=== PATIENT | female | born 1955 | race Caucasian/White ===

== ENCOUNTER 2023-03-12 07:33 | Outpatient (OUT) | payer MEDICARE, OTHER, SELFPAY ==
--- NOTE | 2023-03-12 07:30 | CA_ITS ---
Patient: CHUYITA CAVANAUGH Exam Date: 03/12/2023 : 1955 Gender:F Ordering : [facility] Admission #: [id number] Family : Order #: [id number] CLICK HERE TO VIEW EXAM ECHOCARDIOGRAM REPORT PROCEDURE: CA ECHO DOPPLER COMPLETE INDICATIONS: Mitral valve regurgitation, hypertension COMPARISON: None. DESCRIPTION: COMPLETE ECHOCARDIOGRAM Real-time transthoracic echocardiography with 2D, M-mode, spectral and color flow Doppler performed. QUALITY: Technical quality was good. LEFT VENTRICLE: Mild dilatation. Borderline left ventricular hypertrophy. Normal systolic function. LV EF: Normal left ventricular ejection fraction, (55-60%). DIASTOLIC: Normal diastolic function. ATRIAL SEPTUM: LEFT ATRIUM: Normal chamber size. RIGHT ATRIUM: Normal chamber size. RIGHT VENTRICLE: Normal chamber size. Normal right ventricular systolic function. TRICUSPID VALVE: Normal mobility and thickness. No stenosis with trivial regurgitation. No evidence of pulmonary hypertension. RVSP 23 mmHg MITRAL VALVE: Normal mobility and thickness. No evidence of mitral valve stenosis. Mild mitral annular calcification. Mild mitral regurgitation. AORTIC VALVE: Normal trileaflet appearance. No visible sclerosis. Normal leaflet mobility. No evidence of aortic valve stenosis. No aortic regurgitation. AORTIC ROOT: Normal diameter and appearance. PULMONIC VALVE: Normal thickness and mobility. No stenosis. Mild regurgitation. PERICARDIUM: No evidence of pericardial effusion. IVC: Not well visualized. PLEURA: CONCLUSION: 1. Normal ventricular systolic function. LVEF is 55 to 60%. 2. Normal diastolic function. 3. Mild mitral regurgitation. 4. Normal right-sided pressures. Adult Echocardiography Procedure Report Left Ventricle LVEDD (3.7 - 5.6 cm): 5.49 cm LVESD (2.2 - 4.0 cm): 3.96 cm LVIVS thickness (0.6 - 1.2 cm): 1.13 cm LVPW thickness (0.5 - 1.0 cm): 1.00 cm e': 0.09 m/s E - e': 4.45 LVOT Max Gradient: 2.20 mm[Hg] LVOT Area (cm2): 0.74 m/s Peak Velocity (LVOT): 0.74 m/s LVOT Diameter 2.21 cm Left Atrium LA Volume Index (2D A2C): 33.16 ml/m2 Left Atrium Systolic Dimension: 5.13 cm Mitral Valve MV E to A Ratio: 0.69 Mitral Valve A-Wave Peak Velocity: 0.56 m/s Mitral Valve E-Wave Peak Velocity: 0.39 m/s Right Ventricle Aorta AO Root Diam: 3.38 cm Ascending Ao Diam: 3.48 cm Aortic Valve AoV Area (Peak Enoc): 2.42 cm2, 2.42 cm2 Peak Velocity(Antegrade Flow): 1.17 m/s Peak Gradient(Antegrade Flow): 5.49 mm[Hg] Tricuspid Valve Peak Velocity (Regurgitant Flow): 2.22 m/s Pulmonic Valve Peak Velocity: 1.04 m/s Peak Gradient: 4.35 mm[Hg], 4.35 mm[Hg] Right Atrium Right Atrium Systolic Pressure: 35.02 ml, 28.95 ml, 41.09 ml Dictated by: Haseeb Treadwell M.D. on 03/13/2023 at 17:20 Approved by: Haseeb Treadwell M.D. on 03/13/2023 at 17:23
== END 2023-03-12 07:34 | disposition home or self-care (01) ==
LOC: CARD 07:33
PROVIDERS: Visit Provider Nurse Practitioner Family
DX: I34.0 Nonrheumatic mitral (valve) insufficiency (principal)
CPT/HCPCS: 93306

== ENCOUNTER 2023-03-19 09:52 | Outpatient (OUT) | payer MEDICARE, OTHER, SELFPAY ==
[2023-03-19 11:50] LABS: Alanine Aminotransferase 28 U/L (14-59); Albumin Globulin Ratio 1.1; Alkaline Phosphatase 97 U/L (46-116); Aspartate Amino Transferase 20 U/L (15-37); Bilirubin Direct 0.1 mg/dL (0.0-0.2); Bilirubin Total 0.4 mg/dL (0.2-1.0); Cholesterol 181 mg/dL (<=200); Globulin 3.5 g/dL; HDL Cholesterol 60 mg/dL (40-60); Total Protein 7.5 g/dL (6.4-8.2); Triglycerides 90 mg/dL (<=150)
== END 2023-03-19 09:53 | disposition home or self-care (01) ==
LOC: LAB 09:52
PROVIDERS: Visit Provider Internal Medicine Interventional Cardiology
DX: E78.5 Hyperlipidemia, unspecified (principal)
CPT/HCPCS: 36415; 80061; 80076

== ENCOUNTER 2023-05-23 08:26 | Day surgery (SDC) | payer MEDICARE, OTHER, SELFPAY ==
--- NOTE | 2023-05-23 08:34 | US_ITS ---
[address] [address] Patient Name: CHUYITA CAVANAUGH MRN: [id number] date: 1955 Sex: F Assigned Patient Location: US Current Patient Location: US Accession/Order Number: [id number] Exam Date: 05/23/2023 09:15 Report Date: 05/23/2023 10:10 At the request of: CHETAN SOTO Procedure: US biopsy thyroid EXAMINATION: US biopsy thyroid HISTORY: Thyroid Nodule COMPARISON: Ultrasound thyroid 04/23/2023 TECHNIQUE: After obtaining informed consent, ultrasound-guided fine needle aspiration was performed in the usual sterile manner. FINDINGS: IMAGING: Ultrasound. BIOPSY NEEDLE: 25-gauge; 3 separate passes LOCATION: Right isthmus heterogeneous 1.4 x 1.1 x 0.8 cm nodule. SPECIMEN TYPE: Cellular tissue. LOCAL ANESTHETIC: Buffered Xylocaine. COMPLICATIONS: None. LABORATORY: Prepared slide smears and washings for cell block evaluation. OTHER: Negative. PATHOLOGY: Pending. An addendum will be added when results are available. US/US biopsy thyroid IMPRESSION: 1. Uneventful ultrasound guided fine needle aspiration (FNA). 2. Pathology results are pending. Electronically authenticated by: THUY DARDEN Date: 05/23/2023 10:10
[2023-05-23 08:40] VITALS: BP 113/58; PULSE 62; O2SAT 92
[2023-05-23] MEDS: LIDOCAINE HCL 10 ML, SODIUM BICARBONATE 1 MEQ INJ (09:25)
== END 2023-05-23 09:45 | disposition home or self-care (01) ==
LOC: US 08:26
PROVIDERS: Radiology Diagnostic Radiology; Visit Provider Otolaryngology
DX: E04.1 Nontoxic single thyroid nodule (principal)
CPT/HCPCS: 10005; 88173

== ENCOUNTER 2023-06-10 20:48 | Outpatient (OUT) | payer MEDICARE, OTHER, SELFPAY | END 2023-06-10 20:49 | disposition home or self-care (01) | LOC: SLEEP 20:48 | PROVIDERS: PCP Family Medicine; Visit Provider Family Medicine | DX: G47.33 Obstructive sleep apnea (adult) (pediatric) (principal) | CPT/HCPCS: 95810 ==

== ENCOUNTER 2024-01-26 08:54 | Outpatient (OUT) | payer MEDICARE, OTHER, SELFPAY ==
--- NOTE | 2024-01-26 09:01 | MM_ITS ---
Patient Name: CHUYITA CAVANAUGH MR#: [id number] : 1955 Exam Date: 01/26/2024 Ordering Doctor: DR YUMIKO VALENZUELA RADIOLOGY REPORT PROCEDURE: MM TOMOSYNTHESIS SCREENING BI COMPARISON: MG MAMM SCREEN 3D MATTY CAD, 01/14/2022. MG MAMM SCREEN 3D MATTY CAD, 01/15/2023. INDICATIONS: Screening Calculator Name NCI Breast Cancer Risk Assessment Tool 5 Year Breast Cancer Risk 1.80% Lifetime Breast Cancer Risk 5.90% Personal Breast Cancer No Personal Ovarian Cancer No Treatments tamoxifen Family Cancers Mother with uterine cancer at age 73; Father with prostate cancer at age 74; Grandmother-maternal with kidney cancer at age 93; Grandfather-maternal with leukemia cancer at age ~87. LOCATION: [facility] BREAST COMPOSITION: There are scattered areas of fibroglandular density. FINDINGS: DIAGNOSTIC CATEGORY 2--BENIGN FINDING. NO CHANGE FROM COMPARISON. Scattered benign-appearing nodules are present. Scattered benign-appearing calcifications are present. Scattered benign-appearing lymph nodes are present. RIGHT BREAST: No significant suspicious finding. LEFT BREAST: No significant suspicious finding. RECOMMENDATIONS: ROUTINE MAMMOGRAM AND CLINICAL EVALUATION IN 12 MONTHS. PLEASE NOTE: A NORMAL MAMMOGRAM DOES NOT EXCLUDE THE POSSIBILITY OF BREAST CANCER. A CLINICALLY SUSPICIOUS PALPABLE LUMP SHOULD BE BIOPSIED. Dictated by: Sammy Hernandez MD on 01/26/2024 at 09:52 Approved by: Sammy Hernandez MD on 01/26/2024 at 09:54
--- NOTE | 2024-01-26 09:02 | XR_ITS ---
[address] [address] Patient Name: CHUYITA CAVANAUGH MRN: [id number] date: 1955 Sex: F Assigned Patient Location: [facility] Current Patient Location: [facility] Accession/Order Number: [id number] Exam Date: 01/26/2024 09:16 Report Date: 01/26/2024 09:37 At the request of: YUMIKO VALENZUELA Procedure: XR DEXA axial skeleton EXAMINATION: XR DEXA axial skeleton, 01/26/2024 9:16 AM EDT HISTORY: Screening For Osteoporosis COMPARISON: 2010 TECHNIQUE: Dual-energy X-ray absorptiometry (DEXA) bone density study performed for the axial skeleton. HISTORY: Screening For Osteoporosis FINDINGS: Bone mineral density AP spine L1-L4 measures 1.19 g/sq cm. T score -0.5. WHO classification: Normal Lowest bone mineral density left femoral neck measures 0.815 g/sq cm. T score -1.6. WHO classification: Osteopenia XR/XR DEXA axial skeleton IMPRESSION: Osteopenia. Moderate fracture risk Electronically authenticated by: ALEX NEWELL Date: 01/26/2024 09:37
== END 2024-01-26 08:55 | disposition home or self-care (01) ==
LOC: MAMMO 08:54
PROVIDERS: PCP Family Medicine; Visit Provider Specialist
DX: Z12.31 Encounter for screening mammogram for malignant neoplasm of breast (principal); Z13.820 Encounter for screening for osteoporosis; Z78.0 Asymptomatic menopausal state; Z80.8 Family history of malignant neoplasm of other organs or systems; Z80.42 Family history of malignant neoplasm of prostate; Z80.51 Family history of malignant neoplasm of kidney; Z80.6 Family history of leukemia; M85.80 Other specified disorders of bone density and structure, unspecified site
CPT/HCPCS: 77063; 77067; 77080

== ENCOUNTER 2025-05-02 07:57 | Outpatient (OUT) | payer MEDICARE, OTHER, SELFPAY ==
--- OUTSIDE RECORDS SUMMARY | 2025-04-27 13:00 | XMS_ITS | Encounter Summary ---
Author Organization [facility] Address [address] [place] [address] Care Team Providers Care Small Equipment Operator Name Role Phone Max Jean Baptiste MD Primary Care Provider [phone] Reason for Visit * Reason Comments Post-op Visit Accompanied by Terrell baker nd.04-14-25 posterior daysStill bleeding- not gushing, but consistent. Bright red. Wears a light pad. Reports urgency, bladder not fully emptying. Has urinated in pad. Does not always make it to the bathroom. Encounter Details Date Type Department Care Team (Late st Contact Info) Description 04/27/2025 1:00 PM EDT Office Visit [facility] [place] [facility] [address] [facility] [address] [place] [phone] Neto Horton DO [address] [facility] [address] [place] [address] Aftercare following surgery Social History Tobacco Use Types Packs/Day Years Used Date Smoking Tobacco: Never Smokeless Tobacco: Never Alcohol Use Standard Drinks/Week Comments Never 0 (1 standard drink = 0.6 oz pur e alcohol) AUDIT-C Answer Date Recorded Q1: How often do you have a drink containing alcohol? Never 02/04/2024 Q2: How many drinks containi ng alcohol do you have on a typical day when you are drinking? Patient does not drink Q3: How often do you have si x or more drinks on one occasion? Never 02/04/2024 PHQ-2 Answer Date Recorded Patient Health Questionnaire-2 Score 0 02/04/2024 Comments No Sex and Gender Information Value Date Recorded Sex Assigned at Not on file Legal Sex Female 6:42 PM EDT Gender Identity Not on file Sexual Orientation Not on file documented as of this encounter Last Filed Vital Signs Vital Sign Reading Time Taken Comments Blood Pressure 136/84 04/27/2025 12:40 PM EDT Pulse - - Temperature - - Respiratory Rate - - Oxygen Saturation - - Inhaled Oxygen Concentration - - Weight 100 kg (221 lb) 04/27/2025 12:40 PM EDT Height - - Body Mass Index 36.78 11/02/2024 7:59 AM EST documented in this encounter Progress Notes * Bina Hawkins MA - 04/27/2025 1:00 PM EDT Images from the original note were not included. Neto Horton DO Obstetrics and Gynecology Patient: Nemo Cedillo : 1955 (69 y.o.) Post Operative visit Date: 04/27/2025 Chief Complaint Patient presents with Post-op Visit Accompanied by , Terrell. 04-14-25 posterior repair 13 days Still bleeding- not gushing, but consistent. Bright red. Wears a light pad. Reports urgency, bladder not fully emptying. Has urinated in pad. Does not always make it to the bathroom. Visit Vitals BP 136/84 Wt 221 lb LMP (LMP Unknown) BMI 36.78 kg/m?? OB Status Hysterectomy Smoking Status Never BSA 2.14 m?? History of Present Illness, Associated Treatments and Results - Postoperative Follow-up Patient is a 69 y.o. 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 Eating a regular diet without difficulty. Bowel movements are normal. The patient is not having anypain. Patient denies swelling, redness, or discharge from her incision. OB History Para Term AB Living 4 4 4 SAB IAB Ectopic Multiple Live Births 4 # Outcome Date GA Lbr Omer/2nd Weight Sex Type Anes PTL Lv 4 Para Vag-Spont DEC 3 Para Vag-Spont NILESH 2 Para Vag-Spont NILESH 1 Para Vag-Spont NILESH Obstetric Comments Heaviest weighed 10 lbs 10 oz. Review of Systems-see HPI Medication Documentation Review Audit Reviewed by Tammy Wang MA (Higher Level Teaching Assistant) on 04/27/25 at 1240 Medication Order Taking? Sig Documenting Provider Last Dose Status acetaminophen (Tylenol) 325 MG tablet [id number] Take by mouth Sylwia Carcamo MD Active amLODIPine (Norvasc) 5 MG tablet [id number] Take 5 mg by mouth in the morning. Adan Bustillo MD 11/02/24 2359 amoxicillin (Amoxil) 500 MG capsule [id number] Neto Horton DO Active aspirin 81 MG chewable tablet [id number] Chew 81 mg 1 (one) time each day at the same time. Adan Bustillo MD Active bisoprolol-hydroCHLOROthiazide (Ziac) 10-6.25 MG tablet [id number] Take 1 tablet by mouth in the morning. Adan Bustillo MD 11/02/24 2359 Calcium 600-10 MG-MCG chewable tablet [id number] Chew 1 tablet in the morning. Adan Bustillo MD Active celecoxib (CeleBREX) 100 MG capsule [id number] Yes Twice daily Neto Horton DO Active estradiol (Estrace) 0.1 MG/GM vaginal cream [id number] Insert twice weekly Eve Carlos MD Active glucosamine-chondroitin 500-400 MG tablet [id number] Take 1 tablet by mouth in the morning. Historical MD Keny Active Multiple Vitamins-Minerals (Thera-M) tablet [id number] Take 1 tablet by mouth in the morning. Adan Bustillo MD Active niacin (Slo-Niacin) 500 MG ER tablet [id number] Take 500 mg by mouth at bedtime. Adan Bustillo MD Active omega-3 (Fish Oil) 1200 MG capsule [id number] Take 1,200 mg by mouth 1 (one) time each day at the same time. Adan Bustillo MD Active traMADol (Ultram) 50 MG tablet [id number] Yes Q4H as needed for Pain Scale 1 - 4 Neto Horton DOActive Past Medical History: Diagnosis Date Abnormal CT of the abdomen 05/09/2023 Anemia Anxiety Arthritis Breast cancer in situ 05/2008 lobular Breast lump Cataract Chicken pox COVID-19 04/2022 Depression Disease of thyroid gland 2020 Disorder of 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 Eczema winter Family history of cancer GERD (gastroesophageal reflux disease) Hiatal hernia History of kidney stones History of medical problems liver stenosis History of transfusion 1977 HL (hearing loss) HLD (hyperlipidemia) HTN (hypertension) Hypercholesterolemia IBS (irritable bowel syndrome) Kidney stones Lobular breast cancer (HCC) 05/2008 Lung nodule Measles Menopause ovarian failure 2010 Mitral valve regurgitation Mucocele, 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 Nodule of spleen Obesity Pain in left knee 05/09/2023 Prediabetes Sleep apnea Sleep difficulties Status post total left knee replacement 10/15/2018 Thyroid mass Urinary incontinence 2019 Past Surgical History: Procedure Laterality Date ANTERIOR CRUCIATE LIGAMENT REPAIR APPENDECTOMY 01/28/2022 BREAST BIOPSY 2007 BREAST LUMPECTOMY Left 10/2006 CARDIAC CATHETERIZATION 02/2005 CARPAL TUNNEL RELEASE Left 07/2016 CHOLECYSTECTOMY 06/2009 COLONOSCOPY 2009 COLPORRHAPHY 04/14/2025 posterior FNA W IMAGING GUIDANCE Left 07/31/2021 thyroid nodule LITHOTRIPSY 09/2014 OTHER SURGICAL HISTORY 06/2000 repair ruptured RT ACL, Dr. Murray OTHER SURGICAL HISTORY 1981 tubal THYROIDECTOMY Left 10/09/2021 Dr. Carcamo TONSILLECTOMY 1960 TOTAL KNEE ARTHROPLASTY Left 10/16/2018 Dr. Murray TOTAL VAGINAL HYSTERECTOMY 2012 with LSO TUBAL LIGATION 1982 Family History Problem Relation Name Age of Onset Hyperlipidemia Mother Jaja ambrosio Heart failure Mother Jaja ambrosio Diabetes Mother Jaja ambrosio Uterine cancer Mother Jaja ambrosio Hearing loss Mother Jaja ambrosio Other (ASCVD) Mother Jaja ambrosio Colon polyps Mother Jaja ambrosio Hypertension Mother Jaja ambrosio Cancer Mother Jaja ambrosio Thyroid disease Mother Jaja ambrosio Heart failure Father Ari millannden Hypertension Father Ari millanndluli Other (ASCVD) Father Ari millanndluli Cancer Father Ari millannden Cancer Sister Michi c harnden Hearing loss Sister Michi c harnden Heart failure Sister Michi c harnden Thyroid disease Sister Michi c harnden Physical Exam - General appearance, mentation, extraocular movements, facial strength and movement, hearing, upper and lower extremity strength and tone, sensation to gross testing, coordination, and gait are normalor at baseline unless noted below. 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 Operative findings again reviewed. Pathology report discussed. 1. Continue any current medications. 2. Wound care discussed. 3. Activity restrictions: no heavy lifting 4. Anticipated return to work: not applicable. 5. Follow up: 4 weeks ICD-10-CM 1. Aftercare following surgery Z48.89 Entered by Bina Hawkins MA acting as scribe for Dr. Neto Horton. Signature Bina Hawkins MA Date 04/27/25 . Time 12:53 PM . The documentation recorded by the scribe accurately reflectsthe service(s) I personally performed and the decisions I made. Signature Marcell Horton D.O. Date 04/27/25 Time 5:00PM. documented in this encounter Plan of Treatment Upcoming Encounters Date Type Department Care Team (Late st Contact Info) Description 05/24/2025 10:45 AM EDT Office Visit [facility] [address] [facility] [address] [place] [phone] Neto Horton DO [address] [facility] [address] [place] [address] 11/01/2025 8:00 AM EST Office Visit [facility] [address] [facility] [address] [place] [address] Sylwia Carcamo MD [address] [facility] [address] [place] [address] 02/27/2026 9:00 AM EDT Office Visit [facility] [address] [facility] [place] [address] Chip Tejeda DO [address] [facility] [place] [address] documented as of this encounter Visit Diagnoses Diagnosis Aftercare following surgery Encounter for other specified aftercare documented in this encounter Care Teams Small Equipment Operator Relationship Specialty Start Date End Date Max Jean Baptiste MD [address] [place] [address] PCP - General Family Medicine 05/12/24 documented as of this encounter
--- OUTSIDE RECORDS SUMMARY | 2025-05-02 07:59 | XMS_ITS | Encounter Summary ---
Author Organization [facility] Address [address] [place] [address] Care Team Providers Care Vacuum Pan Tender Name Role Phone Max Jean Baptiste MD Primary Care Provider [phone] Encounter Details Date Type Department Care Team (Late Contact Info) Description 05/03/2024 External Result Encounter [facility] External Department Unsolicited Sylwia Carcamo MD [address] [facility] [address] [place] [address] Social History Tobacco Use Types Packs/Day Years [...] on file documented as of this encounter Plan of Treatment Upcoming Encounters Date Type Department Care Team (Late Contact Info) Description 05/24/2025 10:45 AM EDT Office Visit [facility] [address] [place] [address] Neto Horton, [address] [place], [place] [id number] 11/01/2025 8:00 AM EST Office Visit [facility] [place] [facility] [address] [facility] [address] [place] [address] Sylwia Carcamo MD [address] [facility] [address] [place] [address] 02/27/2026 9:00 AM EDT Office Visit [facility] [address] [place] [address] Chip Tejeda DO [address] [facility] [place] [address] documented as of this encounter Procedures Procedure Name Priority Date/Time Associated Diagnosis Comments US THYROID 05/03/2024 12:25 PM EDT documented in this encounter Results * US thyroid (05/03/2024 12:25 PM EDT) Anatomical Region Laterality Modality Head, Neck Ultrasound 05/03/2024 12:2 5 PM EDT Impressions 05/03/2024 12:30 PM EDT A similar thyroid nodules. Similar questionable residual thyroid tissue on the left. No new findings. Impression dictated by: Basil Trotter M.D.05/03/2024 12:28 PM Dictation Location: [place] [address] Tech: Clover Rivera Transcribed By: PWS 05/03/24 1228 Dictated By: Bsail Trotter DO 05/03/24 1225 Signed By: <Electronically signed by Basil Trotter DO in OV> 05/03/24 1228 Narrative 05/03/2024 12:30 PM EDT [facility] [place] [address] [place] [id number] Ultrasound Report Signed Patient: Nemo Cedillo MR#: [id number] 9 : 1955 Acct:[id number] Age/Sex: 68 / F ADM Date: 05/03/24 Loc: UL Room: Type: REG CLI Attending Dr: Sylwia Carcamo Jr, MD Ordering Provider: SYLWIA CARCAMO MD Date of Service: 05/03/24 US/US thyroid: thyroid nodule Copies to: SYLWIA CARCAMO MD Thyroid Ultrasound HISTORY: Thyroid nodule. Left thyroidectomy COMPARISON: None The RIGHT lobe measures 4.4 x 1.9 x 2.1cm. LEFT lobe resected Isthmus has an AP dimension of 0.5cm. The right mid to inferior solid cystic nodule measures up to 5 mm. Right inferior spongiform nodule measures up to 6 mm. In region of the isthmus on the right there is a mixed echogenic nodule measuring up to 17 mm. Small modified hypoechoic tissue on the left measures up to 7 mm. This is unchanged.. No microcalcifications identified. Symmetric blood flow of the thyroid gland identified. US/US thyroid Procedure Note Radiology, Radiologist, MD - 05/03/2024 [facility] [place] [address] [place] [address] Ultrasound Report Signed Patient: Nemo Cedillo [facility]#: [id number] 9 : 6Acct:[id number] Age/Sex: 68 / FADM Date: 05/03/24 Loc: Room:Type: REG CLI Attending Dr: Sylwia Carcamo Jr, MD Ordering Provider: SYLWIA CARCAMO MD Date of Service: 05/03/24 US/US thyroid: thyroid nodule Copies to: SYLWIA CARCAMO MD Thyroid Ultrasound HISTORY: Thyroid nodule. Left thyroidectomy COMPARISON: None The RIGHT lobe measures 4.4 x 1.9 x 2.1cm. LEFT lobe resected Isthmus has an AP dimension of 0.5cm. The right mid to inferior solid cystic nodule measures up to 5 mm. Rightinferior spongiform nodule measures up to 6 mm. In region of the isthmus on the right there is amixed echogenic nodule measuring up to 17 mm. Small modified hypoechoic tissue on the leftmeasures up to 7 mm. This is unchanged.. No microcalcifications identified. Symmetric blood flow of the thyroid gland identified. US/US thyroid IMPRESSION: A similar thyroid nodules. Similar questionable residual thyroid tissue onthe left. No new findings. Impression dictated by: Basil Trotter M.D.05/03/2024 12:28 PM Dictation Location: [place] [address] [facility] Transcribed By: PWS 05/03/24 1228 Dictated By: Basil Trotter DO 05/03/24 1225 Signed By: <Electronically signed by Basil Trotter DO in OV> 05/03/24 1228 us Sylwia Carcamo MD IMG US PROCEDURES Final Resul t documented in this encounter Visit Diagnoses Not on filedocumented in this encounter Care Teams Vacuum Pan Tender Relationship Specialty Start Date End Date Max Jean Baptiste MD [address] [place] [address] PCP - General Family Medicine 05/12/24 documented as of this encounter
--- OUTSIDE RECORDS SUMMARY | 2025-05-02 07:59 | XMS_ITS | Clinical Summary ---
Author Organization Ornicept s tem Address [facility] [id number] [address] [place] [address] Care Team Providers Care Lie Detector Operator Name Role Phone Kamilla Shabazz MD Primary Care Provider [phone] Allergies Active Allergy Reactions Criticality Noted Date Comments Menthol 10/06/2018 Red hot rash Lidocaine 10/06/2018 Hot red rash Medications niacin (VITAMIN B3) 500 mg tablet Take 500 mg by mouth daily with breakfast. Active bisoprolol-hydro CHLOROthiazide (ZIAC) 10-6.25 mg per tablet Take 1 tablet by mouth daily. Active ferrous sulfate 325 (65 FE) mg tablet Take 325 mg by mouth daily with breakfast. Active ivsgsabf-izod-AB -calcium &mins (THERAGRAN-M) 9 mg iron-400 mcg tablet Take 1 tablet by mouth daily. Active calcium carbonate-vitami n D3 (OSCAL 500 + D) 500 mg(1,250mg) -200 units per tablet Take 1 tablet by mouth 2 (two) times a day with meals. Active glucosamine-heriberto droitin 500-400 mg tablet Take 1 tablet by mouth 3 (three) times a day. Active amLODIPine (NORVASC) 10 mg tablet Take 5 mg by mouth daily. Active Active Problems Problem Noted Date Diagnosed Date History of left knee replacement 10/15/2018 Immunizations Immunization Administration Dates Next Due Influenza, Unspecified 11/14/1999 Social History Tobacco Use Types Packs/Day Years Used Date Smoking Tobacco: Former Smokeless Tobacco: Never Alcohol Use Standard Drinks/Week Comments No 0 (1 standard drink = 0.6 oz pur e alcohol) AUDIT-C Answer Date Recorded Frequency of Alcohol Consumption Never 10/06/2018 Average Number of Drinks Not on file 019 Frequency of Binge Drinking Not on file 09/16 Childcare Answer Date Recorded Childcare Unknown 02/24/2019 Employment Answer Date Recorded Employment Unknown 02/24/2019 Purpose - Life Answer Date Recorded Purpose and direction in life Unknown Comments No Sex and Gender Information Value Date Recorded Sex Assigned at Not on file Legal Sex Female 11:42 AM EDT Gender Identity Not on file Sexual Orientation Not on file Last Filed Vital Signs Vital Sign Reading Time Taken Comments Blood Pressure 108/54 10/17/2018 7:23 AM EST Pulse 64 10/17/2018 7:23 AM EST Temperature 36.9 C (98.4 F) 10/17/2018 7:23 AM EST Respiratory Rate 16 10/17/2018 7:23 AM EST Oxygen Saturation 95% 10/17/2018 7:23 AM EST Inhaled Oxygen Concentration - - Weight 82.5 kg (181 lb 14.1 oz) 019 12:00 PM EST Height 167.6 cm (5' 6 ) 10/16/2018 12:0 0 PM EST Body Mass Index 29.36 10/16/2018 12:00 PM EST Plan of Treatment Not on file Medical Devices Implanted Type Area Internet Marketing Consultant Device Identifier Shelf Expiration Date Model / Serial / Lot Cmnt Bn Hvisc Plc Rpl [id number] - Sna - [id number] Implanted:Qty: 1 on 10/16/2018 by Haseeb Murray Jr., DO at [facility] Cement Left: Knee Klatcher 12/13/2021 [id number] / NA / [id number] Cmnt Bn Hvisc Plc Rpl [id number] - Sna - [id number] Implanted:Qty: 1 on 10/16/2018 by Haseeb Murray Jr., DO at [facility] Cement Left: Knee [employer] 12/13/2021 [id number] / NA / [id number] Ins Artc 5-6 C-D 12mm Kn Fx Rpl [id number] + 21192 - Sna - [id number] Implanted:Qty: 1 on 10/16/2018 by Haseeb Murray Jr., DO at [facility] Orthopedic Implant Left: Knee [employer] 01/13/20195962-12 14- / NA / [id number] Cmpt Ptlr Std 8mm 29mm Nxgn Rpl [id number] + [id number] + [id number] - Sna - [id number] Implanted:Qty: 1 on 10/16/2018 by Haseeb Murray Jr., DO at [facility] Orthopedic Implant Left: Knee [employer] 08/14/2026597202-10 / NA / [id number] Cmpt Fem D Kn Lt Lpsflx Gndr Rpl [id number] - Sna - [id number] Implanted:Qty: 1 on 10/16/2018 by Haseeb Murray Jr., DO at [facility] Orthopedic Implant Left: Knee [employer] 05/15/20285764 4- / NA / [id number] Plt Tib [id number] Nxgn Kn Cmnt Rpl [id number] + [id number] - Sna - [id number] Implanted:Qty: 1 on 10/16/2018 by Haseeb Murray Jr., DO at [facility] Plate Left: Knee [employer] 09/14/20285980-03-15 / NA / [id number] Explanted Type Area Internet Marketing Consultant Device Identifier Shelf Expiration Date Model / Serial / Lot Scr Bn Nino 35mm 6.5mm Hip St Rpl [id number] + [id number] + 32 - Sna - [id number] Explanted:Qty: 1 on 10/16/2018 by Haseeb Murray Jr., DO at [facility] Screw Left: Knee [employer] 08/14/2028 5-35 / NA / [id number] Scr Bn Nino 35mm 6.5mm Hip St Rpl [id number] + [id number] + 32 - Sna - [id number] Explanted:Qty: 1 on 10/16/2018 by Haseeb Murray Jr., DO at [facility] Screw Left: Knee [employer] 08/14/2028 5-35 / NA / [id number] Scr Gd 48mm Qd-Spr Hex Hd Mis - Sna - [id number] Explanted:Qty: 2 on 10/16/2018 by Haseeb Murray Jr., at [facility] Screw Left: Knee [employer] 09/14/2028 00-5983-04 0-48 / NA / [id number] Insurance [facility] Member Subscriber Plan / Payer ( fective 2018-Present) Name:Nemo Cedillo Relation to Subscriber:Unknown Name:TERRELL CEDILLO Date of :1955 Address: [facility] [place] [address] Payer ID:[id number] (NA) Type:Not on file Address: [place] [id number] [facility] Member Subscriber Plan / Payer (Ef fective 2018-Present) Name:Nemo Cedillo Relation to Subscriber:Unknown Name:TERRELL CEDILLO Date of :1955 Address: 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
--- OUTSIDE RECORDS SUMMARY | 2025-05-02 07:59 | XMS_ITS | Encounter Summary ---
Author Organization [facility] Address [address] [place] [address] Care Team Providers Care Database Security Administrator Name Role Phone Max Jean Baptiste MD Primary Care Provider [phone] Encounter Details Date Type Department Care Team (Late Contact Info) Description 05/23/2023 Clinisync Result Encounter [facility] External Department Unsolicited Sylwia Carcamo MD [address] [facility] [address] [place] [address] Social History Tobacco Use Types Packs/Day Years Used Date Smoking Tobacco: Never Smokeless Tobacco: Never Alcohol Use Standard Drinks/Week Comments Never 0 (1 standard drink = 0.6 oz pur e alcohol) Comments Unknown Sex and Gender Information Value Date Recorded Sex Assigned at Not on file Legal Sex Female 6:42 PM EDT Gender Identity Not on file Sexual Orientation Not on file COVID-19 Exposure Response Date Recorded In the last 10 days, have yo u been in contact with someone who was confirmed or suspected to have Coronavirus/COVID-19? No / Unsure 05/12/2023 3:17 PM EDT documented as of this encounter Plan of Treatment Upcoming Encounters Date Type Department Care Team (Late st Contact Info) Description 05/24/2025 10:45 AM EDT Office Visit [facility] [address] [place] [phone] Neto Horton DO [address] [place] [address] 11/01/2025 8:00 AM EST Office Visit [facility] [place] [facility] [address] [facility] [address] [place] [address] Sylwia Carcamo MD [address] [facility] [address] [place] [address] 02/27/2026 9:00 AM EDT Office Visit [facility] [address] [facility] [phone] Chip Tejeda DO [address] [facility] [place] [address] documented as of this encounter Procedures Procedure Name Priority Date/Time Associated Diagnosis Comments US BIOPSY THYROID 05/23/2023 10: 10 AM EDT documented in this encounter Results * US BIOPSY THYROID (05/23/2023 10:10 AM EDT) Anatomical Region Laterality Modality Other 05/23/2023 10:1 0 AM EDT Narrative 04/12/2024 8:27 AM EDT [address] [address] Ultrasound Report Signed with Thuyenda Patient: CHUYITA CEDILLO MR#: [id number] : 1955 Acct:[id number] Age/Sex: 67 / F ADM Date: 05/23/23 Loc: US Attending Dr: Sylwia Carcamo M.D. Ordering Physician: Sylwia Carcamo M.D. Date of Service: 05/23/23 Procedure(s): US biopsy thyroid Accession Number(s): [id number] cc: Physician,Non-Staff Jay; Sylwia Carcamo M.D. ADDENDUM The [address] [address] Patient Name: CHUYITA CEDILLO MRN: [id number] date: 1955 Sex: F Assigned Patient Location: US Current Patient Location: SLEEP Accession/Order Number: [id number] Exam Date: 05/23/2023 09:15 Report Date: 06/04/2023 15:59 At the request of: SYLWIA CARCAMO Procedure: US biopsy thyroid Begin Addendum #1 COLLECTED DATE/TIME: 05/23/2023 08:26 EDT Final Diagnosis Report for [facility] [place], [place] RIGHT ISTHMUS THYROID NODULE, FINE NEEDLE ASPIRATION: -ATYPIA OF UNDETERMINED SIGNIFICANCE. (SEE COMMENT). COMMENT: Sparsely cellular aspirate with little colloid and mild cytologic atypia is present. A repeat FNA or molecular testing may be helpful if clinically indicated. Intradepartmental consultation has been obtained with diagnostic concurrence. 06/03/2023 copy picked up by Radha Baker. Original Report EXAMINATION: US biopsy thyroid HISTORY: Thyroid Nodule COMPARISON: Ultrasound thyroid 04/23/2023 TECHNIQUE: After obtaining informed consent, ultrasound-guided fine needle aspiration was performed in the usual sterile manner. FINDINGS: IMAGING: Ultrasound. BIOPSY NEEDLE: 25-gauge; 3 separate passes LOCATION: Right isthmus heterogeneous 1. 4 x 1. 1 x 0. 8 cm nodule. SPECIMEN TYPE: Cellular tissue. LOCAL ANESTHETIC: Buffered Xylocaine. COMPLICATIONS: None. LABORATORY: Prepared slide smears and washings for cell block evaluation. OTHER: Negative. PATHOLOGY: Pending. An addendum will be added when results are available. Addendum Dictated By: Idris Milan M.D. Addendum Signed By: <Electronically signed by Idris Milan M.D.> 04/12/24826 Addendum Cosigned By: DD/ TD/TT: / ADDENDUM US/US biopsy thyroid IMPRESSION: 1. Uneventful ultrasound guided fine needle aspiration (FNA). 2. Pathology results are pending. Electronically authenticated by: IDRIS MILAN Date: 06/04/2023 15:59 Addendum Dictated By: Idris Milan M.D. Addendum Signed By: <Electronically signed by Idris Milan M.D.> 04/12/24826 Addendum Cosigned By: DD/ TD/TT: / The [address] [id number] Patient Name: CHUYITA CEDILLO MRN: [id number] date: 1955 Sex: F Assigned Patient Location: US Current Patient Location: US Accession/Order Number: [id number] Exam Date: 05/23/2023 09:15 Report Date: 05/23/2023 10:10 At the request of: SYLWIA CARCAMO Procedure: US biopsy thyroid EXAMINATION: US biopsy thyroid HISTORY: Thyroid Nodule COMPARISON: Ultrasound thyroid 04/23/2023 TECHNIQUE: After obtaining informed consent, ultrasound-guided fine needle aspiration was performed in the usual sterile manner. FINDINGS: IMAGING: Ultrasound. BIOPSY NEEDLE: 25-gauge; 3 separate passes LOCATION: Right isthmus heterogeneous 1.4 x 1.1 x 0.8 cm nodule. SPECIMEN TYPE: Cellular tissue. LOCAL ANESTHETIC: Buffered Xylocaine. COMPLICATIONS: None. LABORATORY: Prepared slide smears and washings for cell block evaluation. OTHER: Negative. PATHOLOGY: Pending. An addendum will be added when results are available. US/US biopsy thyroid IMPRESSION: 1. Uneventful ultrasound guided fine needle aspiration (FNA). 2. Pathology results are pending. Electronically authenticated by: IDRIS MILAN Date: 05/23/2023 10:10 Dictated By: Idris Milan M.D. Signed By: 05/23/23 1013 DD/ 1010 TD/TT: Mat Inspector: Procedure Note Radiology, Radiologist, MD - 04/12/2024 The [place] [id number] Ultrasound Report Signed with Addenda Patient: CHUYITA CEDILLO NMR#: [id number] : 1955cct:[id number] Age/Sex: 67 / FADM Date: 05/23/23 Loc: US Attending Dr: Sylwia Carcamo M.D. Ordering Physician: Sylwia Carcamo M.D. Date of Service: 05/23/23 Procedure(s): US biopsy thyroid Accession Number(s): [id number] cc: Physician,Non-Staff Jay; Sylwia Carcamo M.D. ADDENDUM The [address] [address] Patient Name: CHUYITA CEDILLO MRN: [id number] date: 1955 Sex: F Assigned Patient Location: US Current Patient Location: [facility] [place] Accession/Order Number: [id number] Exam Date: 05/23/2023 09:15 Report Date: 06/04/2023 15:59 At the request of: SYLWIA CARCAMO Procedure: US biopsy thyroid Begin Addendum #1 COLLECTED DATE/TIME: 05/23/2023 08:26 EDT Final Diagnosis Report for [facility] [place] RIGHT ISTHMUS THYROID NODULE, FINE NEEDLE ASPIRATION: -ATYPIA OF UNDETERMINED SIGNIFICANCE. (SEE COMMENT). COMMENT: Sparsely cellular aspirate with little colloid and mild cytologic atypia is present. A repeat FNA or molecular testing may be helpful if clinically indicated. Intradepartmental consultation has been obtainedwith diagnostic concurrence. 06/03/2023 copy picked up by Radha Baker. Original Report EXAMINATION: US biopsy thyroid HISTORY: Thyroid Nodule COMPARISON: Ultrasound thyroid 04/23/2023 TECHNIQUE: After obtaining informed consent, ultrasound-guided fine needle aspiration was performed in the usual sterile manner. FINDINGS: IMAGING: Ultrasound. BIOPSY NEEDLE: 25-gauge; 3 separate passes LOCATION: Right isthmus heterogeneous 1. 4 x 1. 1 x 0. 8 cm nodule. SPECIMEN TYPE: Cellular tissue. LOCAL ANESTHETIC: Buffered Xylocaine. COMPLICATIONS: None. LABORATORY: Prepared slide smears and washings for cell block evaluation. OTHER: Negative. PATHOLOGY: Pending. An addendum will be added when results are available. Addendum Dictated By: Idris Milan M.D. Addendum Signed By: <Electronically signed by Idris Milna M.D.> 04/12/24 0827 Addendum Cosigned By: DD/ TD/TT: / ADDENDUM US/US biopsy thyroid IMPRESSION: 1. Uneventful ultrasound guided fine needle aspiration (FNA). 2. Pathology results are pending. Electronically authenticated by: IDRIS MILAN Date: 06/04/2023 15:59 Addendum Dictated By: Idris Milan M.D. Addendum Signed By: <Electronically signed by Idris Milan M.D.> 04/12/24 0827 Addendum Cosigned By: DD/ TD/TT: / [place] [id number] Patient Name: CHUYITA CEDILLO MRN: [id number] date: 1955 Sex: F Assigned Patient Location: US Current Patient Location: Accession/Order Number: [id number] Exam Date: 05/23/2023 09:15 Report Date: 05/23/2023 10:10 At the request of: SYLWIA CARCAMO Procedure: US biopsy thyroid EXAMINATION: US biopsy thyroid HISTORY: Thyroid Nodule COMPARISON: Ultrasound thyroid 04/23/2023 TECHNIQUE: After obtaining informed consent, ultrasound-guided fine needle aspiration was performed in the usual sterile manner. FINDINGS: IMAGING: Ultrasound. BIOPSY NEEDLE: 25-gauge; 3 separate passes LOCATION: Right isthmus heterogeneous 1.4 x 1.1 x 0.8 cm nodule. SPECIMEN TYPE: Cellular tissue. LOCAL ANESTHETIC: Buffered Xylocaine. COMPLICATIONS: None. LABORATORY: Prepared slide smears and washings for cell block evaluation. OTHER: Negative. PATHOLOGY: Pending. An addendum will be added when results are available. US/US biopsy thyroid IMPRESSION: 1. Uneventful ultrasound guided fine needle aspiration (FNA). 2. Pathology results are pending. Electronically authenticated by: IDRIS MILAN Date: 05/23/2023 10:10 Dictated By: Idris Milan M.D. Signed By:05/23/23 1013 DD/ 1010 TD/TT: Mat Inspector: us Sylwia Carcamo MD [facility] Final Resul t documented in this encounter Visit Diagnoses Not on filedocumented in this encounter Care Teams Database Security Administrator Relationship Specialty Start Date End Date Max Jean Baptiste MD [address] [place] [id number] PCP - General Family Medicine 05/12/24 documented as of this encounter
--- OUTSIDE RECORDS SUMMARY | 2025-05-02 07:59 | XMS_ITS | Encounter Summary ---
Author Organization [facility] Address [address] [place] [address] Care Team Providers Care Gas Controller Name Role Phone Max Jean Baptiste MD Primary Care Provider [phone] Encounter Details Date Type Department Care Team (Late Contact Info) Description 10/19/2024 External Result Encounter [facility] External Department Unsolicited Sylwia Carcamo MD 112 [facility] 130 [place] [address] Social History Tobacco Use Types [...] OBGYN [address] [place] [address] Neto Horton, DO [address] [place] [address] 11/01/2025 8:00 AM EST Office Visit [facility] [place] [facility] [address] [facility] [address] [place] [phone] Sylwia Carcamo MD [address] [place] [address] [place] [address] 02/27/2026 9:00 AM EDT Office Visit [facility] [address] [facility] [place] [address] Chip Tejeda DO [address] [facility] [place] [address] documented as of this encounter Procedures Procedure Name Priority Date/Time Associated Diagnosis Comments US THYROID 10/19/2024 10:45 AM EST documented in this encounter Results * US thyroid (10/19/2024 10:45 AM EST) Anatomical Region Laterality Modality Head, Neck Ultrasound 10/19/2024 10:4 5 AM EST Impressions 10/19/2024 10:52 AM EST TIRADS: 2 (not suspicious) Recommendation: No further ultrasound follow-up is recommended. Grossly unchanged thyroid nodules are noted more to the prior exam. Impression dictated by: Freddy Jackson M.D.10/19/2024 10:49 AM Dictation Location: [place] [address] Tech: Viji Hancock Transcribed By: PWS 10/19/24 1049 Dictated By: Freddy Jackson II, MD 10/19/24 104 Signed By: <Electronically signed by Freddy Jackson II, MD in OV> 10/19/24 1049 Narrative 10/19/2024 10:52 AM EST [facility] Main [address] [address] Ultrasound Report Signed Patient: Nemo Cedillo MR#: [id number] : 1955 Acct:[id number] Age/Sex: 69 / F ADM Date: 10/19/24 Loc: Room: Type: REG CLI Attending Dr: Sylwia Carcamo Jr, MD Ordering Provider: SYLWIA CARCAMO MD Date of Service: 10/19/24 US/US thyroid: C73 E04.1 Copies to: SYLWIA CARCAMO MD US thyroid 10/19/2024 7:19 AM SIGNS AND SYMPTOMS: Thyroid nodule, history of left thyroidectomy COMPARISON: 05/03/2004 FINDINGS: Right thyroid lobe is normal in size and echotexture. The right thyroid lobe measures 4.2 x 2.1 x 2.4 centimeters The isthmus measures 0.4 cm in thickness. Nodules are redemonstrated in the right thyroid lobe. These are spongiform, hypoechoic, wider than tall, with ill-defined margins. No calcification is noted. The largest is near the inferior pole measuring 6 mm in greatest dimension. There is a nodule along the anterior aspect of the right thyroid lobe extending into the isthmus measuring 1.3 x 0.7 x 1.2 cm in greatest dimension. This is similar to the prior exam. This is spongiform, slightly hypoechoic, has smooth margins, and lacks calcifications. This is wider than tall orientation. No cervical lymphadenopathy is noted. US/US thyroid Procedure Note Freddy Jackson MD - 10/19/2024 [facility] Main [place] [address] [place] [address] Ultrasound Report Signed Patient: Nemo Cedillo NMR#: [id number] : 1955cct:[id number] Age/Sex: 69 / FADM Date: 10/19/24 Loc: Room:Type: REG CLI Attending Dr: Sylwia Carcamo Jr, MD Ordering Provider: SYLWIA CARCAMO MD Date of Service: 10/19/24 US/US thyroid: C73 E04.1 Copies to: SYLWIA CARCAMO MD US thyroid 10/19/2024 7:19 AM SIGNS AND SYMPTOMS: Thyroid nodule, history of left thyroidectomy COMPARISON: 05/03/2004 FINDINGS: Right thyroid lobe is normal in size and echotexture. The right thyroidlobe measures 4.2 x 2.1 x 2.4 centimeters The isthmus measures 0.4 cm in thickness. Nodules are redemonstrated in the right thyroid lobe. These arespongiform, hypoechoic, wider than tall, with ill-defined margins. No calcification is noted. The largestis near the inferior pole measuring 6 mm in greatest dimension. There is a nodule along the anterior aspect of the right thyroid lobeextending into the isthmus measuring 1.3 x 0.7 x 1.2 cm in greatest dimension. This is similar tothe prior exam. This is spongiform, slightly hypoechoic, has smooth margins, and lackscalcifications. This is wider than tall orientation. No cervical lymphadenopathy is noted. US/US thyroid IMPRESSION: TIRADS: 2 (not suspicious) Recommendation: No further ultrasound follow-up is recommended. Grossly unchanged thyroid nodules are noted more to the prior exam. Impression dictated by: Freddy Jackson M.D.10/19/2024 10:49 AM Dictation Location: [place] [address] Tech: Viji Hancock Transcribed By: DANIEL 10/19/24 1049 Dictated By: Freddy Jackson II, MD 10/19/24 1045 Signed By: <Electronically signed by Freddy Jackson II, MD inOV> 10/19/24 1049 us Sylwia Carcamo MD IMG US PROCEDURES Final Resul t documented in this encounter Visit Diagnoses Not on filedocumented in this encounter Care Teams Gas Controller Relationship Specialty Start Date End Date Max Jean Baptiste MD [address] [place] [address] PCP - General Family Medicine 05/12/24 documented as of this encounter
--- OUTSIDE RECORDS SUMMARY | 2025-05-02 07:59 | XMS_ITS | Encounter Summary ---
Author Organization [facility] Address [address] [place] [address] Care Team Providers Care Tightener Name Role Phone Harry Owusu MD Primary Care Provider [phone] Encounter Details Date Type Department Care Team (Late st Contact Info) Description 01/26/2024 Clinisync Result Encounter [facility] External Department Unsolicited Yumiko Valenzuela MD [address] [facility] [address] [place] [address] Social History Tobacco Use Types Packs/Day Years [...] Visit [facility] [address] [place] [address] Neto Horton, [address] [place] [address] 11/01/2025 8:00 AM EST Office Visit [facility] [address] [facility] [address] [place] [phone] Sylwia Carcamo MD 112 [facility] [address] [place] [address] 02/27/2026 9:00 AM EDT Office Visit [facility] [place] [facility] [address] [place] [address] Chip Tejeda, [address] [facility] [place] [address] documented as of this encounter Procedures Procedure Name Priority Date/Time Associated Diagnosis Comments MM TOMOSYNTHESIS SCREENING BI 01/26/2024 9:54 AM EDT documented in this encounter Results * MM TOMOSYNTHESIS SCREENING BI (01/26/2024 9:54 AM EDT) Anatomical Region Laterality Modality Other 01/26/2024 9:54 AM EDT Narrative 01/26/2024 9:56 AM EDT [address] [address] Mammography Report Signed Patient: CHUYITA CEDILLO MR#: [id number] : 1955 Acct:[id number] Age/Sex: 68 / F ADM Date: 01/26/24 Loc: MAMMO Attending Dr: YUMIKO VALENZUELA Ordering Physician: YUMIKO VALENZUELA Results: Date of Service: 01/26/24 Follow Up: Procedure(s): MM tomosynthesis screening BI Accession Number(s): [id number] cc: YUMIKO VALENZUELA ; HARRY OWUSU Patient Name: CHUYITA CEDILLO MR#: [id number] : 1955 Exam Date: 01/26/2024 Ordering Doctor: DR YUMIKO VALENZUELA RADIOLOGY REPORT PROCEDURE: MM TOMOSYNTHESIS SCREENING BI COMPARISON: MG MAMM SCREEN 3D MATTY CAD, 01/14/2022. MG MAMM SCREEN 3D MATTY CAD, 01/15/2023. INDICATIONS: Screening Calculator Name NCI Breast Cancer Risk Assessment Tool 5 Year Breast Cancer Risk 1.80% Lifetime Breast Cancer Risk 5.90% Personal Breast Cancer No Personal Ovarian Cancer No Treatments tamoxifen Family Cancers Mother with uterine cancer at age 73; Father with prostate cancer at age 74; Grandmother-maternal with kidney cancer at age 93; Grandfather-maternal with leukemia cancer at age 87. LOCATION: [facility] BREAST COMPOSITION: There are scattered areas of fibroglandular density. FINDINGS: DIAGNOSTIC CATEGORY 2--BENIGN FINDING. NO CHANGE FROM COMPARISON. Scattered benign-appearing nodules are present. Scattered benign-appearing calcifications are present. Scattered benign-appearing lymph nodes are present. RIGHT BREAST: No significant suspicious finding. LEFT BREAST: No significant suspicious finding. RECOMMENDATIONS: ROUTINE MAMMOGRAM AND CLINICAL EVALUATION IN 12 MONTHS. PLEASE NOTE: A NORMAL MAMMOGRAM DOES NOT EXCLUDE THE POSSIBILITY OF BREAST CANCER. A CLINICALLY SUSPICIOUS PALPABLE LUMP SHOULD BE BIOPSIED. Dictated by: Sammy Hernandez MD on 01/26/2024 at 09:52 Approved by: Sammy Hernandez MD on 01/26/2024 at 09:54 Dictated By: Sammy eHrnandez M.D. Signed By: 01/26/24 0956 DD/ 0954 TD/TT: Butcher Helper: Procedure Note Radiology, Radiologist, MD - 01/26/2024 [place] [address] Mammography Report Signed Patient: CHUYITA CEDILLO NMR#: [id number] : 1955cct:[id number] Age/Sex: 68 / FADM Date: 01/26/24 Loc: MAMMO Attending Dr: YUMIKO VALENZUELA Ordering Physician: Davide VALENZUELAults: Date of Service: 01/26/24Follow Up: Procedure(s): MM tomosynthesis screening BI Accession Number(s): [id number] cc: YUMIKO VALENZUELA ; HARRY OWUSU Patient Name: CHUYITA CEDILLO MR#: [id number] : 1955 Exam Date: 01/26/2024 Ordering Doctor: DR YUMIKO VALENZUELA RADIOLOGY REPORT PROCEDURE: MM TOMOSYNTHESIS SCREENING BI COMPARISON: MG MAMM SCREEN 3D MATTY CAD, 01/14/2022. MG MAMM SCREEN 3DBIL CAD, 01/15/2023. INDICATIONS: Screening Calculator Name NCI Breast Cancer Risk Assessment Tool 5 Year Breast Cancer Risk 1.80% Lifetime Breast Cancer Risk 5.90% Personal Breast Cancer No Personal Ovarian Cancer No Treatments tamoxifen Family Cancers Mother with uterine cancer at age 73; Father withprostate cancer at age 74; Grandmother-maternal with kidney cancer at age 93; Grandfather-maternal with leukemia cancer at age 87. LOCATION: [facility] BREAST COMPOSITION: There are scattered areas of fibroglandulardensity. FINDINGS: DIAGNOSTIC CATEGORY 2--BENIGN FINDING. NO CHANGE FROM COMPARISON. Scattered benign-appearing nodules are present. Scatteredbenign-appearing calcifications are present. Scattered benign-appearing lymph nodes are present. RIGHT BREAST: No significant suspicious finding. LEFT BREAST: No significant suspicious finding. RECOMMENDATIONS: ROUTINE MAMMOGRAM AND CLINICAL EVALUATION IN 12 MONTHS. PLEASE NOTE: A NORMAL MAMMOGRAM DOES NOT EXCLUDE THE POSSIBILITY OFBREAST CANCER. A CLINICALLY SUSPICIOUS PALPABLE LUMP SHOULD BE BIOPSIED. Dictated by: Sammy Hernandez MD on 01/26/2024 at 09:52 Approved by: Sammy Hernandez MD on 01/26/2024 at 09:54 Dictated By: Sammy Hernandez M.D. Signed By:01/26/24 0956 DD/ 0954 TD/TT: Butcher Helper: us Yumiko Valenzuela MD [facility] Final Result documented in this encounter Visit Diagnoses Not on filedocumented in this encounter Care Teams Tightener Relationship Specialty Start Date End Date Harry Owusu MD [address] [place] [address] PCP - General Family Medicine 05/12/24 documented as of this encounter
--- OUTSIDE RECORDS SUMMARY | 2025-05-02 07:59 | XMS_ITS | Encounter Summary ---
Author Organization [facility] Address [address] [facility] [place] [address] Care Team Providers Care Alteration Inspector Name Role Phone Max Jean Baptiste MD Primary Care Provider [phone] Encounter Details Date Type Department Care Team (Latest Contact Info) Description 02/10/2025 Results Follow-Up [facility] [place] [facility] [address] [facility] [address] [place] [address] Eve Carlos MD [address] [facility] [address] [place] [address] Bilateral screening mammogram with tomosynthesis Social History Tobacco Use Types Packs/Day Years [...] on file documented as of this encounter Miscellaneous Notes * Result Encounter Note - Eve Carlos MD - 02/10/2025 1:41 PM EDT Negative mammogram and Dexa documented in this encounter Plan of Treatment Upcoming Encounters Date Type Department Care Team (Late st Contact Info) Description 05/24/2025 10:45 AM EDT Office Visit [facility] [place] [facility] [address] [place] [phone] Neto Horton, [address] [place] [address] 11/01/2025 8:00 AM EST Office Visit [facility] [place] [facility] [address] [place] [address] Sylwia Carcamo MD [address] [facility] [address] [place] [address] 02/27/2026 9:00 AM EDT Office Visit [facility] [place] [facility] [address] [facility] [place] [address] Chip Tejeda DO [address] [facility] [place] [address] documented as of this encounter Visit Diagnoses Not on filedocumented in this encounter Care Teams Alteration Inspector Relationship Specialty Start Date End Date Max Jean Baptiste MD [address] [place], [place] [address] PCP - General Family Medicine 05/12/24 documented as of this encounter
--- OUTSIDE RECORDS SUMMARY | 2025-05-02 07:59 | XMS_ITS | Clinical Summary ---
Author Organization [facility] Address [address] [place] [address] Care Team Providers Care Manager Division Name Role Phone Max Jean Baptiste MD Primary Care Provider [phone] Allergies Active Allergy Reactions Criticality Noted Date Comments Lidocaine Other,Rash Low 12/17/2013 Hot red rash Hot red rash Menthol Rash Low 12/17/2013 Red hot rash Red hot rash Methyl Salicylate-Menthol Other 09/02/2014 Medications aspirin 81 mg chewable tablet Chew 81 mg. 05/15/2020 A ctive calcium carbonate-vitamin D3 500 mg-5 mcg (200 unit) tablet Take 1 tablet by mouth. Active glucosamine-chond roitin 500-400 mg tablet Take 1 tablet by mouth 3 times a day. Active niacin (Slo-Niacin) 500 mg ER tablet Take 1 tablet every day by oral route for 90 days. Active multivitamin (Theragran-M) 9 mg iron-400 mcg tablet Take 1 tablet by mouth in the morning. Active amLODIPine (Norvasc) 5 mg tabletIndications :Essential hypertension Take 1 tablet (5 mg) by mouth in the morning. 90 tablet 3 03/17/2023 Active bisoproloL-hydroc hlorothiazide (Ziac) 10-6.25 mg tabletIndications :Essential hypertension Take 1 tablet by mouth in the morning. 90 tablet 3 03/17/2023 Active Active Problems Problem Noted Date Diagnosed Date Abdominal cramping 05/10/[address] of the abdomen 05/10/2024 Back pain 05/10/2024 Change in bowel habit 05/10/2024 Diarrhea 05/10/2024 Dysphagia 05/10/2024 Dyspnea 05/10/2024 Epigastric pain 05/10/2024 Gas pain 05/10/2024 Hemorrhoids 05/10/2024 Hyperglycemia 05/10/2024 Increased frequency of urination 05/10/2024 Kidney stone 05/10/2024 Mucocele, appendix 05/10/2024 Mixed incontinence 05/10/2024 Obesity 05/10/2024 DAVON on CPAP 05/10/2024 Osteoarthritis 05/10/2024 Osteoporosis 05/10/2024 Skin tag 05/10/2024 Ulcer of antrum of stomach 05/10/2024 Anemia 05/09/2023 Hypothyroidism 05/09/2023 IBS (irritable bowel syndrome) 05/09/2023 Lung nodule 05/09/2023 Mitral valve regurgitation 05/09/2023 Nodule of spleen 05/09/2023 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 Jean Baptiste query response, per outpatient [facility] policy. Presence of left artificial knee joint Primary osteoarthritis of left knee 05/09/2023 History of left knee replacement 10/15/2018 Hyperlipidemia 07/23/2013 Hypertension 07/23/2013 Observation for suspected condition 07/23/2013 Electrocardiogram abnormal 07/22/2013 Abnormal radiographic examination 07/14/2013 Overview (05/10/2024): THICKENED ENDOMETRIUM Atypical endometrial hyperplasia 07/14/2013 Postmenopausal bleeding 07/14/2013 Primary malignant neoplasm of female breast 06/17 Liver disease 04/02/2011 Abnormal liver function tests 03/21/2011 Social History Tobacco Use Types Packs/Day Years Used Date Smoking Tobacco: Never Assessed [place] Safety & Environment Answer Date Rec orded Fear of Current or Ex-Partner Not on file Emotionally Abused Not on file 11/06/2023 Physically Abused Not on file 11/06/2023 Sexually Abused Not on file 11/06/2023 Physically or Sexually Abused Not on file Comments Unknown Sex and Gender Information Value Date Recorded Sex Assigned at Not on file Legal Sex Female 10:15 PM EDT Gender Identity Not on file Sexual Orientation Not on file Last Filed Vital Signs Vital Sign Reading Time Taken Comments Blood Pressure 105/74 05/18/2024 9:08 AM EDT Pulse 58 05/18/2024 9:08 AM EDT Temperature - - Respiratory Rate - - Oxygen Saturation 95% 05/18/2024 9:08 AM EDT Inhaled Oxygen Concentration - - Weight 111 kg (244 lb) 05/18/2024 9:08 AM EDT Height 167.6 cm (5' 6 ) 05/18/2024 9:08 AM EDT Body Mass Index 39.38 05/18/2024 9:08 AM EDT Plan of Treatment Upcoming Encounters Date Type Department Care Team (Late st Contact Info) Description 06/13/2025 10:00 AM EDT Office Visit [facility] [address] [place] [address] Chapito Hercules MD [address] [facility] [place] [address] Health Maintenance Due Date Last Done Comments CT Colonography 1955 Colonoscopy 1955 Colorectal Cancer Screening 1955 FIT-DNA 1955 FIT 1955 FOBT 1955 Medicare Annual Wellness (AWV) 1955 Sigmoidoscopy 1955 IPV Vaccines (2 of 3 - 4-dose series) 10/13/1963 09/15/1963 Depression Screening 1967 Fall Risk Screening 2020 COVID-19 Vaccine ( season) 2024 08/28/2021, 12/06/2020, 11/09/2020 Influenza Vaccine (#1) 2025 , 06/19/2023, 06/25/2021, Additional history exists Adult Tetanus 05/20/2027 05/20/2017 Pneumococcal Vaccine: 50+ Years Completed 04/02/2022 Mammogram Discontinued 01/15/2023, 01/03/2015 Zoster Vaccines Completed 08/02/2024, 05/21/2024 HIB Vaccines Aged Out No longer eligi ble based on patient's age to complete this topic HPV Vaccines Aged Out No longer eligi ble based on patient's age to complete this topic Meningococcal B Vaccine Aged Out No l onger eligible based on patient's age to complete this topic Meningococcal Vaccine Aged Out No andrés evelyn eligible based on patient's age to complete this topic Rotavirus Vaccines Aged Out No longer eligible based on patient's age to complete this topic [place] [phone] [address] Care Teams Manager Division Relationship Specialty Start Date End Date Max Jean Baptiste MD [address] [facility] [place] [address] PCP - General Family Medicine 05/18/24
--- OUTSIDE RECORDS SUMMARY | 2025-05-02 07:59 | XMS_ITS | Encounter Summary ---
Author Organization [facility] Address [address] [place] [address] Care Team Providers Care Weekend Anchor Name Role Phone Harry Owusu MD Primary Care Provider [phone] Encounter Details Date Type Department Care Team (Late st Contact Info) Description 01/26/2024 Clinisync Result Encounter [facility] External Department Unsolicited Yumiko Valenzuela MD [address] [facility] [address] [place] [address] Social History Tobacco Use Types Packs/Day Years [...] [facility] [address] [place] [address] Neto Horton, [address] [place] [address] 11/01/2025 8:00 AM EST Office Visit [facility] [address] [facility] [address] [place] [address] Sylwia Carcamo MD 112 [facility] [address] [place] [address] 02/27/2026 9:00 AM EDT Office Visit [facility] [facility] [address] [facility] [place] [address] Chip Tejeda DO [address] [facility] [place] [address] documented as of this encounter Procedures Procedure Name Priority Date/Time Associated Diagnosis Comments XR DEXA AXIAL SKELETON 01/26/2024 9:37 AM EDT documented in this encounter Results * XR DEXA AXIAL SKELETON (01/26/2024 9:37 AM EDT) Anatomical Region Laterality Modality Other 01/26/2024 9:37 AM EDT Narrative 01/26/2024 9:40 AM EDT [address] [address] XRay Report Signed Patient: CHUYITA CEDILLO MR#: [id number] : 1955 Acct:[id number] Age/Sex: 68 / F ADM Date: 01/26/24 Loc: MAMMO Attending Dr: YUMIKO VALENZUELA Ordering Physician: YUMIKO VALENZUELA Date of Service: 01/26/24 Procedure(s): XR DEXA axial skeleton Accession Number(s): [id number] cc: YUMIKO VALENZUELA ; HARRY OWUSU The [address] [id number] Patient Name: CHUYITA CEDILLO MRN: [id number] date: 1955 Sex: F Assigned Patient Location: MAMMO Current Patient Location: MAMMO Accession/Order Number: [id number] Exam Date: 01/26/2024 09:16 Report Date: 01/26/2024 09:37 At the request of: YUMIKO VALENZUELA Procedure: XR DEXA axial skeleton EXAMINATION: XR DEXA axial skeleton, 01/26/2024 9:16 AM EDT HISTORY: Screening For Osteoporosis COMPARISON: 2010 TECHNIQUE: Dual-energy X-ray absorptiometry (DEXA) bone density study performed for the axial skeleton. HISTORY: Screening For Osteoporosis FINDINGS: Bone mineral density AP spine L1-L4 measures 1.19 g/sq cm. T score -0.5. WHO classification: Normal Lowest bone mineral density left femoral neck measures 0.815 g/sq cm. T score -1.6. WHO classification: Osteopenia XR/XR DEXA axial skeleton IMPRESSION: Osteopenia. Moderate fracture risk Electronically authenticated by: ALEX NEWELL Date: 01/26/2024 09:37 Dictated By: Alex Newell M.D. Signed By: 01/26/2440 DD/ TD/TT: Client Services Associate: Procedure Note Radiology, Radiologist, MD - 01/26/2024 [place] [address] XRay Report Signed Patient: CHUYITA CEDILLO NMR#: [id number] : 1955cct:[id number] Age/Sex: 68 / FADM Date: 01/26/24 Loc: MAMMO Attending Dr: YUMIKO VALENZUELA Ordering Physician: YUMIKO VALENZUELA Date of Service: 01/26/24 Procedure(s): XR DEXA axial skeleton Accession Number(s): [id number] cc: YUMIKO VALENZUELA ; HARRY OWUSU The [place] [id number] Patient Name: CHUYITA CEDILLO MRN: [id number] date: 1955 Sex: F Assigned [facility] Accession/Order Number: [id number] Exam Date: 01/26/2024 09:16 Report Date: 01/26/2024 09:37 At the request of: YUMIKO VALENZUELA Procedure: XR DEXA axial skeleton EXAMINATION: XR DEXA axial skeleton, 01/26/2024 9:16 AM EDT HISTORY: Screening For Osteoporosis COMPARISON: 2010 TECHNIQUE: Dual-energy X-ray absorptiometry (DEXA) bone density study performed for the axial skeleton. HISTORY: Screening For Osteoporosis FINDINGS: Bone mineral density AP spine L1-L4 measures 1.19 g/sq cm. T score -0.5.WHO classification: Normal Lowest bone mineral density left femoral neck measures 0.815 g/sq cm. Tscore -1.6. WHO classification: Osteopenia XR/XR DEXA axial skeleton IMPRESSION: Osteopenia. Moderate fracture risk Electronically authenticated by: ALEX NEWELL Date: 01/26/2024 09:37 Dictated By: Alex Newell M.D. Signed By:01/26/2440 DD/ TD/TT: Client Services Associate: us Yumiko Valenzuela MD [facility] Final Result documented in this encounter Visit Diagnoses Not on filedocumented in this encounter Care Teams Weekend Anchor Relationship Specialty Start Date End Date Harry Owusu MD [address] [place] [address] PCP - General Family Medicine 05/12/24 documented as of this encounter
--- OUTSIDE RECORDS SUMMARY | 2025-05-02 07:59 | XMS_ITS | Clinical Summary ---
Author Organization [facility] Address [address] [place] [address] Phone Care Team Providers Care Outreach Educator Name Role Phone Kamilla Shabazz MD Primary Care Provider [phone] Social History Tobacco Use Types Packs/Day Years Used Date Smoking Tobacco: Never Assessed Comments Unknown Sex and Gender Information Value Date Recorded Sex Assigned at Not on file Legal Sex Female 3:06 PM EST Gender Identity Not on file Sexual Orientation Not on file Plan of Treatment Not on file Care Teams Outreach Educator Relationship Specialty Start Date End Date Kamilla Shabazz MD [address] [place] [place] [address] PCP - General 11/21/09
--- OUTSIDE RECORDS SUMMARY | 2025-05-02 07:59 | XMS_ITS | Encounter Summary ---
Author Organization [facility] Address [address] [facility] [place] [address] Care Team Providers Care Coal Passer Name Role Phone Max Jean Baptiste MD Primary Care Provider [phone] Encounter Details Date Type Department Care Team (Late Contact Info) Description 07/02/2024 Orders Only [facility] [place] [facility] [address] [facility] [address] [place] [address] [place] Baker [address] [facility] [address] [place] [address] Papillary microcarcinoma of thyroid (HCC); Thyroid nodule Social History Tobacco Use Types Packs/Day Years [...] [address] [place] [address] Neto Horton DO [address] [place] [address] 11/01/2025 8:00 AM EST Office Visit [facility] [place] [facility] [address] [facility] [address] [place] [address] Sylwia Carcamo MD [address] [facility] [address] [place] [address] 02/27/2026 9:00 AM EDT Office Visit [facility] [address] [facility] [address] Chip Tejeda DO [address] [facility] [address] [place] [place], [place] [address] documented as of this encounter Visit Diagnoses Diagnosis Papillary microcarcinoma of thyroid (HCC) Thyroid nodule Nontoxic uninodular goiter documented in this encounter Care Teams Coal Passer Relationship Specialty Start Date End Date Max Jean Baptiste MD [address] [place] [address] PCP - General Family Medicine 05/12/24 documented as of this encounter
--- OUTSIDE RECORDS SUMMARY | 2025-05-02 07:59 | XMS_ITS | Encounter Summary ---
Author Organization [facility] Address [address] [place] [address] Care Team Providers Care Geotechnical Operating Engineer Name Role Phone Max Jean Baptiste MD Primary Care Provider Encounter Details Date Type Department Care Team (Late st Contact Info) Description 12/01/2023 Orders Only [facility] [place] [facility] [address] [facility] [address] [place] [address] Melissa Baker [address] [place] [address] Papillary microcarcinoma of thyroid (HCC); Thyroid nodule [...] [facility] [address] [place] [address] Neto Horton DO [address] [place], [place] [address] 11/01/2025 8:00 AM EST Office Visit [facility] [place] [facility] [address] [place] [address] Sylwia Carcamo MD 112 [facility] 130 [place] [address] 02/27/2026 9:00 AM EDT Office Visit [facility] [address] [facility] [place] [address] Chip Tejeda DO [address] [facility] [place] [address] documented as of this encounter Visit Diagnoses Diagnosis Papillary microcarcinoma of thyroid (HCC) Thyroid nodule Nontoxic uninodular goiter documented in this encounter Care Teams Geotechnical Operating Engineer Relationship Specialty Start Date End Date Max Jean Baptiste MD [address] [place] [address] PCP - General Family Medicine 05/12/24 documented as of this encounter
--- OUTSIDE RECORDS SUMMARY | 2025-05-02 07:59 | XMS_ITS | Encounter Summary ---
Author Organization [facility] Address [address] [place] [address] Care Team Providers Care Engineering Operator Name Role Phone Max Jean Baptiste MD Primary Care Provider Encounter Details Date Type Department Care Team (Late Contact Info) Description 05/23/2023 Clinisync Result Encounter [facility] External Department Unsolicited Sylwia Carcamo MD [address] [facility] [address] [place] [address] Social History Tobacco Use Types Packs/Day Years [...] [facility] [address] [place] [phone] Neto Horton DO [address] [place] [address] 11/01/2025 8:00 AM EST Office Visit [facility] [address] [facility] [address] [place] [address] Sylwia Carcamo MD [address] [facility] [address] [place] [address] 02/27/2026 9:00 AM EDT Office Visit [facility] [address] [place] [phone] Chip Tejeda DO [address] [facility] [place] [address] documented as of this encounter Procedures Procedure Name Priority Date/Time Associated Diagnosis Comments US BIOPSY THYROID 05/23/2023 10: 10 AM EDT documented in this encounter Results * US BIOPSY THYROID (05/23/2023 10:10 AM EDT) Anatomical Region Laterality Modality Other 05/23/2023 10:1 0 AM EDT Narrative 05/23/2023 10:10 AM EDT [address] [address] Ultrasound Report Signed Patient: CHUYITA CEDILLO MR#: [id number] 6 : 1955 Acct:[id number] Age/Sex: 67 / F ADM Date: 05/23/23 Loc: US Attending Dr: Sylwia Carcamo M.D. Ordering Physician: Sylwia Carcamo M.D. Date of Service: 05/23/23 Procedure(s): US biopsy thyroid Accession Number(s): [id number] cc: Physician,Non-Staff Jay; Sylwia Carcamo M.D. [address] [address] Patient Name: CHUYITA CEDILLO MRN: [id number] date: 1955 Sex: F Assigned Patient Location: US Current Patient Location: US Accession/Order Number: [id number] Exam Date: 05/23/2023 09:15 Report Date: 05/23/2023 [...] Signed By: 05/23/23 1013 DD/ 1010 TD/TT: Certified Maintenance Welder: Procedure Note Radiology, Radiologist, MD - 06/06/2023 [place] [address] Ultrasound Report Signed Patient: CHUYITA CEDILLO NMR#: [id number] 6 : 1955cct:[id number] Age/Sex: 67 / FADM Date: 05/23/23 Loc: US Attending Dr: Sylwia Carcamo M.D. Ordering Physician: Sylwia Carcamo M.D. Date of Service: 05/23/23 Procedure(s): US biopsy thyroid Accession Number(s): [id number] cc: Physician,Non-Staff Jay; Sylwia Carcamo M.D. [facility] [place] [id number] Patient Name: CHUYITA CEDILLO MRN: [id number] date: 1955 Sex: F Assigned Patient Location: US Current Patient Location: US Accession/Order Number: [id number] Exam Date: 05/23/2023 09:15 Report Date: 05/23/2023 [...] M.D. Signed By:05/23/23 1013 DD/ 1010 TD/TT: Certified Maintenance Welder: us Sylwia Carcamo MD [facility] Final Resul t documented in this encounter Visit Diagnoses Not on filedocumented in this encounter Care Teams Engineering Operator Relationship Specialty Start Date End Date Max Jean Baptiste MD [address] [place] [address] PCP - General Family Medicine 05/12/24 documented as of this encounter
--- NOTE | 2025-05-02 08:00 | CA_ITS ---
Patient Name: CHUYITA CAVANAUGH MR#: [id number] : 1955 Exam Date: 05/02/2025 Ordering Doctor: DR PRADEEP ROBERT M.D. ECHOCARDIOGRAM REPORT PROCEDURE: CA ECHO DOPPLER COMPLETE INDICATIONS: Mitral valve regurgitation, hypertension COMPARISON: None. DESCRIPTION: COMPLETE ECHOCARDIOGRAM Real-time transthoracic echocardiography with 2D, M-mode, spectral and color flow Doppler performed. QUALITY: Technical quality was good. LEFT VENTRICLE: Normal chamber size. Moderate concentric left ventricular hypertrophy. Estimated left ventricular ejection fraction is 55-60 %. LV EF: Normal left ventricular ejection fraction, (>55%). DIASTOLIC: Diastolic function is indeterminate. ATRIAL SEPTUM: Visually appears intact. LEFT ATRIUM: Severe dilatation. RIGHT ATRIUM: Moderate dilatation. RIGHT VENTRICLE: Moderate dilatation. Normal right ventricular systolic function. TRICUSPID VALVE: Normal mobility and thickness. No stenosis with mild regurgitation. Doppler studies reveal moderately (45-60) elevated right sided pressures. RVSP 52 mmHg MITRAL VALVE: Normal mobility and thickness. No evidence of mitral valve stenosis. Mild mitral annular calcification. Mild mitral regurgitation. AORTIC VALVE: Normal trileaflet appearance. No visible sclerosis. Normal leaflet mobility. No evidence of aortic valve stenosis. No aortic regurgitation. AORTIC ROOT: Normal diameter and appearance, measuring 3.9 cm. Ascending aorta is dilated (3.4 cm). PULMONIC VALVE: Normal thickness and mobility. No stenosis. Mild regurgitation. PERICARDIUM: No evidence of pericardial effusion. IVC: IVC is dilated (2.3 cm), does not fully collapse. PLEURA: CONCLUSION: 1. Moderate concentric left ventricular hypertrophy with normal systolic function. LVEF is estimated at 55 to 60%. 2. Moderately dilated right ventricle with normal systolic function. 3. Moderate to severe biatrial dilatation. 4. Mild mitral and tricuspid regurgitation. 5. Moderately elevated right-sided pressures. RVSP is 52 mmHg. Adult Echocardiography Procedure Report Left Ventricle LVEDD (3.7 - 5.6 cm): 5.41 cm LVESD (2.2 - 4.0 cm): 3.59 cm LVIVS thickness (0.6 - 1.2 cm): 1.30 cm LVPW thickness (0.5 - 1.0 cm): 1.37 cm e': 0.11 m/s E - e': 5.61 LVOT Max Gradient: 3.52 mm[Hg] LVOT Area (cm2): 0.94 m/s Peak Velocity (LVOT): 0.94 m/s LVOT Diameter 2.38 cm Left Ventricular Ejection Fraction: 55-60 % Left Atrium LA Volume Index (2D A2C): 66.63 ml/m2 Left Atrium Systolic Dimension: 5.64 cm Mitral Valve MV E to A Ratio: 0.77 Mitral Valve A-Wave Peak Velocity: 0.82 m/s Mitral Valve E-Wave Peak Velocity: 0.63 m/s Right Ventricle Aorta AO Root Diam: 3.92 cm Ascending Ao Diam: 3.44 cm Aortic Valve AoV Area (Peak Enoc): 3.94 cm2, 3.94 cm2 Peak Velocity(Antegrade Flow): 1.06 m/s Peak Gradient(Antegrade Flow): 4.48 mm[Hg] Tricuspid Valve Peak Velocity (Regurgitant Flow): 3.05 m/s Pulmonic Valve Peak Velocity: 1.08 m/s Peak Gradient: 4.63 mm[Hg] Right Atrium Right Atrium Systolic Pressure: 69.62 ml, 69.62 ml Dictated by: Haseeb Treadwell M.D. on 05/02/2025 at 17:09 Approved by: Haseeb Treadwell M.D. on 05/02/2025 at 17:16
--- OUTSIDE RECORDS SUMMARY | 2025-05-02 08:00 | XMS_ITS | Clinical Summary ---
Author Organization [facility] Address [address] [place] [address] Care Team Providers Care Industrial Equipment Wirer Name Role Phone Max Jean Baptiste MD Primary Care Provider [phone] Allergies Active Allergy Reactions Criticality Noted Date Comments Icy Hot Rash Low 05/14/2023 Lidocaine Rash Low 12/17/2013 Menthol Rash Low 12/17/2013 Medications bisoprolol-hydro CHLOROthiazide (Ziac) 10-6.25 MG tablet Take 1 tablet by mouth in the morning. 03/17/2023 Active amLODIPine (Norvasc) 5 MG tablet Take 5 mg by mouth in the morning. 03/17/2023 Active Multiple Vitamins-Mineral s (Thera-M) tablet Take 1 tablet by mouth in the morning. Active niacin (Slo-Niacin) 500 MG ER tablet Take 500 mg by mouth at bedtime. Active aspirin 81 MG chewable tablet Chew 81 mg 1 (one) time each day at the same time. Active omega-3 (Fish Oil) 1200 MG capsule Take 1,200 mg by mouth 1 (one) time each day at the same time. Active glucosamine-heriberto droitin 500-400 MG tablet Take 1 tablet by mouth in the morning. Active Calcium 600-10 MG-MCG chewable tablet Chew 1 tablet in the morning. Active acetaminophen (Tylenol) 325 MG tablet Take by mouth Active estradiol (Estrace) 0.1 MG/GM vaginal creamIndications :Vulvovaginal Atrophy Insert twice weekly 42.5 g 12 02/13/2025 Active amoxicillin (Amoxil) 500 MG capsule 02/03/2025 Active celecoxib (CeleBREX) 100 MG capsule Twice daily 02/24/2025 Active traMADol (Ultram) 50 MG tablet Q4H as needed for Pain Scale 1 - 4 04/14/2025 Active Active Problems Problem Noted Date Diagnosed Date Moderate episode of recurrent major depressive d isorder 02/21/2025 Overview (02/21/2025): added per 12/22/2024 query response. Morbid obesity 02/21/2025 Female bladder prolapse 02/21/2025 Rectal prolapse 02/21/2025 Atherosclerosis of abdominal aorta 11/02/2024 Overview (11/02/2024): added per 12/24/2023 query response. BMI 40.0-44.9, adult 11/02/2024 Diarrhea 05/10/2024 Dysphagia 05/10/2024 Dyspnea 05/10/2024 Hemorrhoids 05/10/2024 Hyperglycemia 05/10/2024 Hypothyroidism 05/09/2023 Papillary microcarcinoma of thyroid 05/09/2023 Presence of left artificial knee joint Primary osteoarthritis of left knee 05/09/2023 Thyroid mass 05/09/2023 IBS (irritable bowel syndrome) 05/09/2023 Liver disease 05/09/2023 Hypertension 05/09/2023 Anemia 05/09/2023 Mitral valve regurgitation 05/09/2023 Lung nodule 05/09/2023 Nodule of spleen 05/09/2023 Electrocardiogram abnormal 07/22/2013 Atypical endometrial hyperplasia 07/14/2013 Abnormal liver function tests 03/21/2011 Resolved Problems Problem Noted Date Diagnosed Date Resolved Date Abdominal pain 11/02/2024 02/21/2025 Epigastric pain 05/10/2024 02/21/[address] of the abdomen 05/09/2023 0 05/09/2023 Disorder of 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 023 Mucocele, 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 Pain in left knee 05/09/2023 05/09/2023 Status post total left knee replacement 10/15/2018 05/09/2023 Encounters Date Type Department Care Team Description 04/27/2025 1:00 PM EDT Office Visit [facility] [place] [facility] [address] [place] [phone] Neto Horton, DO Aftercare following surgery 04/27/2025 Travel 03/31/2025 External Result Encounter [facility] External Department Unsolicited Neto Horton, DO 03/31/2025 External Result Encounter [facility] External Department Unsolicited Neto Horton, DO 03/31/2025 External Result Encounter [facility] External Department Unsolicited Neto Horton, DO 03/31/2025 External Result Encounter [facility] External Department Unsolicited Neto Horton, DO 03/31/2025 External Result Encounter [facility] External Department Unsolicited Neto Horton, DO 03/16/2025 Telephone [facility] [address] [place] [address] Bina Hawkins MA 02/24/2025 Telephone [facility] [address] [place] [phone] Neto Horton, DO 02/21/2025 2:30 PM EDT Consult [facility] [address] [place] [address] Neto Horton, DO Rectocele (Primary Dx) 02/21/2025 Travel 02/15/2025 Telephone [facility] [address] [place] [phone] Toshia Gracia RN 02/10/2025 9:00 AM EDT Office Visit [facility] [place] [facility] [address] [place] [address] Eve Carlos MD Cystocele, midline (Primary Dx); Encounter for screening mammogram for malignant neoplasm of breast; Osteoporosis, post-menopausal ; Pessary maintenance; Rectocele; Postmenopausal atrophic vaginitis 02/10/2025 8:30 AM EDT Ancillary Procedure [facility] [place] [facility] [address] [place] [address] Osteoporosis screening; Postmenopausal 02/10/2025 8:00 AM EDT Ancillary Procedure [facility] [place] [facility] [address] [place] [phone] Encounter for screening mammogram for malignant neoplasm of breast 02/10/2025 Results Follow-Up [facility] [address] [place] [address] Eve Carlos MD Bilateral screening mammogram with tomosynthesis 02/10/2025 Travel 02/04/2025 Travel from Last 3 Months Immunizations Immunization Administration Dates Next Due Influenza, High Dose Seasonal, Preservative Free 06/29/2024 Influenza, High-dose Seasona l, Quadrivalent, Preservative Free 06/25/2021 Influenza, Seasonal, Quadrivalent, Adjuvanted Influenza, Unspecified 11/14/1999 Influenza, injectable, MDCK, preservative free, quadrivalent 06/07/2019 Influenza, injectable, MDCK, quadrivalent 2019 Influenza, injectable, quadrivalent, preservativ e free 06/17/2018 Pneumococcal Conjugate PCV 20 04/02/2022 Polio, Unspecified 09/15/1963 Tdap 05/20/2017 Zoster, Recombinant 08/02/2024,05/21/2024 Family History Medical History Relation Name Comments ASCVD Father Ari millannden Cancer Father Ari millannden Heart failure Father Ari millannden Hypertension Father Ari millannden ASCVD Mother Jaja ambrosio Cancer Mother Jaja ambrosio Colon polyps Mother Jaja ambrosio Diabetes Mother Jaja millannden Hearing loss Mother Jaja millannden Heart failure Mother Jaja millannden Hyperlipidemia Mother Jaja millanndluli Hypertension Mother Jaja millanndluli Thyroid disease Mother Jaja millanndluli Uterine cancer Mother Jaja millanndluli Cancer Sister K c harnden Hearing loss Sister K c harnden Heart failure Sister K c harnden Thyroid disease Sister K c harnden Relation Name Status Comments Father Ariimani millannden Mother Jaja ambrosio Sister Michi c harnden x3 Son x3 (1 ) Social History Tobacco Use Types Packs/Day Years [...] Pressure 136/84 04/27/2025 12:40 PM EDT Pulse 60 11/02/2024 7:59 AM EST Temperature - - Respiratory Rate - - Oxygen Saturation - - Inhaled Oxygen Concentration - - Weight 100 kg (221 lb) 04/27/2025 12:40 PM EDT Height 165.1 cm (5' 5 ) 11/02/2024 7:59 AM EST Body Mass Index 36.78 11/02/2024 7:59 AM EST Plan of Treatment Upcoming Encounters Date Type Department Care Team (Late st Contact Info) Description 05/24/2025 10:45 AM EDT Office Visit [facility] [address] [facility] [address] [place] [phone] Neto Horton DO [address] [facility] [address] [place], [place] [id number] 11/01/2025 8:00 AM EST Office Visit [facility] [address] [facility] [address] [place] [address] Sylwia Carcamo MD [address] [facility] [address] [place] [address] 02/27/2026 9:00 AM EDT Office Visit [facility] [address] [facility] [place] [address] Ileana, Chip, [address] [place] [address] Health Maintenance Due Date Last Done Comments CT Colonography 1955 Colonoscopy 1955 Colorectal Cancer Screening 1955 FIT-DNA 1955 FIT 1955 FOBT 1955 Sigmoidoscopy 1955 Influenza Vaccine (#1) 2025 4, 06/19/2023, 06/25/2021, Additional history exists Mammogram 02/10/2026 02/10/2025, 01/13, 01/15/2023, Additional history exists Pneumococcal Vaccine: 65+ Years Completed 2 Procedures Procedure Name Priority Date/Time Associated Diagnosis Comments URINALYSIS, MANUAL ONLY Routine 03/31/20 12:00 PM EDT PARTIAL THROMBOPLASTIN TIME Routine 03/31/2025 11:25 AM EDT PROTHROMBIN TIME-INR Routine 03/31/2025 11:25 AM EDT COMPREHENSIVE METABOLIC PANEL Routine 03/31/2025 11:25 AM EDT CBC WITH AUTO DIFFERENTIAL Routine 03/31/2025 11:25 AM EDT ECG 12-LEAD 03/31/2025 11:13 AM EDT DEXA BONE DENSITY Routine 02/10/2025 8:2 3 AM EDT Osteoporosis screening Postmenopausal BI MAMMOGRAM SCREENING TOMOSYNTHESIS BILATERAL Routine 02/10/2025 8:13 AM EDT Encounter for screening mammogram for malignant neoplasm of breast from Last 3 Months Results * Urinalysis, manual only (03/31/2025 12:00 PM EDT) COLOR,URINE Light-Yellow Yellow 03/31/2025 12:08 PM EDT [facility] APPEARANCE,UR INE Clear Clear 03/31/2025 12:08 PM EDT [facility] SPECIFICY GRAVITY,URINE 1.011 1.001 - 1.030 03/31/2025 12:08 PM EDT [facility] PH,URINE 5.0 5.0 - 9.0 03/31/2025 [facility] LEUKOCYTE ESTERASE,URIN E Negative Negative 03/31/2025 12:08 PM EDT [facility] NITRITE,URINE Negative Negative 03/31/2025 12:08 PM EDT [facility] PROTEIN,URINE Negative Negative mg/dL 03/31/2025 12:08 PM EDT [facility] GLUCOSE,URINE (UA) Normal Normal mg/dL 03/31/2025 12:08 PM [facility] KETONES,URINE Negative Negative 03/31/2025 12:08 PM [facility] UROBILINOGEN, URINE Normal Normal mg/dL 03/31/2025 12:[facility] BIL[facility]IN,URI NE Negative Negative 03/31/2025 12:08 PM [facility] OCCULT BLOOD,URINE Negative Negative 03/31/2025 12:08 PM [facility] Other 03/31/2025 12:0 0 PM EDT 03/31/2025 12:02 PM EDT Narrative [facility] - 03/31/2025 12:08 PM EDT Name Collection Type:: Clean-Voided Midstream Neto Horton DO LAB URINE ORDERABLES Final R esult [facility] [address] [place] [address], [facility] [address] [place] [address] * (ABNORMAL) PARTIAL THROMBOPLASTIN TIME (03/31/2025 11:25 AM EDT) [facility] PARTIAL THROMBOPLASTIN TIME 36.7(H) 25.1 - 36.5 s 03/31/2025 12:39 PM EDT [facility] Comment: A hematocrit value greater than 55% may lead to inaccurate results in coagulation testing. Patients having hematocrit values >55% require a special collection tube for coagulation studies. Please contact the laboratory at [phone] for redraw instructions. Other Topography unknown / Unknown 03/31/2025 11:25 AM EDT 03/31/2025 11:42 AM EDT Neto Horton DO LAB BLOOD ORDERABLES Final R esult [facility] [address] [place] [address], [facility] [address] [place] [id number] * CBC auto differential (03/31/2025 11:25 AM EDT) WBC 5.9 3.8 - 11.6 [CFU]/mL 03/31/2025 12:08 PM EDT [facility] UNCORRECTED WHITE BLOOD COUNT 5.9 3.8 - 11.6 10*3/uL 03/31/2025 12:08 PM EDT [facility] RBC 4.18 3.60 - 5.00 10*6/uL 03/31/2025 12:08 PM EDT [facility] HEMOGLOBIN 13.5 11.8 - 15.4 g/dL 03/31/2025 12:08 PM EDT [facility] HEMATOCRIT 39.9 34.0 - 46.4 % 03/31/2025 12:08 PM EDT [facility] MCV 95.6 80 - 100 fL 03/31/2025 12:08 PM EDT [facility] MCH 32.3 24.7 - 34.3 pg 03/31/2025 12:08 PM EDT [facility] MCHC 33.8 32.0 - 35.0 g/dL 03/31/2025 12:08 PM EDT [facility] RED CELL DISTRIBUTION WIDTH, RDW 13.3 11.9 - 15.3 % 03/31/2025 12:08 PM EDT [facility] PLATELET COUNT 301 150 - 450 10*3/uL 03/31/2025 12:08 PM EDT [facility] MEAN PLATELET VOLUME, MPV 8.8 6.3 - 10.7 fL 03/31/2025 12:08 PM EDT [facility] NEUTROPHILS, % 58.6 . % 03/31/2025 12:08 PM EDT [facility] LYMPHOCYTES, % 28.0 . % 03/31/2025 12:08 PM EDT [facility] MONOCYTE/MACROPHA GE, % 10.5 . % 03/31/2025 12:08 PM EDT [facility] EOSINOPHILS, % 2.0 . % 03/31/2025 12:08 PM EDT [facility] BASOPHILS, % 0.9 . % 03/31/2025 12:08 PM EDT [facility] NRBC 0.1 0 - 0.5 /100{WBC} 03/31/2025 12:08 PM EDT [facility] NEUTROPHILS 3.4 1.8 - 7.7 10*3/uL 03/31/2025 12:08 PM EDT [facility] LYMPHOCYTES 1.6 1.00 - 4.8 10*3/uL 03/31/2025 12:08 PM EDT [facility] MONOCYTES 0.6 0.0 - 0.8 10*3/uL 03/31/2025 12:08 PM EDT [facility] EOSINOPHILS 0.1 0.0 - 0.45 10*3/uL 03/31/2025 12:08 PM EDT [facility] BASOPHILS 0.1 0.0 - 0.2 10*3/uL 03/31/2025 12:08 PM EDT [facility] Blood (Blood) 03/31/2025 11: 25 AM EDT 03/31/2025 11:42 AM EDT us Neto Hotron DO LAB BLOOD ORDERABLES Final R esult [facility] [address] [place] [address], [facility] [address] [place] [address] * Protime-INR (03/31/2025 11:25 AM EDT) Pathologist [facility] PROTHROMBIN TIME 11.9 9.0 - 12.9 s 03/31/2025 12:39 PM EDT [facility] Comment: A hematocrit value greater than 55% may lead to inaccurate results in coagulation testing. Patients having hematocrit values >55% require a special collection tube for coagulation studies. Please contact the laboratory at [phone] for redraw instructions. INR 1.0 03/31/2025 12:39 PM EDT [facility] Comment: INR Therapeutic Range A) Pre- and Peroperative OAT started two weeks before surgery. NOT HIP SURGERY: 1.5 - 2.5 HIP SURGERY: 2 - 3 B) Primary and secondary prevention of venous THROMBOSIS: 2 - 3 C) Active venous thrombosis, pulmonary embolism and prevention of recurrent venous thrombosis: 2 - 3 D) Prevention of arterial thromboembolism including patients with mechanical heart valves: 3 - 4.5 Other Topography unknown / Unknown 03/31/2025 11:25 AM EDT 03/31/2025 11:42 AM EDT Neto Horton DO LAB BLOOD ORDERABLES Final R esult Performing Organization Address City/State/[facility] Co de Phone Number [facility] [address] [place] [address], [facility] [address] [place] [address] * Comprehensive metabolic panel (03/31/2025 11:25 AM EDT) Glucose 93 70 - 100 mg/dL 03/31/2025 12:27 PM T [facility] Comment: Random Glucose Reference Range is dependent on time and content of last meal. Glucose of more than 200 mg/dL in a nonstressed, ambulatory subject supports the diagnosis of Diabetes Mellitus. ADA recommended reference range BUN 18 7 - 25 mg/dL 03/31/2025 12:27 PM EDT [facility] CREATININE 0.67 0.60 - 1.20 mg/dL 03/31/2025 12:[facility] ESTIM[facility] GFR >60.0 03/31/2025 12:27 PM EDT [facility] Sodium 137 136 - 145 mmol/L 03/31/2025 12:27 PM EDT [facility] Potassium, Bld 4.1 3.5 - 5.1 mmol/L 03/31/2025 12:27 PM EDT [facility] Chloride 104 98 - 107 mmol/L 03/31/2025 12:27 PM EDT [facility] Carbon Dioxide 28.1 21.0 - 31.0 mmol/L 03/31/2025 12:27 PM EDT [facility] Anion Gap 9.0 6.0 - 15.0 03/31/2025 12:27 PM EDT [facility] Calcium 10.1 8.6 - 10.3 mg/dL 03/31/2025 12:27 PM EDT [facility] TOTAL PROTEIN 7.0 6.4 - 8.9 g/dL 03/31/2025 12:27 PM EDT [facility] ALBUMIN LEVEL 4.2 3.5 - 5.7 g/dL 03/31/2025 12:27 PM EDT [facility] GLOBULIN 2.8 g/dL 03/31/2025 12:27 PM EDT [facility] ALBUMIN/GLOBULIN RATIO 1.5 03/31/2025 12:27 PM EDT [facility] BILIRUBIN,TOTAL 0.7 0.3 - 1.0 mg/dL 03/31/2025 12:27 PM EDT [facility] ASPARTATE AMINO TRANSFERASE 18 13 - 39 U/L 03/31/2025 12:27 PM EDT [facility] ALANINE AMINOTRANSFERASE 14 7 - 52 U/L 03/31/2025 12:27 PM EDT [facility] ALKALINE PHOSPHATASE 95 34 - 104 U/L 03/31/2025 12:27 PM EDT [facility] Other Topography unknown / Unknown 03/31/2025 11:25 AM EDT 03/31/2025 11:42 AM EDT Neto Horton DO LAB BLOOD ORDERABLES Final R esult [facility] [address] [place] [address], [facility] [address] [place] [address] * ECG 12 lead (03/31/2025 11:13 AM EDT) 03/31/2025 11:1 3 AM EDT [facility] - 03/31/2025 4:29 PM EDT [facility] [address] [place] [id number] Electrocardiograph Report Signed Patient: Nemo Cedillo MR#: [id number] 9 : 1955 Acct:[id number] Age/Sex: 69 / F ADM Date: 03/31/25 Loc: PS Room: Type: REG CLI Attending Dr: Neto Horton DO Ordering Provider: Neto Horton DO Date of Service: 03/31/25 ECG/ECG 12 lead ECG: pst Copies to: Test Reason : Blood Pressure : */* mmHG Vent. Rate : 54 BPM Atrial Rate : 54 BPM P-R Int : 214 ms QRS Dur : 90 ms QT Int : 442 ms P-R-T Axes : 62 -30 9 degrees QTcB Int : 419 ms Sinus bradycardia with 1st degree AV block Left axis deviation Low voltage QRS Inferior infarct , age undetermined Cannot rule out Anterior infarct (cited on or before 17-Jul-2016) Abnormal ECG Confirmed by Veda Ding ([id number]) on 03/31/2025 4:29:44 PM Referred By: Electronically Signed By: Veda Dnig Transcribed By: MUS Signed By Veda Ding MD [id number] Procedure Note Veda Ding MD - 03/31/2025 [facility] [address] [place] [id number] Electrocardiograph Report Signed Patient: Nemo Cedillo NMR#: [id number] 9 : 1955cct:[id number] Age/Sex: 69 / FADM Date: 03/31/25 Loc: PS Room:Type: [facility] CLI Attending Dr: Neto Horton DO Ordering Provider: Neto Horton DO Date of Service: 03/31/25 ECG/ECG 12 lead ECG: pst Copies to: Test Reason : Blood Pressure : */* mmHG Vent. Rate : 54 BPM Atrial Rate : 54 BPM P-R Int : 214 ms QRS Dur : 90 ms QT Int : 442 ms P-R-T Axes : 62 -30 9 degrees QTcB Int : 419 ms Sinus bradycardia with 1st degree AV block Left axis deviation Low voltage QRS Inferior infarct , age undetermined Cannot rule out Anterior infarct (cited on or before 17-Jul-2016) Abnormal ECG Confirmed by Veda Ding ([id number]) on 03/31/2025 4:29:44 PM Referred By: Electronically Signed By: Veda Ding Transcribed By: MUS Signed By Veda Ding MD [id number] us Neto Horton DO ECG ORDERABLES Final Result Performing Organization Address City/State/[facility] Co de Phone Number [facility] Veena Sw[place] [address], * DEXA bone density (02/10/2025 8:23 AM EDT) Anatomical Region Laterality Modality Body Digital Radiogra phy 02/10/2025 11:1 6 AM EDT Impressions 02/10/2025 12:09 PM EDT BI-RADS 1- NEGATIVE. ROUTINE FOLLOW-UP MAMMOGRAPHY IS SUGGESTED IN ONE YEAR. DENSITY: There are scattered areas of fibroglandular density. BI-RADS 1: NEGATIVE MAMMOGRAM. Board Certified Radiologists. Accredited by the ACR and FDA. MAMMOGRAPHY IS VERY IMPORTANT TO YOUR HEALTH. THE [employer] GUIDELINES RECOMMEND THAT WOMEN 40 YEARS OF AGE AND OLDER SHOULD HAVE A MAMMOGRAM EVERY YEAR. A REMINDER LETTER WILL BE SENT AT THE APPROPRIATE TIME. Board Certified Radiologists. Accredited by the ACR and FDA. MAMMOGRAPHY IS VERY IMPORTANT TO YOUR HEALTH. THE [employer] GUIDELINES RECOMMEND THAT WOMEN 40 YEARS OF AGE AND OLDER SHOULD HAVE A MAMMOGRAM EVERY YEAR. A REMINDER LETTER WILL BE SENT AT THE APPROPRIATE TIME. Board Certified Radiologists. Accredited by the ACR and FDA. MAMMOGRAPHY IS VERY IMPORTANT TO YOUR HEALTH. THE [employer] GUIDELINES RECOMMEND THAT WOMEN 40 YEARS OF AGE AND OLDER SHOULD HAVE A MAMMOGRAM EVERY YEAR. A REMINDER LETTER WILL BE SENT AT THE APPROPRIATE TIME. THIS FACILITY UTILIZES A REMINDER SYSTEM TO ENSURE ALL PATIENTS RECEIVE REMINDER NOTIFICATIONS AT THE APPROPRIATE TIME BASED ON THE RECOMMENDATIONS OF THIS EXAM. THIS INCLUDES REMINDERS FOR ROUTINE SCREENING MAMMOGRAMS, DIAGNOSTIC MAMMOGRAMS IN WHICH THE PATIENT IS ASKED TO RETURN FOR ADDITIONAL VIEWS, OR OTHER BREAST IMAGING INTERVENTIONS WHEN APPROPRIATE. THE PATIENT WILL BE PLACED IN THE APPROPRIATE REMINDER SYSTEM INCLUDING A REMINDER AT THE APPROPRIATE TIME FOR ANY PENDING ADDITIONAL VIEWS. DEXA BONE DENSITY BI MAMMOGRAM SCREENING TOMOSYNTHESIS BILATERAL, DEXA BONE DENSITY : 02/10/2025 8:00 AM CLINICAL HISTORY: screening. COMPARISON: None available. TECHNIQUE: The lumbar spine and both hips were scanned. FINDINGS: The mean bone mineral density from L1 through L4 is 0.981, and the T-score is 1.5, which is the standard deviation above the standard reference value for young adult. Bone mineral density of the left femoral neck is 0.750, and the T-score is -0.9, which is the standard deviation below the standard reference value for young adult. Bone mineral density of the right femoral neck is 0.784, and the T-score is - 0.6, which is the standard deviation below the standard reference value for young adult. These values meet WHO criteria for normal IMPRESSION: NORMAL RECOMMENDATIONS: !. All patients should optimize their calcium and Vitamin D intake. 2. Consider FDA approved medical therapies in Postmenopausal women and men aged 50 and older, based on the following: -A hip or vertebral (clinical or morphometric) fracture -T-score less than or equal to -2.5 at the femoral neck or spine after appropriate evaluation to exclude secondary causes -Low bone density (T-score between -1.0 and -2.5 at the femoral neck or spine) and a 10 year probability of a hip fracture greater than or equal to 3% or a 10 year probability of a major osteoporosis-related fracture greater than or equal to 20% based on FRAX calculation. -Clinical judgment and/or patient preferences may indicate treatment for people with 10-year facture probabilities above or below these levels -Further guidance on treatment can be found at the National Osteoporosis Foundation's website: bonesource.org. 3. Patient's with diagnosis of osteoporosis or at high risk for fracture should have regular bone mineral density tests. For patients eligible for Medicare, routine testing is allowed once every 2 years. The testing frequency can be increased to one year for patients who have rapidly progressing disease, those who are receiving or discontinuing medical therapy to restore bone mass or have additional risk factors. ELECTRONICALLY SIGNED BY: DO Kelvin Gibson 02/10/2025 12:09 PM EDT EXAMINATION: BI MAMMOGRAM SCREENING TOMOSYNTHESIS BILATERAL, CLINICAL HISTORY:screening COMPARISON: January 15, 2023; January 26, 2024. RESULT: Digital mammography and 3D tomosynthesis of bilateral breasts was performed. FINDINGS: Scattered fibroglandular densities are noted with stable asymmetry. There are no developing masses, suspicious microcalcifications, or areas of architectural distortion identified on today's examination. There is no significant change when compared to the prior examinations identified, given differences in technique and positioning. Procedure Note Jasper Ta, - 02/10/2025 EXAMINATION: BI MAMMOGRAM SCREENING TOMOSYNTHESIS BILATERAL, CLINICAL HISTORY:screening COMPARISON: January 15, 2023; January 26, 2024. RESULT: Digital mammography and 3D tomosynthesis of bilateral breasts wasperformed. FINDINGS: Scattered fibroglandular densities are noted with stable asymmetry. There are no developing masses, suspicious microcalcifications, or areasof architectural distortion identified on today's examination. There is no significant change when compared to the prior examinationsidentified, given differences in technique and positioning. IMPRESSION: BI-RADS 1- NEGATIVE. ROUTINE FOLLOW-UP MAMMOGRAPHY IS SUGGESTED IN ONE YEAR. DENSITY: There are scattered areas of fibroglandular density. BI-RADS 1: NEGATIVE MAMMOGRAM. Board Certified Radiologists. Accredited by the ACR and FDA. MAMMOGRAPHY IS VERY IMPORTANT TO YOUR HEALTH. THE [employer]EN[employer] CANCER SOCIETYGUIDELINES RECOMMEND THAT WOMEN 40 YEARS OF AGE AND OLDER SHOULD HAVE AMAMMOGRAM EVERY YEAR. A REMINDER LETTER WILL BE SENT AT THE APPROPRIATE TIME. Board Certified Radiologists. Accredited by the ACR and FDA. MAMMOGRAPHY IS VERY IMPORTANT TO YOUR HEALTH. THE [employer] SOCIETYGUIDELINES RECOMMEND THAT WOMEN 40 YEARS OF AGE AND OLDER SHOULD HAVE AMAMMOGRAM EVERY YEAR. A REMINDER LETTER WILL BE SENT AT THE APPROPRIATE TIME. Board Certified Radiologists. Accredited by the ACR and FDA. MAMMOGRAPHY IS VERY IMPORTANT TO YOUR HEALTH. THE [employer] SOCIETYGUIDELINES RECOMMEND THAT WOMEN 40 YEARS OF AGE AND OLDER SHOULD HAVE AMAMMOGRAM EVERY YEAR. A REMINDER LETTER WILL BE SENT AT THE APPROPRIATE TIME. THIS FACILITYUTILIZES A REMINDER SYSTEM TO ENSURE ALL PATIENTS RECEIVE REMINDERNOTIFICATIONS AT THE APPROPRIATE TIME BASED ON THE RECOMMENDATIONS OF THISEXAM. THIS INCLUDES REMINDERS FOR ROUTINE SCREENING MAMMOGRAMS, DIAGNOSTICMAMMOGRAMS IN WHICH THE PATIENT IS ASKED TO RETURN FOR ADDITIONAL VIEWS,OR OTHER BREAST IMAGING INTERVENTIONS WHEN APPROPRIATE. THE PATIENT WILLBE PLACED IN THE APPROPRIATE REMINDER SYSTEM INCLUDING A REMINDER AT THEAPPROPRIATE TIME FOR ANY PENDING ADDITIONAL VIEWS. DEXA BONE DENSITY BI MAMMOGRAM SCREENING TOMOSYNTHESIS BILATERAL, DEXA BONE DENSITY :02/10/2025 8:00 AM CLINICAL HISTORY: screening. COMPARISON: None available. TECHNIQUE: The lumbar spine and both hips were scanned. FINDINGS: The mean bone mineral density from L1 through L4 is 0.981, and the T-scoreis 1.5, which is the standard deviation above the standard reference valuefor young adult. Bone mineral density of the left femoral neck is 0.750, and the T-score is-0.9, which is the standard deviation below the standard reference valuefor young adult. Bone mineral density of the right femoral neck is 0.784, and the T-scoreis -0.6, which is the standard deviation below the standard referencevalue for young adult. These values meet WHO criteria for normal IMPRESSION: NORMAL RECOMMENDATIONS: !. All patients should optimize their calcium and Vitamin D intake. 2. Consider FDA approved medical therapies in Postmenopausal women andmen aged 50 and older, based on the following: -A hip or vertebral (clinical or morphometric) fracture -T-score less than or equal to -2.5 at the femoral neck or spine afterappropriate evaluation to exclude secondary causes -Low bone density (T-score between -1.0 and -2.5 at the femoral neck orspine) and a 10 year probability of a hip fracture greater than or equalto 3% or a 10 year probability of a major osteoporosis-related fracture greaterthan or equal to 20% based on FRAX calculation. -Clinical judgment and/or patient preferences may indicate treatment forpeople with 10-year facture probabilities above or below these levels -Further guidance on treatment can be found at the National OsteoporosisFoundation's website: bonesource.org. 3. Patient's with diagnosis of osteoporosis or at high risk for fractureshould have regular bone mineral density tests. For patients eligible forMedicare, routine testing is allowed once every 2 years. The testing frequency canbe increased to one year for patients who have rapidly progressingdisease, those who are receiving or discontinuing medical therapy to restore bone massor have additional risk factors. ELECTRONICALLY SIGNED BY: Jasper Ta DO Eve Carlos MD IMG DXA PROCEDURES Final Resul t * Bilateral screening mammogram with tomosynthesis (02/10/2025 8:13 AM EDT) Anatomical Region Laterality Modality Breast Bilateral Mammography 02/10/2025 11:1 6 AM EDT Impressions 02/10/2025 12:09 PM EDT BI-RADS 1- NEGATIVE. ROUTINE FOLLOW-UP MAMMOGRAPHY IS SUGGESTED IN ONE YEAR. DENSITY: There are scattered areas of fibroglandular density. BI-RADS 1: NEGATIVE MAMMOGRAM. Board Certified Radiologists. Accredited by the ACR and FDA. MAMMOGRAPHY IS VERY IMPORTANT TO YOUR HEALTH. THE [employer] GUIDELINES RECOMMEND THAT WOMEN 40 YEARS OF AGE AND OLDER SHOULD HAVE A MAMMOGRAM EVERY YEAR. A REMINDER LETTER WILL BE SENT AT THE APPROPRIATE TIME. Board Certified Radiologists. Accredited by the ACR and FDA. MAMMOGRAPHY IS VERY IMPORTANT TO YOUR HEALTH. THE [employer] GUIDELINES RECOMMEND THAT WOMEN 40 YEARS OF AGE AND OLDER SHOULD HAVE A MAMMOGRAM EVERY YEAR. A REMINDER LETTER WILL BE SENT AT THE APPROPRIATE TIME. Board Certified Radiologists. Accredited by the ACR and FDA. MAMMOGRAPHY IS VERY IMPORTANT TO YOUR HEALTH. THE [employer] GUIDELINES RECOMMEND THAT WOMEN 40 YEARS OF AGE AND OLDER SHOULD HAVE A MAMMOGRAM EVERY YEAR. A REMINDER LETTER WILL BE SENT AT THE APPROPRIATE TIME. THIS FACILITY UTILIZES A REMINDER SYSTEM TO ENSURE ALL PATIENTS RECEIVE REMINDER NOTIFICATIONS AT THE APPROPRIATE TIME BASED ON THE RECOMMENDATIONS OF THIS EXAM. THIS INCLUDES REMINDERS FOR ROUTINE SCREENING MAMMOGRAMS, DIAGNOSTIC MAMMOGRAMS IN WHICH THE PATIENT IS ASKED TO RETURN FOR ADDITIONAL VIEWS, OR OTHER BREAST IMAGING INTERVENTIONS WHEN APPROPRIATE. THE PATIENT WILL BE PLACED IN THE APPROPRIATE REMINDER SYSTEM INCLUDING A REMINDER AT THE APPROPRIATE TIME FOR ANY PENDING ADDITIONAL VIEWS. DEXA BONE DENSITY BI MAMMOGRAM SCREENING TOMOSYNTHESIS BILATERAL, DEXA BONE DENSITY : 02/10/2025 8:00 AM CLINICAL HISTORY: screening. COMPARISON: None available. TECHNIQUE: The lumbar spine and both hips were scanned. FINDINGS: The mean bone mineral density from L1 through L4 is 0.981, and the T-score is 1.5, which is the standard deviation above the standard reference value for young adult. Bone mineral density of the left femoral neck is 0.750, and the T-score is -0.9, which is the standard deviation below the standard reference value for young adult. Bone mineral density of the right femoral neck is 0.784, and the T-score is - 0.6, which is the standard deviation below the standard reference value for young adult. These values meet WHO criteria for normal IMPRESSION: NORMAL RECOMMENDATIONS: !. All patients should optimize their calcium and Vitamin D intake. 2. Consider FDA approved medical therapies in Postmenopausal women and men aged 50 and older, based on the following: -A hip or vertebral (clinical or morphometric) fracture -T-score less than or equal to -2.5 at the femoral neck or spine after appropriate evaluation to exclude secondary causes -Low bone density (T-score between -1.0 and -2.5 at the femoral neck or spine) and a 10 year probability of a hip fracture greater than or equal to 3% or a 10 year probability of a major osteoporosis-related fracture greater than or equal to 20% based on FRAX calculation. -Clinical judgment and/or patient preferences may indicate treatment for people with 10-year facture probabilities above or below these levels -Further guidance on treatment can be found at the National Osteoporosis Foundation's website: bonesource.org. 3. Patient's with diagnosis of osteoporosis or at high risk for fracture should have regular bone mineral density tests. For patients eligible for Medicare, routine testing is allowed once every 2 years. The testing frequency can be increased to one year for patients who have rapidly progressing disease, those who are receiving or discontinuing medical therapy to restore bone mass or have additional risk factors. ELECTRONICALLY SIGNED BY: DO Kelvin Gibson 02/10/2025 12:09 PM EDT EXAMINATION: BI MAMMOGRAM SCREENING TOMOSYNTHESIS BILATERAL, CLINICAL HISTORY:screening COMPARISON: January 15, 2023; January 26, 2024. RESULT: Digital mammography and 3D tomosynthesis of bilateral breasts was performed. FINDINGS: Scattered fibroglandular densities are noted with stable asymmetry. There are no developing masses, suspicious microcalcifications, or areas of architectural distortion identified on today's examination. There is no significant change when compared to the prior examinations identified, given differences in technique and positioning. Procedure Note Jasper Ta DO - 02/10/2025 EXAMINATION: BI MAMMOGRAM SCREENING TOMOSYNTHESIS BILATERAL, CLINICAL HISTORY:screening COMPARISON: January 15, 2023; January 26, 2024. RESULT: Digital mammography and 3D tomosynthesis of bilateral breasts wasperformed. FINDINGS: Scattered fibroglandular densities are noted with stable asymmetry. There are no developing masses, suspicious microcalcifications, or areasof architectural distortion identified on today's examination. There is no significant change when compared to the prior examinationsidentified, given differences in technique and positioning. IMPRESSION: BI-RADS 1- NEGATIVE. ROUTINE FOLLOW-UP MAMMOGRAPHY IS SUGGESTED IN ONE YEAR. DENSITY: There are scattered areas of fibroglandular density. BI-RADS 1: NEGATIVE MAMMOGRAM. Board Certified Radiologists. Accredited by the ACR and FDA. MAMMOGRAPHY IS VERY IMPORTANT TO YOUR HEALTH. THE [employer] CANCER SOCIETYGUIDELINES RECOMMEND THAT WOMEN 40 YEARS OF AGE AND OLDER SHOULD HAVE AMAMMOGRAM EVERY YEAR. A REMINDER LETTER WILL BE SENT AT THE APPROPRIATE TIME. Board Certified Radiologists. Accredited by the ACR and FDA. MAMMOGRAPHY IS VERY IMPORTANT TO YOUR HEALTH. THE [employer] CANC[employer] SOCIETYGUIDELINES RECOMMEND THAT WOMEN 40 YEARS OF AGE AND OLDER SHOULD HAVE AMAMMOGRAM EVERY YEAR. A REMINDER LETTER WILL BE SENT AT THE APPROPRIATE TIME. Board Certified Radiologists. Accredited by the ACR and FDA. MAMMOGRAPHY IS VERY IMPORTANT TO YOUR HEALTH. THE [employer] CANC[employer] SOCIETYGUIDELINES RECOMMEND THAT WOMEN 40 YEARS OF AGE AND OLDER SHOULD HAVE AMAMMOGRAM EVERY YEAR. A REMINDER LETTER WILL BE SENT AT THE APPROPRIATE TIME. THIS FACILITYUTILIZES A REMINDER SYSTEM TO ENSURE ALL PATIENTS RECEIVE REMINDERNOTIFICATIONS AT THE APPROPRIATE TIME BASED ON THE RECOMMENDATIONS OF THISEXAM. THIS INCLUDES REMINDERS FOR ROUTINE SCREENING MAMMOGRAMS, DIAGNOSTICMAMMOGRAMS IN WHICH THE PATIENT IS ASKED TO RETURN FOR ADDITIONAL VIEWS,OR OTHER BREAST IMAGING INTERVENTIONS WHEN APPROPRIATE. THE PATIENT WILLBE PLACED IN THE APPROPRIATE REMINDER SYSTEM INCLUDING A REMINDER AT THEAPPROPRIATE TIME FOR ANY PENDING ADDITIONAL VIEWS. DEXA BONE DENSITY BI MAMMOGRAM SCREENING TOMOSYNTHESIS BILATERAL, DEXA BONE DENSITY :02/10/2025 8:00 AM CLINICAL HISTORY: screening. COMPARISON: None available. TECHNIQUE: The lumbar spine and both hips were scanned. FINDINGS: The mean bone mineral density from L1 through L4 is 0.981, and the T-scoreis 1.5, which is the standard deviation above the standard reference valuefor young adult. Bone mineral density of the left femoral neck is 0.750, and the T-score is-0.9, which is the standard deviation below the standard reference valuefor young adult. Bone mineral density of the right femoral neck is 0.784, and the T-scoreis -0.6, which is the standard deviation below the standard referencevalue for young adult. These values meet WHO criteria for normal IMPRESSION: NORMAL RECOMMENDATIONS: !. All patients should optimize their calcium and Vitamin D intake. 2. Consider FDA approved medical therapies in Postmenopausal women andmen aged 50 and older, based on the following: -A hip or vertebral (clinical or morphometric) fracture -T-score less than or equal to -2.5 at the femoral neck or spine afterappropriate evaluation to exclude secondary causes -Low bone density (T-score between -1.0 and -2.5 at the femoral neck orspine) and a 10 year probability of a hip fracture greater than or equalto 3% or a 10 year probability of a major osteoporosis-related fracture greaterthan or equal to 20% based on FRAX calculation. -Clinical judgment and/or patient preferences may indicate treatment forpeople with 10-year facture probabilities above or below these levels -Further guidance on treatment can be found at the National OsteoporosisFoundation's website: bonesource.org. 3. Patient's with diagnosis of osteoporosis or at high risk for fractureshould have regular bone mineral density tests. For patients eligible forMedicare, routine testing is allowed once every 2 years. The testing frequency canbe increased to one year for patients who have rapidly progressingdisease, those who are receiving or discontinuing medical therapy to restore bone massor have additional risk factors. ELECTRONICALLY SIGNED BY: Jasper Ta DO Eve Carlos MD [facility] BI PROCEDURES Final Result from Last 3 [place] [address] [facility] Care Teams Industrial Equipment Wirer Relationship Specialty Start Date End Date Max Jean Baptiste MD [address] [place] [address] PCP - General Family Medicine 05/12/24
--- OUTSIDE RECORDS SUMMARY | 2025-05-02 08:00 | XMS_ITS | Clinical Summary ---
Author Organization [facility] Address [address] [place], [place] [id number] Care Team Providers Care Instructor Of Nursing Name Role Phone Kamilla Shabazz MD Primary Care Provider Allergies Active Allergy Reactions Criticality Noted Date Comments Lidocaine Rash 12/17/2013 Hot red rash Menthol Rash 12/17/2013 Red hot rash Medications amLODIPine (NORVASC) 5 mg tablet Take 5 mg by mouth once daily. 04/25/2021 Active bisoprolol-hydr oCHLOROthiazide (ZIAC) 10-6.25 mg per tablet Take 1 tablet by mouth once daily. 04/25/2021 Active niacin (NIACIN) 500 mg tablet Take 500 mg by mouth. Active aspirin, enteric coated (ASPIRIN, ENTERIC COATED) 81 mg EC tablet Aspirin Active 81 MG PO Daily July 06, 2020 11:24am 07/06/2020 Active Prwup-5-EXD-EPA -Fish Oil 1,000 mg (120 mg-180 mg) cap [place] 4-Shz-Nef-Fi sh Oil Active 1 CAP Oral Daily July 06, 2020 11:24am 07/06/2020 Active Active Problems No known active problems Immunizations Immunization Administration Dates Next Due influenza (HD-IIV4) vaccine, age 65+ yr, high dose, quadrivalent, PF (FLUZONE HIGH-DOSE) 06/25/2021 influenza (IIV4) vaccine, ag e 6 mo - 64 yr, quadrivalent, PF (AFLURIA, FLUARIX, FLULAVAL, FLUZONE) 06/17/2018 influenza (LAIV) vaccine, na adonay, unspecified formulation 11/14/1999 influenza (ccIIV4) vaccine, age 6+ mo, quadrivalent (FLUCELVAX) 06/06/2020 influenza (ccIIV4) vaccine, age 6+ mo, quadrivalent, PF (FLUCELVAX) 06/07/2019 pneumococcal conjugate (PCV2 0) vaccine, 20 valent (PREVNAR 20) 04/02/2022 poliovirus vaccine, unspecified formulation 09/1963 tetanus diphtheria pertussis (Tdap) vaccine, age 7+ yr (ADACEL, BOOSTRIX) 05/20/2017 Family History Medical History Relation Comments Cancer Father Cancer Mother Relation Status Comments Father Mother Social History Tobacco Use Types Packs/Day Years Used Date Smoking Tobacco: Never Smokeless Tobacco: Never Alcohol Use Standard Drinks/Week Comments Not Currently 0 (1 standard drink = 0.6 oz pur e alcohol) PHQ-2 Answer Date Recorded PHQ-2 score 2 12/31/2022 Area Deprivation Index Answer Date Mauro rded National Score (1-100), lower number is lower ri sk 74 01/01/2023 State Score (1-10), lower number is lower risk N ot on file 01/01/2023 Data from: https://www.neighborhoodatlas.medicine.[facility].edu/. Last address used for calculation [address] 01/01/2023 Comments No Sex and Gender Information Value Date Recorded Sex Assigned at Female 12/30/2021 9:38 PM EDT Legal Sex Female 1:23 PM EDT Gender Identity Female 12/30/2021 9:38 PM EDT Sexual Orientation Straight 12/30/2021 9: 38 PM EDT Last Filed Vital Signs Vital Sign Reading Time Taken Comments Blood Pressure 123/69 01/01/2023 10:27 AM EDT Pulse 58 01/01/2023 10:27 AM EDT Temperature 36.6 C (97.8 F) 01/01/2023 10:27 AM EDT Respiratory Rate 18 01/01/2023 10:27 AM EDT Oxygen Saturation 100% 01/01/2023 10:27 AM EDT Inhaled Oxygen Concentration - - Weight 105.2 kg (232 lb) 01/01/2023 10:27 AM EDT Height 167.6 cm (5' 5.98 ) 01/01/2023 10:27 AM E DT Body Mass Index 37.46 01/01/2023 10:27 AM EDT Plan of Treatment Health Maintenance Due Date Last Done Comments Anxiety Screening 1973 Depression Screening 1973 Hepatitis C Screening [address] Colonography 2000 Cologuard (FIT-DNA) 2000 Colonoscopy 2000 Colorectal Cancer Screening 2000 Fecal Occult Blood 2000 Lipid Screening 2000 Sigmoidoscopy 2000 Shingrix Vaccine (1 of 2) 2005 Bone Density Screening 2020 Advance Directive Discussion 09/15/2024 Influenza Vaccine (#1) 2025 , 06/06/2020, 06/07/2019, Additional history exists Diabetes Screening 12/25/2025 12/25/2022, 1 , 10/06/2018 DTaP,Tdap,Td Vaccine (2 - Td or Tdap) 05/20/2027 05/20/2017 RSV Vaccine (1 - 1-dose 75+ series) 2030 Pneumococcal Vaccine: 50+ Completed 04/02/2022 Procedures Procedure Name Priority Date/Time Associated Diagnosis Comments COMPREHENSIVE METABOLIC PANEL Routine 12/25/2022 8:26 AM EDT Intra-abdominal and pelvic swelling, mass and lump, unspecified site from Last 3 Months or Most Recently Relevant to Health Maintenance Results * (ABNORMAL) COMP METABOLIC PANEL (12/25/2022 8:26 AM EDT) Protein, Total 7.3 6.3 - 8.0 g/dL 12/25/2022 9:05 AM EDT [facility] Albumin 4.4 3.9 - 4.9 g/dL 12/25/2022 9:05 AM EDT [facility] Calcium, Total 10.4(H) 8.5 - 10.2 mg/dL 12/25/2022 9:05 AM EDT [facility] Bilirubin, Total 0.3 0.2 - 1.3 mg/dL 12/25/2022 9:05 AM [facility] Alkaline Phosphatase 102 34 - 123 U/L 12/25/2022 9:05 AM [facility] AST 22 13 - 35 U/L 12/25/2022 9:05 AM [facility] ALT 22 7 - 38 U/L 12/25/2022 9:05 AM [facility] Glucose 109(H) 74 - 99 mg/dL 12/25/2022 9:05 AM [facility] Comment: The [place] Diabetes Association (ADA) provides guidance for cutoff values for fasting glucose and random glucose. The ADA defines fasting as no caloric intake for at least 8 hours. Fasting plasma glucose results between 100 to 125 mg/dL indicate increased risk for diabetes (prediabetes). Fasting plasma glucose results greater than or equal to 126 mg/dL meet the criteria for diagnosis of diabetes. In the absence of unequivocal hyperglycemia, results should be confirmed by repeat testing. In a patient with classic symptoms of hyperglycemia or hyperglycemic crisis, random plasma glucose results greater than or equal to 200 mg/dL meet the criteria for diagnosis of diabetes. Reference: Standards of Medical Care in Diabetes 2016, [place] Diabetes Association. Diabetes Care. 2016.39(Suppl 1). BUN 13 7 - 21 mg/dL 12/25/2022 9:05 AM [facility] Creatinine 0.90 0.58 - 0.96 mg/dL 12/25/2022 9:05 AM [facility] Sodium 140 136 - 144 mmol/L 12/25/2022 9:05 AM [facility] Potassium 4.1 3.7 - 5.1 mmol/L 12/25/2022 9:05 AM [facility] Chloride 107(H) 97 - 105 mmol/L 12/25/2022 9:05 AM [facility] CO2 26 22 - 30 mmol/L 12/25/2022 9:05 AM [facility] Anion Gap 7(L) 9 - 18 mmol/L 12/25/2022 9:05 AM EDT [facility] Estimated Glomerular Filtration Rate 70 >=60 mL/min/1. 73m 12/25/2022 9:05 AM EDT [facility] Comment:Estimated Glomerular Filtration Rate (eGFR) is calculated using the 2020 CKD-EPI creatinine equation. This equation utilizes serum creatinine, sex, and age as parameters. The creatinine assay has traceable calibration to isotope dilution- mass spectrometry. Refer to KDIGO guidelines for clinical interpretation. In patients with unstable renal function, e.g. those with acute kidney injury, the eGFR may not accurately reflect actual GFR. Blood BLOOD SPECIMEN / Unknown Venipuncture / Unknown 12/25/2022 8:26 AM EDT 12/25/2022 8:37 AM EDT Stephen Peña MD LABORATORY Final Result [facility] [address] [place] [address] from Last 3 Months or Most Recently Relevant to Health Maintenance Insurance MEDICARE [employer] MEDICARE [facility] Care Teams Instructor Of Nursing Relationship Specialty Start Date End Date Kamilla Shabazz MD [address] [place] [address] PCP - General Family Medicine 06/15/21
--- OUTSIDE RECORDS SUMMARY | 2025-05-02 08:00 | XMS_ITS | Encounter Summary ---
Author Organization [facility] Address [address] [place] [address] Care Team Providers Care Liquid Yeast Supervisor Name Role Phone Max Jean Baptiste MD Primary Care Provider [phone] Encounter Details Date Type Department Care Team (Late Contact Info) Description 03/31/2025 External Result Encounter [facility] External Department Unsolicited Neto Horton, [address] [facility] [address] [place] [address] Social History Tobacco Use Types Packs/Day Years [...] EDT Office Visit [facility] [address] [facility] [address] [place] [phone] Neto Horton DO [address] [facility] [address] [place], [place] [phone] 11/01/2025 8:00 AM EST Office Visit [facility] [place] [facility] [address] [facility] [address] [place] [phone] Sylwia Carcamo MD [address] [facility] [address] [place] [address] 02/27/2026 9:00 AM EDT Office Visit [facility] [place] [facility] [address] [phone] Chip Tejeda DO [address] [facility] [place] [address] documented as of this encounter Procedures Procedure Name Priority Date/Time Associated Diagnosis Comments ECG 12-LEAD 03/31/2025 11:13 AM EDT documented in this encounter Results * ECG 12 lead (03/31/2025 11:13 AM EDT) 03/31/2025 11:1 3 AM EDT [facility] - 03/31/2025 4:29 PM EDT [facility] Main [address] [address] Electrocardiograph Report Signed Patient: Nemo Cedillo MR#: [id number] 9 : 1955 Acct:[id number] Age/Sex: 69 / F ADM Date: 03/31/25 Loc: PS Room: Type: [facility] Attending Dr: Neto Horton DO Ordering Provider: [...] 17-Jul-2016) Abnormal ECG Confirmed by Veda Ding ([id number]) on 03/31/2025 4:29:44 PM Referred By: Electronically Signed By: Veda Ding Transcribed By: MUS Signed By Veda Ding MD [id number] Procedure Note Veda Ding MD - 03/31/2025 [facility] Main [place] [address] [place], [place] [id number] Electrocardiograph Report Signed Patient: Nemo Cedillo NMR#: [id number] 9 : 1955cct:[id number] Age/Sex: 69 / FADM Date: 03/31/25 Loc: Room:Type: [facility] Attending Dr: Neto Horton DO Ordering Provider: [...] 17-Jul-2016) Abnormal ECG Confirmed by Veda Ding ([id number]) on 03/31/2025 4:29:44 PM Referred By: Electronically Signed By: Veda Ding Transcribed By: MUS Signed By Veda Ding MD [phone] Neto Horton DO ECG ORDERABLES [place] [address], documented in this encounter Visit Diagnoses Not on filedocumented in this encounter Care Teams Liquid Yeast Supervisor Relationship Specialty Start Date End Date Max Jean Baptiste MD [address] [place] [address] PCP - General Family Medicine 05/12/24 documented as of this encounter
--- OUTSIDE RECORDS SUMMARY | 2025-05-02 08:00 | XMS_ITS | Encounter Summary ---
Author Organization [facility] Address [address] [place] [address] Care Team Providers Care Flavorings Compounder Name Role Phone Max Jean Baptiste MD Primary Care Provider [phone] Encounter Details Date Type Department Care Team (Latest Contact Info) Description 04/27/2025 Travel Social History Tobacco Use Types Packs/Day Years [...] [facility] [address] [place] [id number] Neto Horton, [address] [place] [address] 11/01/2025 8:00 AM EST Office Visit [facility] [place] [facility] [address] [facility] [address] [place] [address] Sylwia Carcamo MD [address] [facility] [address] [place] [address] 02/27/2026 9:00 AM EDT Office Visit [facility] [address] [place] [address] Chip Tejeda DO [address] [place] [address] documented as of this encounter Visit Diagnoses Not on filedocumented in this encounter Care Teams Flavorings Compounder Relationship Specialty Start Date End Date Max Jean Baptiste MD [address] [place] [address] PCP - General Family Medicine 05/12/24 documented as of this encounter
--- OUTSIDE RECORDS SUMMARY | 2025-05-02 08:08 | XMS_ITS | CCD ---
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 Name Role Phone PHYSICIAN, DEFAULT Admitting Unavailable PHYSICIAN, DEFAULT Attending Unavailable SALAS SHABAZZ Primary Care Unavailable Salas Shabazz MD Primary Care Provider [phone] Alex Peña Unavailable Jessica Ruiz Unavailable SALAS SHABAZZ Primary Care Physician MD Salas Shabazz Primary Care Provider [phone] MD Chetan Soto Jr Attending Provider MD Salas Masterson Primary Care Provider MD Chetan Soto Jr Attending Provider Salas Masterson MD Primary Care Provider SALAS SHABAZZ Primary Care Unavailable KARAMLOU, FARAZ Referring Unavailable SALAS SHABAZZ Primary Care Unavailable REYMUNDOU, FARAZ Referring Unavailable STEFANO, FARAZ Attending Unavailable SALAS SHABAZZ Primary Care Unavailable REYMUNDOU, FARAZ Referring Unavailable SALAS SHABAZZ Primary Care Unavailable REYMUNDOU, FARAZ Referring Unavailable SHABAZZ ., DR SALAS Young Primary Care Unavailable NICOLAS, DR CALDERON Admitting Unavailable REECE, DR ALEX Geiger Consulting Unavailable NICOLAS, DR CALDERON Attending Unavailable NICOLAS, DR CALDERON Consulting Unavailable JOSE ., DR SALAS Young Admitting Unavailable SHABAZZ ., DR SALAS Young Attending Unavailable SHABAZZ ., DR SALAS Young Consulting Unavailable SHABAZZ ., DR SALAS Young Primary Care Unavailable BENJAMIN, DR GERMAN Abrams Admitting Unavailable BENJAMIN, DR GERMAN Abrams Attending Unavailable BENJAMIN, DR GERMAN Abrams Consulting Unavailable SHABAZZ ., DR SALAS Young Primary Care Unavailable THUY DARDEN Consulting Unavailable SHABAZZ ., DR SALAS Young Admitting Unavailable SHABAZZ ., DR SALAS Young Attending Unavailable JOSE ., DR SALAS Young Consulting Unavailable JOSE ., DR SALAS Young Primary Care Unavailable THUY DARDEN Consulting Unavailable Nereida Duarte Unavailable MD Salas Shabazz Primary Care Provider [phone] MD Chtean Soto Jr Attending Provider Harry Mendoza Primary Care Physician [phone] MD Chetan Soto Jr Attending Provider MD Harry Mendoza Primary Care Provider MD Harry Owusu Primary Care Provider [phone] MD Chetan Soto Jr Attending Provider Triston HERCULES Attending Unavailable Salas Shabazz MD Primary Care Provider [phone] Harry Owusu MD Primary Care Provider Harry Owusu MD Primary Care Provider [phone] Chetan Soto MD Attending Provider Unavailab MD Harry Alvarez Attending Unavailable MD Harry Owusu Attending Unavailable Augustina [facility] Adeline Hillman Attending Unavailable MD Harry Owusu Admitting Unavailable MD Harry Owusu Attending Unavailable MD Harry Owusu Attending Unavailable MD Harry Owusu Attending Unavailable [facility] Primary Care Physician Unavailab Yung Brizuela Admitting Unavailable Yung Valenzuela Attending Unavailable CHARLES Marques Admitting UnavailCHARLES Paulino Attending Unavailabl Harry Crowell Attending Unavailable Harry Owusu Admitting Unavailable Harry Owusu Referring Unavailable Yung Valenzuela Admitting Unavailable Yung Valenzuela Attending Unavailable Harry Owusu Attending Unavailable Harry Owusu Attending Unavailable Neto Horton DO Attending Provider [phone] NO [facility], PHYSICIAN Primary Care Provider Unava ilYolanda Campos Attending Unavailable Yolanda Marques Admitting Unavailable Yung Valenzuela Admitting Unavailable Yung Valenzuela Attending Unavailable MD Harry Owusu Referring Unavailable Harry Owusu Primary Care Unavailable Chtean Soto Jr Attending Unavailable Timmis Jr, Chetan H Admitting Unavailable Harry Owusu Primary Care Unavailable Chetan Soto Jr H Attending Unavailable Chetan Soto Jr H Admitting Unavailable Neto Horton Attending Unavailable Neto Horton Admitting Unavailable NO FAMILY, PHYSICIAN Primary Care Unavailable NO FAMILY, PHYSICIAN Primary Care Unavailable Neto Horton Attending Unavailable Neto Horton Admitting Unavailable CHETAN SOTO Attending Unavailable JR. SANJEEV, JULIANA Nieto Attending Unavaila eva MURRAY JR., JULIANA Nieto Referring Unavaila eva MURRAY JR., JULIANA Nieto Attending Unavaila ble NICOLAS PENOLA P Referring Unavailable NICOLAS PENJESSI P Referring Unavailable EVE VALENZUELA Attending Unavailable NETO HORTON Attending Unavailable NETO HORTON Attending Unavailable CHETAN SOTO Attending Unavailable Allergies Allergy Classification Reported Allergen(s) Allergy Type Date of Onset Reaction(s) Facility (2 sources) Lidocaine Drug Allergy 4 [facility] Repository (20 sources) ICY HOT; Translations: [ICY HOT] Propensity to adverse reactions (disorder) 4 Eruption of skin (disorder), Rash [facility] Repository (1 source) 04965,00; Translations: [82183,00] Propensity to adverse reactions (disorder) 1 [facility] Rep[facility] (20 sources) Lidocaine; Translations: [lidocaine] Drug Allergy 4 [facility] (20 sources) Menthol; Translations: [MENTHOL] Drug Allergy 4 [facility] (10 sources) methyl salicylate; Translations: [methyl salicylate] Drug Allergy 2 [facility] (6 sources) Tetanus Vaccines and Toxoid; Translations: [Tetanus Vaccines and Toxoid] Allergy to substance 3 [facility] (1 source) Menthol Drug Allergy [facility] Repository (1 source) METHYL SALICYLATE-MENT HOL; Translations: [METHYL SALICYLATE-MENT HOL] Propensity to adverse reactions to drug (disorder) 4 [facility] Repository (1 source) Lidocaine Drug Allergy 5 [facility] Repository (1 source) Menthol Drug Allergy 5 [facility] Repository Medications Current Medications Medication Drug Class(es) Dates Sig (Normalized) Sig (Original) Tylenol (17 sources) Start: 02-24-2025 Tylenol Refill s(s) 0 Start Date: 02/24/25 Status: Ordered Repeat number: 1 acetaminophen (T ylenol) 325 MG tablet Take by mouth Active amLODIPine 5 mg oral tablet (20 sources) Dihydropyridine Calcium Channel Tristin Start: 05-15-2020 take 1 tablet by mouth in the morning amLODIPine (Norvasc) 5 MG tablet Take 5 mg by mouth in the morning. 03/17/2023 Active Comment on above: Take 5 mg by mouth o nce daily. amoxicillin 500 mg oral capsule (11 sources) Penicillin-class Antibacterial Start: 03-31-2025 take 4 capsules by mouth once daily as needed Amoxicillin 500 mg capsule Active 2000 MG PO Daily as needed for dental work March 31, 2025 12:00am Complies with drug therapy Start: 02-03-2025 amoxicillin (A moxil) 500 MG capsule 02/03/2025 Active Start: 08-19-2024 amoxicillin ta kes prior to procedures, Refills(s) 0 Start Date: 08/19/24 Status: Ordered Start: 08-29-2023 take 2000 mg by mout h once as needed amoxicillin 2,000 mg, Oral, Once, PRN Other (see comment), X 1 dose(s), Refills(s) 0 Start Date: 08/29/23 Status: Ordered Aspir 81 (11 sources) Start: 05-15-2020 take 81 mg by mouth once daily Aspir 81 81 mg, Oral, Daily, Refills(s) 0 Start Date: 05/15/20 Status: Ordered Repeat number: 1 Start: 05-15-2020 take 81 mg by mouth once daily Aspir 81 81 mg, Oral, Daily, Refills(s) 0 Start Date: 05/15/20 Status: Ordered Aspir-81 81 MG (6 sources) take 1 tablet by mouth once daily Aspir-81 81 MG 1 tablet Orally Once a day Active aspirin 81 mg delayed release oral tablet (20 sources) Platelet Aggregation Inhibitor, Nonsteroidal Anti-inflammatory Drug Start: 07-06-2020 aspirin, enteric coated (ASPIRIN, ENTERIC COATED) 81 mg EC tablet Aspirin Active 81 MG PO Daily July 06, 2020 11:24am 07/06/2020 Active Start: 07-06-2020 take 1 tablet by sharon th once daily in the evening Aspirin 81 mg Tablet,Delayed Release (Dr/Ec) Active 81 MG PO Every evening July 06, 2020 12:00am Complies with drug therapy aspirin 81 MG ch ewable tablet Chew 81 mg 1 (one) time each day at the same time. Active Comment on above: Aspirin Active 81 MG PO Daily July 06, 2020 11:24am bisoprolol fumarate 10 mg / hydroCHLOROthiazide 6.25 mg oral tablet (20 sources) Thiazide Diuretic, beta-Adrenergic Tristin Start: take 1 tablet by mouth in the morning bisoprolol-hydr oCHLOROthiazide (Ziac) 10-6.25 MG tablet Take 1 tablet by mouth in the morning. 03/17/2023 Active Start: 05-15-2020 take 1 tablet by sharon th once daily in the morning Bisoprolol-Hydrochlorothiazide 10-6.25 m g tablet Active 1 TAB PO Every morning July 06, 2020 12:00am Complies with drug therapy Comment on above: Take 1 tablet by sharon th once daily. 24 hr buPROPion hydrochloride 150 mg extended release oral tablet (3 sources) Aminoketone Start: 12-24-19 take 1 tablet by mouth every twenty-four hours Wellbutrin XL 150 mg/24 hours Tab-ER 150 mg = 1 tab(s), Oral, q24hr, # 90 tab(s), Refills(s) 0, Pharmacy: [facility]/pharmacy #[id number], 168, cm, 12/23/24 9:24:00 EDT, Height/Length Dosing, 100.4, kg, 12/23/24 9:24:00 EDT, Weight Dosing Start Date: 12/23/24 Status: Ordered Quantity: 90.0 Unit: tab(s) Repeat number: 1 Calcium + D 315-200 MG-UNIT (6 sources) take 1 tablet by mouth twice daily at mealtime Calcium + D 315-200 MG-UNIT 1 tablet with meals Orally Twice a day Active Calcium 600-10 MG-MCG chewable tablet (18 sources) Calcium 600-10 MG-MCG chewable tablet Chew 1 tablet in the morning. Active calcium carbonate 1500 mg / cholecalciferol 200 unt oral capsule (15 sources) Vitamin D Start: 10-22-20 20 take 1 capsule by mouth once daily in the morning Calcium Carbonate-Vitamin D3 (Calcium 600 + D(3)) 600 mg calcium- 200 unit Capsule Active 1 CAP PO Every morning July 06, 2020 12:00am Complies with drug therapy End: 01-01-2023 take 1 tablet by mouth once ltwykam-gkgsevgih-euarjyh D3 500 mg(1,250mg) -200 unit per tablet Take 1 tablet by mouth. 0 01/01/2023 Discontinued Comment on above: Take 1 tablet by sharon . calcium citrate 950 mg oral tablet (4 sources) Start: 05-15-2020 calcium (as calcium citrate) 200 mg oral tablet See Instructions, take 600mg orally once a day, Refills(s) 0 Start Date: 05/15/20 Status: Ordered Start: 05-15-2020 calcium (as ca lcium citrate) 200 mg oral tablet 950 mg = 1 tab(s), Oral, Daily, Refills(s) 0 Start Date: 05/15/20 Status: Ordered Calcium Citrate / Vitamin D (7 sources) Start: 08-29-2023 calcium-vitami n D 600 mg, Daily, Refill(s) 0 Start Date: 08/29/23 Status: Ordered Repeat number: 1 Start: 08-29-2023 calcium-vitami n D 600 mg, Daily, Refill(s) 0 Start Date: 08/29/23 Status: Ordered celecoxib 100 mg oral capsule (20 sources) Nonsteroidal Anti-inflammatory Drug Start: 03-15-2025 End: 06-13-2025 take 1 capsule by mouth twice daily Celecoxib 100 mg capsule Active 100 MG PO Twice daily March 31, 2025 12:00am Complies with drug therapy Start: 02-24-2025 CeleBREX 100 m g Cap 100 mg = 1 cap(s), Oral, BID, take up to twice daily as needed for pain, # 60 cap(s), Refills(s) 0, Pharmacy: [facility]/pharmacy #[id number], 168, cm, 02/24/25 13:56:00 EDT, Height/Length Dosing, 103.6, kg, 02/24/25 13:56:00 EDT, Weight Dosing Start Date: 02/24/25 Status: Ordered Quantity: 60.0 Unit: cap(s) Repeat number: 1 Start: 07-06-2020 celecoxib (MARION EBREX) 200 mg capsule Celecoxib Active 200 MG PO Twice daily July 06, 2020 11:24am 0 07/06/2020 Active Start: 07-06-2020 End: 11-20-2022 take 1 capsule by mouth twice daily as needed for pain Celecoxib 200 mg capsule Discontinued 200 MG PO Twice daily as needed for Pain July 06, 2020 12:00am November 20, 2022 11:20am Comment on above: Celecoxib Active 200 MG PO Twice daily July 06, 2020 11:24am chondroitin sulfates 600 mg / glucosamine hydrochloride 750 mg oral tablet (20 sources) Start: 01-16-2022 take 2 tablets by mouth twice daily Glucosamine-Chond roitin 750-600 mg Tablet Active 2 TAB PO Twice daily January 16, 2022 12:00am Complies with drug therapy Start: 05-15-2020 take 1 capsule by [facility] once daily Chondroitin-Glucosamine 1 cap(s), Oral, Daily, Refill(s) 0, 1500 mg a day Start Date: 05/15/20 Status: Ordered Repeat number: 1 Start: 05-15-2020 take 1 capsule by [facility] once daily Chondroitin-Glucosamine 1 cap(s), Oral, Daily, Refill(s) 0, 1500 mg a day Start Date: 05/15/20 Status: Ordered Start: 05-15-2020 take 1 capsule by [facility] once daily Chondroitin-Glucosamine 1 cap(s), Oral, Daily, Refill(s) 0 Start Date: 05/15/20 Status: Ordered take 1 tablet by sharon in the morning glucosamine-chondroitin 500-400 MG table t Take 1 tablet by mouth in the morning. Active End: 01-01-2023 Glucosamine-Chondroitin 500- 400 mg tablet Take 1 tablet by mouth. 0 01/01/2023 Discontinued Comment on above: Take 1 tablet by sharon . estradiol 0.1 mg/ml vaginal cream (7 sources) Estrogen Start: 02-13-2025 estradiol (Estrace) 0.1 MG/GM vaginal cream Indications: Vulvovaginal Atrophy Insert twice weekly 42.5 g 12 02/13/2025 Active Fish Oils (20 sources) Start: 08-29-2023 take 1200 mg by mouth once daily Fish Oil 1,200 mg, Oral, Daily, Refill(s) 0 Start Date: 08/29/23 Status: Ordered Repeat number: 1 Start: 08-29-2023 take 1200 mg by mouth once teto ly Fish Oil 1,200 mg, Oral, Daily, Refill(s) 0 Start Date: 08/29/23 Status: Ordered Start: 05-15-2020 take 1 tablet by mouth once da adriane Fish Oil Refill(s) 0, 1 tab po daily Start Date: 05/15/20 Status: Ordered take 1 capsule by [facility] once daily omega-3 (Fish Oil) 1200 MG capsule Take 1,200 mg by mouth 1 (one) time each day at the same time. Active take 1 capsule by [facility] once daily Fish Oil 1200 MG 1 capsule Orally Once a day Active fluticasone propionate 0.05 mg/actuat metered dose nasal spray (1 source) Corticosteroid Start: 11-07-2021 take 2 spray(s) nasal route once daily Fluticasone Propionate 50 MCG/ACT 2 sprays Nasally Once a day for 14 day(s) Oct, Active glucosamine 500 mg oral tablet (6 sources) take 1 capsule by mouth once daily Glucosamine 500 MG 1 capsule with a meal Orally Once a day Active loperamide hydrochloride 2 mg oral capsule (2 sources) Opioid Agonist take 1 capsule by mouth once daily as needed Loperamide HCl 2 MG 1 capsule Orally daily prn Active loratadine 10 mg oral tablet (19 sources) Start: 01-16-2022 take 1 tablet by mouth once daily as needed Loratadine (Claritin) 10 mg Tablet Active 10 MG PO Daily as needed for Allergy Symptoms January 16, 2022 12:00am Complies with drug therapy metroNIDAZOLE 500 mg oral tablet (1 source) Nitroimidazole Antimicrobial Start: 07-23-2021 take 1 tablet by mouth every twelve hours metroNIDAZOLE 500 MG 1 tablet Orally Twice a day for 10 day(s) Jul, Active Multiple Vitamins-Minerals (Thera-M) tablet (18 sources) take 1 tablet by mouth in the morning Multiple Vitamins-Minerals (Thera-M) tablet Take 1 tablet by mouth in the morning. Active Multivitamin preparation (6 sources) Start: 07-06-2020 take 1 tablet by mouth once daily in the morning Multivitamin Active 1 TAB PO Every morning July 05, 2020 11:00pm Start: 07-06-2020 take 1 tablet by [facility] once daily in the morning Multivitamin Active 1 TAB PO Every morning July 06, 2020 12:00am Multivitamin Tablet (3 sources) Start: 07-06-2020 take 1 tablet by mouth once daily in the morning Multivitamin Tablet Active 1 TAB PO Every morning July 06, 2020 12:00am Complies with drug therapy Start: 07-06-2020 take 1 tablet by sharon th once daily in the morning Start: 07-06-2020 take 1 tablet by sharon th once daily in the morning Multivitamin Tablet Active 1 TAB PO Every morning July 05, 2020 11:00pm Multivitamins (6 sources) Multivitamins Or ally Active Multivitamins and Minerals (11 sources) Start: 05-15-2020 Multivitamins and Minerals Refill(s) 0 Start Date: 05/15/20 Status: Ordered Repeat number: 1 Start: 05-15-2020 Multivitamins and Minerals Refill(s) 0 Start Date: 05/15/20 Status: Ordered niacin 500 mg extended release oral tablet (20 sources) Nicotinic Acid Start: 07-06-2020 take 1 tablet by mouth once daily at bedtime Niacin 500 mg tablet extended release Active 500 MG PO Daily at bedtime July 06, 2020 12:00am Complies with drug therapy Start: 05-15-2020 take 500 mg by mouth once [place] niacin 500 mg, Oral, Daily, Refills(s) 0 Start Date: 05/15/20 Status: Ordered Repeat number: 1 Start: 05-15-2020 niacin Refills (s) 0 Start Date: 05/15/20 Status: Ordered Comment on above: Take 500 mg by mouth . [place] 4-Vmo-Ozc-Fish Oil (Fish Oil) 1,000 mg (120 mg-180 mg) Capsule (9 sources) Start: 07-06-2020 take 1 capsule by mouth once daily in the morning [place] 2-Gkd-Ycf-Fish Oil (Fish Oil) 1,000 mg (120 mg-180 mg) Capsule Active 1 CAP PO Every morning July 06, 2020 12:00am Complies with drug therapy Start: 07-06-2020 take 1 capsule by mo uth once daily in the morning Start: 07-06-2020 take 1 capsule by mo uth once daily at bedtime [place] 8-Elx-Jsn-Fish Oil (Fish Oil) 1,000 mg (120 mg-180 mg) Capsule Active 1 CAP PO Daily at bedtime July 05, 2020 11:00pm Start: 07-06-2020 take 1 capsule by [facility] once daily at bedtime [place] 5-Tnq-Rjg-Fish Oil (Fish Oil) 1,000 mg (120 mg-180 mg) Capsule Active 1 CAP PO Daily at bedtime July 06, 2020 12:00am Qapjm-8-BQW-EPA-Fish Oil 1,0 00 mg (120 mg-180 mg) cap (4 sources) Start: 07-06-2020 Xsqyi-1-NKK-EP A-Fish Oil 1,000 mg (120 mg-180 mg) cap [place] 1-Sor-Adt-Fish Oil Active 1 CAP Oral Daily July 06, 2020 11:24am 07/06/2020 Active Start: 07-06-2020 Blxvd-0-WZK-EP A-Fish Oil 1,000 mg (120 mg-180 mg) cap [place] 9-Nnz-Qnx-Fish Oil Active 1 CAP Oral Daily July 06, 2020 11:24am 0 07/06/2020 Active Comment on above: [place] 9-Dsw-Gjl-Fish Oil Active 1 CAP Oral Daily July 06, 2020 11:24am omeprazole 40 mg delayed release oral capsule (4 sources) Proton Pump Inhibitor Start: 3 take 1 capsule by mouth once daily omeprazole 40 mg Cap-DR 40 mg = 1 cap(s), Oral, Daily, Refills(s) 0 Start Date: 06/26/23 Status: Ordered Patient Specific Meds (10 sources) Start: 3 Patient Specific Meds [facility] - capsule Start Date: 06/18/23 Status: Ordered Repeat number: 1 Start: 06-18-2023 Patient Specif ic Meds [facility] - capsule Start Date: 06/18/23 Status: Ordered predniSONE 20 mg oral tablet (1 source) Start: 11-07-2021 take 1 tablet by mouth every twelve hours predniSONE 20 MG 1 tablet Orally bid for 5 day(s) Oct, Active psyllium 3400 mg powder for oral suspension (6 sources) Start: 02-24-2025 Metamucil 3.4 g/5.2 g oral powder 1.7 gram, Oral, PRN for constipation, # 1,042 gram, Refills(s) 0 Start Date: 02/24/25 Status: Ordered Quantity: 1042.0 Unit: g Repeat number: 1 Start: 07-28-2023 End: 10-26-2023 Metamucil 525 mg oral capsul e 1 cap., Oral, Daily, with at least 8 ounces of water, X 90 day(s), # 90 cap(s), Refills(s) 0, Pharmacy: [facility]/pharmacy #[id number], 168, cm, 07/28/23 8:34:00 EST, Height/Length Dosing, 89.5, kg, 07/28/23 8:34:00 EST, Weight Dosing Start Date: 07/28/23 Stop Date: 10/26/23 Status: Ordered traMADol hydrochloride 50 mg oral tablet (2 sources) Opioid Agonist Start: 04-14-2025 traMADol (Ultr am) 50 MG tablet Q4H as needed for Pain Scale 1 - 4 04/14/2025 Active Vaginal Lubricant (Rephresh Odor Eliminating) gel (3 sources) Start: 02-05-2024 End: 05-12-2024 Vaginal Lubricant (Rephresh Odor Eliminating) gel Indications: Rectocele Insert 1 Applicatorful into the vagina 2 (two) times a week 2 g 3 02/05/2024 05/12/2024 Discontinued (Therapy completed) Start: 02-05-2024 Vaginal Lubric ant (Rephresh Odor Eliminating) gel Indications: Rectocele Insert 1 Applicatorful into the vagina 2 (two) times a week 2 g 3 02/05/2024 Active Completed/Discontinued Medications Medication Drug Class(es) Dates Sig (Normalized) Sig (Original) acetaminophen 325 mg / HYDROcodone bitartrate 5 mg oral tablet (9 sources) Opioid Agonist Start: 01-28-2022 End: 11-20-2022 take 1 tablet by mouth every six hours as needed for pain Hydrocodone-Acetami nophen 5-325 mg tablet Discontinued 1 TAB PO Q6H as needed for pain 30 January 28, 2022 November 20, 2022 11:21am Calcium Carbonate (2 sources) Tums Not-Taking Tums Active cefuroxime 500 mg oral tablet (2 sources) Cephalosporin Antibacterial take 1 tablet by mouth every twelve hours Cefuroxime Axetil 500 MG 1 tablet Orally every 12 hrs Not-Taking cholestyramine resin 4000 mg powder for oral suspension (2 sources) Bile Acid Sequestrant Start: 11-08-19 22 Cholestyramine 4 GM/DOSE 1 scoop Orally Once a day for 30 day(s) Oct, Not-Taking Chondroitin Sulfate 400 MG (6 sources) Chondroitin Sulf ate 400 MG Orally Not-Taking Chondroitin Sulf ate 400 MG Orally Active colestipol hydrochloride 1000 mg oral tablet (6 sources) Bile Acid Sequestrant Start: 06-04-2021 take 2 tablets by mouth once daily colestipol (COLESTID) 1 gram tablet Take 2 g by mouth once daily. 0 06/04/2021 Active Start: 06-04-2021 take 2 tablets by mo uth every twenty-four hours Colestipol HCl 1 GM 2 tablets Orally Once a day for 30 day(s) May, Active Comment on above: Take 2 g by mouth on ce daily. dicyclomine hydrochloride 20 mg oral tablet (2 sources) Anticholinergic Start: 04-30-20 take 1 tablet by mouth twice daily dicyclomine (BENTYL) 20 mg tablet Take 20 mg by mouth twice daily. 0 04/30/2021 Active Comment on above: Take 20 mg by mouth twice daily. [facility] (9 sources) Start: 01-17-20 End: 03-31-20 take 1 capsule by mouth once daily in the morning [facility] Discontinued 1 CAP PO Every morning January 16, 2022 12:00am March 31, 2025 11:22am Start: 01-16-2022 take 1 capsule by mo uth once daily in the morning [facility] Active 1 CAP PO Every morning January 15, 2022 11:00pm Start: 01-16-2022 take 1 capsule by mo uth once daily in the morning [facility] Active 1 CAP PO Every morning January 16, 2022 12:00am ferrous sulfate 325 mg oral tablet (12 sources) Start: 07-06-2020 End: 01-16-2022 take 1 tablet by mouth once daily Ferrous Sulfate (Iron) 325 mg (65 mg iron) Tablet Discontinued 325 MG PO Daily July 06, 2020 12:00am January 16, 2022 2:54pm Start: 05-15-2020 take 65 mg by mouth once daily ferrous sulfate See Instructions, 65 mg po daily, Refills(s) 0 Start Date: 05/15/20 Status: Ordered Comment on above: Ferrous Sulfate (Iro n) 325 mg (65 mg iron) Tablet Active 325 MG PO Daily July 06, 2020 11:24am gluc cummings/chondro cummings A/vit C/Mn (GLUCOSAMINE 1500 COMPLEX ORAL) (6 sources) Start: 07-06-2020 End: 01-01-2023 gluc cummings/chondro cummings A/vit C/Mn (GLUCOSAMINE 1500 COMPLEX ORAL) Nsufrvbqdua-T7-Igvtdbamm Serr (Glucosamine Daily Complex) 1,500-400-100 mg-unit-mg Tablet Active 1 TAB PO Daily July 06, 2020 11:24am 0 07/06/2020 01/01/2023 Discontinued Start: 07-06-2020 gluc cummings/chondr o cummings A/vit C/Mn (GLUCOSAMINE 1500 COMPLEX ORAL) Zcrrdxvmsmf-A2-Kyojpotra Serr (Glucosamine Daily Complex) 1,500-400-100 mg-unit-mg Tablet Active 1 TAB PO Daily July 06, 2020 11:24am 0 07/06/2020 Active Comment on above: Xdwnvapyqop-L2-Ujfaxhvck Serr (Glucosami ne Daily Complex) 1,500-400-100 mg-unit-mg Tablet Active 1 TAB PO Daily July 06, 2020 11:24am Glucosamine-D3- [place] Serr (Glucosamine Daily Complex) 1,500-400-100 mg-unit-mg Tablet (9 sources) Start: End: take 1 tablet by mouth once daily Uthohkwnnny-L8-Rdtn ellia Serr (Glucosamine Daily Complex) 1,500-400-100 mg-unit-mg Tablet Discontinued 1 TAB PO Daily July 05, 2020 11:00pm January 16, 2022 1:50pm Start: 07-06-2020 End: 01-16-2022 take 1 tablet by mouth once daily Yfgvstcudyf-J3-Dciawjzse Serr (Glucosami ne Daily Complex) 1,500-400-100 mg-unit-mg Tablet Discontinued 1 TAB PO Daily July 06, 2020 12:00am January 16, 2022 2:50pm iv contrast (will be provide d with radiology test) (8 sources) Start: 01-02-2022 End: 01-01-2023 iv contrast (will be provide d with radiology test) CT ABD/PEL -Inject, intravenously, once for 1 dose.No IV access, insert saline lock prior to the beginning of sedation, infusion, injection of imaging exam. Discontinue saline lock post exam. If Pt. has a central line or IVAD, may access for administration according to line specific nursing protocol. Once exam is complete flush line and de-access according to line specific nursing protocol in the CT contrast administration guidelines link. 1 Each 0 01/02/2022 01/01/2023 Discontinued (Discontinued by Patient) Start: 01-02-2022 End: 01-01-2023 iv contrast (will be provide d with radiology test) CT Chest W -Inject, intravenously, once for 1 dose.No IV access, insert saline lock prior to the beginning of sedation, infusion, injection of imaging exam. Discontinue saline lock post exam. If Pt. has a central line or IVAD, may access for administration according to line specific nursing protocol. Once exam is complete flush line and de-access according to line specific nursing protocol in the CT contrast administration guidelines link. 1 Each 0 01/02/2022 01/01/2023 Discontinued (Discontinued by Patient) Start: 01-02-2022 iv contrast (w ill be provided with radiology test) CT ABD/PEL -Inject, intravenously, once for 1 dose.No IV access, insert saline lock prior to the beginning of sedation, infusion, injection of imaging exam. Discontinue saline lock post exam. If Pt. has a central line or IVAD, may access for administration according to line specific nursing protocol. Once exam is complete flush line and de-access according to line specific nursing protocol in the CT contrast administration guidelines link. 1 Each 0 01/02/2022 Active Start: 01-02-2022 iv contrast (w ill be provided with radiology test) CT Chest W -Inject, intravenously, once for 1 dose.No IV access, insert saline lock prior to the beginning of sedation, infusion, injection of imaging exam. Discontinue saline lock post exam. If Pt. has a central line or IVAD, may access for administration according to line specific nursing protocol. Once exam is complete flush line and de-access according to line specific nursing protocol in the CT contrast administration guidelines link. 1 Each 0 01/02/2022 Active Comment on above: CT ABD/PEL -Inject, intravenously, once for 1 dose.No IV access, insert saline lock prior to the beginning of sedation, infusion, injection of imaging exam. Discontinue saline lock post exam. If Pt. has a central line or IVAD, may access for administration according to line specific nursing protocol. Once exam is complete flush line and de-access according to line specific nursing protocol in the CT contrast administration guidelines link. CT Chest W -Inject, intravenously, once for 1 dose.No IV access, insert saline lock prior to the beginning of sedation, infusion, injection of imaging exam. Discontinue saline lock post exam. If Pt. has a central line or IVAD, may access for administration according to line specific nursing protocol. Once exam is complete flush line and de-access according to line specific nursing protocol in the CT contrast administration guidelines link. 1 ml methylPREDNISolone acetate 40 mg/ml injection (4 sources) Corticosteroid Start: 12-30-19 End: 12-30-19 methylPREDNISolone acetate (DEPO-Medrol) injection 40 mg Start: 12-29-2024 End: 12-29-2024 40 mg, Intra-articular, Once PRN Procedure, Starting on Fri12/29/24 at 1038, For 1 dose MULTIVITAMIN ORAL (2 sources) Start: 07-06-2020 MULTIVITAMIN O RAL Multivitamin Active 1 TAB PO Daily July 06, 2020 11:24am 0 07/06/2020 Active Comment on above: Multivitamin Active 1 TAB PO Daily July 06, 2020 11:24am Jrkpu-8-GVM-EPA-Fish Oil (FISH OIL) 1,000 mg (120 mg-180 mg) cap (5 sources) Start: 07-06-2020 Tfyqh-2-OVU-EP A-Fish Oil (FISH OIL) 1,000 mg (120 mg-180 mg) cap [place] 3-Ruy-Tom-Fish Oil Active 1 CAP Oral Daily July 06, 2020 11:24am 0 07/06/2020 Active Comment on above: [place] 8-Jru-Quw-Fish Oil Active 1 CAP Oral Daily July 06, 2020 11:24am therapeutic multivitamin-minerals (THERA-M PLUS) 9 mg iron-400 mcg tablet (2 sources) therapeutic multivitamin-minerals (THERA-M PLUS) 9 mg iron-400 mcg tablet Take 1 tablet by mouth. 0 Active Comment on above: Take 1 tablet by sharon th. Problems Active Problems Problem Classification Problem Date Documented Da te Episodic/Chronic Anal and rectal conditions (10 sources) Disorder of rectum; Translations: [Rectal prolapse] Onset: 02-21-2025 02-12-2025 Episodic Aortic; peripheral; and visceral artery aneurysms (13 sources) Dilatation of aorta; Translations: [Aortic ectasia, unspecified site] Onset: 11-02-2024 06-23-2024 Chronic Comment on above: noted in 05/18/2024 Cardiology Consult Note page 2. added per OP CDI policy. Calculus of urinary tract (16 sources) Kidney stone; Translations: [Calculus of kidney] Onset: 04-29-2022 Episodic Cancer of thyroid (20 sources) Papillary thyroid carcinoma; Translations: [Malignant neoplasm of thyroid gland] Onset: 05-09-2023 06-25-2023 Chronic Comment on above: Added per Dr. Markel scherer response, per outpatient CDI policy. Disorders of lipid metabolism (10 sources) Hyperlipidemia 05-29-2023 Chronic Essential hypertension (20 sources) Hypertensive disorder; Translations: [Essential (primary) hypertension] Onset: 05-09-2023 05-29-2023 Chronic Gastroduodenal ulcer (except hemorrhage) (11 sources) Gastric ulcer; Translations: [Gastric ulcer, unspecified as acute or chronic, without hemorrhage or perforation] Onset: 07-28-2023 Chronic Genitourinary symptoms and ill-defined conditions (11 sources) Incontinence 05-15-2020 Chronic Genitourinary symptoms and ill-defined conditions (20 sources) Increased frequency of urination; Translations: [Nocturia] 05-15-2020 Episodic Heart valve disorders (20 sources) Nonrheumatic mitral (valve) insufficiency; Translations: [Mitral valve regurgitation] Onset: 05-09-2023 Chronic Comment on above: noted in 05/18/2024 Cardiology Consult Note page 2. added per OP CDI policy. Influenza (1 source) Influenza due to other identified influenza virus with other respiratory manifestations Episodic Menopausal disorders (2 sources) Atrophic vaginitis; Translations: [Postmenopausal atrophic vaginitis] 02-13-2025 Chronic Mood disorders (8 sources) Moderate recurrent major depression; Translations: [Major depressive disorder, recurrent, moderate] Onset: 02-21-2025 12-22-2024 Chronic Comment on above: added per 12/22/2024 query response. Noninfectious gastroenteritis (11 sources) Noninfectious enteritis; Translations: [Noninfective gastroenteritis and colitis, unspecified] Onset: 06-18-2023 Episodic Osteoarthritis (20 sources) Osteoarthritis; Translations: [Osteoarthritis of left knee joint] Onset: 05-09-2023 05-29-2023 Chronic Osteoporosis (8 sources) Osteoporosis; Translations: [Postmenopausal osteoporosis] 09-04-2023 Chronic Other acquired deformities (6 sources) Acquired spondylolisthesis; Translations: [Spondylolysis, site unspecified] Episodic Other aftercare (1 source) Surgical follow-up; Translations: [Encounter for other specified surgical aftercare] 04-26-2025 Episodic Other connective tissue disease (18 sources) Artificial knee joint present; Translations: [Presence of left artificial knee joint] Onset: 05-09-2023 05-09-2023 Chronic Other female genital disorders (14 sources) Atypical endometrial hyperplasia; 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]] Onset: 07-14-2013 11-02-2024 Chronic Other gastrointestinal disorders (6 sources) Irritable bowel syndrome with diarrhea; Translations: [Irritable bowel syndrome with diarrhea] Chronic Other gastrointestinal disorders (1 source) Irritable bowel syndrome with diarrhea; Translations: [Irritable bowel syndrome with diarrhea K58.0] Onset: 07-12-2021 Resolved: 07-12-2021 Chronic Other gastrointestinal disorders (18 sources) Irritable bowel syndrome; Translations: [Irritable bowel syndrome without diarrhea] Onset: 05-09-2023 05-09-2023 Chronic Other gastrointestinal disorders (3 sources) Finding of abdominopelvic segment of trunk; Translations: [Intra-abdominal and pelvic swelling, mass and lump, unspecified site] Episodic Other gastrointestinal disorders (1 source) Intra-abdominal and pelvic swelling, mass and lump, unspecified site; Translations: [Abdominal mass, unspecified abdominal location] Onset: 12-25-2022 Episodic Other gastrointestinal disorders (2 sources) Abdominal mass; Translations: [Intra-abdominal and pelvic swelling, mass and lump, unspecified site] Episodic Other gastrointestinal disorders (8 sources) Abdominal wind pain; Translations: [Gas pain] Onset: 06-18-2023 Episodic Other liver diseases (18 sources) Disease of liver; Translations: [Liver disease, unspecified] Onset: 05-09-2023 05-09-2023 Chronic Other lower respiratory disease (4 sources) Multiple nodules of lung; Translations: [Other nonspecific abnormal finding of lung field] Episodic Other lower respiratory disease (6 sources) Solitary nodule of lung; Translations: [Solitary pulmonary nodule] Episodic Other lower respiratory disease (1 source) Other nonspecific abnormal finding of lung field; Translations: [Lung nodules] Onset: 12-25-2022 Episodic Other nervous system disorders (6 sources) Carpal tunnel syndrome of left wrist; Translations: [Carpal tunnel syndrome, left upper limb] Chronic Other nervous system disorders (6 sources) Chronic pain; Translations: [Other chronic pain] Chronic Other nervous system disorders (1 source) Other acute postprocedural pain; Translations: [Other acute postprocedural pain] Onset: 04-14-2025 Episodic Other non-traumatic joint disorders (6 sources) Pain in wrist; Translations: [Pain in unspecified wrist] Episodic Other non-traumatic joint disorders (2 sources) Pain in right knee; Translations: [Pain in joint, lower leg] 01-02-2025 Episodic Other nutritional; endocrine; and metabolic disorders (18 sources) Body mass index 40+ - severely obese; Translations: [Body mass index (BMI) 45.0-49.9, adult] Onset: 05-08-2022 Chronic Other nutritional; endocrine; and metabolic disorders (8 sources) Morbid obesity; Translations: [Morbid (severe) obesity due to excess calories] Onset: 02-21-2025 12-22-2024 Chronic Other screening for suspected conditions (not mental disorders or infectious disease) (15 sources) Computed tomography result abnormal; Translations: [Abnormal findings on diagnostic imaging of other specified body structures] Onset: 07-14-2013 11-02-2024 Chronic Other skin disorders (9 sources) Skin tag 06-26-2023 Episodic Other upper respiratory infections (2 sources) Acute sinusitis, unspecified; Translations: [Acute pharyngitis, unspecified] Onset: 11-07-2021 Resolved: 11-07-2021 Episodic Peripheral and visceral atherosclerosis (18 sources) Abdominal aortic atherosclerosis; Translations: [Atherosclerosis of aorta] Onset: 11-02-2024 12-29-2023 Chronic Comment on above: added per 12/24/2023 query response. Prolapse of female genital organs (15 sources) Midline cystocele; Translations: [Disorder of rectum] Onset: 02-21-2025 02-12-2025 Chronic Rehabilitation care; fitting of prostheses; and adjustment of devices (2 sources) Patient encounter status; Translations: [Encounter for fitting and adjustment of other specified devices] 02-09-2025 Chronic Residual codes; unclassified (10 sources) Obstructive sleep apnea syndrome 05-29-2023 Chronic Residual codes; unclassified (1 source) Family history of malignant neoplasm of kidney; Translations: [FAM HX MALIGNANT NEOPLASM KIDNEY] Onset: 01-22-2023 Episodic Residual codes; unclassified (1 source) Family history of leukemia; Translations: [FAMILY HISTORY OF LEUKEMIA] Onset: 01-22-2023 Episodic Residual codes; unclassified (1 source) Family history of malignant neoplasm of prostate; Translations: [FAMILY HX MALIG NEOPLASM PROSTATE] Onset: 01-22-2023 Episodic Residual codes; unclassified (1 source) Family history of malignant neoplasm of other organs or systems; Translations: [FAM HX MALIG NEOPLASM OTH ORGN/SYS] Onset: 01-22-2023 Episodic Spondylosis; intervertebral disc disorders; other back problems (20 sources) Disorder of lumbar disc; Translations: [Unspecified thoracic, thoracolumbar and lumbosacral intervertebral disc disorder] Chronic Spondylosis; intervertebral disc disorders; other back problems (16 sources) Backache; Translations: [Dorsalgia, unspecified] 05-29-2023 Episodic Thyroid disorders (20 sources) Thyroid nodule; Translations: [Nontoxic single thyroid nodule] Onset: 05-09-2023 11-20-2022 Chronic Comment on above: Problem List clean-u p per request of Phys. EHR Cmte Unclassified (3 sources) COUGH, UNSPECIFIED; Translations: [COUGH, UNSPECIFIED] Onset: 05-07-2022 Unclassified (2 sources) CONTACT W/AND (SUSP) EXPOS COVID-19; Translations: [CONTACT W/AND (SUSP) EXPOS COVID-19] Onset: 04-19-2022 Unclassified (5 sources) Finding of sensation of abdomen 07-28-2023 Viral infection (1 source) COVID-19; Translations: [COVID-19] Onset: 04-19-2022 Past or Other Problems Problem Classification Problem Date Documented Da te Episodic/Chronic Abdominal pain (20 sources) Abdominal pain; Translations: [Unspecified abdominal pain] Onset: 07-12-2021 Resolved: 06-09-2025 Episodic Appendicitis and other appendiceal conditions (20 sources) Mucocele of appendix; Translations: [Other specified diseases of appendix] Onset: 01-01-2022 Resolved: 05-09-2023 01-28-2022 Episodic Comment on above: Problem List clean-u p per request of Phys. EHR Cmte Deficiency and other anemia (18 sources) Anemia; Translations: [Anemia, unspecified] Onset: 05-09-2023 05-09-2023 Episodic Diabetes mellitus without complication (20 sources) Hyperglycemia; Translations: [Hyperglycemia, unspecified] Onset: 05-10-2024 05-29-2023 Episodic Hemorrhoids (20 sources) Hemorrhoids; Translations: [Unspecified hemorrhoids] Onset: 07-28-2023 Episodic Immunizations and screening for infectious disease (1 source) Contact with and (suspected) exposure to other viral communicable diseases Onset: 11-07-2021 Resolved: 11-07-2021 Episodic Other connective tissue disease (18 sources) History of total knee arthroplasty; Translations: [Presence of left artificial knee joint] Onset: 10-15-2018 Resolved: 05-09-2023 05-09-2023 Chronic Other gastrointestinal disorders (20 sources) Diarrhea; Translations: [Diarrhea, unspecified] Onset: 05-10-2024 07-06-2020 Episodic Comment on above: Problem List clean-u p per request of Phys. EHR Cmte Other gastrointestinal disorders (16 sources) Altered bowel function; Translations: [Change in bowel habit] Onset: 06-18-2023 Episodic Other gastrointestinal disorders (20 sources) Dysphagia; Translations: [Dysphagia, unspecified] Onset: 06-18-2023 Episodic Other hematologic conditions (18 sources) Mass of spleen; Translations: [Other diseases of spleen] Onset: 05-09-2023 05-09-2023 Episodic Other lower respiratory disease (1 source) Hemoptysis; Translations: [HEMOPTYSIS] Onset: 05-07-2022 Episodic Other lower respiratory disease (18 sources) Nodule of lung; Translations: [Solitary pulmonary nodule] Onset: 05-09-2023 05-09-2023 Episodic Other lower respiratory disease (14 sources) Dyspnea; Translations: [Dyspnea, unspecified] Onset: 05-10-2024 11-02-2024 Episodic Other non-traumatic joint disorders (20 sources) Pain in left knee; Translations: [Pain in joint, lower leg] Onset: 05-09-2023 Resolved: 05-09-2023 05-09-2023 Episodic Other screening for suspected conditions (not mental disorders or infectious disease) (20 sources) CT of abdomen abnormal; Translations: [Abnormal findings on diagnostic imaging of other abdominal regions, including retroperitoneum] Onset: 03-21-2011 Resolved: 05-09-2023 01-28-2022 Episodic Comment on above: Problem List clean-u p per request of Phys. EHR Cmte Thyroid disorders (18 sources) Mass of thyroid gland; Translations: [Disorder of thyroid, unspecified] Onset: 05-09-2023 05-09-2023 Episodic Unclassified (1 source) COUGH, UNSPECIFIED; Translations: [COUGH, UNSPECIFIED] Onset: 05-03-2022 Unclassified (1 source) CONTACT W/AND (SUSP) EXPOS COVID-19; Translations: [CONTACT W/AND (SUSP) EXPOS COVID-19] Onset: 04-16-2022 Unclassified (2 sources) Acute pain of right knee 01-02-2025 Results Test Name Value Interpretation Reference Range Facility ABO/Rh Retypeon 04-14-2025 ABO/RH Recheck Result Positive Normal [facility] Comment on above: Result Comment: PERF ORMED BY: [facility] [address] [place] [address] PATHOLOGIST ELEMENTARY EDUCATOR ELISA Seo 04-14-2025 L ----- Specimen: [id number] Received: 04/14/25 Status: EDENILSON Choi Num: [id number] Spec Type: Surgical Subm Dr: Neto Horton, Tissues: A Vaginal mucosa-other than incidental (VAGINAL MUCOSA) Procedures: HE, Gross/Micro L4 Age/ Patient Sex Location Account Attending Physician Chuyita Cavanaugh 69/F [place] [id number] Neto HortonDO SPEC NUM: [id number] RECD: 04/14/25 STATUS: EDENILSON CHOI NUM: [id number] JIMENA: 04/14/25-[address]: Neto Horton DO ENTERED: 04/14/25 [facility] DR: PHIL TYPE: Surgical DEPT: S ENTERED BY: [id number] RECV BY: [id number] ORDERED: HE, Gross/Micro L4 ORDERED: HE, Gross/Micro L4 Pathological Diagnosis Vaginal mucosa, excision: - Benign vaginal mucosa with stromal fibrosis. - No evidence of dysplasia or malignancy identified. Clinical Information Rectocele Gross Description Received in formalin labeled with the patients name, date of , and vaginal mucosa are dwyer-ordoñez to pink strips of mucosal lined tissue, 5.5 x 3 x 0.8 cm in aggregate. The mucosal surfaces range from smooth and glistening to wrinkled and dull. Serial sections reveal Microscopic Description Microscopic examination is performed. CPT Codes 25522 Specimen: [id number] Received: 04/14/25 Status: EDENILSON Choi Num: [id number] Spec Type: Surgical Subm Dr: Neto Horton DO Tissues: A Vaginal mucosa-other than incidental (VAGINAL MUCOSA) Procedures: Naomi YARBROUGH/Martha L4 Patient: Chuyita Cavanaugh [id number] (Continued) Signed (signature on file) Elliott Lazcano MD 04/15/25 [facility] Normal [facility] Alanine aminotransferase [En zymatic activity/volume] in Serum or PlasmaOrdered By: Neto Horton on 03-31-2025 ALT [Catalytic activity/Vol] 14 U/L Normal 7-52 [facility] Comment on above: Performed By: #### C BC, CMP, PT, PTT #### [facility] [address] [place] [address] [place] Albumin [Mass/volume] in Ser um or Plasma by Bromocresol green (BCG) dye binding methoOrdered By: Neto Horton on 03-31-2025 Albumin BCG dye [Mass/Vol] 4.2 g/dL 3.5-5.7 [facility] Alkaline phosphatase [Enzyma tic activity/volume] in Serum or PlasmaOrdered By: Neto Horton on 03-31-2025 ALP [Catalytic activity/Vol] 95 U/L Normal 34-104 [facility] Comment on above: Result Comment: PERF ORMED BY: [place] [address] PATHOLOGIST ELEMENTARY EDUCATOR ELISA SNOWDEN M.D. Performed By: #### C BC, CMP, PT, PTT #### [address] Appearance of Urineon 2024 Appearance (U) Clear Normal Clear [facility] Comment on above: Order Comment: Name Collection Type:: Clean-Voided Midstream Performed By: #### U A #### [place] [address] [place] Aspartate aminotransferase [ Enzymatic activity/volume] in Serum or PlasmaOrdered By: Neto Horton on 03-31-2025 AST [Catalytic activity/Vol] 18 U/L Normal 13-39 [facility] Comment on above: Performed By: #### C BC, CMP, PT, PTT #### [facility] [address] [place] [address] [place] Basophils [#/volume] in Bloo d by Automated countOrdered By: Neto Horton on 03-31-2025 Basophils (Bld) [#/Vol] 0.1 10*3/uL Normal 0.0-0.2 [facility] Comment on above: Result Comment: PERF ORMED BY: [address] [place] [address] PATHOLOGIST ELEMENTARY EDUCATOR ELISA SNOWDEN M.D. Performed By: #### C BC, CMP, PT, PTT #### [facility] [address] Basophils/100 leukocytes in Blood by Automated countOrdered By: Neto Horton on 03-31-2025 Basophils/100 WBC (Bld) 0.9 % Normal . [facility] Comment on above: Performed By: #### C BC, CMP, PT, PTT #### [facility] [address] Bilirubin Test strip Ql (U)O rdered By: Neto Horton on 03-31-2025 Bilirubin Ql (U) Negative Negative [facility] Bilirubin.total [Mass/volume ] in Serum or PlasmaOrdered By: Neto Horton on 03-31-2025 Bilirubin [Mass/Vol] 0.7 mg/dL Normal 0.3-1.0 [facility] Comment on above: Performed By: #### C BC, CMP, PT, PTT #### [facility] [address] CBC W Auto Differential pane l (Bld)on 03-31-2025 Basophils (Bld) [#/Vol] 0.1 10*3/uL 0.0 - 0.2 10*3/uL [facility] Basophils/100 WBC Manual cnt (Syn fld) 0.9 % . [facility] Eosinophils (Bld) [#/Vol] 0.1 10*3/uL 0.0 - 0.45 10*3/uL [facility] Eosinophils/100 WBC Manual cnt (Syn fld) 2 % . [facility] Erythrocyte distribution width (RBC) [Ratio] 13.3 % 11.9 - 15.3 % [facility] Hematocrit (Bld) [Volume fraction] 39.9 % 34.0 - 46.4 % [facility] Hemoglobin (Bld) [Mass/Vol] 13.5 g/dL 11.8 - 15.4 g/dL [facility] Lymphocytes (Bld) [#/Vol] 1.6 10*3/uL 1.00 - 4.8 10*3/uL [facility] Lymphocytes/100 WBC Manual cnt (Syn fld) 28 % . [facility] MCH (RBC) [Entitic mass] 32.3 pg 24.7 - 34.3 pg [facility] MCHC (RBC) [Mass/Vol] 33.8 g/dL 32.0 - 35.0 g/dL [facility] MCV (RBC) [Entitic vol] 95.6 fL 80 - 100 fL [facility] Monocytes (Bld) [#/Vol] 0.6 10*3/uL 0.0 - 0.8 10*3/uL [facility] Monocytes+Macrophages/ 100 WBC Manual cnt (Syn fld) 10.5 % . [facility] Neutrophils (Bld) [#/Vol] 3.4 10*3/uL 1.8 - 7.7 10*3/uL [facility] Neutrophils/100 WBC Manual cnt (Syn fld) 58.6 % . [facility] NRBC 0.1 /100{WBC} 0 - 0.5 /100{WBC} [facility] Platelet mean volume (Bld) [Entitic vol] 8.8 fL 6.3 - 10.7 fL [facility] Platelets (Bld) [#/Vol] 301 10*3/uL 150 - 450 10*3/uL [facility] RBC LM.HPF (Urine sed) [#/Area] 4.18 10*6/uL 3.60 - 5.00 10*6/uL [facility] WBC (Bld) [#/Vol] 5.9 10*3/uL 3.8 - 11.6 10*3/uL [facility] WBC LM.HPF (Urine sed) [#/Area] 5.9 [CFU]/mL 3.8 - 11.6 [CFU]/mL [facility] Calcium [Mass/volume] in Ser um or PlasmaOrdered By: Neto Horton on 03-31-2025 Calcium [Mass/Vol] 10.1 mg/dL Normal 8.6-10.3 [facility] Comment on above: Performed By: #### C BC, CMP, PT, PTT #### [address] Carbon dioxide, total [Moles /volume] in Serum or PlasmaOrdered By: Neto Horton on 03-31-2025 CO2 [Moles/Vol] 28.1 mmol/L Normal 21.0-31.0 [facility] Comment on above: Performed By: #### C BC, CMP, PT, PTT #### [address] Chloride [Moles/volume] in S roger or PlasmaOrdered By: Neto Horton on 03-31-2025 Chloride [Moles/Vol] 104 mmol/L Normal 98-107 [facility] Comment on above: Performed By: #### C BC, CMP, PT, PTT #### [address] Color of Urine by [place]oon Color (U) Light-Yellow Normal Yellow [facility] Comment on above: Order Comment: Name Collection Type:: Clean-Voided Midstream Performed By: #### U A #### [address] Complete Blood Count Auto Di ffon 03-31-2025 Mean Corpuscular HGB Conc 33.8 g/dL Normal 32.0-35.0 [facility] Comment on above: Performed By: #### C BC, CMP, PT, PTT #### [address] NRBC% 0.1 /100{WBC} Normal 0-0.5 [facility] Comment on above: Performed By: #### C BC, CMP, PT, PTT #### [address] White Blood Count 5.9 [CFU]/mL Normal 3.8-11.6 [facility] Comment on above: Performed By: #### C BC, CMP, PT, PTT #### [address] Comprehensive Metabolic Pane andrés 03-31-2025 Albumin [Mass/Vol] 4.2 g/dL Normal 3.5-5.7 [facility] Comment on above: Performed By: #### C BC, CMP, PT, PTT #### [address] [place] [address] [facility] GFR/1.73 sq M.predicted MDRD (S/P/Bld) [Vol rate/Area] mL/min/{1.73_m2} Normal [facility] Comment on above: Performed By: #### C BC, CMP, PT, PTT #### [facility] [facility] [address] [place] [address] [facility] Comprehensive metabolic pane andrés 03-31-2025 Albumin [Mass/Vol] 4.2 g/dL 3.5 - 5.7 g/dL [facility] Albumin/Globulin [Mass ratio] 1.5 {ratio} [facility] ALP [Catalytic activity/Vol] 95 U/L 34 - 104 U/L [facility] ALT [Catalytic activity/Vol] 14 U/L 7 - 52 U/L [facility] Anion gap [Moles/Vol] 9 mmol/L 6.0 - 15.0 [facility] AST [Catalytic activity/Vol] 18 U/L 13 - 39 U/L [facility] Bilirubin [Mass/Vol] 0.7 mg/dL 0.3 - 1 .0 mg/dL [facility] Calcium [Mass/Vol] 10.1 mg/dL 8.6 - 10. 3 mg/dL [facility] Chloride [Moles/Vol] 104 mmol/L 98 - 10 7 mmol/L [facility] CO2 [Moles/Vol] 28.1 mmol/L 21.0 - 31.0 mmol/L [facility] Creatinine (U) [Mass/Vol] 0.67 mg/dL 0.60 - 1.20 mg/dL [facility] ESTIMATED GFR [facility] Globulin (S) [Mass/Vol] 2.8 g/dL [facility] Glucose [Mass/Vol] 93 mg/dL 70 - 100 mg/dL [facility] Comment on above: Random Glucose Refer ence Range is dependent on time and content of last meal. Glucose of more than 200 mg/dL in a nonstressed, ambulatory subject supports the diagnosis of Diabetes Mellitus. ADA recommended reference range Potassium [Moles/Vol] 4.1 mmol/L 3.5 - 5.1 mmol/L [facility] Protein [Mass/Vol] 7 g/dL 6.4 - 8.9 g/dL [facility] Sodium [Moles/Vol] 137 mmol/L 136 - 145 mmol/L [facility] Urea nitrogen [Mass/Vol] 18 mg/dL 7 - 25 mg/dL [facility] Creatinine [Mass/volume] in Serum or PlasmaOrdered By: Neto Horton on 03-31-2025 Creatinine [Mass/Vol] 0.67 mg/dL Normal 0.60-1.20 [facility] Comment on above: Performed By: #### C BC, CMP, PT, PTT #### [facility] [address] ECG 12 lead ECGon 03-31-2025 ECG 12 lead ECG [facility] [place] [address] [place] [address] Electrocardiograph Report Signed Patient: Chuyita Cavanaugh MR#: [id number] 9 : 1955 Acct:[id number] Age/Sex: 69 / F ADM Date: 03/31/25 Loc: Room: Type: [facility] Attending Dr: Neto Horton DO Ordering Provider: [...] 17-Jul-2016) Abnormal ECG Confirmed by Veda Ding ([id number]) on 03/31/2025 4:29:44 PM Referred By: Electronically Signed By: Veda Ding Transcribed By: MUS Signed By Veda Ding MD [id number] Normal [facility] Eosinophils [#/volume] in Bl ood by Automated countOrdered By: Neto Horton on 03-31-2025 Eosinophils (Bld) [#/Vol] 0.1 10*3/uL Normal 0.0-0.45 [facility] Comment on above: Performed By: #### C BC, CMP, PT, PTT #### [facility] [address] [place] [address] [place] Eosinophils/100 leukocytes i n Blood by Automated countOrdered By: Neto Horton on 03-31-2025 Eosinophils/100 WBC (Bld) 2.0 % Normal . [facility] Comment on above: Performed By: #### C BC, CMP, PT, PTT #### [facility] [address] [place] [address] [place] Erythrocyte distribution wid th [Ratio] by Automated countOrdered By: Neto Horton on 03-31-2025 Erythrocyte distribution width (RBC) [Ratio] 13.3 % Normal 11.9-15.3 [facility] Comment on above: Performed By: #### C BC, CMP, PT, PTT #### [facility] [address] Erythrocytes [#/volume] in B lood by Automated countOrdered By: Neto Horton on 03-31-2025 RBC (Bld) [#/Vol] 4.18 10*6/uL Normal 3.60-5.00 [facility] Comment on above: Performed By: #### C BC, CMP, PT, PTT #### [facility] [address] [place] [address] [place] Glucose [Mass/volume] in Ser um or PlasmaOrdered By: Neto Horton on 03-31-2025 Glucose [Mass/Vol] 93 mg/dL Normal 70-100 [facility] Comment on above: ADA recommended refe rence rangeRandom Glucose Reference Range is dependent on time and content of last meal. Glucose of more than 200 mg/dL in a nonstressed, ambulatory subject supports the diagnosis of Diabetes Mellitus. Result Comment: [place] [facility] Glucose Reference Range is dependent on time and content of last meal. Glucose of more than 200 mg/dL in a nonstressed, ambulatory subject supports the diagnosis of Diabetes Mellitus. ADA recommended reference range Performed By: #### C BC, CMP, PT, PTT #### [facility] [address] [place] [address] [place] Glucose [Mass/volume] in Uri ne by Test stripOrdered By: Neto Horton on 03-31-2025 Glucose Test strip (U) [Mass/Vol] Normal mg/dL Normal [facility] Hematocrit [Volume Fraction] of Blood by Automated countOrdered By: Neto Horton on 03-31-2025 Hematocrit (Bld) [Volume fraction] 39.9 % Normal 34.0-46.4 [facility] Comment on above: Performed By: #### C BC, CMP, PT, PTT #### [facility] [address] Hemoglobin Test strip Ql (U) Ordered By: Neto Horton on 03-31-2025 Hemoglobin Ql (U) Negative Negative [facility] Hemoglobin [Mass/volume] in BloodOrdered By: Neto Horton on 03-31-2025 Hemoglobin (Bld) [Mass/Vol] 13.5 g/dL Normal 11.8-15.4 [facility] Comment on above: Performed By: #### C BC, CMP, PT, PTT #### [facility] [address] INR in Platelet poor plasma by Coagulation assayOrdered By: Neto Horton on 03-31-2025 INR Coag (PPP) [Relative time] 1.0 {INR} Normal [facility] Comment on above: INR Therapeutic Rang e A) Pre- and Peroperative OAT started two weeks before surgery. NOT HIP SURGERY: 1.5 - 2.5 HIP SURGERY: 2 - 3B) Primary and secondary prevention of venous THROMBOSIS: 2 - 3C) Active venous thrombosis, pulmonary embolismand prevention of recurrent venous thrombosis: 2 - 3D) Prevention of arterial thromboembolismincluding patients with mechanical heart valves: 3 - 4.5 Result Comment: INR Therapeutic Range A) Pre- and [...] with mechanical heart valves: 3 - 4.5 Performed By: #### C BC, CMP, PT, PTT #### [facility] [address] [place] [id number] [place] Ketones [Presence] in Urine by Test stripon 03-31-2025 Ketones Ql (U) Negative Normal Negative [facility] Comment on above: Order Comment: Name Collection Type:: Clean-Voided Midstream Performed By: #### U A #### [address] Leukocyte esterase [Presence ] in Urine by Test stripon 03-31-2025 Leukocyte esterase Test strip Ql (U) Negative Normal Negative [facility] Comment on above: Order Comment: Name Collection Type:: Clean-Voided Midstream Performed By: #### U A #### [address] Leukocytes [#/volume] correc andrew for nucleated erythrocytes in Blood by Automated counOrdered By: Neto Horton on 03-31-2025 WBC corrected for nucl RBC Auto (Bld) [#/Vol] 5.9 10*3/uL 3.8-11.6 [facility] Leukocytes [#/volume] in Blo od by Automated countOrdered By: Neto Horton on 03-31-2025 WBC (Bld) [#/Vol] 5.9 10*3/uL Normal 3.8-11.6 [facility] Comment on above: Performed By: #### C BC, CMP, PT, PTT #### [address] Lymphocytes [#/volume] in Bl ood by Automated countOrdered By: Neto Horton on 03-31-2025 Lymphocytes (Bld) [#/Vol] 1.6 10*3/uL Normal 1.00-4.8 [facility] Comment on above: Performed By: #### C BC, CMP, PT, PTT #### [place] [address] [place] Lymphocytes/100 leukocytes i n Blood by Automated countOrdered By: Neto Horton on 03-31-2025 Lymphocytes/100 WBC (Bld) 28.0 % Normal . [facility] Comment on above: Performed By: #### C BC, CMP, PT, PTT #### [place] [address] [place] MCH [Entitic mass] by Automa andrew countOrdered By: Neto Horton on 03-31-2025 MCH (RBC) [Entitic mass] 32.3 pg Normal 24.7-34.3 [facility] Comment on above: Performed By: #### C BC, CMP, PT, PTT #### [facility] [address] MCHC Auto (RBC) [Mass/Vol]Or dered By: Neto Horton on 03-31-2025 MCHC (RBC) [Mass/Vol] 33.8 g/dL 32.0-35.0 [facility] MCV [Entitic volume] by Auto mated countOrdered By: Neto Horton on 03-31-2025 MCV (RBC) [Entitic vol] 95.6 fL Normal 80-100 [facility] Comment on above: Performed By: #### C BC, CMP, PT, PTT #### [facility] [address] [place] [address] [place] Monocytes [#/volume] in Bloo d by Automated countOrdered By: Neto Horton on 03-31-2025 Monocytes (Bld) [#/Vol] 0.6 10*3/uL Normal 0.0-0.8 [facility] Comment on above: Performed By: #### C BC, CMP, PT, PTT #### [place] [address] [place] Monocytes/100 leukocytes in Blood by Automated countOrdered By: Neto Horton on 03-31-2025 Monocytes/100 WBC (Bld) 10.5 % Normal . [facility] Comment on above: Performed By: #### C BC, CMP, PT, PTT #### [place] [address] [place] Neutrophils [#/volume] in Bl ood by Automated countOrdered By: Neto Horton on 03-31-2025 Neutrophils (Bld) [#/Vol] 3.4 10*3/uL Normal 1.8-7.7 [facility] Comment on above: Performed By: #### C BC, CMP, PT, PTT #### [address] Neutrophils/100 leukocytes i n Blood by Automated countOrdered By: Neto Horton on 03-31-2025 Neutrophils/100 WBC (Bld) 58.6 % Normal . [facility] Comment on above: Performed By: #### C BC, CMP, PT, PTT #### [facility] [address] Nitrite Test strip Ql (U)Ord ered By: Neto Horton on 03-31-2025 Nitrite Ql (U) Negative Negative [facility] No Panel Informationon 03-31 [facility] No Panel InformationOrdered By: Neto Horton on 03-31-2025 Estimated GFR (CKD-EPI) > 60.0 mL/Min [facility] Creatinine Clearance (Chem N/A [facility] Nucleated erythrocytes [Pres ence] in Blood by Automated countOrdered By: Neto Horton on 03-31-2025 Nucleated RBC Auto Ql (Bld) 0.1 /100{WBC} 0-0.5 [facility] PARTIAL THROMBOPLASTIN TIMEo n 03-31-2025 aPTT Coag (Bld) [Time] 36.7 s High 25.1 - 36.5 s [facility] Comment on above: A hematocrit value g reater than 55% may lead to inaccurate results in coagulation testing. Patients having hematocrit values >55% require a special collection tube for coagulation studies. Please contact the laboratory at [phone] for redraw instructions. Interpretation and review of laboratory results Abnormal [facility] PST Type and Screenon 2024 ABO and Rh group Nom (Bld) Blood group O Rh(D) positive Normal [facility] Comment on above: Order Comment: Date of Surgery: [id number] Result Comment: PERF ORMED BY: [facility] [address] [place] [address] PATHOLOGIST ELEMENTARY EDUCATOR ELISA SNOWDEN M.D. PT Coag (Bld) [Time]on 03-31 INR Coag (PPP) [Relative time] 1 {INR} [facility] Comment on above: INR Therapeutic Rang e A) Pre- and Peroperative OAT started two weeks before surgery. NOT HIP SURGERY: 1.5 - 2.5 HIP SURGERY: 2 - 3 B) Primary and secondary prevention of venous THROMBOSIS: 2 - 3 C) Active venous thrombosis, pulmonary embolism and prevention of recurrent venous thrombosis: 2 - 3 D) Prevention of arterial thromboembolism including patients with mechanical heart valves: 3 - 4.5 PT Coag (PPP) [Time] 11.9 s 9.0 - 1 2.9 s [facility] Comment on above: A hematocrit value g reater than 55% may lead to inaccurate results in coagulation testing. Patients having hematocrit values >55% require a special collection tube for coagulation studies. Please contact the laboratory at [phone] for redraw instructions. Partial Thromboplastin Timeo n 03-31-2025 aPTT Coag (Bld) [Time] 36.7 s High 25.1-36.5 [facility] Comment on above: Result Comment: A he matocrit value greater than 55% may lead to inaccurate results in coagulation testing. Patients having hematocrit values >55% require a special collection tube for coagulation studies. Please contact the laboratory at [phone] for redraw instructions. PERFORMED BY: [place] [address] PATHOLOGIST ELEMENTARY EDUCATOR ELISA SNOWDEN M.D. Performed By: #### C BC, CMP, PT, PTT #### [address] Platelet mean volume [Entiti c volume] in Blood by Automated countOrdered By: Neto Horton on 03-31-2025 Platelet mean volume (Bld) [Entitic vol] 8.8 fL Normal 6.3-10.7 [facility] Comment on above: Performed By: #### C BC, CMP, PT, PTT #### [address] Platelets [#/volume] in Bloo d by Automated countOrdered By: Neto Horton on 03-31-2025 Platelets (Bld) [#/Vol] 301 10*3/uL Normal 150-450 [facility] Comment on above: Performed By: #### C BC, CMP, PT, PTT #### [address] Potassium [Moles/volume] in Serum or PlasmaOrdered By: Neto Horton on 03-31-2025 Potassium [Moles/Vol] 4.1 mmol/L Normal 3.5-5.1 [facility] Comment on above: Performed By: #### C BC, CMP, PT, PTT #### [address] Protein Test strip (U) [Mass /Vol]Ordered By: Neto Horton on 03-31-2025 Protein (U) [Mass/Vol] Negative Negative [facility] Protein [Mass/volume] in Ser um or PlasmaOrdered By: Neto Horton on 03-31-2025 Protein [Mass/Vol] 7.0 g/dL Normal 6.4-8.9 [facility] Comment on above: Performed By: #### C BC, CMP, PT, PTT #### [address] Prothrombin time (PT)Ordered By: eNto Horton on 03-31-2025 PT Coag (PPP) [Time] 11.9 s Normal 9.0-12.9 [facility] Comment on above: A hematocrit value g reater than 55% may lead to inaccurate results in coagulation testing. Patients having hematocrit values >55% require a special collection tube for coagulation studies. Please contact the laboratory at [phone] for redraw instructions. Result Comment: A he matocrit value greater than 55% may lead to inaccurate results in coagulation testing. Patients having hematocrit values >55% require a special collection tube for coagulation studies. Please contact the laboratory at [phone] for redraw instructions. Performed By: #### C BC, CMP, PT, PTT #### [address] Serum globulin measurement b y calculation (mass/volume)Ordered By: Neto Horton on 03-31-2025 Globulin (S) [Mass/Vol] 2.8 g/dL Normal [facility] Comment on above: Performed By: #### C BC, CMP, PT, PTT #### [place] [id number] [place] Serum or plasma albumin/glob ulin mass ratioOrdered By: Neto Horton on 03-31-2025 Albumin/Globulin [Mass ratio] 1.5 {ratio} Normal [facility] Comment on above: Performed By: #### C BC, CMP, PT, PTT #### [address] Serum or plasma anion gap de terminationOrdered By: Neto Horton on 03-31-2025 Anion gap [Moles/Vol] 9.0 mmol/L Normal 6.0-15.0 [facility] Comment on above: Performed By: #### C BC, CMP, PT, PTT #### [address] Sodium [Moles/volume] in Ser um or PlasmaOrdered By: Neto Horton on 03-31-2025 Sodium [Moles/Vol] 137 mmol/L Normal 136-145 [facility] Comment on above: Performed By: #### C BC, CMP, PT, PTT #### [address] Specific gravity Test strip (U) [Rel density]Ordered By: Neto Horton on 03-31-2025 Specific gravity (U) [Rel density] 1.011 1.001-1.03 0 [facility] Urea nitrogen [Mass/volume] in Serum or PlasmaOrdered By: Neto Horton on 03-31-2025 Urea nitrogen [Mass/Vol] 18 mg/dL Normal 7-25 [facility] Comment on above: Performed By: #### C BC, CMP, PT, PTT #### [address] Urinalysison 03-31-2025 BILIRUBIN,URINE Negative Normal Negative [facility] Comment on above: Order Comment: Name Collection Type:: Clean-Voided Midstream Performed By: #### U A #### [address] Glucose Ql (U) Normal Normal Normal [facility] Comment on above: Order Comment: Name Collection Type:: Clean-Voided Midstream Performed By: #### U A #### [address] NITRITE,URINE Negative Normal Negative [facility] Comment on above: Order Comment: Name Collection Type:: Clean-Voided Midstream Performed By: #### U A #### [address] OCCULT BLOOD,URINE Negative Normal Negative [facility] Comment on above: Order Comment: Name Collection Type:: Clean-Voided Midstream Result Comment: PERF ORMED BY: [place] [address] PATHOLOGIST ELEMENTARY EDUCATOR ELISA SNOWDEN M.D. Performed By: #### U A #### [address] PROTEIN,URINE Negative Normal Negative [facility] Comment on above: Order Comment: Name Collection Type:: Clean-Voided Midstream Performed By: #### U A #### [address] SPECIFICY GRAVITY,URINE 1.011 Normal 1.001-1.03 0 [facility] Comment on above: Order Comment: Name Collection Type:: Clean-Voided Midstream Performed By: #### U A #### [address] UROBILINOGEN,URINE Normal Normal Normal [facility] Comment on above: Order Comment: Name Collection Type:: Clean-Voided Midstream Performed By: #### U A #### [address] Urinalysis, manual onlyon pH (U) 5 [pH] 5.0 - 9.0 [facility] Name Collection Type :: Clean-Voided Midstream [facility] Urobilinogen Test strip (U) [Mass/Vol]Ordered By: Neto Horton on 03-31-2025 Urobilinogen (U) [Mass/Vol] Normal mg/dL Normal [facility] aPTT in Platelet poor plasma by Coagulation assayOrdered By: Neto Horton on 03-31-2025 aPTT Coag (PPP) [Time] 36.7 s High 25.1-36.5 [facility] Comment on above: A hematocrit value g reater than 55% may lead to inaccurate results in coagulation testing. Patients having hematocrit values >55% require a special collection tube for coagulation studies. Please contact the laboratory at [phone] for redraw instructions. pH of Urine by Test stripOrd ered By: Neto Horton on 03-31-2025 pH (U) 5.0 [pH] Normal 5.0-9.0 [facility] Comment on above: Order Comment: Name Collection Type:: Clean-Voided Midstream Performed By: #### U A #### [facility] [address] BMPon 03-15-2025 Anion gap [Moles/Vol] 9 mmol/L Normal 6-16 [facility] Comment on above: Performed By: #### 2 [id number] #### [facility] [address] [place] [address] BUN/Creat Ratio 20 No Units Normal 10-20 [facility] Comment on above: Performed By: #### 2 [id number] #### [facility] [address] [place] [address] Calcium [Mass/Vol] 9.7 mg/dL Normal 8.9-11.1 [facility] Comment on above: Performed By: #### 2 [id number] #### [facility] [address] [place] [address] Chloride [Moles/Vol] 106 mmol/L Normal 101-111 [facility] Comment on above: Performed By: #### 2 [id number] #### [facility] [address] [place] [address] CO2 [Moles/Vol] 28 mmol/L Normal 21-31 [facility] Comment on above: Performed By: #### 2 [id number] #### [facility] [address] [place] [address] Creatinine [Mass/Vol] 0.7 mg/dL Normal 0.5-1.3 [facility] Comment on above: Performed By: #### 2 [id number] #### [facility] [address] [place] [address] Glucose [Mass/Vol] 102 mg/dL Normal 55-199 [facility] Comment on above: Performed By: #### 2 [id number] #### [facility] [address] [place] [address] Potassium [Moles/Vol] 4.3 mmol/L Normal 3.5-5.3 [facility] Comment on above: Performed By: #### 2 [id number] #### [facility] [address] [place] [address] Sodium [Moles/Vol] 139 mmol/L Normal 135-145 [facility] Comment on above: Performed By: #### 2 [id number] #### [facility] [address] [place] [address] Urea nitrogen [Mass/Vol] 14 mg/dL Normal 5-21 [facility] Comment on above: Performed By: #### 2 [id number] #### [facility] [address] [place] [address] CHEMISTRYOrdered By: SYSTEM SYSTEM on 03-15-2025 Anion gap [Moles/Vol] 9 mmol/L Normal 6 - 16 mEq/L [facility] Calcium [Mass/Vol] 9.7 mg/dL Normal 8.9 - 11. 1 mg/dL [facility] Chloride [Moles/Vol] 106 mmol/L Normal 101 - 1 11 mmol/L [facility] CO2 [Moles/Vol] 28 mmol/L Normal 21 - 31 mmol/L [facility] Creatinine [Mass/Vol] 0.7 mg/dL Normal 0.5 - 1.3 mg/dL [facility] GFR/1.73 sq M.predicted MDRD (S/P/Bld) [Vol rate/Area] 93 mL/min/1.73 m2 Normal >=59mL/min /1.73 m2 [facility] Glucose [Mass/Vol] 102 mg/dL Normal 55 - 199 mg/dL [facility] Potassium [Moles/Vol] 4.3 mmol/L Normal 3.5 - 5.3 mmol/L [facility] Sodium [Moles/Vol] 139 mmol/L Normal 135 - 145 mmol/L [facility] Urea nitrogen [Mass/Vol] 14 mg/dL Normal 5 - 21 mg/dL [facility] Urea nitrogen/Creatinine [Mass ratio] 20 mg/mg Normal 10 - 20 [facility] eGFRon 03-15-2025 eGFR 93 mL/min/1.73 m2 Normal >=59 [facility] Comment on above: Performed By: #### 1 [id number] #### [facility] [address] [place] [address] XR Spine Lumbosacral Minimum 4 Viewson 02-25-2025 XR Spine Lumbosacral Minimum 4 Views Exam Date/Time: 02/24/2025 14:58 EDT Reason for Exam: M47.816 Report IMPRESSION: NO ACUTE OSSEOUS ABNORMALITY. DEGENERATIVE CHANGES OF THE LUMBAR SPINE. EXAMINATION: XR Spine Lumbosacral Minimum 4 Views TECHNIQUE: AP, lateral, bilateral oblique views of the lumbar spine and AP and lateral coned down view of the lumbosacral junction HISTORY: Low back pain COMPARISONS: None available. FINDINGS: Lumbar vertebral body heights are maintained. Mild intervertebral disc height loss throughout the lumbar spine. Retrolisthesis of L1 on L2 of approximately 5 mm and anterolisthesis of L4 on L5 of approximately 4 mm. Facet arthropathy of the lower lumbar spine. Multilevel degenerative endplate spurring. No spondylolysis. Ordering Provider: Yung Valenzuela FINAL REPORT Dictated: 02/25/2025 1:09 pm Mamadou Cooley DO Signed (Electronic Signature): 02/25/2025 1:09 pm Signed by: Mamadou Cooley DO Transcribed by: ANTOINETTE Technologist: JEROD Yu [facility] Ambulatory Visit Summaryon 0 02-14-2025 Ambulatory Visit Summary Ambulatory Visit Summary CHUYITA CAVANAUGH Sai :1955 Visit Date:02/14/2025 Ambulatory Visit Instructions Your Care Team Attending Physician - Harry Owusu MD Primary Care Physician - Harry Owusu MD This Is Your Medications List Patient Specific Meds amlodipine (amLODIPine 5 mg Tab) aspirin (Aspir 81) bisoprolol-hydrochlorothi azide (bisoprolol-hydrochloroth iazide 10 mg-6.25 mg Tab) buPROPion (Wellbutrin XL 150 mg/24 hours Tab-ER) calcium-vitamin D chondroitin-glucosamine (Chondroitin-Glucosamine) loratadine (Claritin 10 mg Tab) multivitamin with minerals (Multivitamins and Minerals) niacin omega-3 polyunsaturated fatty acids (Fish Oil) Procedures Performed Total replacement of left knee joint (10/16/2018), ACL - Anterior cruciate ligament rupture, Appendectomy, Arthroscopic knee procedure, Carpal tunnel, Cholecystectomy, Colonoscopy, Colonoscopy, Endometrial biopsy, Endoscopy, Hysterectomy, Laser, Lumpectomy of left breast, Thyroidectomy, Tubal ligation. Discharge Vitals Temperature (Oral) 36.4 ???C Heart Rate (Peripheral) 60 Respiratory Rate 20 Blood Pressure 124/64 Height 168.0 cm Height 66 in Weight 104.5 kg Weight 230.383 lb BMI 37.03 What to do next Scheduled Follow-Up Appointments Friday 11:00 AM EST With: Where: [address] [id number]- Friday 11:40 AM EST With: Harry Owusu MD Where: [address] [phone]- Medications What How Much When Instructions Unchanged amlodipine (amLODIPine 5 mg Tab) 1 Tablets By Mouth Every day Unchanged aspirin (Aspir 81) 81 Milligram By Mouth Every day Unchanged bisoprolol-hydrochlorothi azide (bisoprolol-hydrochloroth iazide 10 mg-6.25 mg Tab) 1 Tablets By Mouth Every day Unchanged buPROPion (Wellbutrin XL 150 mg/ 24 hours Tab-ER) 1 Tablets By Mouth Every 24 hours Unchanged calcium-vitamin D 600 Milligram Every day Unchanged chondroitin-glucosamine (Chondroitin-Glucosamine) 1 Capsules By Mouth Every day 1500 mg a day Unchanged loratadine (Claritin 10 mg Tab) 1 Tablets By Mouth Every day as needed for Allergy symptoms Unchanged multivitamin with minerals (Multivitamins and Minerals) Unchanged niacin 500 Milligram By Mouth Every day Unchanged omega-3 polyunsaturated fatty acids (Fish Oil) 1,200 Milligram By Mouth Every day Unchanged Patient Specific Meds [facility] Restore - capsule Allergies Icy Hot (Rash) lidocaine (Unknown Reaction) Problems Ongoing - Any problem that you are currently receiving treatment for. Abdominal aortic atherosclerosis Back pain BMI 40.0-44.9, adult Dilatation of aorta Dysphagia Female bladder prolapse Frequency of urination Hemorrhoids HLD (hyperlipidemia) HTN (hypertension) Hyperglycemia Kidney stone Major depressive disorder, recurrent, moderate Mitral valve regurgitation Mixed incontinence Morbid obesity Nocturia DAVON on CPAP Osteoarthritis Osteoporosis Papillary microcarcinoma of thyroid Rectal prolapse Skin tag Ulcer of antrum of stomach Historical - Any problem that you are no longer receiving treatment for. Chronic diarrhea Patient Survey You may receive a survey via text or e-mail asking about your office visit. Please share your experience with us by completing your survey. We appreciate your feedback and thank you for choosing us for your care. [facility] Family Medicine Office/Clini c Noteon 02-14-2025 Family Medicine Office/Clinic Note Family Medicine Office/Clinic Note Chief Complaint Musculoskeletal pain involving lower back and hip with associated difficulties in ambulation HPI Staff Chuyita is a 69 year old female presenting with Pain characteristics: Pain location: right hip Intensity:5/10 Onset: started off meds on for months Medication used: ALPA this was brought up and thought maybe a pulled muscle stabbing and burning pain Tried: heat at night doesn't really help the pain History of Present Illness - The patient is a 69-year-old female presenting with musculoskeletal pain management. - She exhibits pain in the lower back and hip, likely due to SI joint dysfunction, exacerbated by activities like walking. - Pain is severe, likened to childbirth, affecting mobility and daily function. - Prior interventions have included steroid treatment and knee joint injections following a surgical replacement. - Newly observed condition of prolapse, with family concerns regarding its relation to ongoing pain. - Reports high blood sugar levels, requiring careful medication management. Review of Systems PHQ Score Initial Depression Screen Score: 2 SCORE Physical Exam Vitals & Measurements T: 36.4 ???C(Oral) HR: 60(Peripheral) RR: 20 BP: 124/64 SpO2: 99% HT: 168.0 cm HT: 66 in WT: 230.383 lb WT: 104.5 kg BMI: 37.03 General: alert, no acute distress ENMT: oral mucosa moist Cardiovascular: Regular rate and rhythm, normal peripheral perfusion Respiratory: Lungs clear to auscultation, respirations non labored Extremities: no deformity, no trauma, TTP of the SI joint. Neurological: oriented x 4, level of consciousness appropriate for age, CN II-XII intact, motor strength equal & normal bilaterally, speech normal Abdomen: Soft, Non-tender, Non-distended, + Bowel sounds Assessment/Plan 1. 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 - Assess improvement in symptoms afterward and consider next steps for pain management if necessary. 2. Female genital prolapse, unspecified (N81.9) - Keep under observation; further intervention if symptoms persist. 3. Presence of unspecified artificial knee joint (Z96.659) - Consider relationship to current pain; continue conventional management. 4. Hyperglycemia, unspecified (R73.9) - Monitor glycemic control during steroid course and adjust if required. Orders: methylPREDNISolone, = 1 packet(s), Oral, As Directed, as directed on package labeling, X 6 day(s), # 21 tab(s), Refills(s) 0, Pharmacy: [facility]/pharmacy #[id number], 168, cm, 02/14/25 14:14:00 EDT, Height/Length Dosing, 104.5, kg, 02/14/25 14:14:00 EDT, Weight Dosing - Oral steroids prescribed for a 5-day course to manage musculoskeletal pain - 69-year-old female with a history of post-knee replacement surgery and hyperglycemia presenting with musculoskeletal pain - Likely diagnosis of sacroiliac joint dysfunction, exacerbated by physical activity, to be managed initially with oral steroids - Prolapse noted, though its symptom relevance remains under evaluation I discussed the possibility of sacroiliac joint dysfunction as a primary contributor to the patient's back and hip pain. We reviewed the benefits of oral steroid therapy to reduce inflammation and provide pain relief. I emphasized the importance of monitoring the response to this treatment and potential progression to additional interventions if necessary. We discussed the role of hyperglycemia in medication tolerance, especially under steroid use. I addressed concerns about medication use and assured that the treatment planned is short-term and focused on symptom management. Continued observation of prolapse symptoms was noted. Follow-up to assess treatment efficacy was agreed upon, alongside any necessary adjustments depending on symptom progression and glycemic control. - Take the prescribed oral steroids for 5 days as instructed. - Monitor for any changes or improvements in pain during this period. - Keep track of your blood sugar levels and report any significant changes. - Observe any changes related to the prolapse and seek advice if symptoms worsen. - Call the clinic if symptoms do not improve by or if you experience any concerning side effects. Follow-up No qualifying data available Problem List/Past Medical History Ongoing Abdominal aortic atherosclerosis Back pain BMI 40.0-44.9, adult Dilatation of aorta Dysphagia Female bladder prolapse Frequency of urination Hemorrhoids HLD (hyperlipidemia) HTN (hypertension) Hyperglycemia Kidney stone Major depressive disorder, recurrent, moderate Mitral valve regurgitation Mixed incontinence Morbid obesity Nocturia DAVON on CPAP Osteoarthritis Osteoporosis Papillary microcarcinoma of thyroid Rectal prolapse Skin tag Ulcer of antrum of stomach Historical Chronic diarrhea Procedure/Surgical History Total replacement of left knee join (more content not included)... Normal [facility] Comment on above: Result Comment: Elec tronically Signed By: Markel TALAMANTES, Harry Moore\.br\Date and Time Signed: 02/14/25 14:48 EDT BI MAMMOGRAM SCREENING TOMOS YNTHESIS BILATERALon 02-10-2025 BI MAMMOGRAM SCREENING TOMOSYNTHESIS BILATERAL This is a summary report. The complete report is available in the patient's medical record. If you cannot access the medical record, please contact the sending organization for a detailed fax or copy. EXAMINATION: BI MAMMOGRAM SCREENING TOMOSYNTHESIS BILATERAL, CLINICAL [...] identified, given differences in technique and positioning. IMPRESSION: BI-RADS 1- NEGATIVE. ROUTINE FOLLOW-UP MAMMOGRAPHY IS SUGGESTED IN ONE YEAR. DENSITY: There are scattered areas of fibroglandular density. BI-RADS 1: NEGATIVE MAMMOGRAM. Board Certified Radiologists. Accredited by the ACR and FDA. MAMMOGRAPHY IS VERY IMPORTANT TO YOUR HEALTH. THE [employer] GUIDELINES RECOMMEND THAT WOMEN 40 YEARS OF AGE AND OLDER SHOULD HAVE A MAMMOGRAM EVERY YEAR. A REMINDER LETTER WILL BE SENT AT THE APPROPRIATE TIME. Board Certified Radiologists. Accredited by the ACR and FDA. MAMMOGRAPHY IS VERY IMPORTANT TO YOUR HEALTH. THE [employer] GUIDELINES RECOMMEND THAT WOMEN 40 YEARS OF AGE AND OLDER SHOULD HAVE A MAMMOGRAM EVERY YEAR. A REMINDER LETTER WILL BE SENT AT THE APPROPRIATE TIME. Board Certified Radiologists. Accredited by the ACR and FDA. MAMMOGRAPHY IS VERY IMPORTANT TO YOUR HEALTH. THE [employer] GUIDELINES RECOMMEND THAT WOMEN 40 [...] neck is 0.784, and the T-score is -0.6, which is the standard deviation below [...] factors. ELECTRONICALLY SIGNED BY: Jasper Ta DO Normal Not Available Comment on above: Order Comment: Spot compression and us prn DEXA BONE DENSITYon 02-11-20 25 DEXA BONE DENSITY This is a summary re port. The complete report is available in the patient's medical record. If you cannot access the medical record, please contact the sending organization for a detailed fax or copy. EXAMINATION: BI MAMMOGRAM SCREENING TOMOSYNTHESIS BILATERAL, CLINICAL [...] identified, given differences in technique and positioning. IMPRESSION: BI-RADS 1- NEGATIVE. ROUTINE FOLLOW-UP MAMMOGRAPHY IS SUGGESTED IN ONE YEAR. DENSITY: There are scattered areas of fibroglandular density. BI-RADS 1: NEGATIVE MAMMOGRAM. Board Certified Radiologists. Accredited by the ACR and FDA. MAMMOGRAPHY IS VERY IMPORTANT TO YOUR HEALTH. THE [employer] GUIDELINES RECOMMEND THAT WOMEN 40 YEARS OF AGE AND OLDER SHOULD HAVE A MAMMOGRAM EVERY YEAR. A REMINDER LETTER WILL BE SENT AT THE APPROPRIATE TIME. Board Certified Radiologists. Accredited by the ACR and FDA. MAMMOGRAPHY IS VERY IMPORTANT TO YOUR HEALTH. THE [employer] GUIDELINES RECOMMEND THAT WOMEN 40 YEARS OF AGE AND OLDER SHOULD HAVE A MAMMOGRAM EVERY YEAR. A REMINDER LETTER WILL BE SENT AT THE APPROPRIATE TIME. Board Certified Radiologists. Accredited by the ACR and FDA. MAMMOGRAPHY IS VERY IMPORTANT TO YOUR HEALTH. THE [employer] GUIDELINES RECOMMEND THAT WOMEN 40 [...] neck is 0.784, and the T-score is -0.6, which is the standard deviation below [...] factors. ELECTRONICALLY SIGNED BY: Jasper Ta DO Normal Not Available No Panel Informationon 12-29 Jr. Juliana nieto DO 01/02/2025 9:38 PM L Inj/Asp: R knee on 12/29/2024 10:38 AM Indications: pain Details: 21 G needle, anterolateral approach Medications: 40 mg methylPREDNISolone acetate 40 MG/ML Outcome: tolerated well, no immediate complications SKIN PREPPED / CLEANED WITH ISOPROPYL ALCOHOL Procedure, treatment alternatives, risks and benefits explained, specific risks discussed. Consent was given by the patient. [facility] Provider Letteron 12-27-2024 Provider Letter Provider Letter December 27, 2024 CHUYITA CAVANAUGH [address] [facility] [place] [address] : 1955 To Whom It May Concern, Please excuse the patient above from Jury Duty. They have multiple medical conditions that would prohibit sitting through jury duty. Respectfully, Harry Owusu [facility] Medicine [address] [address] [facility] Ambulatory Visit Summaryon 0 12-23-2024 Ambulatory Visit Summary Ambulatory Visit Summary CHUYITA CAVANAUGH :1955 Visit Date:12/23/2024 Ambulatory Visit Instructions Your Diagnosis Major depressive disorder, recurrent, moderate Papillary microcarcinoma of thyroid HLD (hyperlipidemia) HTN (hypertension) Morbid obesity BMI 40.0-44.9, adult Hyperglycemia Your Care Team Attending Physician - Harry Owusu MD Primary Care Physician - Harry Owusu MD This Is Your Medications List Patient Specific Meds amlodipine (amLODIPine 5 mg Tab) amoxicillin aspirin (Aspir 81) bisoprolol-hydrochlorothi azide (bisoprolol-hydrochloroth iazide 10 mg-6.25 mg Tab) calcium-vitamin D chondroitin-glucosamine (Chondroitin-Glucosamine) loratadine (Claritin 10 mg Tab) multivitamin with minerals (Multivitamins and Minerals) niacin omega-3 polyunsaturated fatty acids (Fish Oil) Procedures Performed Total replacement of left knee joint (10/16/2018), ACL - Anterior cruciate ligament rupture, Appendectomy, Arthroscopic knee procedure, Carpal tunnel, Cholecystectomy, Colonoscopy, Colonoscopy, Endometrial biopsy, Endoscopy, Hysterectomy, Laser, Lumpectomy of left breast, Thyroidectomy, Tubal ligation. Discharge Vitals Temperature (Tympanic) 36.8 ???C Heart Rate (Peripheral) 70 Respiratory Rate 18 Blood Pressure 132/84 Height 168 cm Height 66 in Weight 100.4 kg Weight 221.344 lb BMI 35.57 What to do next Scheduled Follow-Up Appointments Friday 11:00 AM EST With: Where: [address] [address]- Friday 11:40 AM EST With: Harry Owusu MD Where: [address] [address]- Medications What How Much When Instructions Unchanged amlodipine (amLODIPine 5 mg Tab) 1 Tablets By Mouth Every day Unchanged amoxicillin takes prior to procedures Unchanged aspirin (Aspir 81) 81 Milligram By Mouth Every day Unchanged bisoprolol-hydrochlorothi azide (bisoprolol-hydrochloroth iazide 10 mg-6.25 mg Tab) 1 Tablets By Mouth Every day Unchanged calcium-vitamin D 600 Milligram Every day Unchanged chondroitin-glucosamine (Chondroitin-Glucosamine) 1 Capsules By Mouth Every day 1500 mg a day Unchanged loratadine (Claritin 10 mg Tab) 1 Tablets By Mouth Every day as needed for Allergy symptoms Unchanged multivitamin with minerals (Multivitamins and Minerals) Unchanged niacin 500 Milligram By Mouth Every day Unchanged omega-3 polyunsaturated fatty acids (Fish Oil) 1,200 Milligram By Mouth Every day Unchanged Patient Specific Meds [facility] Restore - capsule Allergies Icy Hot (Rash) lidocaine (Unknown Reaction) Problems Ongoing - Any problem that you are currently receiving treatment for. Abdominal aortic atherosclerosis Back pain BMI 40.0-44.9, adult Dilatation of aorta Dysphagia Frequency of urination Hemorrhoids HLD (hyperlipidemia) HTN (hypertension) Hyperglycemia Kidney stone Major depressive disorder, recurrent, moderate Mitral valve regurgitation Mixed incontinence Morbid obesity Nocturia DAVON on CPAP Osteoarthritis Osteoporosis Papillary microcarcinoma of thyroid Skin tag Ulcer of antrum of stomach Historical - Any problem that you are no longer receiving treatment for. Chronic diarrhea Patient Survey You may receive a survey via text or e-mail asking about your office visit. Please share your experience with us by completing your survey. We appreciate your feedback and thank you for choosing us for your care. Normal [facility] Family Medicine Office/Clini c Noteon 12-23-2024 Family Medicine Office/Clinic Note Family Medicine Office/Clinic Note Chief Complaint 6m follow up The patient presents for discussion and management of depression and chronic health issues. HPI Staff 6m follow up Patient is here for follow up on hypertension. How often are you checking your blood pressure? _no What are your average readings? _ Yearly BMP: _ BUN: 14 mg/dL (12/25/23 09:29:00) Calcium Lvl: 10.6 mg/dL (12/25/23 09:29:00) Chloride: 104 mmol/L (12/25/23 09:29:00) CO2: 24 mmol/L (12/25/23 09:29:00) Creatinine: 0.7 mg/dL (12/25/23 09:29:00) eGFR: 94 mL/min/1.73 m2 (12/25/23 09:29:00) Glucose Lvl: 95 mg/dL (12/25/23 09:29:00) Potassium Lvl: 4 mmol/L (12/25/23 09:29:00) Sodium Lvl: 138 mmol/L (12/25/23 09:29:00) Chol: 204 mg/dL High (08/23/24 09:54:00) HDL: 63 mg/dL (08/23/24 09:54:00) LDL Direct: 139 mg/dL High (08/23/24 09:54:00) Tri mg/dL (08/23/24 09:54:00) VLDL: 24 mg/dL (08/23/24 09:54:00) Per message in chart regarding lipids drawn 08/23/24, cholesterol elevated, pt stated it has been higher in the past. Prefers to watch diet vs start medication. Does need refills of HCTZ & amlodipine. Would like to discuss possible surgeries with you. (carpal tunnel & prolapsed bladder) PHQ 15. Pt states she has tried counseling & meds in the past with no improvement. History of Present Illness The patient is a 69-year-old female presenting with concerns regarding her major depressive disorder, predominantly increased family stress. The patient elaborated on a recent vacation with family that heightened tensions, particularly with her [id number]. She continues to be the primary caregiver for her grandchildren due to the lack of alternative sitters. This role has increased her stress levels, contributing to her depressive symptoms. In terms of her broader health context, she manages chronic hyperlipidemia through stringent dietary measures, preferring not to initiate cholesterol medication despite an ASCVD risk score of 11.7. In addition, she has medical history related to hypertension, hyperglycemia, and morbid obesity, none of which were stated to require immediate alterations in management during this visit. She referenced a past diagnosis of papillary microcarcinoma of the thyroid, with ongoing surveillance. The patient reported discomfort in the back post-gallstone resolution, though declined muscle relaxant therapy. The depression management approach was reviewed, and alternative pharmacotherapy via Wellbutrin was considered due to past difficulty with Zoloft. - Cholesterol management via diet and exercise, with patient aware of ASCVD risk score and its implications. - Discussion of adding Wellbutrin for depression management, recognizing potential benefits of reducing emotional eating and weight impact. - Surveillance for papillary microcarcinoma of the thyroid reassured to be at annual intervals. - Discussion around potential carpal tunnel surgery and gynecological evaluations. - Upcoming mammogram confirmed for next month. - Lifestyle modifications include increased dietary protein and continued sugar reduction strategy. Review of Systems PHQ Score Initial Depression Screen Score: 4 SCORE Detailed Depression Screen Score: 11 Total Depression Screen Score: 15 Physical Exam Vitals & Measurements T: 36.8 ???C(Tympanic) HR: 70(Peripheral) RR: 18 BP: 132/84 SpO2: 99% HT: 66 in HT: 168 cm WT: 100.4 kg WT: 221.344 lb BMI: 35.57 General: alert, no acute distress ENMT: oral mucosa moist Cardiovascular: Regular rate and rhythm, normal peripheral perfusion Respiratory: Lungs clear to auscultation, respirations non labored Extremities: no deformity, no trauma Neurological: oriented x 4, level of consciousness appropriate for age, CN II-XII intact, motor strength equal & normal bilaterally, speech normal Abdomen: Soft, Non-tender, Non-distended, + Bowel sounds Assessment/Plan 1. Major depressive disorder, recurrent, moderate (F33.1: Major depressive disorder, recurrent, moderate) The patient's depression is influenced by familial stress and current circumstances. We discussed potential initiation of Wellbutrin as alternative therapy and reviewed its associated risks and benefits. Given previous intolerance to Zoloft, this approach appears favorable. Ordered: [facility] [place] Referral [facility] [place] [place] 2. Papillary microcarcinoma of thyroid (C73: Malignant neoplasm of thyroid gland) Surveillance for thyroid malignancy confirmed as stable with annual checks. Ordered: [facility] [place] Referral [facility] Amb[facility] Referral 3. HLD (hyperlipidemia) (E78.5: Hyperlipidemia, unspecified) We discussed continued dietary management and exercise regimen to manage her cholesterol levels. Though her ASCVD risk score indicates potential benefit from statin therapy, the patient opts for lifestyle modification. Ordered: [facility] [place] Referral [facility] External Ambulato (more content not included)... Normal [facility] Comment on above: Result Comment: Elec tronically Signed By: Harry Owusu MD\.br\Date and Time Signed: 12/23/24 10:06 EDT Pre-Visit Planningon 025 Pre-Visit Planning Pre-Visit Planning From: Gracy Hinds To: Harry Owusu MD; Sent: 12/22/2024 09:02:47 EDT Subject: Pre-Visit Planning Due Date/Time: 12/22/2024 09:02:00 EDT Caller Name: CHUYITA CAVANAUGH Sai; Caller Number: , Good morning Dr. Owusu. During a pre-visit planning chart review, I noted the following documentation in the medical record: Current Problem List: Morbid obesity. 08/29/2024 MWV: PHQ-9 Score =10. Positive depression screening (Z13.31: Encounter for screening for depression). Patient reports the loss of her son last year at [place] time and the loss recently of another family member. Patient denies any suicidal thoughts and understands to call the hotline if she does have any. Based on your medical judgment, can you please clarify which, if any, of the following conditions are present? I can update the Chronic Problem List with your response if you would like. Major Depressive Disorder, Single Episode ??? Major depressive disorder, single episode, mild ??? Major depressive disorder, single episode, moderate ??? Major depressive disorder, single episode, severe without mention of psychotic behavior ??? Major depressive disorder, single episode, in partial remission ??? Major depressive disorder, single episode in full remission Major Depressive Disorder, Recurrent ??? Major depressive disorder, recurrent, mild ??? Major depressive disorder, recurrent, moderate ??? Major depressive disorder, recurrent, severe without mention of psychotic behavior ??? Major depressive disorder, recurrent, in partial remission ??? Major depressive disorder, recurrent, in full remission -Other (Please Specify): In responding to this request, please exercise your independent professional judgement. The fact that a question is asked does not imply that any particular answer is desired or expected. If you have any questions, please feel free to contact me at extension [phone]. Thank you! Gracy Hinds LPN Clinical [employer] [place] [address] Extension: [phone] [email or web address] From: Markel TALAMANTES, Harry Moore To: Gracy Hinds; Sent: 12/22/2024 10:36:28 EDT Subject: RE: Pre-Visit Planning Caller Name: CHUYITA CAVANAUGH; Caller Number: , Major depressive disorder, recurrent, moderate Normal [facility] XR Knee - left 1 or 2 Viewso n 12-08-2024 Imaging Result: AP and lateral of left knee showed surgical position and alignment of prosthetic components without evidence of loosening or wear to the femoral, tibial, or patellar components. The alignment appeared to be anatomic. There was no evidence of accelerated or asymmetric wear to the patellar button or tibial tray. There was no evidence of fracture and/or dislocation. Impression: Unremarkable left total knee arthroplasty. [facility] Study observation (narrative) [facility] thyroidon 10-19-2024 [facility] [place] [address] [place] [address] Ultrasound Report Signed Patient: Chuyita Cavanaugh MR#: [id number] : 1955 Acct:[id number] Age/Sex: 69 / F ADM Date: 10/19/24 Loc: Room: Type: [facility] Attending Dr: Chetan Soto Jr, MD Ordering Provider: CHETAN SOTO MD Date of Service: 10/19/24 US/US thyroid: C73 E04.1 Copies to: CHETAN SOTO MD US thyroid 10/19/2024 7:19 AM SIGNS [...] Freddy Jackson M.D.10/19/2024 10:49 AM Dictation Location: [place] [address] Tech: Viji Hancock Transcribed By: DANIEL 10/19/24 1049 Dictated By: Freddy Jackson II, MD 10/19/24 104 Signed By: 10/19/24 1049 Normal [facility] CHEMISTRYOrdered By: [employer] on 08-23-2024 Cholesterol [Mass/Vol] 204 mg/dL High 120 - 200 mg/dL Rem[facility] Cholesterol in HDL [Mass/Vol] 63 mg/dL Invalid Interpretation Code [facility] Comment on above: Result Comment: '>= 60 LOW RISK' '<= 40 HIGH RISK' Cholesterol in LDL [Mass/Vol] 139 mg/dL High <=129mg/dL Remisol Chem Cholesterol in VLDL [Mass/Vol] 24 mg/dL Normal 7 - 40 mg/dL [facility] Triglyceride [Mass/Vol] 120 mg/dL Normal <=149mg/dL Rem[facility] Lipid Panelon 08-23-2024 Cholesterol [Mass/Vol] 204 mg/dL High 120-200 [facility] Comment on above: Performed By: #### [id number] #### [facility] [address] [place] [address] Cholesterol in HDL [Mass/Vol] 63 mg/dL Invalid Interpretation Code [facility] Comment on above: Result Comment: '>= 60 LOW RISK' '<= 40 HIGH RISK' Performed By: #### 2 [id number] #### [facility] [address] [place] [address] Cholesterol in LDL [Mass/Vol] 139 mg/dL High <=129 [facility] Comment on above: Performed By: #### [id number] #### [facility] [address] [place] [address] Cholesterol in VLDL [Mass/Vol] 24 mg/dL Normal 7-40 [facility] Comment on above: Performed By: #### [id number] #### [facility] [address] [place] [address] Triglyceride [Mass/Vol] 120 mg/dL Normal <=149 [facility] Comment on above: Performed By: #### [id number] #### [facility] [address] [place] [address] Ambulatory Visit Summaryon 1 10-20-2023 Ambulatory Visit Summary Ambulatory Visit Summary CHUYITA CAVANAUGH :1955 Visit Date:08/19/2024 Ambulatory Visit Instructions Your Diagnosis Encounter for Medicare annual examination with abnormal findings Abdominal aortic atherosclerosis Dilatation of aorta Papillary microcarcinoma of thyroid HLD (hyperlipidemia) HTN (hypertension) Family history of diabetes mellitus Positive depression screening Morbid obesity BMI 40.0-44.9, adult Your Care Team Attending Physician - Adeline Malik Primary Care Physician - Harry Owusu MD This Is Your Medications List Patient Specific Meds amlodipine (amLODIPine 5 mg Tab) amoxicillin aspirin (Aspir 81) bisoprolol-hydrochlorothi azide (bisoprolol-hydrochloroth iazide 10 mg-6.25 mg Tab) calcium-vitamin D chondroitin-glucosamine (Chondroitin-Glucosamine) loratadine (Claritin 10 mg Tab) multivitamin with minerals (Multivitamins and Minerals) niacin omega-3 polyunsaturated fatty acids (Fish Oil) Procedures Performed Total replacement of left knee joint (10/16/2018), ACL - Anterior cruciate ligament rupture, Appendectomy, Arthroscopic knee procedure, Carpal tunnel, Cholecystectomy, Colonoscopy, Colonoscopy, Endometrial biopsy, Endoscopy, Hysterectomy, Laser, Lumpectomy of left breast, Thyroidectomy, Tubal ligation. Discharge Vitals Temperature (Temporal Artery) 37.0 ???C Heart Rate (Peripheral) 60 Blood Pressure 130/60 Height 168 cm Height 66 in Weight 115.5 kg Weight 254.634 lb BMI 40.92 What to do next Scheduled Follow-Up Appointments Friday 9:20 AM EST With: Where: [place] [id number]- 2024 9:15 AM EDT With: Harry Owusu MD Where: [address] [id number]- Friday 11:00 AM EST With: Where: [address] [id number]- You Need to Complete the Following Lipid Panel, Blood, Routine collect, 08/19/24, Order for future visit, Lab Collect, HLD (hyperlipidemia), Print Label By Order Location Medications What How Much When Instructions Unchanged amlodipine (amLODIPine 5 mg Tab) 1 Tablets By Mouth Every day Unchanged amoxicillin takes prior to procedures Unchanged aspirin (Aspir 81) 81 Milligram By Mouth Every day Unchanged bisoprolol-hydrochlorothi azide (bisoprolol-hydrochloroth iazide 10 mg-6.25 mg Tab) 1 Tablets By Mouth Every day Unchanged calcium-vitamin D 600 Milligram Every day Unchanged chondroitin-glucosamine (Chondroitin-Glucosamine) 1 Capsules By Mouth Every day 1500 mg a day Unchanged loratadine (Claritin 10 mg Tab) 1 Tablets By Mouth Every day as needed for Allergy symptoms Unchanged multivitamin with minerals (Multivitamins and Minerals) Unchanged niacin 500 Milligram By Mouth Every day Unchanged omega-3 polyunsaturated fatty acids (Fish Oil) 1,200 Milligram By Mouth Every day Unchanged Patient Specific Meds Eye Promise Restore - capsule Allergies Icy Hot (Rash) lidocaine (Unknown Reaction) Problems Ongoing - Any problem that you are currently receiving treatment for. Abdominal aortic atherosclerosis Back pain BMI 40.0-44.9, adult Dilatation of aorta Dysphagia Frequency of urination Hemorrhoids HLD (hyperlipidemia) HTN (hypertension) Hyperglycemia Kidney stone Mitral valve regurgitation Mixed incontinence Nocturia DAVON on CPAP Osteoarthritis Osteoporosis Papillary microcarcinoma of thyroid Skin tag Ulcer of antrum of stomach Historical - Any problem that you are no longer receiving treatment for. Chronic diarrhea Patient Survey You may receive a survey via text or e-mail asking about your office visit. Please share your experience with us by completing your survey. We appreciate your feedback and thank you for choosing us for your care. Education Materials Exercising to Lose Weight Getting regular exercise is important for everyone. It is especially important if you are overweight. Being overweight increases your risk of heart disease, stroke, diabetes, high blood pressure, and several types of cancer. Exercising, and reducing the calories you consume, can help you lose weight and improve fitness and health. Exercise can be moderate or vigorous intensity. To lose weight, most people need to do a certain amount of moderate or vigorous-intensity exercise each week. How can exercise affect me? You lose weight when you exercise enough to burn more calories than you eat. Exercise also reduces body fat and builds muscle. The more muscle you have, the more calories you burn. Exercise also: ??? Improves mood. ??? Reduces stress and tension. ??? Improves your overall fitness, flexibility, and endurance. ??? Increases bone strength. (more content not included)... Normal [facility] Family Medicine Office/Dustin nieto Noteon 08-19-2024 Family Medicine Office/Clinic Note Family Medicine Office/Clinic Note Chief Complaint Subsequent Medicare Wellness Review of Systems PHQ Score Initial Depression Screen Score: 2 SCORE Physical Exam Vitals & Measurements T: 37.0 ???C(Temporal Artery) HR: 60(Peripheral) BP: 130/60 SpO2: 96% HT: 168 cm HT: 66 in WT: 115.5 kg WT: 254.634 lb BMI: 40.92 Assessment/Plan 1. Encounter for Medicare annual examination with abnormal findings (Z00.01: Encounter for general adult medical examination with abnormal findings) The patient was given a customized and personalized print out of all the current AHRQ USPSTF???s recommendations for preventative services and all current CDC recommended immunizations, relevant risk recommendations and the following patient brochures were given. Reviewed Medicare Prevention Services checklist. [facility]-F[facility] Prevention and home safety screening reviewed. Patient denies any falls in last 12 months, voices no worry about falling. Exhibits no problems with sitting, standing or ambulation. Patient aware with keeping walk way area free of clutter to prevent tripping and/or falling. [place] Advance Directives reviewed. Documents are scanned into chart. Patient denies any problems with ADL???s and Instrumental ADL???s. Cognitive screening completed with memory and clock face drawing. No deficits noted. Patient recited 1/3 memory words. Immunization record reviewed, 2 COVID vaccines have been administered, with 1 Booster received. Allergies and medications reviewed and up to date. No concerns with taking medication as prescribed. Reviewed OTC medications, medication list up to date. Blood tests were reviewed: Discussed what tests need to be updated. Labs were ordered, will have completed prior to next PCP visit. Labs to be completed with [facility]. No concerns with bowel/ bladder. Colonoscopy last completed 07/06/[address] Peña with a 5 year repeat. Reviewed pain symptoms: chronic generalized pain. 12/23, patient takes Tylenol. Reviewed all outside providers that patient follows. Last visit summary notes available in chart and/or have been requested. Patient is currently having signs or symptoms of depression at this time. 8 minutes spent with screening and documentation. PHQ2 screening score 2. See #8. Patient denies alcohol use.8 minutes spent with screening and documentation. Audit score 0. Follow up scheduled with PCP,12/23/2024 AWV has been scheduled, 08/22/2025 Abnormal findings with positive depression screening 2. Abdominal aortic atherosclerosis (I70.0: Atherosclerosis of aorta) Patient denies and voices no concerns with dizziness, lightheadedness, N & V, episodes of fainting, heart racing, SOB, or pain in back, stomach or extremities. Follows Dr. Hercules, Cardiology as directed. 3. Dilatation of aorta (I77.819: Aortic ectasia, unspecified site) Follows Dr. Hercules, Cardiology as directed. 4. Papillary microcarcinoma of thyroid (C73: Malignant neoplasm of thyroid gland) Follows Dr. Soto, ENT as directed. 5. HLD (hyperlipidemia) (E78.5: Hyperlipidemia, unspecified) Reviewed healthy lifestyle with low fat diet and exercise regimen. When you are overweight our body produces more lipids. Risk also increases with family history of hyperlipidemia and with monitoring alcohol use and avoid smoking. Pt voices understanding with importance of monitoring dietary intake to reduce risk factors associated with CVA. Taking statin medications daily as directed. Will continue to follow up with office visits with updated labs as directed. LIPD screening ordered. 6. HTN (hypertension) (I10: Essential (primary) hypertension) Patient is taking medications daily as directed. Does monitor BP pressure at home. HTN stoplight reviewed with BP goal to be <140/90. Reviewed different factors that can alter blood pressure readings. Education handout provided with s/s to monitor for and report to provider. Patient is encouraged to increase portions of fruit, vegetables, fiber and increase exercise as much as tolerable. Reviewed importance with monitoring foods high in salt content and encouraged to limit intake, if unsure encouraged to discuss with their PCP. Encouraged to eat more chicken, fish and lean white meats and limits red meats in diet. Discussed importance with keeping BP under good control to reduce CVA risk factors. Will continue to f/u with PCP during office visits and as needed. 7. Family history of diabetes mellitus (Z83.3: Family history of diabetes mellitus) Patient screened for diabetes with risk score of 8 discussed family history with increased risk for diabetes. DM stoplight handout reviewed with symptoms to monitor for and report to PCP. Reminded pt importance with healthy nutritional intake to keep glucose under good control, handout provided with healthy dietary choices to review. Will continue to f/u with PCP during office visits. Blood work repeated as directed. 8. Positive depression screening (Z13.31: Encounter for screening for depression) Medi (more content not included)... Normal [facility] Comment on above: Result Comment: Elec tronically Signed By: MAISHA PLAZA CNP\.br\Date and Time Signed: 08/19/24 13:24 EST\.br\Electronically Co-Signed By: Veena Watts\.br\Date and Time Co-Signed: 08/19/24 13:03 EST Ambulatory Visit Summaryon 1 Ambulatory Visit Summary Ambulatory Visit Summary CHUYITA CAVANAUGH :1955 Visit Date:06/24/2024 Ambulatory Visit Instructions Your Diagnosis HTN (hypertension) Hyperglycemia DAVON on CPAP Abdominal aortic atherosclerosis Mitral valve regurgitation Dilatation of aorta BMI 39.0-39.9,adult Exogenous obesity Nonsmoker Your Care Team Attending Physician - Harry Owusu MD Primary Care Physician - Harry Owusu MD This Is Your Medications List Patient Specific Meds amlodipine (amLODIPine 5 mg Tab) aspirin (Aspir 81) bisoprolol-hydrochlorothi azide (bisoprolol-hydrochloroth iazide 10 mg-6.25 mg Tab) calcium-vitamin D chondroitin-glucosamine (Chondroitin-Glucosamine) loratadine (Claritin 10 mg Tab) multivitamin with minerals (Multivitamins and Minerals) niacin omega-3 polyunsaturated fatty acids (Fish Oil) Procedures Performed Total replacement of left knee joint (10/16/2018), ACL - Anterior cruciate ligament rupture, Appendectomy, Arthroscopic knee procedure, Carpal tunnel, Cholecystectomy, Colonoscopy, Colonoscopy, Endometrial biopsy, Endoscopy, Hysterectomy, Laser, Lumpectomy of left breast, Thyroidectomy, Tubal ligation. Discharge Vitals Temperature (Temporal Artery) 36.2 ?C Heart Rate (Peripheral) 62 Respiratory Rate 16 Blood Pressure 128/84 Height 168 cm Height 66 in Weight 112.5 kg Weight 247.5 lb BMI 39.86 What to do next Scheduled Follow-Up Appointments 2023 9:30 AM EST With: Where: [address] [phone] 2024 9:15 AM EDT With: Markel TALAMANTES, Harry Moore Where: [place] [id number]- Medications What How Much When Instructions Unchanged amlodipine (amLODIPine 5 mg Tab) 1 Tablets By Mouth Every day Unchanged aspirin (Aspir 81) 81 Milligram By Mouth Every day Unchanged bisoprolol-hydrochlorothi azide (bisoprolol-hydrochloroth iazide 10 mg-6.25 mg Tab) 1 Tablets By Mouth Every day Unchanged calcium-vitamin D 600 Milligram Every day Unchanged chondroitin-glucosamine (Chondroitin-Glucosamine) 1 Capsules By Mouth Every day 1500 mg a day Unchanged loratadine (Claritin 10 mg Tab) 1 Tablets By Mouth Every day Unchanged multivitamin with minerals (Multivitamins and Minerals) Unchanged niacin 500 Milligram By Mouth Every day Unchanged omega-3 polyunsaturated fatty acids (Fish Oil) 1,200 Milligram By Mouth Every day Unchanged Patient Specific Meds Eye [facility] Restore - capsule Allergies Icy Hot (Rash) lidocaine (Unknown Reaction) Problems Ongoing - Any problem that you are currently receiving treatment for. Abdominal aortic atherosclerosis Back pain Dilatation of aorta Dysphagia Frequency of urination Hemorrhoids HLD (hyperlipidemia) HTN (hypertension) Hyperglycemia Kidney stone Mitral valve regurgitation Mixed incontinence Nocturia DAVON on CPAP Osteoarthritis Osteoporosis Papillary microcarcinoma of thyroid Skin tag Ulcer of antrum of stomach Historical - Any problem that you are no longer receiving treatment for. Chronic diarrhea Patient Survey You may receive a survey via text or e-mail asking about your office visit. Please share your experience with us by completing your survey. We appreciate your feedback and thank you for choosing us for your care. Normal [facility] Family Medicine Office/Clini c Noteon 06-24-2024 Family Medicine Office/Clinic Note Family Medicine Office/Clinic Note HPI Staff Chuyita is a 68 year old female presenting for 6 month follow up hyperglycemia, htn, davon Patient is here for follow up on hypertension. How often are you checking your blood pressure? Doesnt check BP at home What are your average readings? N/A, Not checking at home Yearly BMP: 12/25/23_ questions/concerns: History of Present Illness The patient is a 68-year-old female presenting with concerns related to her wellness and ongoing management of several chronic health conditions. The patient has a history of abdominal aortic atherosclerosis and mitral valve regurgitation, noted to be nonrheumatic, which is monitored but currently not requiring specific interventions. The patient also has a documented dilatation of the aorta, for which she is under surveillance with an echocardiogram scheduled for the next year to ensure there is no significant progression. There are familial heart issues noted, but current evaluations suggest only minor dilatation, requiring monitoring but no immediate intervention. The patient is managing obesity with a BMI in the range of 39.0-39.9, associated with which she reports an increase in weight due to personal stressors, including recent familial difficulties. Despite these stressors, she remains active, engaging in structured exercise programs and daily walks of approximately three miles, increasing to 10 to 12 miles during excursions. In terms of metabolic health, the patient has been noted to have hyperglycemia, but recent lab work shows satisfactory monitoring of blood sugar levels. The patient manages her lipid profile with omega-3 supplements and possibly niacin as suggested by prior results showing slightly elevated total cholesterol and satisfactory levels of HDL and LDL. She denies any cholesterol medication use currently and maintains active surveillance. For her essential hypertension, the patient's blood pressure readings are stable on her current management plan, and her use of CPAP for obstructive sleep apnea is reportedly successful, despite a recent retesting negating Medicare qualification for further CPAP provision, marking improvement in her condition. She reports diligent follow-up of her thyroid which shows stable size upon recent ultrasound examination. Review of Systems PHQ Score Initial Depression Screen Score: 2 SCORE - Neurological: Denies any need for motion-related assistance. - Endocrine: Denies changes in thyroid examination other than past minuscule changes. - Cardiovascular: Denies any cardiac medications other than omega-3 supplements for lipid management. - Respiratory: Reports improvement in sleep apnea management. - Psychological: Reports stress due to personal circumstances, such as a familial and unemployment. Physical Exam Vitals & Measurements T: 36.2 ?C(Temporal Artery) HR: 62(Peripheral) RR: 16 BP: 128/84 SpO2: 97% HT: 66 in HT: 168 cm WT: 112.5 kg WT: 247.5 lb BMI: 39.86 General: alert, no acute distress ENMT: oral mucosa moist Cardiovascular: Regular rate and rhythm, normal peripheral perfusion Respiratory: Lungs clear to auscultation, respirations non labored Extremities: no deformity, no trauma Neurological: oriented x 4, level of consciousness appropriate for age, CN II-XII intact, motor strength equal & normal bilaterally, speech normal Abdomen: Soft, Non-tender, Non-distended, + Bowel sounds Assessment/Plan 1. HTN (hypertension) (I10: Essential (primary) hypertension) Currently well-controlled, the patient maintains stability in blood pressure readings without additional need for therapeutic modification. Ordered: Body Mass Index (BMI) documented 3008F Current tobacco non-user 1036F Depression Screening Negative 3352F Influenza immunization administered or previously received 4274F Most recent diastolic blood pressure 80-89 mm Hg 3079F Patient screen for fall risk: no falls in last year or 1 fall with no injury in last year 1101F Systolic BP <130 mm Hg (Most Recent) 3074F 2. Hyperglycemia (R73.9: Hyperglycemia, unspecified) The patient's blood glucose levels are acceptable within recent examinations. Continued monitoring is recommended, with lifestyle modifications maintained to ensure effective management. Ordered: Body Mass Index (BMI) documented 3008F Current tobacco non-user 1036F Depression Screening Negative 3352F Influenza immunization administered or previously received 4274F Most recent diastolic blood pressure 80-89 mm Hg 3079F Patient screen for fall risk: no falls in last year or 1 fall with no injury in last year 1101F Systolic BP <130 mm Hg (Most Recent) 3074F 3. DAVON on CPAP (G47.33: Obstructive sleep apnea (adult) (pediatric)) Although Medicare retesting indicated a lack of qualification for further CPAP use, the patient reports a positive response to previous CPAP therapy without requirements of additional therapeutic plans. Ordered: Body Mass Index (BMI) (more content not included)... Normal [facility] Comment on above: Result Comment: Elec tronically Signed By: Markel TALAMANTES, Harry Moore\.br\Date and Time Signed: 06/24/24 09:53 EDT Office Visiton 05-18-2024 Follow-up visit [id number] Chuyita Cavanaugh 1955 F Date Provider Department Center 05/18/2024 271[facility] No family history on file Level of Service:26007 MI OFFICE/OUTPATIENT ESTABLISHED LOW MDM 20 MIN Normal [facility] thyroidon 05-03-2024 US thyroid [facility] [place] [address] [place] [address] Ultrasound Report Signed Patient: Chuyita Cavanaugh MR#: [id number] 9 : 1955 Acct:[id number] Age/Sex: 68 / F ADM Date: 05/03/24 Loc: Room: Type: [facility] Attending Dr: Chetan Soto Jr, MD Ordering Provider: CHETAN SOTO MD Date of Service: 05/03/24 US/US thyroid: thyroid nodule Copies to: CHETAN SOTO MD Thyroid Ultrasound HISTORY: Thyroid nodule. Left [...] Basil Trotter M.D.05/03/2024 12:28 PM Dictation Location: [place] [address] Tech: Clover Rivera Transcribed By: DANIEL 05/03/24 1228 Dictated By: Basil Trotter DO 05/03/24 1225 Signed By: 05/03/24 1228 Normal [facility] Dexa Scanson 01-29-2024 Dexa Scans [id number] Normal [facility] Outside Mammographyon 2023 Outside Mammography [id number]#[id number] Normal [facility] CHEMISTRYOrdered By: SYSTEM SYSTEM on 12-25-2023 Anion gap [Moles/Vol] 14 mmol/L Normal 6 - 16 mEq/L Remisol Chem Calcium [Mass/Vol] 10.6 mg/dL Normal 8.9 - 11. 1 mg/dL Remisol Chem Chloride [Moles/Vol] 104 mmol/L Normal 101 - 1 11 mmol/L Remisol Chem CO2 [Moles/Vol] 24 mmol/L Normal 21 - 31 mmol/L Remisol Chem Creatinine [Mass/Vol] 0.7 mg/dL Normal 0.5 - 1.3 mg/dL Remisol Chem eGFR 94 mL/min/1.73 m2 Normal >=59mL/min /1.73 m2 Rem[facility] Chem Glucose [Mass/Vol] 95 mg/dL Normal 55 - 199 mg/dL Rem[facility] Chem Potassium [Moles/Vol] 4.0 mmol/L Normal 3.5 - 5.3 mmol/L Remisol Chem Sodium [Moles/Vol] 138 mmol/L Normal 135 - 145 mmol/L Remisol Chem Urea nitrogen [Mass/Vol] 14 mg/dL Normal 5 - 21 mg/dL Remisol Chem Urea nitrogen/Creatinine [Mass ratio] 20 mg/mg Normal 10 - 20 [facility] Chem CHEMISTRYOrdered By: Ubaldo corona on 12-25-2023 HbA1c (Bld) [Mass fraction] 5.5 % Normal <=5.9% [facility] Chem[employer] HEMATOLOGYOrdered By: SYSTEM SYSTEM on 12-25-2023 Basophils/100 WBC (Bld) 1.2 % Normal 0.0 - 2.0 % Remisol Heme Basophils/Leukocytes Auto (Bld) [Pure # fraction] 0.1 E9/L Normal 0.0 - 0.2 E9/L Rem[facility] Heme Eosinophils (Bld) [#/Vol] 0.1 E9/L Normal 0.0 - 0.5 E9/L Remisol Heme Eosinophils/100 WBC (Bld) 2.0 % Normal 0.0 - 8.0 % Rem[facility]e Erythrocyte distribution width (RBC) [Ratio] 13.5 % Normal 10.9 - 14.2 % [facility]e Hematocrit (Bld) [Volume fraction] 41.3 % Normal 34.0 - 46.0 % Rem[facility]e Hemoglobin (Bld) [Mass/Vol] 13.7 g/dL Normal 12.0 - 16.0 gm/dL Rem[facility] Heme Lymphocytes (Bld) [#/Vol] 1.6 E9/L Normal 1.0 - 4.0 E9/L Remisol Heme Lymphocytes/100 WBC (Bld) 31.6 % Normal 14.0 - 50.0 % Remisol Heme MCH (RBC) [Entitic mass] 31.5 pg Normal 27.0 - 34.0 pg Remisol Heme MCHC (RBC) [Mass/Vol] 33.2 g/dL Normal 31.4 - 36.0 gm/dL Remisol Heme MCV (RBC) [Entitic vol] 95.0 fL Normal 80.0 - 100.0 fL Rem[facility] Heme Monocytes (Bld) [#/Vol] 0.6 E9/L Normal 0.2 - 1.0 E9/L Remisol Heme Monocytes/100 WBC (Bld) 11.3 % Normal 4.0 - 14.0 % Rem[facility] Heme Neutrophils (Bld) [#/Vol] 2.7 E9/L Normal 2.0 - 7.5 E9/L Remisol Heme Neutrophils/100 WBC (Bld) 53.9 % Normal 36.0 - 75.0 % Rem[facility] Heme Platelet mean volume (Bld) [Entitic vol] 9.6 fL Normal 6.4 - 10.8 fL Remisol Heme Platelets (Bld) [#/Vol] 303.0 E9/L Normal 150.0 - 500.0 E9/L Remisol Heme RBC (Bld) [#/Vol] 4.3 E12/L Normal 4.3 - 5.9 E12/L Remisol Heme WBC corrected for nucl RBC Auto (Bld) [#/Vol] 5.1 E9/L Normal 4.0 - 11.0 E9/L Remisol Heme COVID + FLU Quick Testingon 02-12-2023 SARS-CoV-2 (COVID-19) RNA KYAW+probe Ql (Unsp spec) Negative [employer] Other COVID + FLU Quick Testing Positive [employer] Other COVID + FLU Quick Testing Negative [employer] Other Quick Strepon 02-12-2023 S. pyogenes Org specific cx Ql (Throat) Negative [employer] Other [employer] Other MG MAMM SCREEN 3D MATTY CADon 01-15-2023 MG MAMM SCREEN 3D MATTY CAD Patient: CHUYITA CAVANAUGH Exam Date: 01/15/2023 : 1955 Gender:F Ordering : DR EVE VALENZUELA Admission #: [id number] Family : DR. HARRY OWUSU . Order #: [id number] CLICK HERE TO VIEW EXAM RADIOLOGY REPORT PROCEDURE: MAMMOGRAM SCREENING 3D BILATERAL CAD COMPARISON: MG MAMM SCREEN 3D MATTY CAD, 01/04/2021. MG MAMM SCREEN 3D MATTY CAD, 01/14/2022. INDICATIONS: Screening mammography Calculator Name NCI Breast Cancer Risk Assessment Tool 5 Year Breast Cancer Risk 1.80% Lifetime Breast Cancer Risk 6.10% Personal Breast Cancer No Personal Ovarian Cancer No Treatments tamoxifen Family Cancers Mother with uterine cancer at age 73; Father with prostate cancer at age 74; Grandmother-maternal with kidney cancer at age 93; Grandfather-maternal with leukemia cancer at age 87. LOCATION: [facility] BREAST COMPOSITION: Scattered areas fibroglandular density. FINDINGS: DIAGNOSTIC CATEGORY 1--NEGATIVE. NO CHANGE FROM COMPARISON ASSESSMENT. Scattered benign-appearing nodules are present. Scattered benign-appearing calcifications are present. Scattered benign-appearing lymph nodes are present. RIGHT BREAST: No significant suspicious finding. LEFT BREAST: No significant suspicious finding. RECOMMENDATIONS: ROUTINE MAMMOGRAM AND CLINICAL EVALUATION IN 12 MONTHS. PLEASE NOTE: A NORMAL MAMMOGRAM DOES NOT EXCLUDE THE POSSIBILITY OF BREAST CANCER. A CLINICALLY SUSPICIOUS PALPABLE LUMP SHOULD BE BIOPSIED. Dictated by: Alex Hernandez MD on 01/15/2023 at 09:12 Approved by: Alex Hernandez MD on 01/15/2023 at 09:14 Normal [facility] 12-26-2022 CNPN Telephone (Vaximm) ----- CHUYITA CAVANAUGH ([id number]) 1955 F Date Time Provider Department 12/26/22 LUANNE HOWELL During your visit today, we recorded the following information about you: Luanne Howell RN 12/26/2022 4:13 PM Signed ----- Message from Karis Richter RN sent at 12/26/2022 3:58 PM EDT ----- ----- Message ----- From: Faraz Peña MD Sent: 12/25/2022 12:25 PM EDT To: Karis Richter RN Call with negative CT Luanne Howell RN 12/26/2022 4:14 PM Signed Pt viewed results on MyChart. Luanne Howell RN Allergies As of Date: 12/26/2022 Noted Allergy Reaction LIDOCAINE 12/17/2013 2 - Rash Comments: Hot red rash MENTHOL 12/17/2013 2 - Rash Comments: Red hot rash Date Reviewed: 01/02/2022 Reviewed by: Lisandra Scherer MA - Fully Assessed Reason for Visit: Results [95] Prescriptions as of 12/26/2022 - iv contrast (will be provided with radiology test) CT ABD/PEL -Inject, intravenously, once for 1 dose.No IV access, insert saline lock prior to the beginning of sedation, infusion, injection of imaging exam. Discontinue saline lock post exam. If Pt. has a central line or IVAD, may access for administration according to line specific nursing protocol. Once exam is complete flush line and de-access according to line specific nursing protocol in the CT contrast administration guidelines link. - iv contrast (will be provided with radiology test) CT Chest W -Inject, intravenously, once for 1 dose.No IV access, insert saline lock prior to the beginning of sedation, infusion, injection of imaging exam. Discontinue saline lock post exam. If Pt. has a central line or IVAD, may access for administration according to line specific nursing protocol. Once exam is complete flush line and de-access according to line specific nursing protocol in the CT contrast administration guidelines link. - amLODIPine (NORVASC) 5 mg tablet Take 5 mg by mouth once daily. - bisoprolol-hydroCHLOROthi azide (ZIAC) 10-6.25 mg per tablet Take 1 tablet by mouth once daily. - niacin (NIACIN) 500 mg tablet Take 500 mg by mouth. - aspirin, enteric coated (ASPIRIN, ENTERIC COATED) 81 mg EC tablet Aspirin Active 81 MG PO Daily July 06, 2020 11:24am - Glucosamine-Chondroitin 500-400 mg tablet Take 1 tablet by mouth. - sfiwxyp-xxkoxfgwi-gumasje D3 500 mg(1,250mg) -200 unit per tablet Take 1 tablet by mouth. - gluc cummings/chondro cummings A/vit C/Mn (GLUCOSAMINE 1500 COMPLEX ORAL) Ngflxigonyx-W4-Mvoyadutg Serr (Glucosamine Daily Complex) 1,500-400-100 mg-unit-mg Tablet Active 1 TAB PO Daily July 06, 2020 11:24am - Ospki-4-KRU-EPA-Fish Oil (FISH OIL) 1,000 mg (120 mg-180 mg) cap [place] 2-Yxa-Dda-Fish Oil Active 1 CAP Oral Daily July 06, 2020 11:24am Problem List As Of Date: 12/26/2022 (None) Encounter Status:Closed by LUANNE HOWELL on 12/26/22 Normal [facility] CBC W Auto Differential pane l (Bld)on 12-25-2022 Basophils (Bld) [#/Vol] 0.05 10*3/uL Normal <0.11 [facility] Comment on above: Order Comment: Speci men Type: BLOOD SPECIMEN Ordering Facility: [facility] Address: [address] [place] [address] Performed By: #### 5 7021-8 #### [facility] CLIA [id number] [address] [place] [address] 18656 Basophils/100 WBC (Bld) 1.0 % Normal [facility] Comment on above: Order Comment: Speci men Type: BLOOD SPECIMEN Ordering Facility: [facility] Address: [address] [place] [address] Performed By: #### 5 7021-8 #### [facility] CLIA [id number] [address] [place] [address] 54738 Differential cell count method Nom (Bld) Auto Normal [facility] Comment on above: Order Comment: Speci men Type: BLOOD SPECIMEN Ordering Facility: [facility] Address: [address] Performed By: #### 5 7021-8 #### [facility] CLIA [id number] [address] [place] [address] 03892 Eosinophils (Bld) [#/Vol] 0.12 10*3/uL Normal <0.46 [facility] Comment on above: Order Comment: Speci men Type: BLOOD SPECIMEN Ordering Facility: [facility] Address: [address] [address] Performed By: #### 5 7021-8 #### [facility] CLIA [id number] [address] [place] [address] 61981 Eosinophils/100 WBC (Bld) 2.5 % Normal [facility] Comment on above: Order Comment: Speci men Type: BLOOD SPECIMEN Ordering Facility: [facility] Address: [address] [address] Performed By: #### 5 7021-8 #### [facility] CLIA [id number] [address] [place] [address] 57433 Erythrocyte distribution width (RBC) [Ratio] 12.3 % Normal 11.5-15.0 [facility] Comment on above: Order Comment: Speci men Type: BLOOD SPECIMEN Ordering Facility: [facility] Address: [address] [address] Performed By: #### 5 7021-8 #### [facility] CLIA [id number] [address] [place] [address] 16790 Hematocrit (Bld) [Volume fraction] 40.8 % Normal 36.0-46.0 [facility] Comment on above: Order Comment: Speci men Type: BLOOD SPECIMEN Ordering Facility: [facility] Address: [address] [address] Performed By: #### 5 7021-8 #### [facility] CLIA [id number] [address] [place] [address] 95185 Hemoglobin (Bld) [Mass/Vol] 13.5 g/dL Normal 11.5-15.5 [facility] Comment on above: Order Comment: Speci men Type: BLOOD SPECIMEN Ordering Facility: [facility] Address: [address] [address] Performed By: #### 5 7021-8 #### [facility] CLIA [id number] [address] [place] [address] 88723 Immature granulocytes (Bld) [#/Vol] 10*3/uL Normal <0.10 [facility] Comment on above: Order Comment: Speci men Type: BLOOD SPECIMEN Ordering Facility: [facility] Address: [address] [address] Performed By: #### 5 7021-8 #### [facility] CLIA [id number] [address] [place] [address] 54696 Immature granulocytes/100 WBC (Bld) 0.4 % Normal [facility] Comment on above: Order Comment: Speci men Type: BLOOD SPECIMEN Ordering Facility: [facility] Address: [address] Performed By: #### 5 7021-8 #### [facility] CLIA [id number] [address] [place] [address] 54540 Lymphocytes (Bld) [#/Vol] 1.87 10*3/uL Normal 1.00-4.00 [facility] Comment on above: Order Comment: Speci men Type: BLOOD SPECIMEN Ordering Facility: [facility] Address: [address] Performed By: #### 5 7021-8 #### [facility] CLIA [id number] [address] [place] [address] 89432 Lymphocytes/100 WBC (Bld) 38.6 % Normal [facility] Comment on above: Order Comment: Speci men Type: BLOOD SPECIMEN Ordering Facility: [facility] Address: [address] Performed By: #### 5 7021-8 #### [facility] CLIA [id number] [address] [place] [address] 59794 MCH (RBC) [Entitic mass] 31.8 pg Normal 26.0-34.0 [facility] Comment on above: Order Comment: Speci men Type: BLOOD SPECIMEN Ordering Facility: [facility] Address: [address] [place] [address] Performed By: #### 5 7021-8 #### [facility] CLIA [id number] [address] [place] [address] 24417 MCHC (RBC) [Mass/Vol] 33.1 g/dL Normal 30.5-36.0 [facility] Comment on above: Order Comment: Speci men Type: BLOOD SPECIMEN Ordering Facility: [facility] Address: [address] [place] [address] Performed By: #### 5 7021-8 #### [facility] CLIA [id number] [address] [place] [address] 01167 MCV (RBC) [Entitic vol] 96.0 fL Normal 80.0-100.0 [facility] Comment on above: Order Comment: Speci men Type: BLOOD SPECIMEN Ordering Facility: [facility] Address: [address] [place] [address] Performed By: #### 5 7021-8 #### [facility] CLIA [id number] [address] [place] [address] 01683 Monocytes (Bld) [#/Vol] 0.61 10*3/uL Normal <0.87 [facility] Comment on above: Order Comment: Speci men Type: BLOOD SPECIMEN Ordering Facility: [facility] Address: [address] [place] [address] Performed By: #### 5 7021-8 #### [facility] CLIA [id number] [address] [place] [address] 72967 Monocytes/100 WBC (Bld) 12.6 % Normal [facility] Comment on above: Order Comment: Speci men Type: BLOOD SPECIMEN Ordering Facility: [facility] Address: [address] [place], [place] [address] Performed By: #### 5 7021-8 #### [facility] CLIA [id number] [address] [place] [address] 60182 Neutrophils (Bld) [#/Vol] 2.17 10*3/uL Normal 1.45-7.50 [facility] Comment on above: Order Comment: Speci men Type: BLOOD SPECIMEN Ordering Facility: [facility] Address: [address] [address] Performed By: #### 5 7021-8 #### [facility] CLIA [id number] [address] [place] [address] 01645 Neutrophils/100 WBC (Bld) 44.9 % Normal [facility] Comment on above: Order Comment: Speci men Type: BLOOD SPECIMEN Ordering Facility: [facility] Address: [address] [address] Performed By: #### 5 7021-8 #### [facility] CLIA [id number] [address] [place] [address] 77039 Nucleated RBC (Bld) [#/Vol] 10*3/uL Normal <0.01 [facility] Comment on above: Order Comment: Speci men Type: BLOOD SPECIMEN Ordering Facility: [facility] Address: [address] [address] Performed By: #### 5 7021-8 #### [facility] CLIA [id number] [address] [place] [address] 12780 Nucleated RBC/100 WBC (Bld) [Ratio] 0.0 /100 WBC Normal [facility] Comment on above: Order Comment: Speci men Type: BLOOD SPECIMEN Ordering Facility: [facility] Address: [address] Performed By: #### 5 7021-8 #### [facility] CLIA [id number] [address] [place] [address] 88530 Platelet mean volume (Bld) [Entitic vol] 10.3 fL Normal 9.0-12.7 [facility] Comment on above: Order Comment: Speci men Type: BLOOD SPECIMEN Ordering Facility: [facility] Address: [address] [address] Performed By: #### 5 7021-8 #### [facility] CLIA [id number] [address] [place] [address] 56726 Platelets (Bld) [#/Vol] 300 10*3/uL Normal 150-400 [facility] Comment on above: Order Comment: Speci men Type: BLOOD SPECIMEN Ordering Facility: [facility] Address: [address] [address] Performed By: #### 5 7021-8 #### [facility] CLIA [id number] [address] [place] [address] 84650 RBC (Bld) [#/Vol] 4.25 10*6/uL Normal 3.90-5.20 [facility] Comment on above: Order Comment: Speci men Type: BLOOD SPECIMEN Ordering Facility: [facility] Address: [address] [place] [address] Performed By: #### 5 7021-8 #### [facility] CLIA [id number] [address] [place] [address] 88179 WBC (Bld) [#/Vol] 4.84 10*3/uL Normal 3.70-11.00 [facility] Comment on above: Order Comment: Speci men Type: BLOOD SPECIMEN Ordering Facility: [facility] Address: [address] [place] [address] Performed By: #### 5 7021-8 #### [facility] CLIA [id number] [address] [place] [address] 53426 Basophils (Bld) [#/Vol] 0.05 10*3/uL [facility] Basophils/100 WBC (Bld) 1.0 % [facility] Differential cell count method Nom (Bld) Auto [facility] Eosinophils (Bld) [#/Vol] 0.12 10*3/uL [facility] Eosinophils/100 WBC (Bld) 2.5 % [facility] Erythrocyte distribution width (RBC) [Ratio] 12.3 % 11.5 - 15.0 % [facility] Hematocrit (Bld) [Volume fraction] 40.8 % 36.0 - 46.0 % [facility] Hemoglobin (Bld) [Mass/Vol] 13.5 g/dL 11.5 - 15.5 g/dL [facility] Immature granulocytes (Bld) [#/Vol] NINF [facility] Immature granulocytes/100 WBC (Bld) 0.4 % [facility] Lymphocytes (Bld) [#/Vol] 1.87 10*3/uL [facility] Lymphocytes/100 WBC (Bld) 38.6 % [facility] MCH (RBC) [Entitic mass] 31.8 pg 26.0 - 34.0 pg [facility] MCHC (RBC) [Mass/Vol] 33.1 g/dL 30.5 - 36.0 g/dL [facility] MCV (RBC) [Entitic vol] 96.0 fL 80.0 - 100.0 fL [facility] Monocytes (Bld) [#/Vol] 0.61 10*3/uL [facility] Monocytes/100 WBC (Bld) 12.6 % [facility] Neutrophils (Bld) [#/Vol] 2.17 10*3/uL [facility] Neutrophils/100 WBC (Bld) 44.9 % [facility] Nucleated RBC (Bld) [#/Vol] NINF [facility] Nucleated RBC/100 WBC (Bld) [Ratio] 0.0 % /100 WBC [facility] Platelet mean volume (Bld) [Entitic vol] 10.3 fL 9.0 - 12.7 fL [facility] Platelets (Bld) [#/Vol] 300 10*3/uL [facility] RBC (Bld) [#/Vol] 4.25 10*6/uL 3.90 - 5.20 m/uL [facility] WBC (Bld) [#/Vol] 4.84 10*3/uL [facility] This is an appended report. These results have been appended to a previously verified report. [facility] CT ABD/PEL W IVCONon 12-25- 023 CT ABD/PEL W IVCON * * *Final Report* * * DATE OF EXAM: Dec 25 2022 9:44AM [facility] 0530 - CT ABD/PEL W IVCON / PROCEDURE REASON: Abdominal mass, unspecified abdominal location * * * * Physician Interpretation * * * * RESULT: EXAMINATION: CT ABDOMEN AND PELVIS WITH IV CONTRAST CLINICAL HISTORY: Abdominal mass TECHNIQUE: CT of the abdomen and pelvis was performed using standard technique, scanning from just above the dome of the diaphragm to the symphysis pubis. MQ: CTAP_3 Contrast: IV: 150 ml of Omnipaque 300 Oral: None CT Radiation dose: Integrated Dose-length product (DLP) for this visit = 1655 mGy*cm. CT Dose Reduction Employed: Automated exposure control (AEC) COMPARISON: 12/26/2021 RESULT: Liver: No mass. Mild, diffuse hepatic steatosis is noted. Biliary Tract: No bile duct dilation. The gallbladder is surgically absent. Spleen: No splenomegaly. 1.0 cm hypodensity at the inferior aspect of the spleen, image 30, series 3, stable, likely related to a small cyst or hemangioma. No new splenic lesion is appreciated. 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 Pancreas: No mass or ductal dilatation. Adrenal glands: No mass. Kidneys: The right kidney remains unremarkable. 1.1 cm lower pole right renal cyst, stable. 2.3 cm partially exophytic left renal cyst, stable. 1.3 cm mildly hyperdense exophytic cyst appears stable. Again, approximate 4 mm nodular, hyperattenuating focus is appreciated at the inferior aspect of the cyst, stable, likely related to calcification. GI Tract: No bowel wall thickening or dilation. Lymph nodes: No substantial mesenteric, retroperitoneal, or pelvic adenopathy is appreciated. Mesentery: No ascites. No mass. Retroperitoneum: No mass. Vasculature: - Abdominal aorta and iliac arteries: Atherosclerotic calcifications without aneurysm. - Celiac and SMA: Patent. 9 mm peripherally calcified, distal splenic arterial aneurysm is again appreciated, stable. - Portal venous system (SMV, splenic vein, portal vein and branches): Patent. - Hepatic veins: Patent. Pelvis: No free fluid or pelvic mass. No free fluid. No substantial inguinal adenopathy. Bones/Soft Tissues: Mild degenerative change within the lumbar spine. No osseous destructive process. Lower Thorax: A CT examination of the chest has been performed concurrently and will be dictated separately. Guest History Clerk (topogram) images: No additional findings. IMPRESSION: 1. 1.0 cm hypodensity at the inferior aspect of the spleen, stable from prior study of 12/26/2021, likely related to a benign etiology such as cyst or hemangioma. 2. 1.3 cm hyperdense, exophytic lesion at the medial aspect of left kidney, small hyperdense 4 mm. 4 mm hyperattenuating focus at the inferior aspect of the cyst, likely related to calcification, stable. 3. 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 4. Findings compatible with interval appendectomy. Transcribe Date/Time: Dec 25 2022 11:44A Dictated by: JARRETT CURRIE MD This examination was interpreted and the report reviewed and electronically signed by: JARRETT CURRIE MD on Dec 25 2022 11:58AM EST Thank you for allowing us to participate in the care of your patient. Should there be any questions regarding this interpretation, please call [phone]. If you are unable to reach us at the number above, please feel free to contact [facility] eRadiology at [phone]. [id number] Normal [facility] CT Abdomen and Pelvis W cont rast Mele 12-25-2022 IMPRESSION: 1. 1.0 cm hypodensity at the inferior aspect of the spleen, stable from prior study of 12/26/2021, likely related to a benign etiology such as cyst or hemangioma. 2. 1.3 cm hyperdense, exophytic lesion at the medial aspect of left kidney, small hyperdense 4 mm. 4 mm hyperattenuating focus at the inferior aspect of the cyst, likely related to calcification, stable. 3. 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 4. Findings compatible with interval appendectomy. Transcribe Date/Time: Dec 25 2022 11:44A Dictated by: JARRETT CURRIE MD This examination was interpreted and the report reviewed and electronically signed by: JARRETT CURRIE MD on Dec 25 2022 11:58AM EST Thank you for allowing us to participate in the care of your patient. Should there be any questions regarding this interpretation, please call [phone]. If you are unable to reach us at the number above, please feel free to contact [facility] at [phone]. DIVISION OF RADIOLOGY * * *Final Report* * * DATE OF EXAM: Dec 25 2022 9:44AM [facility] 0530 - CT ABD/PEL W IVCON / PROCEDURE REASON: Abdominal mass, unspecified abdominal location * * * * Physician Interpretation * * * * RESULT: EXAMINATION: CT ABDOMEN AND PELVIS WITH IV CONTRAST CLINICAL HISTORY: Abdominal mass TECHNIQUE: CT of the abdomen and pelvis was performed using standard technique, scanning from just above the dome of the diaphragm to the symphysis pubis. MQ: CTAP_3 Contrast: IV: 150 ml of Omnipaque 300 Oral: None CT Radiation dose: Integrated Dose-length product (DLP) for this visit = 1655 mGy*cm. CT Dose Reduction Employed: Automated exposure control (AEC) COMPARISON: 12/26/2021 RESULT: Liver: No mass. Mild, diffuse hepatic steatosis is noted. Biliary Tract: No bile duct dilation. The gallbladder is surgically absent. Spleen: No splenomegaly. 1.0 cm hypodensity at the inferior aspect of the spleen, image 30, series 3, stable, likely related to a small cyst or hemangioma. No new splenic lesion is appreciated. 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 Pancreas: No mass or ductal dilatation. Adrenal glands: No mass. Kidneys: The right kidney remains unremarkable. 1.1 cm lower pole right renal cyst, stable. 2.3 cm partially exophytic left renal cyst, stable. 1.3 cm mildly hyperdense exophytic cyst appears stable. Again, approximate 4 mm nodular, hyperattenuating focus is appreciated at the inferior aspect of the cyst, stable, likely related to calcification. GI Tract: No bowel wall thickening or dilation. Lymph nodes: No substantial mesenteric, retroperitoneal, or pelvic adenopathy is appreciated. Mesentery: No ascites. No mass. Retroperitoneum: No mass. Vasculature: - Abdominal aorta and iliac arteries: Atherosclerotic calcifications without aneurysm. - Celiac and SMA: Patent. 9 mm peripherally calcified, distal splenic arterial aneurysm is again appreciated, stable. - Portal venous system (SMV, splenic vein, portal vein and branches): Patent. - Hepatic veins: Patent. Pelvis: No free fluid or pelvic mass. No free fluid. No substantial inguinal adenopathy. Bones/Soft Tissues: Mild degenerative change within the lumbar spine. No osseous destructive process. Lower Thorax: A CT examination of the chest has been performed concurrently and will be dictated separately. Guest History Clerk (topogram) images: No additional findings. DIVISION OF RADIOLOGY Provider, Ariella Glenn [facility] - 12/25/2022 * * *Final Report* * * DATE OF EXAM: Dec 25 2022 9:44AM [facility] 0530 - CT ABD/PEL W IVCON / PROCEDURE REASON: Abdominal mass, unspecified abdominal location * * * * Physician Interpretation * * * * RESULT: EXAMINATION: CT ABDOMEN AND PELVIS WITH IV CONTRAST CLINICAL HISTORY: Abdominal mass TECHNIQUE: CT of the abdomen and pelvis was performed using standard technique, scanning from just above the dome of the diaphragm to the symphysis pubis. MQ: CTAP_3 Contrast: IV: 150 ml of Omnipaque 300 Oral: None CT Radiation dose: Integrated Dose-length product (DLP) for this visit = 1655 mGy*cm. CT Dose Reduction Employed: Automated exposure control (AEC) COMPARISON: 12/26/2021 RESULT: Liver: No mass. Mild, diffuse hepatic steatosis is noted. Biliary Tract: No bile duct dilation. The gallbladder is surgically absent. Spleen: No splenomegaly. 1.0 cm hypodensity at the inferior aspect of the spleen, image 30, series 3, stable, likely related to a small cyst or hemangioma. No new splenic lesion is appreciated. 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 Pancreas: No mass or ductal dilatation. Adrenal glands: No mass. Kidneys: The right kidney remains unremarkable. 1.1 cm lower pole right renal cyst, stable. 2.3 cm partially exophytic left renal cyst, stable. 1.3 cm mildly hyperdense exophytic cyst appears stable. Again, approximate 4 mm nodular, hyperattenuating focus is appreciated at the inferior aspect of the cyst, stable, likely related to calcification. GI Tract: No bowel wall thickening or dilation. Lymph nodes: No substantial mesenteric, retroperitoneal, or pelvic adenopathy is appreciated. Mesentery: No ascites. No mass. Retroperitoneum: No mass. Vasculature: - Abdominal aorta and iliac arteries: Atherosclerotic calcifications without aneurysm. - Celiac and SMA: Patent. 9 mm peripherally calcified, distal splenic arterial aneurysm is again appreciated, stable. - Portal venous system (SMV, splenic vein, portal vein and branches): Patent. - Hepatic veins: Patent. Pelvis: No free fluid or pelvic mass. No free fluid. No substantial inguinal adenopathy. Bones/Soft Tissues: Mild degenerative change within the lumbar spine. No osseous destructive process. Lower Thorax: A CT examination of the chest has been performed concurrently and will be dictated separately. Guest History Clerk (topogram) images: No additional findings. IMPRESSION IMPRESSION: 1. 1.0 cm hypodensity at the inferior aspect of the spleen, stable from prior study of 12/26/2021, likely related to a benign etiology such as cyst or hemangioma. 2. 1.3 cm hyperdense, exophytic lesion at the medial aspect of left kidney, small hyperdense 4 mm. 4 mm hyperattenuating focus at the inferior aspect of the cyst, likely related to calcification, stable. 3. 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 4. Findings compatible with interval appendectomy. Transcribe Date/Time: Dec 25 2022 11:44A Dictated by: JARRETT CURRIE MD This examination was interpreted and the report reviewed and electronically signed by: JARRETT CURRIE MD on Dec 25 2022 11:58AM EST Thank you for allowing us to participate in the care of your patient. Should there be any questions regarding this interpretation, please call [phone]. If you are unable to reach us at the number above, please feel free to contact [facility]Radiology at [phone]. [facility] CT CHEST W IVCONon 3 CT CHEST W IVCON * * *Final Report* * * DATE OF EXAM: Dec 25 2022 9:44AM [facility] 0539 - CT CHEST W IVCON / PROCEDURE REASON: Lung nodules * * * * Physician Interpretation * * * * RESULT: EXAMINATION: CHEST CT WITH CONTRAST CLINICAL HISTORY: Lung nodules Technique: Spiral CT acquisition of the chest from the thoracic inlet to the upper abdomen following IV contrast. MQ: CTCW_6 Contrast: 150 mL Omnipaque [address] Radiation dose: Integrated Dose-length product (DLP) for this visit = 1655 mGy*cm CT Dose Reduction Employed: Automated exposure control (AEC) Comparison: CT chest 12/26/2021 RESULT: Limitations: None. Lines, tubes, and devices: None. Lung parenchyma , airways, and pleural space: Bibasilar subsegmental atelectasis/scarring, right greater than left, stable. Small patchy groundglass opacity adjacent to the right major fissure, image 89, series 4, stable. No consolidative process or pleural effusion. The trachea and major airways appear patent. 6 mm nodule within the left lingula, image 104, series 4 is stable. No suspicious enlarging nodule is identified. Lower neck, lymph nodes, and mediastinum: The left lobe of the thyroid gland is not visualized. Heterogeneity to the right lobe, stable. No substantial supraclavicular or axillary lymphadenopathy is appreciated. No substantial mediastinal or hilar adenopathy is identified. Heart, pericardium, and thoracic vessels: The thoracic aorta is normal in caliber. No substantial pericardial effusion. Bones/Soft Tissues: Degenerative change involving the thoracic spine. No osseous destructive process is appreciated. Upper Abdomen: A CT examination of the abdomen has been performed concurrently and will be dictated separately. Guest History Clerk (topogram) images: No additional findings. IMPRESSION: 1. 6 mm nodule within the left lingula, stable from prior study of 12/26/2021. 2. No substantial intrathoracic adenopathy is identified. Transcribe Date/Time: Dec 25 2022 11:38A Dictated by: JARRETT CURRIE MD This examination was interpreted and the report reviewed and electronically signed by: JARRETT CURRIE MD on Dec 25 2022 11:59AM EST Thank you for allowing us to participate in the care of your patient. Should there be any questions regarding this interpretation, please call [phone]. If you are unable to reach us at the number above, please feel free to contact [facility] eRadiology at [phone]. [id number] Normal [facility] CT Chest W contrast Mele IMPRESSION: 1. 6 mm nodule within the left lingula, stable from prior study of 12/26/2021. 2. No substantial intrathoracic adenopathy is identified. Transcribe Date/Time: Dec 25 2022 11:38A Dictated by: JARRETT CURRIE MD This examination was interpreted and the report reviewed and electronically signed by: JARRETT CURRIE MD on Dec 25 2022 11:59AM EST Thank you for allowing us to participate in the care of your patient. Should there be any questions regarding this interpretation, please call [phone]. If you are unable to reach us at the number above, please feel free [facility] at [phone]. DIVISION OF RADIOLOGY * * *Final Report* * * DATE OF EXAM: Dec 25 2022 9:44AM [facility] 0539 - CT CHEST W IVCON / PROCEDURE REASON: Lung nodules * * * * Physician Interpretation * * * * RESULT: EXAMINATION: CHEST CT WITH CONTRAST CLINICAL HISTORY: Lung nodules Technique: Spiral CT acquisition of the chest from the thoracic inlet to the upper abdomen following IV contrast. MQ: CTCW_6 Contrast: 150 mL Omnipaque [address] Radiation dose: Integrated Dose-length product (DLP) for this visit = 1655 mGy*cm CT Dose Reduction Employed: Automated exposure control (AEC) Comparison: CT chest 12/26/2021 RESULT: Limitations: None. Lines, tubes, and devices: None. Lung parenchyma , airways, and pleural space: Bibasilar subsegmental atelectasis/scarring, right greater than left, stable. Small patchy groundglass opacity adjacent to the right major fissure, image 89, series 4, stable. No consolidative process or pleural effusion. The trachea and major airways appear patent. 6 mm nodule within the left lingula, image 104, series 4 is stable. No suspicious enlarging nodule is identified. Lower neck, lymph nodes, and mediastinum: The left lobe of the thyroid gland is not visualized. Heterogeneity to the right lobe, stable. No substantial supraclavicular or axillary lymphadenopathy is appreciated. No substantial mediastinal or hilar adenopathy is identified. Heart, pericardium, and thoracic vessels: The thoracic aorta is normal in caliber. No substantial pericardial effusion. Bones/Soft Tissues: Degenerative change involving the thoracic spine. No osseous destructive process is appreciated. Upper Abdomen: A CT examination of the abdomen has been performed concurrently and will be dictated separately. Guest History Clerk (topogram) images: No additional findings. DIVISION OF RADIOLOGY Provider, Huong Wade - 12/25/2022 * * *Final Report* * * DATE OF EXAM: Dec 25 2022 9:44AM [facility] 0539 - CT CHEST W IVCON / PROCEDURE REASON: Lung nodules * * * * Physician Interpretation * * * * RESULT: EXAMINATION: CHEST CT WITH CONTRAST CLINICAL HISTORY: Lung nodules Technique: Spiral CT acquisition of the chest from the thoracic inlet to the upper abdomen following IV contrast. MQ: CTCW_6 Contrast: 150 mL Omnipaque [address] Radiation dose: Integrated Dose-length product (DLP) for this visit = 1655 mGy*cm CT Dose Reduction Employed: Automated exposure control (AEC) Comparison: CT chest 12/26/2021 RESULT: Limitations: None. Lines, tubes, and devices: None. Lung parenchyma , airways, and pleural space: Bibasilar subsegmental atelectasis/scarring, right greater than left, stable. Small patchy groundglass opacity adjacent to the right major fissure, image 89, series 4, stable. No consolidative process or pleural effusion. The trachea and major airways appear patent. 6 mm nodule within the left lingula, image 104, series 4 is stable. No suspicious enlarging nodule is identified. Lower neck, lymph nodes, and mediastinum: The left lobe of the thyroid gland is not visualized. Heterogeneity to the right lobe, stable. No substantial supraclavicular or axillary lymphadenopathy is appreciated. No substantial mediastinal or hilar adenopathy is identified. Heart, pericardium, and thoracic vessels: The thoracic aorta is normal in caliber. No substantial pericardial effusion. Bones/Soft Tissues: Degenerative change involving the thoracic spine. No osseous destructive process is appreciated. Upper Abdomen: A CT examination of the abdomen has been performed concurrently and will be dictated separately. Guest History Clerk (topogram) images: No additional findings. IMPRESSION IMPRESSION: 1. 6 mm nodule within the left lingula, stable from prior study of 12/26/2021. 2. No substantial intrathoracic adenopathy is identified. Transcribe Date/Time: Dec 25 2022 11:38A Dictated by: JARRETT CURRIE MD This examination was interpreted and the report reviewed and electronically signed by: JARRETT CURRIE MD on Dec 25 2022 11:59AM EST Thank you for allowing us to participate in the care of your patient. Should there be any questions regarding this interpretation, please call [phone]. If you are unable to reach us at the number above, please feel free to contact [facility] eRadiology at [phone]. [facility] Comprehensive metabolic 2000 panelon 12-25-2022 Albumin [Mass/Vol] 4.4 g/dL Normal 3.9-4.[address] [facility] Comment on above: Order Comment: Speci men Type: BLOOD SPECIMEN Ordering Facility: [facility] Address: [address] [place] [address] Performed By: #### 2 4323-8 #### [facility] CLIA [id number] [address] [place] [address]1298 ALP [Catalytic activity/Vol] 102 U/L Normal 34-123 [facility] Comment on above: Order Comment: Speci men Type: BLOOD SPECIMEN Ordering Facility: [facility] Address: [address] [address] Performed By: #### 2 4323-8 #### [facility] CLIA [id number] [address] [place] [address]26 ALT [Catalytic activity/Vol] 22 U/L Normal 7-38 [facility] Comment on above: Order Comment: Speci men Type: BLOOD SPECIMEN Ordering Facility: [facility] Address: [address] [place] [address] Performed By: #### 2 4323-8 #### [facility] CLIA [id number] [address] [place] [address] 14218 Anion gap [Moles/Vol] 7 mmol/L Low 9-18 [facility] Comment on above: Order Comment: Speci men Type: BLOOD SPECIMEN Ordering Facility: [facility] Address: [address] [address] Performed By: #### 2 4323-8 #### [facility] CLIA [id number] [address] [place] [address] 36941 AST [Catalytic activity/Vol] 22 U/L Normal 13-35 [facility] Comment on above: Order Comment: Speci men Type: BLOOD SPECIMEN Ordering Facility: [facility] Address: [address] [address] Performed By: #### 2 4323-8 #### [facility] CLIA [id number] [address] [place] [address] 65693 Bilirubin [Mass/Vol] 0.3 mg/dL Normal 0.2-1.3 [facility] Comment on above: Order Comment: Speci men Type: BLOOD SPECIMEN Ordering Facility: [facility] Address: [address] [address] Performed By: #### 2 4323-8 #### [facility] CLIA [id number] [address] [place] [address] 86792 Calcium [Mass/Vol] 10.4 mg/dL High 8.5-10.[address] [facility] Comment on above: Order Comment: Speci men Type: BLOOD SPECIMEN Ordering Facility: [facility] Address: [address] [address] Performed By: #### 2 4323-8 #### [facility] CLIA [id number] [address] [place] [address] 56383 Chloride [Moles/Vol] 107 mmol/L High 97-105 [facility] Comment on above: Order Comment: Speci men Type: BLOOD SPECIMEN Ordering Facility: [facility] Address: [address] [address] Performed By: #### 2 4323-8 #### [facility] CLIA [id number] [address] [place] [address] 88453 CO2 [Moles/Vol] 26 mmol/L Normal 22-30 [facility] Comment on above: Order Comment: Speci men Type: BLOOD SPECIMEN Ordering Facility: [facility] Address: [address] [address] Performed By: #### 2 4323-8 #### [facility] CLIA [id number] [address] [place] [address]24 Creatinine [Mass/Vol] 0.90 mg/dL Normal 0.58-0.96 [facility] Comment on above: Order Comment: hCristiano baker Type: BLOOD SPECIMEN Ordering Facility: [facility] Address: [address] [phone] Performed By: #### 2 4323-8 #### [facility] CLIA [id number] [address] [place] [address] 05255 ESTIMATED GLOMERULAR FILTRATION RATE 70 mL/min/1.73m??? Normal >=60 [facility] Comment on above: Order Comment: Christiano baker Type: BLOOD SPECIMEN Ordering Facility: [facility] Address: [address] [phone] Result Comment: Yumiko mated Glomerular Filtration Rate (eGFR) is calculated using the 2020 CKD-EPI creatinine equation. This equation utilizes serum creatinine, sex, and age as parameters. The creatinine assay has traceable calibration to isotope dilution-mass spectrometry. Refer to KDIGO guidelines for clinical interpretation. In patients with unstable renal function, e.g. those with acute kidney injury, the eGFR may not accurately reflect actual GFR. Performed By: #### 2 4323-8 #### [facility] CLIA [id number] [address] [place] [address] 10039 Glucose [Mass/Vol] 109 mg/dL High 74-[address] [facility] Comment on above: Order Comment: Christiano baker Type: BLOOD SPECIMEN Ordering Facility: [facility] Address: [address] [phone] Result Comment: The [place] Diabetes Association (ADA) provides guidance for cutoff [...] Standards of Medical Care in Diabetes 2016, [place] [employer]. Diabetes Care. 2016.39(Suppl 1). Performed By: #### 2 4323-8 #### [facility] CLIA [id number] [address] [place] [address] Potassium [Moles/Vol] 4.1 mmol/L Normal 3.7-5.1 [facility] Comment on above: Order Comment: Speci men Type: BLOOD SPECIMEN Ordering Facility: [facility] Address: [address] [address] Performed By: #### 2 4323-8 #### [facility] CLIA [id number] [address] [place] [address] 18859 Protein [Mass/Vol] 7.3 g/dL Normal 6.3-8.[address] [facility] Comment on above: Order Comment: Speci men Type: BLOOD SPECIMEN Ordering Facility: [facility] Address: [address] [address] Performed By: #### 2 4323-8 #### [facility] CLIA [id number] [address] [place] [address]307 Sodium [Moles/Vol] 140 mmol/L Normal 136-[address] [facility] Comment on above: Order Comment: Speci men Type: BLOOD SPECIMEN Ordering Facility: [facility] Address: [address] [address] Performed By: #### 2 4323-8 #### [facility] CLIA [id number] [address] [place] [address] 13181 Urea nitrogen [Mass/Vol] 13 mg/dL Normal 7-21 [facility] Comment on above: Order Comment: Speci men Type: BLOOD SPECIMEN Ordering Facility: [facility] Address: [address] [address] Performed By: #### 2 4323-8 #### [facility] CLIA [id number] [address] [place] [address] Comprehensive metabolic 2000 panelOrdered By: Andrey Alvares on 12-25-2022 Albumin [Mass/Vol] 4.4 g/dL 3.9 - 4.9 g/dL [facility] ALP [Catalytic activity/Vol] 102 U/L 34 - 123 U/L [facility] ALT [Catalytic activity/Vol] 22 U/L 7 - 38 U/L [facility] Anion gap [Moles/Vol] 7 mmol/L Low 9 - 18 mmol/L [facility] AST [Catalytic activity/Vol] 22 U/L 13 - 35 U/L [facility] Bilirubin [Mass/Vol] 0.3 mg/dL 0.2 - 1 .3 mg/dL [facility] Calcium [Mass/Vol] 10.4 mg/dL High 8.5 - 10. 2 mg/dL [facility] Chloride [Moles/Vol] 107 mmol/L High 97 - 10 5 mmol/L [facility] CO2 [Moles/Vol] 26 mmol/L 22 - 30 mmol/L [facility] Creatinine [Mass/Vol] 0.90 mg/dL 0.58 - 0.96 mg/dL [facility] GFR/1.73 sq M.predicted among non-blacks MDRD (S/P/Bld) [Vol rate/Area] 70 mL/min/{1.73_m2} - PINF [facility] Comment on above: Estimated Glomerular Filtration Rate (eGFR) is calculated using the 2020 CKD-EPI creatinine equation. This equation utilizes serum creatinine, sex, and age as parameters. The creatinine assay has traceable calibration to isotope dilution-mass spectrometry. Refer to KDIGO guidelines for clinical interpretation. In patients with unstable renal function, e.g. those with acute kidney injury, the eGFR may not accurately reflect actual GFR. Glucose [Mass/Vol] 109 mg/dL High 74 - 99 mg/dL [facility] Comment on above: The [place] Diabete s Association (ADA) provides guidance for cutoff values [...] Standards of Medical Care in Diabetes 2016, [place] Diabetes [employer]. Diabetes Care. 2016.39(Suppl 1). Interpretation and review of laboratory results Abnormal [facility] Potassium [Moles/Vol] 4.1 mmol/L 3.7 - 5.1 mmol/L [facility] Protein [Mass/Vol] 7.3 g/dL 6.3 - 8.0 g/dL [facility] Sodium [Moles/Vol] 140 mmol/L 136 - 144 mmol/L [facility] Urea nitrogen [Mass/Vol] 13 mg/dL 7 - 21 mg/dL [facility] No Panel InformationOrdered By: Ccf Provider on 12-25-2022 [facility] No Panel Informationon 12-25 Radiology Study observation (narrative) [facility] CNPNon 11-25-2022 CNPN Telephone (PETSAN) ----- CHUYITA CAVANAUGH ([id number]) 1955 F Date Time Provider Department 11/25/22 CLOVER DWYER During your visit today, we recorded the following information about you: Clover Dwyer RN 11/25/2022 10:[address] lab orders to obtain with CT scan on 12/25/22 for one year office follow up on 01/01/23. Thank you. IMELDA Pitts MD 11/25/2022 10:16 AM Signed Done Allergies As of Date: 11/25/2022 Noted Allergy Reaction LIDOCAINE 12/17/2013 2 - Rash Comments: Hot red rash MENTHOL 12/17/2013 2 - Rash Comments: Red hot rash Date Reviewed: 01/02/2022 Reviewed by: Lisandra Scherer MA - Fully Assessed Reason for Visit: Orders [681] Primary Visit Diagnosis:Other acute appendicitis [K35.890] Other Visit Diagnosis:Intra-abdominal and pelvic swelling, mass and lump, unspecified site [R19.00] Order(s):COMP METABOLIC PANEL [SQCMP] Order #: [id number] FUTURE CBC + DIFF [SQCBCDIF] Order #: [id number] FUTURE Prescriptions as of 11/25/2022 - iv contrast (will be provided with radiology test) CT ABD/PEL -Inject, intravenously, once for 1 dose.No IV access, insert saline lock prior to the beginning of sedation, infusion, injection of imaging exam. Discontinue saline lock post exam. If Pt. has a central line or IVAD, may access for administration according to line specific nursing protocol. Once exam is complete flush line and de-access according to line specific nursing protocol in the CT contrast administration guidelines link. - iv contrast (will be provided with radiology test) CT Chest W -Inject, intravenously, once for 1 dose.No IV access, insert saline lock prior to the beginning of sedation, infusion, injection of imaging exam. Discontinue saline lock post exam. If Pt. has a central line or IVAD, may access for administration according to line specific nursing protocol. Once exam is complete flush line and de-access according to line specific nursing protocol in the CT contrast administration guidelines link. - amLODIPine (NORVASC) 5 mg tablet Take 5 mg by mouth once daily. - bisoprolol-hydroCHLOROthi azide (ZIAC) 10-6.25 mg per tablet Take 1 tablet by mouth once daily. - niacin (NIACIN) 500 mg tablet Take 500 mg by mouth. - aspirin, enteric coated (ASPIRIN, ENTERIC COATED) 81 mg EC tablet Aspirin Active 81 MG PO Daily July 06, 2020 11:24am - Glucosamine-Chondroitin 500-400 mg tablet Take 1 tablet by mouth. - sfsasql-roabzqeew-rizgkvz D3 500 mg(1,250mg) -200 unit per tablet Take 1 tablet by mouth. - gluc cummings/chondro cummings A/vit C/Mn (GLUCOSAMINE 1500 COMPLEX ORAL) Avdordetfgn-E3-Pkvyxuwmg Serr (Glucosamine Daily Complex) 1,500-400-100 mg-unit-mg Tablet Active 1 TAB PO Daily July 06, 2020 11:24am - Hkbbq-8-ECB-EPA-Fish Oil (FISH OIL) 1,000 mg (120 mg-180 mg) cap [place] 0-Pbs-Kab-Fish Oil Active 1 CAP Oral Daily July 06, 2020 11:24am Problem List As Of Date: 11/25/2022 (None) Encounter Status:Closed by CLOVER DWYER on 11/25/22 Normal [facility] Activated partial thrombopla stin time (aPTT) in platelet poor plasma by coagulation aOrdered By: CHETAN SOTO on 11-20-2022 aPTT Coag (PPP) [Time] 37.8 s 25.1-36.5 [facility] - CoagulationOrde red By: CHETAN SOTO on 11-20-2022 PT Coag (PPP) [Time] 13.1 s 9.0-12.9 [facility] Platelet poor plasma interna tional normalized ratio (INR) by coagulation assay (relatOrdered By: CHETAN SOTO on 11-20-2022 INR Coag (PPP) [Relative time] 1.1 {INR} [facility] Comment on above: INR Therapeutic Rang e A) Pre- and Peroperative OAT started two weeks before surgery. NOT HIP SURGERY: 1.5 - 2.5 HIP SURGERY: 2 - 3B) Primary and secondary prevention of venous THROMBOSIS: 2 - 3C) Active venous thrombosis, pulmonary embolismand prevention of recurrent venous thrombosis: 2 - 3D) Prevention of arterial thromboembolismincluding patients with mechanical heart valves: 3 - 4.5 Platelets Auto (Bld) [#/Vol] Ordered By: CHETAN SOTO on 11-20-2022 Platelets (Bld) [#/Vol] 276 10*3/uL 150-450 [facility] XR CHEST 2 Von 05-03-2022 XR CHEST 2 V EXAMINATION: XR CHES T 2 V HISTORY: Cough COMPARISON: No relevant comparison available. FINDINGS: LUNGS: No significant pulmonary parenchymal abnormalities. VASCULATURE: No increased pulmonary vasculature. PLEURA: No pneumothorax, effusion, or pleural thickening. CARDIAC: No cardiomegaly or cardiac silhouette abnormality. MEDIASTINUM: No visible mass or adenopathy. BONES: No fracture or visible bone lesion. OTHER: Negative. IMPRESSION: 1. No acute cardiopulmonary process or significant chronic interstitial changes. Electronically authenticated by: THUY DARDEN Date: 2022-05-03 13:07 Normal [facility] XR KUB 1 VIEWon 04-29-2022 XR KUB 1 VIEW EXAMINATION: XR KUB 1 VIEW HISTORY: Kidney stone COMPARISON: XR KUB 05/02/2020 FINDINGS: KIDNEY/URETER - RIGHT: No visible renal or ureteral calcifications. KIDNEY/URETER - LEFT: No visible renal or ureteral calcifications. PELVIS: Stable pelvic calcifications compatible with phleboliths. Stable chronic calcification projecting over right sacroiliac joint; phleboliths versus granuloma. BOWEL: No abnormal dilation or deviation. BONES: No acute abnormality. OTHER: Negative. No abnormal gaseous collections. IMPRESSION: 1. No visible urinary tract calculi. Electronically authenticated by: THUY DARDEN Date: 2022-04-29 13:25 Normal [facility] Covid-19 PCR (CVDTBH)on SARS-CoV-2 (COVID-19) RNA KYAW+probe Ql (Unsp spec) Detected Critically abnormal NOT DETECTED [facility] Comment on above: Result Comment: This test is not yet approved or cleared by the [place] FDA. When there are no FDA-approved or cleared tests available, and other criteria are met, FDA can make tests available under an emergency access mechanism called an Emergency Use Authorization (EUA). The EUA for this test is supported by the [place] of Health and Human Service's (HHS's) declaration that circumstances exist to justify the emergency use of in vitro diagnostics for the detection and/or diagnosis of the virus that causes COVID-19. This EUA will remain in effect (meaning this test can be used) for the duration of the COVID-19 declaration justifying emergency of IVDs, unless it is terminated or revoked by FDA (after which the test may no longer be used). Performed By: #### C [facility] #### [facility] [address] [place] [address] Dr. Rajeev Zazueta CNOVSPon 01-02-2022 CNOVSP Visit (SP) Office ([place]) ----- CHUYITA CAVANAUGH ([id number]) 1955 F Date Time Provider Department 01/02/22 10:45 AM FARAZ PEÑA During your visit today, we recorded the following information about you: Temperature Pulse Respiration Blood pressure 97.6 degrees 54/minute 18/minute 121/70 Weight Height 115.8 kg 1.676 m Faraz Peña MD 01/03/2022 7:17 PM Signed PATIENT NAME: Chuyita Cavanaugh CLINIC NO.: [id number] ATTENDING PHYSICIAN: Faraz Peña MD DATE OF SERVICE: January 02, 2022 Some of the elements of this note have been copied from my previous progress note dated 07/04/2021. All the information has been reviewed carefully. Dear Dr. Alex Peña, here is an update on a follow up visit on female Chuyita Cavanaugh at the clinic January 02, 2022 Diagnosis: 1. Lung and splenic nodule Treatment History: HPI: Chuyita Cavanaugh is a 65 year old year old female here for follow up. She is doing well and denies any abdominal pain and or diarrhea. Denies and SOB and or cough as well. PAST MEDICAL HISTORY Diagnosis Date - Anemia - Arthritis - Essential hypertension - Hypercholesterolemia - Kidney stones - Lung nodule - Mitral valve regurgitation - Nodule of spleen Social History Tobacco Use - Smoking status: Never Smoker - Smokeless tobacco: Never Used Vaping Use - Vaping Use: Never used Substance Use Topics - Alcohol use: Not Currently - Drug use: Not on file FAMILY HISTORY Problem Relation Age of Onset - Cancer Mother - Cancer Father Past medical, social and family history reviewed without any changes. REVIEW OF SYSTEMS GENERAL: No weight loss, malaise or fevers. No night sweats. HEENT: Negative for headaches, No changes in hearing or vision, no nose bleeds or other nasal problems. RESPIRATORY: Negative for cough, wheezing and shortness of breath CARDIOVASCULAR: Negative for chest pain, leg swelling and palpitations GI: Negative for abdominal discomfort, blood in stools or black stools and change in bowel habits : Negative for dysuria, frequency and incontinence MUSCULOSKELETAL: Negative for joint pain or swelling, back pain, and muscle pain. SKIN: Negative for lesions, rash, and itching. HEMATOLOGY/LYMPHOLOGY Negative for prolonged bleeding, bruising easily, and swollen nodes. NEURO: Negative for numbness or tingling of hands/feet. No weakness. PHYSICAL EXAMINATION: BP 121/70 Pulse 54 Temp (Src) 97.6 (Temporal) Resp 18 Ht 5' 5.984 (1.68m) Wt 255 lb 3.2 oz (115.8kg) SpO2 97% BMI 41.21 kg/(m2). Wt 123.1 kg (271 lb 6.4 oz) BMI 43.83 kg/m2 Last 3 Encounter Wt Readings: Date: Wt: 07/04/2021 123.1 kg (271 lb 6.4 oz) 06/20/2021 120.9 kg (266 lb 9.6 oz) General appearance:ECOG PERFORMANCE STATUS: 0- Fully active, able to carry on all pre-disease performance w/o restriction. Patient in NAD. Skin: Skin color, texture, turgor normal. No rashes or lesions. Eyes: Anicteric sclera. Pupils are equally round and reactive to light. Extraocular movements are intact. Lymph Nodes: No cervical, supraclavicular, axillary or inguinal adenopathy. Oropharynx: Lips, mucosa, and tongue normal. Back: No pain to percussion. Negative SLR test Lungs clear to auscultation, No wheezing or rhonchi Heart: RRR without murmur, gallop, or rubs. Abdomen soft, non-tender. No masses, organomegaly Extremities: No deformities. No edema Neuro: Gait and speech normal. Reflexes normal and symmetric. Muscular strength intact. Sensation grossly intact. Rectal: Deferred : Deferred LABS: Glucose (mg/dL) Date Value 06/20/2021 109 Potassium (mmol/L) Date Value 06/20/2021 4.4 Sodium (mmol/L) Date Value 06/20/2021 139 Chloride (mmol/L) Date Value 06/20/2021 106 CO2 (mmol/L) Date Value 06/20/2021 25 Creatinine (mg/dL) Date Value 12/26/2021 0.77 06/20/2021 0.66 BUN (mg/dL) Date Value 06/20/2021 15 Anion Gap (mmol/L) Date Value 06/20/2021 8 Calcium (mg/dL) Date Value 06/20/2021 10.4 Protein, Total (g/dL) Date Value 06/20/2021 7.3 Albumin (g/dL) Date Value 06/20/2021 4.4 Bilirubin, Total (mg/dL) Date Value 06/20/2021 0.3 Alkaline Phosphatase (U/L) Date Value 06/20/2021 105 AST (U/L) Date Value 06/20/2021 23 ALT (U/L) Date Value 06/20/2021 22 WBC Date Value Ref Range Status 06/20/2021 7.28 3.70 - 11.00 k/uL Final RBC Date Value Ref Range Status 06/20/2021 4.32 3.90 - 5.20 m/uL Final Hemoglobin Date Value Ref Range Status 06/20/2021 13.9 11.5 - 15.5 g/dL Final Hematocrit Date Value Ref Range Status 06/20/2021 40.7 36.0 - 46.0 % Final MCV Date Value Ref Range Status 06/20/2021 94.2 80.0 - 100.0 fL Final MCH Date Value Ref Range Status 06/20/2021 32.2 26.0 - 34.0 pG Final MCHC Date Value Ref Range Status 06/20/2021 34.2 30.5 - 36.0 g/dL Final RDW-CV Date Value Ref Range Status (more content not included)... Normal [facility] CNPNon 01-02-2022 CNPN Telephone (NCCAP) ----- CHUYITA CAVANAUGH ([id number]) 1955 F Date Time Provider Department 01/02/22 FARAZ PEÑA NCCAP During your visit today, we recorded the following information about you: J Luis Hernandez 01/02/2022 11:47 AM Signed Jayne/Kiley: Can you please refer patient to Dr. Stock and follow up? She will be a new patient to him. Thanks! Dx: Mass of appendix J Luis Hernandez Jayne Aguliar [facility] 01/02/2022 12:14 PM Signed Kiley, information up here for you. Lorrie Carrillo [facility] 01/04/2022 8:45 AM Signed Records faxed to Dr. Stock. Karis Falcon Sec 01/07/2022 9:[address] hurtado office received records they will be calling patient today to schedule. Karis Falcon Sec 01/08/2022 10:08 AM Signed Patient is scheduled january 15 Allergies As of Date: 01/02/2022 Noted Allergy Reaction LIDOCAINE 12/17/2013 2 - Rash Comments: Hot red rash MENTHOL 12/17/2013 2 - Rash Comments: Red hot rash Date Reviewed: 01/02/2022 Reviewed by: Lisandra Scherer MA - Fully Assessed Reason for Visit: Referral Information [[id number]] Cmt: General Surgery Prescriptions as of 01/09/2022 - iv contrast (will be provided with radiology test) CT ABD/PEL -Inject, intravenously, once for 1 dose.No IV access, insert saline lock prior to the beginning of sedation, infusion, injection of imaging exam. Discontinue saline lock post exam. If Pt. has a central line or IVAD, may access for administration according to line specific nursing protocol. Once exam is complete flush line and de-access according to line specific nursing protocol in the CT contrast administration guidelines link. - iv contrast (will be provided with radiology test) CT Chest W -Inject, intravenously, once for 1 dose.No IV access, insert saline lock prior to the beginning of sedation, infusion, injection of imaging exam. Discontinue saline lock post exam. If Pt. has a central line or IVAD, may access for administration according to line specific nursing protocol. Once exam is complete flush line and de-access according to line specific nursing protocol in the CT contrast administration guidelines link. - amLODIPine (NORVASC) 5 mg tablet Take 5 mg by mouth once daily. - bisoprolol-hydroCHLOROthi azide (ZIAC) 10-6.25 mg per tablet Take 1 tablet by mouth once daily. - niacin (NIACIN) 500 mg tablet Take 500 mg by mouth. - aspirin, enteric coated (ASPIRIN, ENTERIC COATED) 81 mg EC tablet Aspirin Active 81 MG PO Daily July 06, 2020 11:24am - Glucosamine-Chondroitin 500-400 mg tablet Take 1 tablet by mouth. - nytdppg-ubqzkhbky-hargdnb D3 500 mg(1,250mg) -200 unit per tablet Take 1 tablet by mouth. - gluc cummings/chondro cummings A/vit C/Mn (GLUCOSAMINE 1500 COMPLEX ORAL) Xhnpjheiuvm-Q2-Lqjnxknqp Serr (Glucosamine Daily Complex) 1,500-400-100 mg-unit-mg Tablet Active 1 TAB PO Daily July 06, 2020 11:24am - Fhrdl-8-HHU-EPA-Fish Oil (FISH OIL) 1,000 mg (120 mg-180 mg) cap [place] 4-Dst-Rsc-Fish Oil Active 1 CAP Oral Daily July 06, 2020 11:24am Problem List As Of Date: 01/02/2022 (None) Encounter Status:Closed by J LUIS HERNANDEZ on 01/09/22 Normal [facility] CT PELVIS W IVCONon 01-02-20 CT PELVIS W IVCON * * *Final Report* * * DATE OF EXAM: Jan 01 2022 9:24AM [facility] 0555 - CT PELVIS W IVCON / PROCEDURE REASON: Other acute appendicitis * * * * Physician Interpretation * * * * RESULT: EXAMINATION: CT PELVIS WITH IV CONTRAST CLINICAL HISTORY: Abnormal appendix noted at CT abdomen TECHNIQUE: CT of the pelvis was performed using standard technique, scanning from the iliac crest to the symphysis pubis. MQ: CTAP_3 Contrast: IV: 150 ml of Omnipaque 300 : ml of CT Radiation dose: Integrated Dose-length product (DLP) for this visit = 1192 mGy*cm. CT Dose Reduction Employed: Automated exposure control (AEC) COMPARISON: CT abdomen dated 12/26/21 from [facility] and CT abdomen/pelvis dated 06/06/21 from an outside institution. RESULT: Kidneys: Visualized inferior kidneys demonstrate a left renal cyst, stable. GI tract: No dilation or wall thickening. The proximal appendix is mildly distended measuring 9 mm in diameter, similar in appearance since 06/06/21 given differences in technique. No evidence of appendiceal tip enlargement or periappendiceal inflammatory change. Stool is noted throughout the colon. Lymph nodes: No pelvic lymphadenopathy. Vasculature: No evidence of iliac artery aneurysm. Pelvis: No mass, ascites or fluid collection. Urinary bladder is decompressed. Bones/Soft Tissues: No new osseous abnormalities. Guest History Clerk (topogram) images: No additional findings. IMPRESSION: Nonspecific mild distention of the proximal appendix measuring 9 mm in diameter, similar in appearance since 06/06/21 given differences in technique. No evidence of periappendiceal inflammatory change. Consider attention at interval follow-up. Transcribe Date/Time: Jan 01 2022 12:54P Dictated by: RORY PLASCENCIA MD This examination was interpreted and the report reviewed and electronically signed by: RORY PLASCENCIA MD on Jan 01 2022 1:07PM EST Thank you for allowing us to participate in the care of your patient. Should there be any questions regarding this interpretation, please call [phone]. If you are unable to reach us at the number above, please feel free to contact [facility] eRadiology at [phone]. [id number] Normal [facility] CT Pelvis W contrast [place] IMPRESSION: Nonspecific mild distention of the proximal appendix measuring 9 mm in diameter, similar in appearance since 06/06/21 given differences in technique. No evidence of periappendiceal inflammatory change. Consider attention at interval follow-up. Transcribe Date/Time: Jan 01 2022 12:54P Dictated by: RORY PLASCENCIA MD This examination was interpreted and the report reviewed and electronically signed by: RORY PLASCENCIA MD on Jan 01 2022 1:07PM EST Thank you for allowing us to participate in the care of your patient. Should there be any questions regarding this interpretation, please call [phone]. If you are unable to reach us at the number above, please feel free to contact [facility] eRadiology at [phone]. ZZZ_DO_NOT_US E_DIVISION OF RADIOLOGY * * *Final Report* * * DATE OF EXAM: Jan 01 2022 9:24AM [facility] 0555 - CT PELVIS W IVCON / PROCEDURE REASON: Other acute appendicitis * * * * Physician Interpretation * * * * RESULT: EXAMINATION: CT PELVIS WITH IV CONTRAST CLINICAL HISTORY: Abnormal appendix noted at CT abdomen TECHNIQUE: CT of the pelvis was performed using standard technique, scanning from the iliac crest to the symphysis pubis. MQ: CTAP_3 Contrast: IV: 150 ml of Omnipaque 300 : ml of CT Radiation dose: Integrated Dose-length product (DLP) for this visit = 1192 mGy*cm. CT Dose Reduction Employed: Automated exposure control (AEC) COMPARISON: CT abdomen dated 4/13/22 from [facility] and CT abdomen/pelvis dated 06/06/21 from an outside institution. RESULT: Kidneys: Visualized inferior kidneys demonstrate a left renal cyst, stable. GI tract: No dilation or wall thickening. The proximal appendix is mildly distended measuring 9 mm in diameter, similar in appearance since 06/06/21 given differences in technique. No evidence of appendiceal tip enlargement or periappendiceal inflammatory change. Stool is noted throughout the colon. Lymph nodes: No pelvic lymphadenopathy. Vasculature: No evidence of iliac artery aneurysm. Pelvis: No mass, ascites or fluid collection. Urinary bladder is decompressed. Bones/Soft Tissues: No new osseous abnormalities. Guest History Clerk (topogram) images: No additional findings. ZZZ_DO_NOT_US E_DIVISION OF RADIOLOGY Provider, [facility] - 01/01/2022 * * *Final Report* * * DATE OF EXAM: Jan 01 2022 9:24AM [facility] 0555 - CT PELVIS W IVCON / PROCEDURE REASON: Other acute appendicitis * * * * Physician Interpretation * * * * RESULT: EXAMINATION: CT PELVIS WITH IV CONTRAST CLINICAL HISTORY: Abnormal appendix noted at CT abdomen TECHNIQUE: CT of the pelvis was performed using standard technique, scanning from the iliac crest to the symphysis pubis. MQ: CTAP_3 Contrast: IV: 150 ml of Omnipaque 300 : ml of CT Radiation dose: Integrated Dose-length product (DLP) for this visit = 1192 mGy*cm. CT Dose Reduction Employed: Automated exposure control (AEC) COMPARISON: CT abdomen dated 12/26/21 from [facility] and CT abdomen/pelvis dated 06/06/21 from an outside institution. RESULT: Kidneys: Visualized inferior kidneys demonstrate a left renal cyst, stable. GI tract: No dilation or wall thickening. The proximal appendix is mildly distended measuring 9 mm in diameter, similar in appearance since 06/06/21 given differences in technique. No evidence of appendiceal tip enlargement or periappendiceal inflammatory change. Stool is noted throughout the colon. Lymph nodes: No pelvic lymphadenopathy. Vasculature: No evidence of iliac artery aneurysm. Pelvis: No mass, ascites or fluid collection. Urinary bladder is decompressed. Bones/Soft Tissues: No new osseous abnormalities. Guest History Clerk (topogram) images: No additional findings. IMPRESSION IMPRESSION: Nonspecific mild distention of the proximal appendix measuring 9 mm in diameter, similar in appearance since 06/06/21 given differences in technique. No evidence of periappendiceal inflammatory change. Consider attention at interval follow-up. Transcribe Date/Time: Jan 01 2022 12:54P Dictated by: RORY PLASCENCIA MD This examination was interpreted and the report reviewed and electronically signed by: RORY PLASCENCIA MD on Jan 01 2022 1:07PM EST Thank you for allowing us to participate in the care of your patient. Should there be any questions regarding this interpretation, please call [phone]. If you are unable to reach us at the number above, please feel free to contact [facility] eRadiology at [phone]. [facility] Radiology Study observation (narrative) [facility] CT Pelvis W contrast IVOrder ed By: Ccf Provider on 01-01-2022 [facility] CREATININE BLDOrdered By: Judd Alvares on 12-26-2021 Creatinine [Mass/Vol] 0.77 mg/dL 0.58 - 0.96 mg/dL [facility] GFR/1.73 sq M.predicted among non-blacks MDRD (S/P/Bld) [Vol rate/Area] 85 mL/min/{1.73_m2} - PINF [facility] Comment on above: Estimated Glomerular Filtration Rate (eGFR) is calculated using the 2020 CKD-EPI creatinine equation. This equation utilizes serum creatinine, sex, and age as parameters. The creatinine assay has traceable calibration to isotope dilution-mass spectrometry. Refer to KDIGO guidelines for clinical interpretation. In patients with unstable renal function, e.g. those with acute kidney injury, the eGFR may not accurately reflect actual GFR. Interpretation and review of laboratory results Normal [facility] CT Abdomen W contrast IVOrde red By: Ccf Provider on 12-26-2021 Interpretation and review of laboratory results Abnormal [facility] Radiology Result ACTIONABLE Abnormal [facility] Comment on above: This report contains an incidental or actionable finding. This is a new finding that is separate from the reason your provider ordered the imaging test. Because of this incidental or actionable finding, you may need another imaging test to evaluate it. Please contact your provider for the next steps. [facility] CT Abdomen W contrast Mele 0 12-26-2021 IMPRESSION: 1. A 1.1 cm hypodense focus within the inferior spleen is unchanged and likely represents an angiomatous lesion. 2. A 1.5 cm mildly hyperdense lesion within the medial left kidney is unchanged, technically indeterminate, but likely represents a hyperdense/proteinaceous cyst. Continued attention on subsequent evaluations is suggested. 3. Newly distended fluid-filled proximal appendix (measuring 1.2 cm). Correlation for right lower quadrant pain is suggested, as findings could represent early manifestations of appendicitis or an appendix mucocele. Consider short interval follow-up CT abdomen/pelvis to assess the entirety of the appendix. COMMUNICATION: Communicated with Dr. Faraz Peña on 12/26/2021 12:17 PM via verbal communication. ACTIONABLE RESULT: FOLLOW-UP Acuity: Actionable Findings: Digestive Tract Routing Code: GI_1 Recommendation: CT ABD/PEL (W ORAL) W IVCON Time Frame: At the discretion of the clinical team. COMMUNICATION: Results will be communicated with the ordering provider via [employer] staff message or phone message by [facility] Support Services within 2 business days of report finalization. Algorithms for management of incidental imaging findings can be found on the [facility] Intranet Sharepoint site at: [email or web address] [email or web address] Transcribe Date/Time: Dec 26 2021 11:01A Dictated by: HUSSEIN URBANO MD This examination was interpreted and the report reviewed and electronically signed by: HUSSEIN URBANO MD on Dec 26 2021 12:19PM EST Thank you for allowing us to participate in the care of your patient. Should there be any questions regarding this interpretation, please call [phone]. If you are unable to reach us at the number above, please feel free to contact [facility] eRadiology at [phone]. ZZZ_DO_NOT_US E_DIVISION OF RADIOLOGY * * *Final Report* * * DATE OF EXAM: Dec 26 2021 9:46AM [facility] 0533 - CT ABDOMEN W IVCON / PROCEDURE REASON: Intra-abdominal and pelvic swelling, mass and lump, unspecified site * * * * Physician Interpretation * * * * RESULT: EXAMINATION: CT ABDOMEN WITH IV CONTRAST CLINICAL HISTORY: Lung and splenic nodules. TECHNIQUE: CT of the abdomen was performed using standard technique, scanning from just above the dome of the diaphragm to the iliac crest. MQ: CTAbdW_4 Contrast: IV: 150 ml of Omnipaque 300 CT Radiation dose: Integrated Dose-length product (DLP) for this visit = 1574 mGy*cm. CT Dose Reduction Employed: mAs-kVp adjusted based on patient size-age COMPARISON: CT abdomen and pelvis 06/06/2021 RESULT: Liver: No mass. Biliary: No bile duct dilation. Gallbladder is absent. Spleen: A 1.1 cm hypodense lesion within the anterior inferior spleen (series 2, image 35) is unchanged and likely represents an angiomatous lesion. The spleen is normal in size. Pancreas: No mass or duct dilation. Adrenals:The left adrenal is unremarkable. There is unchanged mild nodular thickening of the right adrenal. Kidneys: Subcentimeter hypodensities within the right renal cortex are unchanged, too small to characterize and statistically likely represent cysts. A 2.3 cm cyst within the interpolar left kidney (series 2, image 48) is unchanged. A 1.5 cm mildly hyperdense focus with dependent calcification (series 2, image 61-63) is unchanged. GI tract: Imaged portions of the bowel are normal in caliber and without evidence of wall thickening or obstruction. There are scattered colonic diverticula, without associated inflammation. The entirety the appendix is not imaged, however the proximal appendix is fluid-filled and distended (1.2 cm) (series 2, image 106; series 3, image 38). No periappendiceal inflammation is identified within this region. Lymph nodes: No abdominal lymphadenopathy. Mesentery/Peritoneum: No ascites or mass. Retroperitoneum: No mass. Vasculature: - Abdominal aorta: No aneurysm. - Celiac and SMA: Patent without stenosis. - Portal venous system (SMV, splenic vein, portal vein and branches): Patent. - Hepatic veins: Patent. Bones/Soft Tissues: No significant finding. Lower thorax: A chest CT performed will be reported separately. Guest History Clerk (topogram) images: No additional findings. ZZZ_DO_NOT_US E_DIVISION OF RADIOLOGY Provider, [facility] 12/26/[facility]21 * * *Final Report* * * DATE OF EXAM: Dec 26 2021 9:46AM [facility] 0533 - CT ABDOMEN W IVCON / PROCEDURE REASON: Intra-abdominal and pelvic swelling, mass and lump, unspecified site * * * * Physician Interpretation * * * * RESULT: EXAMINATION: CT ABDOMEN WITH IV CONTRAST CLINICAL HISTORY: Lung and splenic nodules. TECHNIQUE: CT of the abdomen was performed using standard technique, scanning from just above the dome of the diaphragm to the iliac crest. MQ: CTAbdW_4 Contrast: IV: 150 ml of Omnipaque 300 CT Radiation dose: Integrated Dose-length product (DLP) for this visit = 1574 mGy*cm. CT Dose Reduction Employed: mAs-kVp adjusted based on patient size-age COMPARISON: CT abdomen and pelvis 06/06/2021 RESULT: Liver: No mass. Biliary: No bile duct dilation. Gallbladder is absent. Spleen: A 1.1 cm hypodense lesion within the anterior inferior spleen (series 2, image 35) is unchanged and likely represents an angiomatous lesion. The spleen is normal in size. Pancreas: No mass or duct dilation. Adrenals:The left adrenal is unremarkable. There is unchanged mild nodular thickening of the right adrenal. Kidneys: Subcentimeter hypodensities within the right renal cortex are unchanged, too small to characterize and statistically likely represent cysts. A 2.3 cm cyst within the interpolar left kidney (series 2, image 48) is unchanged. A 1.5 cm mildly hyperdense focus with dependent calcification (series 2, image 61-63) is unchanged. GI tract: Imaged portions of the bowel are normal in caliber and without evidence of wall thickening or obstruction. There are scattered colonic diverticula, without associated inflammation. The entirety the appendix is not imaged, however the proximal appendix is fluid-filled and distended (1.2 cm) (series 2, image 106; series 3, image 38). No periappendiceal inflammation is identified within this region. Lymph nodes: No abdominal lymphadenopathy. Mesentery/Peritoneum: No ascites or mass. Retroperitoneum: No mass. Vasculature: - Abdominal aorta: No aneurysm. - Celiac and SMA: Patent without stenosis. - Portal venous system (SMV, splenic vein, portal vein and branches): Patent. - Hepatic veins: Patent. Bones/Soft Tissues: No significant finding. Lower thorax: A chest CT performed will be reported separately. Guest History Clerk (topogram) images: No additional findings. IMPRESSION IMPRESSION: 1. A 1.1 cm hypodense focus within the inferior spleen is unchanged and likely represents an angiomatous lesion. 2. A 1.5 cm mildly hyperdense lesion within the medial left kidney is unchanged, technically indeterminate, but likely represents a hyperdense/proteinaceous cyst. Continued attention on subsequent evaluations is suggested. 3. Newly distended fluid-filled proximal appendix (measuring 1.2 cm). Correlation for right lower quadrant pain is suggested, as findings could represent early manifestations of appendicitis or an appendix mucocele. Consider short interval follow-up CT abdomen/pelvis to assess the entirety of the appendix. COMMUNICATION: Communicated with Dr. Faraz Peña on 12/26/2021 12:17 PM via verbal communication. ACTIONABLE RESULT: FOLLOW-UP Acuity: Actionable Findings: Digestive Tract Routing Code: GI_1 Recommendation: CT ABD/PEL (W ORAL) W IVCON Time Frame: At the discretion of the clinical team. COMMUNICATION: Results will be communicated with the ordering provider via [employer] staff message or phone message by Imaging Support Services within 2 business days of report finalization. Algorithms for management of incidental imaging findings can be found on the [facility] Intranet Sharepoint site at: [email or web address] Transcribe Date/Time: Dec 26 2021 11:01A Dictated by: HUSSEIN URBANO MD This examination was interpreted and the report reviewed and electronically signed by: HUSSEIN URBANO MD on Dec 26 2021 12:19PM EST Thank you for allowing us to participate in the care of your patient. Should there be any questions regarding this interpretation, please call [phone]. If you are unable to reach us at the number above, please feel free to contact [facility] eRadiology at [phone]. [facility] CT Chest W contrast Mele IMPRESSION: 1. Since 06/29/2021, unchanged 0.6 cm nodule within the lingula. No enlarging suspicious pulmonary nodules. 2. Unchanged mild right basilar juxtapleural atelectasis. 3. Please refer to concurrently acquired and separately reported abdomen CT for findings related to the upper abdomen. Transcribe Date/Time: Dec 26 2021 11:46A Dictated by: HUSSEIN URBANO MD This examination was interpreted and the report reviewed and electronically signed by: HUSSEIN URBANO MD on Dec 26 2021 12:19PM EST Thank you for allowing us to participate in the care of your patient. Should there be any questions regarding this interpretation, please call [phone]. If you are unable to reach us at the number above, please feel free to contact [facility] eRadiology at [phone]. [email or web address] E_DIVISION OF RADIOLOGY * * *Final Report* * * DATE OF EXAM: Dec 26 2021 9:46AM [facility] 0539 - CT CHEST W IVCON / PROCEDURE REASON: Lung nodules * * * * Physician Interpretation * * * * RESULT: EXAMINATION: CHEST CT WITH CONTRAST CLINICAL HISTORY: Lung nodule(s) Technique: Spiral CT acquisition of the chest from the thoracic inlet to the upper abdomen following IV contrast. MQ: CTCW_6 Contrast: 150 mL Omnipaque [address] Radiation dose: Integrated Dose-length product (DLP) for this visit = 1574 mGy*cm CT Dose Reduction Employed: mAs-kVp adjusted based on patient size-age Comparison: CT chest 06/29/2021 RESULT: Limitations: None. Lines, tubes, and devices: None. Lung parenchyma and airways: There is mild right basilar juxtapleural subsegmental atelectasis. There is no airspace consolidation. A 0.6 cm nodule within the lingula (series 3, image 102) is unchanged. There are no enlarging suspicious pulmonary nodules. The central airways are patent. Pleural space: No pleural effusion. No pleural thickening. Lower neck, lymph nodes, and mediastinum: Status post left thyroidectomy. There are no enlarged supraclavicular, axillary, mediastinal or hilar lymph nodes. Heart, pericardium, and thoracic vessels: The thoracic aorta and main pulmonary artery are normal in caliber. The cardiac chambers are normal in size. No coronary artery atherosclerotic calcifications are noted, although the study is not optimized for coronary assessment. No pericardial effusion or thickening. Bones and soft tissues: No destructive bone lesion. Chest wall is unremarkable. Upper abdomen: Please refer to concurrently acquired and separately reported abdomen CT for findings related to the upper abdomen. Guest History Clerk (topogram) images: No additional findings. [email or web address] E_DIVISION OF RADIOLOGY Provider, [facility] - 12/26/2021 * * *Final Report* * * DATE OF EXAM: Dec 26 2021 9:46AM [facility] 0539 - CT CHEST W IVCON / PROCEDURE REASON: Lung nodules * * * * Physician Interpretation * * * * RESULT: EXAMINATION: CHEST CT WITH CONTRAST CLINICAL HISTORY: Lung nodule(s) Technique: Spiral CT acquisition of the chest from the thoracic inlet to the upper abdomen following IV contrast. MQ: CTCW_6 Contrast: 150 mL Omnipaque [address] Radiation dose: Integrated Dose-length product (DLP) for this visit = 1574 mGy*cm CT Dose Reduction Employed: mAs-kVp adjusted based on patient size-age Comparison: CT chest 06/29/2021 RESULT: Limitations: None. Lines, tubes, and devices: None. Lung parenchyma and airways: There is mild right basilar juxtapleural subsegmental atelectasis. There is no airspace consolidation. A 0.6 cm nodule within the lingula (series 3, image 102) is unchanged. There are no enlarging suspicious pulmonary nodules. The central airways are patent. Pleural space: No pleural effusion. No pleural thickening. Lower neck, lymph nodes, and mediastinum: Status post left thyroidectomy. There are no enlarged supraclavicular, axillary, mediastinal or hilar lymph nodes. Heart, pericardium, and thoracic vessels: The thoracic aorta and main pulmonary artery are normal in caliber. The cardiac chambers are normal in size. No coronary artery atherosclerotic calcifications are noted, although the study is not optimized for coronary assessment. No pericardial effusion or thickening. Bones and soft tissues: No destructive bone lesion. Chest wall is unremarkable. Upper abdomen: Please refer to concurrently acquired and separately reported abdomen CT for findings related to the upper abdomen. Guest History Clerk (topogram) images: No additional findings. IMPRESSION IMPRESSION: 1. Since 06/29/2021, unchanged 0.6 cm nodule within the lingula. No enlarging suspicious pulmonary nodules. 2. Unchanged mild right basilar juxtapleural atelectasis. 3. Please refer to concurrently acquired and separately reported abdomen CT for findings related to the upper abdomen. Transcribe Date/Time: Dec 26 2021 11:46A Dictated by: HUSSEIN URBANO MD This examination was interpreted and the report reviewed and electronically signed by: HUSSEIN URBANO MD on Dec 26 2021 12:19PM EST Thank you for allowing us to participate in the care of your patient. Should there be any questions regarding this interpretation, please call [phone]. If you are unable to reach us at the number above, please feel free to contact [facility] eRadiology at [phone]. [facility] No Panel Informationon 12-26 Radiology Study observation (narrative) [facility] Vital Signs Date Time Vital Sign Value Performing Clinician Facility 04-27-2025 12:40-0400 Body mass index (BMI) [Ratio] 36.78 kg/m2 Neto Webber [employer] Work Phone: [facility] 04-27-2025 12:40-0400 Body weight 100.25 kg Neto Horton [employer] Work Phone: [facility] 04-27-2025 12:40-0400 Diastolic blood pressure 84 mm[Hg] Neto Horton [employer] Work Phone: [facility] 04-27-2025 12:40-0400 Systolic blood pressure 136 mm[Hg] Neto Horton [employer] Work Phone: [facility] 04-14-2025 10:05-0400 Diastolic blood pressure 63 mm[Hg] PHYSICIAN NO [facility] 04-14-2025 10:05-0400 Heart rate 52 /min PHYSICIAN NO [facility] 04-14-2025 10:05-0400 Respiratory rate 16 /min PHYSICIAN NO [facility] 04-14-2025 10:05-0400 SaO2% (BldA) [Mass fraction] 95 % PHYSICIAN NO [facility] 04-14-2025 10:05-0400 Systolic blood pressure 118 mm[Hg] PHYSICIAN NO [facility] 04-14-2025 09:15-0400 Body temperature 97 [degF] PHYSICIAN NO [facility] 04-14-2025 08:47-0400 Inhaled oxygen flow rate 10 L/min PHYSICIAN NO [facility] 04-14-2025 06:34-0400 Body height 167.64 cm PHYSICIAN NO [facility] 04-14-2025 06:34-0400 Body weight 106.71 kg PHYSICIAN NO [facility] 02-10-2025 08:42-0400 Body mass index (BMI) [Ratio] 36.78 kg/m2 Eve Valenzuela MD Work Phone: [facility] 02-10-2025 08:42-0400 Body weight 100.25 kg Eve Valenzuela MD Work Phone: [facility] 02-10-2025 08:42-0400 Diastolic blood pressure 74 mm[Hg] Eve Valenzuela MD Work Phone: [facility] 02-10-2025 08:42-0400 Systolic blood pressure 120 mm[Hg] Eve Valenzuela MD Work Phone: [facility] 11-02-2024 07:59-0500 Body height 165.1 cm Chetan Soto MD Work Phone: [facility] 11-02-2024 07:59-0500 Body mass index (BMI) [Ratio] 40.1 kg/m2 Chetan Soto MD Work Phone: [facility] 11-02-2024 07:59-0500 Body weight 109.32 kg Chetan Soto MD Work Phone: [facility] 11-02-2024 07:59-0500 Diastolic blood pressure 76 mm[Hg] Chetan Soto MD Work Phone: [facility] 11-02-2024 07:59-0500 Heart rate 60 /min Chetan Soto MD Work Phone: [facility] 11-02-2024 07:59-0500 Systolic blood pressure 124 mm[Hg] Chetan Soto MD Work Phone: [facility] 05-12-2024 08:30-0400 Body height 165.1 cm Chetan Soto MD Work Phone: [facility] 05-12-2024 08:30-0400 Body mass index (BMI) [Ratio] 40.27 kg/m2 Chetan Soto MD Work Phone: [facility] 05-12-2024 08:30-0400 Body weight 109.77 kg Chetan Soto MD Work Phone: [facility] 05-12-2024 08:30-0400 Diastolic blood pressure 71 mm[Hg] Chetan Soto MD Work Phone: [facility] 05-12-2024 08:30-0400 Systolic blood pressure 124 mm[Hg] Chetan Soto MD Work Phone: [facility] 11-05-2023 10:06-0500 Blood Pressure Location [facility] 11-05-2023 10:06-0500 Diastolic blood pressure 86 mm[Hg] [facility] 11-05-2023 10:06-0500 Heart rate 70 /min [facility] 11-05-2023 10:06-0500 Respiratory rate 18 /min [facility] 11-05-2023 10:06-0500 Systolic blood pressure 124 mm[Hg] [facility] 07-28-2023 08:27-0500 Blood Pressure Location [facility] 07-28-2023 08:27-0500 Body temperature 97.16 [degF] [facility] 07-28-2023 08:27-0500 Diastolic blood pressure 72 mm[Hg] [facility] 07-28-2023 08:27-0500 Heart rate 60 /min [facility] 07-28-2023 08:27-0500 Systolic blood pressure 124 mm[Hg] [facility] 06-18-2023 08:27-0400 Blood Pressure Location [facility] 06-18-2023 08:27-0400 Diastolic blood pressure 66 mm[Hg] [facility] 06-18-2023 08:27-0400 Heart rate 56 /min [facility] 06-18-2023 08:27-0400 Systolic blood pressure 102 mm[Hg] [facility] 02-12-2023 15:20-0400 Body height 167.64 cm Nereida Duarte Other [employer] Other 02-12-2023 15:20-0400 Body mass index (BMI) [Ratio] 36.76 kg/m2 Nereida Duarte Other [employer] Other 02-12-2023 15:20-0400 Body temperature 97.8 [degF] Nereida Duarte Other [employer] Other 02-12-2023 15:20-0400 Body weight 103.33 kg Nereida Duarte Other [employer] Other 02-12-2023 15:20-0400 Respiratory rate 18 /min Nereida Duarte Other [employer] Other 02-12-2023 15:20-0400 SaO2% (BldA) [Mass fraction] 97 % Nereida Duarte Other [employer] Other 01-01-2023 10:27-0400 Body height 167.6 cm Faraz Peña MD Work Phone: [facility] 01-01-2023 10:27-0400 Body temperature 97.81 [degF] Faraz Peña MD Work Phone: [facility] 01-01-2023 10:27-0400 Body weight 105.23 kg Faraz Peña MD Work Phone: [facility] 01-01-2023 10:27-0400 Diastolic blood pressure 69 mm[Hg] Faraz Peña MD Work Phone: [facility] 01-01-2023 10:27-0400 Heart rate 58 /min Faraz Peña MD Work Phone: [facility] 01-01-2023 10:27-0400 Respiratory rate 18 /min Faraz Peña MD Work Phone: [facility] 01-01-2023 10:27-0400 SaO2% (BldA) [Mass fraction] 100 % Faraz Peña MD Work Phone: [facility] 01-01-2023 10:27-0400 Systolic blood pressure 123 mm[Hg] Faraz Peña MD Work Phone: [facility] 11-20-2022 12:20-0500 Diastolic blood pressure 70 mm[Hg] MD Salas Shabazz Work Phone: [facility] 11-20-2022 12:20-0500 Heart rate 59 /min MD Salas Shabazz Work Phone: [facility] 11-20-2022 12:20-0500 Respiratory rate 16 /min MD Salas Shabazz Work Phone: [facility] 11-20-2022 12:20-0500 SaO2% (BldA) [Mass fraction] 100 % MD Salas Shabazz Work Phone: [facility] 11-20-2022 12:20-0500 Systolic blood pressure 115 mm[Hg] MD Salas Shabazz Work Phone: [facility] 11-20-2022 10:15-0500 Body height 167.64 cm MD Salas Shabazz Work Phone: [facility] 11-20-2022 10:15-0500 Body weight 113.39 kg MD Salas Shabazz Work Phone: [facility] 05-08-2022 08:14-0400 Blood Pressure Location [facility] 05-08-2022 08:14-0400 Diastolic blood pressure 85 mm[Hg] [facility] 05-08-2022 08:14-0400 Heart rate 58 /min [facility] 05-08-2022 08:14-0400 Systolic blood pressure 120 mm[Hg] [facility] 11-07-2021 10:00-0500 Body height 167.64 cm Jessica Ruiz Other [employer] Other 11-07-2021 10:00-0500 Body mass index (BMI) [Ratio] 45.19 kg/m2 Jessica Ruiz Other [employer] Other 11-07-2021 10:00-0500 Body temperature 96.2 [degF] Jessica Ruiz Other [employer] Other 11-07-2021 10:00-0500 Body weight 127.01 kg Jessica Ruiz Other [employer] Other 11-07-2021 10:00-0500 Respiratory rate 18 /min Jessica Ruiz Other [employer] Other 11-07-2021 10:00-0500 SaO2% (BldA) [Mass fraction] 98 % Jessica Ruiz Other [employer] Other 07-12-2021 10:00-0400 Body height 167.64 cm Alex Reginoeduardo Other [employer] Other 07-12-2021 10:00-0400 Body mass index (BMI) [Ratio] 42.77 kg/m2 Alex Peña Other [employer] Other 07-12-2021 10:00-0400 Body weight 120.2 kg Alex Peña Other [employer] Other Encounters Encounter Date Encounter Type Care Provider Facility Start: 08-22-2025 ambulatory MD Harry Goodson ity:[facility] Start: 04-27-2025 End: 04-27-2025 Postop follow up visit related to original px Neto Horton DO Work Phone: [facility] Comment on above: Aftercare following surgery Start: 04-27-2025 End: 04-27-2025 ambulatory NETO HORTON Not Available Start: 04-14-2025 End: 04-14-2025 Admission to same day surgery center Neto Merritt DO [facility] Start: 04-14-2025 End: 04-14-2025 ambulatory PHYSICIAN NO [facility] Work Phone: Start: 04-08-2025 End: 04-08-2025 ambulatory Yung Valenzuela Facility[facility] Start: 03-31-2025 End: 03-31-2025 External Result Encounter Neto Horton DO Work Phone: [facility] Unsolicited Start: 03-31-2025 End: 03-31-2025 External Result Encounter Neto Horton DO Work Phone: [facility] External Department Unsolicited Start: 03-31-2025 End: 03-31-2025 Patient encounter procedure Neto Merritt DO -Pre-Surgical Testing Work Phone: Start: 03-31-2025 End: 03-31-2025 ambulatory PHYSICIAN NO [facility] Work Phone: Start: 03-31-2025 Encounter for preprocedural laboratory examination Neto Horton [facility] Start: 03-15-2025 End: 03-15-2025 ambulatory PA-C Yolanda Marques Facility[facility] Start: 03-15-2025 End: 03-15-2025 Patient encounter procedure Yolanda Marques [facility] Start: 02-24-2025 End: 02-24-2025 ambulatory Yung Valenzuela Facility:[facility] Start: 02-24-2025 End: 02-24-2025 Patient encounter procedure Yung Valenzuela [facility] Start: 02-24-2025 End: 02-24-2025 ambulatory Harry Owusu Facility:[facility] Start: 02-24-2025 End: 02-24-2025 Patient encounter procedure Yung Valenzuela [facility] Start: 02-21-2025 End: 02-21-2025 ambulatory NETO HORTON Not Available Start: 02-14-2025 End: 02-14-2025 ambulatory Harry Owusu Facility:[facility] Start: 02-10-2025 End: 02-10-2025 Patient encounter procedure Eve Valenzuela MD Work Phone: [facility] Comment on above: Cystocele, midline ( Primary Dx); Encounter for screening mammogram for malignant neoplasm of breast; Osteoporosis, post-menopausal (CMS/HCC); Pessary maintenance; Rectocele; Postmenopausal atrophic vaginitis Start: 02-10-2025 End: 02-10-2025 ambulatory EVE VALENZUELA Not Available Start: 12-29-2024 End: 12-29-2024 Bamboo flowsheet JrMariya Nieto Stepanic DO Work Phone: [facility] Start: 12-29-2024 End: 12-29-2024 Bamboo flowsheet Jr. Juliana Nieto Stepanic DO Work Phone: [facility] Start: 12-29-2024 End: 12-29-2024 Office outpatient visit 25 minutes Jr. Juliana Nieto Stepmanju DO Work Phone: [facility] Comment on above: Acute pain of right knee (Primary Dx); Primary osteoarthritis of right knee Start: 12-29-2024 End: 12-29-2024 ambulatory JULIANA BAEZ Not Available Start: 12-23-2024 End: 12-23-2024 ambulatory MD Harry Owusu Facility:[facility] Start: 12-08-2024 End: 12-08-2024 Office outpatient visit 15 minutes Jr. 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 [place] Work Phone: Start: 10-19-2024 End: 10-19-2024 ambulatory Harry Owusu MD Work Phone: [facility] Work Phone: Start: 08-23-2024 End: 08-23-2024 Lab Drop off Harry Owusu [facility] Start: 08-23-2024 End: 08-23-2024 ambulatory MD Harry Owusu Facility:[facility] Start: 08-19-2024 End: 08-19-2024 ambulatory RECRUITING ASSOCIATE Adeline Jackman Facility[facility] Start: 06-24-2024 End: 06-24-2024 ambulatory MD Harry Owusu Facility:[facility] Start: 05-18-2024 End: 05-18-2024 ambulatory [facility] Start: 05-12-2024 End: 05-12-2024 Bamboo flowsheet Chetan Soto MD Work Phone: [facility] Start: 05-12-2024 End: 05-12-2024 Bamboo flowsheet Chetan Soto MD Work Phone: [facility] Start: 05-12-2024 End: 05-12-2024 Office outpatient visit 15 minutes Chetan Soto MD Work Phone: [facility] Comment on above: 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) Start: 05-12-2024 End: 05-12-2024 ambulatory CHETAN SOTO Not Available Start: 05-03-2024 End: 05-03-2024 Patient encounter procedure MD Harry Owusu Work Phone: [facility] [place] Work Phone: Start: 05-03-2024 End: 05-03-2024 ambulatory MD Harry Owusu Work Phone: [facility] Work Phone: Start: 12-25-2023 End: 12-25-2023 Lab Drop off Harry Owusu [facility] Start: 11-05-2023 End: 11-05-2023 Patient encounter procedure Addie De La Cruzsatish [facility] Start: 11-03-2023 End: 11-03-2023 ambulatory MD Harry Owusu Work Phone: [facility] Work Phone: Start: 11-03-2023 End: 11-03-2023 Patient encounter procedure MD Harry Owusu Work Phone: [facility] [place] Work Phone: Start: 08-29-2023 End: 08-29-2023 Lab Drop off Adeline Jackman [facility] Start: 08-26-2023 End: 08-26-2023 Lab Drop off Addie Mcnamara [facility] Start: 07-28-2023 End: 07-28-2023 Patient encounter procedure Loni Tsai [facility] Start: 06-18-2023 End: 06-18-2023 Patient encounter procedure Loni Tsai [facility] Start: 04-23-2023 End: 04-23-2023 ambulatory MD Salas Shabazz Work Phone: [facility] Work Phone: Start: 04-23-2023 End: 04-23-2023 Patient encounter procedure MD Salas Shabazz Work Phone: [facility] [place] Work Phone: Start: 02-12-2023 End: 02-12-2023 ambulatory Nereida Duarte Other [employer] Other Start: 02-12-2023 Office outpatient vi sit 15 minutes Nereida Duarte [facility] Jose Daniel Start: 01-15-2023 End: 01-16-[address] SALAS SHABAZZ . Facility: Start: 01-01-2023 End: 01-01-2023 ambulatory Faraz Peña MD Work Phone: Hematology/Oncology Comment on above: Lung nodules (Primar y Dx); Abdominal mass, unspecified abdominal location Start: 01-01-2023 End: 01-01-2023 Patient encounter procedure Faraz Peña MD Work Phone: [facility] Start: 12-26-2022 Telephone encounter Luanne Howell anaesthetic technician/Oncology Comment on above: Results Start: 12-25-2022 End: 12-25-2022 ambulatory SALAS SHABAZZ Facility:[facility] Start: 12-25-2022 End: 12-25-2022 Subsequent hospital visit by physician Arrival Time Radiology Work Phone: Radiology [facility] Comment on above: Abdominal mass, unsp ecified abdominal location [R19.00] Start: 11-25-2022 Telephone encounter Clover Dwyer RN R adiology [facility] Comment on above: Orders Start: 11-20-2022 End: 11-20-2022 Admission to same day surgery center MD Salas Shabazz [facility] [facility] [place] Work Phone: Start: 11-20-2022 End: 11-20-2022 ambulatory MD Salas Shabazz Work Phone: [facility] Work Phone: Start: 10-17-2022 End: 10-17-2022 ambulatory MD Salas Shabazz Work Phone: [facility] Work Phone: Start: 10-17-2022 End: 10-17-2022 Patient encounter procedure MD Salas Shabazz Work Phone: [facility] [place] Work Phone: Start: 05-08-2022 End: 05-08-2022 Patient encounter procedure German WATTS [facility] Start: 05-03-2022 End: 05-04-[address] SALAS SHABAZZ . Facility:[facility] Start: 04-29-2022 End: 04-30-[address] GERMAN WATTS Facility:[facility] Start: 04-16-2022 End: 04-16-[address] SALAS SHABAZZ . Facility:[facility] Start: 04-15-2022 End: 04-15-2022 Patient encounter procedure MD Salas Shabazz Work Phone: [facility] [place] Start: 01-02-2022 Telephone encounter Faraz crawley MD Work Phone: [facility] Comment on above: Referral Information (General Surgery) Start: 01-02-2022 End: 01-02-2022 ambulatory SALAS SHABAZZ Facility:[facility] Start: 01-01-2022 End: 01-01-2022 ambulatory SALAS SHABAZZ Facility:[facility] Start: 01-01-2022 End: 01-01-2022 Subsequent hospital visit by physician Arrival Time Radiology Work Phone: Radiology [facility] Comment on above: Other acute appendic itis [K35.890] Start: 12-26-2021 Telephone encounter Faraz crawley MD Work Phone: Hematology/Oncology Comment on above: Care Coordination (s can results) Start: 12-26-2021 End: 12-26-2021 Subsequent hospital visit by physician Arrival Time Radiology Work Phone: Radiology [facility] Comment on above: Intra-abdominal and pelvic swelling, mass and lump, unspecified site [R19.00] Start: 12-12-2021 Telephone encounter Clover Dwyer RN R adiology [facility] Comment on above: Lab Orders Start: 11-15-2021 End: 11-15-2021 ambulatory Alex Peña Other [employer] Other Start: 11-15-2021 Telephone encounter Alex Peña [employer] [facility] Start: 11-07-2021 End: 11-07-2021 ambulatory Jessica Ruiz Other [employer] Other Start: 11-07-2021 Office outpatient vi sit 15 minutes Jessica Ruiz [facility] [place] Start: 08-30-2021 End: 08-30-2021 ambulatory Alex Peña Other [employer] Other Start: 08-30-2021 Telephone encounter Alex Peña [facility] Start: 07-23-2021 End: 07-23-2021 ambulatory Alex Peña Other [employer] Other Start: 07-23-2021 Telephone encounter Alex Lacyeduardo [facility] Start: 07-12-2021 Office outpatient vi sit 15 minutes Alex Lacyeduardo [facility] Start: 06-18-2021 End: 06-18-2021 Chart abstracting Lisandra Scherer MA Hematology/Oncology Comment on above: Opened In Error Start: 01-18-2019 End: 01-19-2019 Patient encounter procedure DEFAULT PHYSICIAN Facility:[facility] Procedures Date Procedure Procedure Detail Performing Clinician Start: 04-14-2025 Combined anteroposte rior colporrhaphy PHYSICIAN NO FAMILY Start: 03-31-2025 Antibody screen Harry Owusu Comment on above: Order Comment: Date of Surgery: [id number] Result Comment: PERF ORMED BY: [facility] [address] [place] [address] PATHOLOGIST ELEMENTARY EDUCATOR ELISA SNOWDEN M.D. Start: 03-31-2025 Urnls dip stick/tabl et rgnt non-auto w/o micrscp Neto Horton DO Work Phone: Start: 03-31-2025 aPTT in Blood by Coagulation assay Neto Horton DO Work Phone: Start: 03-31-2025 Complete blood count with white cell differential, automated Neto Horton DO Work Phone: Start: 03-31-2025 Comprehensive metabo lic panel Neto Horton DO Work Phone: Start: 02-10-2025 Mammography Eve dahl MD Work Phone: Start: 12-29-2024 Arthrocentesis aspir &/inj major jt/bursa w/o us Jr. Juliana Murray DO Work Phone: Start: 12-08-2024 Radiologic examinati on knee 1/2 views Jr. Juliana Murray DO Work Phone: Start: 10-19-2024 US scan of thyroid Reyes Owusu MD Work Phone: Start: 05-03-2024 US scan of thyroid MD Abner Owusu Work Phone: Start: 01-26-2024 Mammography Chetan leung MD Work Phone: Start: 11-03-2023 US scan of thyroid Abner trevon Owusu Work Phone: Start: 04-23-2023 US scan of thyroid MD Michi Shabazz Work Phone: Start: 12-25-2022 Ct abdomen & pelvis w/contrast material Faraz Peña MD Work Phone: Start: 12-25-2022 Ct thorax w/contrast material Faraz Peña MD Work Phone: Start: 12-25-2022 Blood count complete auto&auto difrntl wbc Faraz Peña MD Work Phone: Start: 10-17-2022 US scan of thyroid MD Michi Shabazz Work Phone: Start: 04-15-2022 US scan of thyroid MD Michi Shabazz Work Phone: Start: 01-02-2022 Adult depression scr eening assessment Faraz Peña MD Work Phone: Start: 01-01-2022 Ct pelvis w/contrast material Faraz Peña MD Work Phone: Start: 12-26-2021 Ct abdomen w/contras t material Faraz Peña MD Work Phone: Start: 12-26-2021 Ct thorax w/contrast material Faraz Peña MD Work Phone: Start: 12-26-2021 CREATININE BLD Rachel Wagner PA-C Work Phone: Start: 07-04-2021 Adult depression scr eening assessment Clover Dwyer RN Start: 10-16-2018 Total replacement of left knee joint German WATTS Appendectomy Loni Tsai Comment on above: January 2022 Arthroscopic knee operation German WATTS Comment on above: Left Carpal tunnel syndro me (disorder) Loni Tsai Comment on above: left 07/2016 Cholecystectomy German WATTS Colonoscopy German WATTS Colonoscopy Adeline Augustina Comment on above: 06/24/2023 Endometrial biopsy German Nieto [facility] Adeline Augustina Comment on above: 08/26/2023 History of operative procedure on knee History of left knee replacement Jr. Juliana Murray DO Work Phone: Hysterectomy German WATTS Comment on above: Partial Laser device (physic al object) Loni Tsai Comment on above: kidney stone Sep Ligation of fallopian tube G onel WATTS Lumpectomy of left breast Gr indira WATTS Rupture of anterior cruciate ligament (disorder) German WATTS Comment on above: Right Thyroidectomy Loni Tsai Comment on above: left Sep 2021 Plan of Treatment Date Care Activity Detail Author Start: 2030 RSV Vaccine (1 - 1-d ose 75+ series) RSV Vaccine (1 - 1-dose 75+ series) [facility] Start: 05-20-2027 Urine microalbumin profile [facility] Start: 02-27-2026 End: 02-27-2026 Patient encounter procedure [facility] Start: 02-10-2026 Screening for malign ant neoplasm of breast Mammogram [facility] Start: 12-25-2025 DIABETES SCREEN DIABETES SCREEN [facility] Start: 12-25-2025 Diabetes Screening Diabetes Screenin g [facility] Start: 11-01-2025 End: 11-01-2025 Patient encounter procedure [facility] Start: 05-24-2025 End: 05-24-2025 Patient encounter procedure 05/24/2025 10:45 AM EDT Office Visit [facility] [place] [facility] [address] [place] [address] Neto Horton, DO [address] [place] [address] [facility] Start: 05-16-2025 Influenza vaccination Influenza Vacc ine (#1) [facility] Start: 04-27-2025 End: 04-27-2025 Patient encounter procedure 04/27/2025 1:00 PM EDT Office Visit [facility] [address] [place] [address] Neto Horton, DO [address] [place] [address] [facility] Start: 04-14-2025 [facility] Start: 04-14-2025 [facility] Start: 04-06-2025 End: 04-06-2025 Patient encounter procedure 04/06/2025 8:15 AM EDT Office Visit [facility] [address] [place] [address] Jr. Juliana Murray, DO [address] [place] [address] [facility] Start: 03-30-2025 End: 03-30-2025 Patient encounter procedure 03/30/2025 8:15 AM EDT Office Visit [facility] [address] [place] [address] Jr. Juliana Murray, DO [address] [place] [address] [facility] Start: 02-21-2025 End: 02-21-2025 Patient encounter procedure 02/21/2025 2:30 PM EDT Consult [facility] [address] [place] [address] Neto Horton DO [address] [place] [address] [facility] Start: 02-12-2025 End: 02-10-2026 DXA Skeletal system Views for bone density DEXA bone density Imaging Routine Osteoporosis, post-menopausal ([facility]) Expected: 02/12/2025 (Approximate), Expires: 02/10/2026 [facility] Comment on above: Expected: 02/12/2025 (Approximate), Expires: 02/10/2026 Start: 02-10-2025 End: 02-10-2025 Patient encounter procedure 02/10/2025 9:00 AM EDT Office Visit [facility] [address] [place] [address] Eve Valenzuela MD [address] [place] [address] [facility] Start: 02-10-2025 End: 02-10-2025 Professional / ancillary services management [facility] [place] Start: 01-25-2025 Screening for malign ant neoplasm of breast Mammogram [facility] Start: 12-29-2024 End: 12-29-2024 Patient encounter procedure [facility] Comment on above: Arrived Start: 12-08-2024 End: 12-08-2024 Patient encounter procedure 12/08/2024 9:30 AM EDT Office Visit [facility] [address] [place] [id number] Jr. Juliana Murray, DO [address] [facility] [address] [place], [place] [address] [facility] Start: 11-02-2024 End: 11-02-2024 Patient encounter procedure 11/02/2024 8:00 AM EST Office Visit [facility] [address] [place] [address] Chetan Soto MD [address] [facility] [address] [place] [address] Arrived [facility] Comment on above: Arrived Start: 06-20-2024 DIABETES SCREEN DIABETES SCREEN [facility] Start: 05-16-2024 Covid-19 Vaccine () Covid-19 Vaccine () [facility] Start: 05-16-2024 Influenza vaccination Influenza Vacc ine (#1) [facility] Start: 05-12-2024 End: 05-12-2024 Patient encounter procedure 05/12/2024 8:30 AM EDT Office Visit [facility] [address] [facility] [address] [place] [address] Chetan Soto MD [address] [facility] [address] [place] [address] Arrived [facility] Comment on above: Arrived Start: 09-15-2023 Advance Directive Discussion Advance Directive Discussion [facility] Start: 05-16-2023 Influenza vaccination INFLUENZ A (Season Ended) [facility] Start: 01-02-2023 Adult depression screening assessment DEPRESSION SCREENING [facility] Start: 12-23-2022 End: 02-22-2023 CBC W Auto Differential panel - Blood CBC + DIFF Lab Routine Intra-abdominal and pelvic swelling, mass and lump, unspecified site Expected: 12/23/2022 (Approximate), Expires: 02/22/2023 [facility] Work Phone: Comment on above: Expected: 12/23/2022 (Approximate), Expires: 02/22/2023 Start: 12-09-2022 End: 02-08-2023 Comprehensive metabolic 2000 panel - Serum or Plasma COMP METABOLIC PANEL Lab Routine Intra-abdominal and pelvic swelling, mass and lump, unspecified site Expected: 12/09/2022 (Approximate), Expires: 02/08/2023 [facility] Work Phone: Comment on above: Expected: 12/09/2022 (Approximate), Expires: 02/08/2023 Start: 11-20-2022 [facility] Start: 11-20-2022 Aspiration US needle aspiration [facility] Start: 09-15-2022 ADVANCE DIRECTIVE DISCUSSION ADVANCE DIRECTIVE DISCUSSION [facility] Start: 09-15-2022 DEPRESSION ASSESSMENT DEPRESSION ASS ESSMENT [facility] Start: 07-04-2022 Adult depression screening assessment DEPRESSION SCREENING [facility] Start: 05-16-2022 Influenza vaccination INFLUENZA (#1) [facility] Start: 12-26-2021 End: 02-25-2022 CREATININE BLD CREATININE BLD Lab Routine Lung nodules Expected: 12/26/2021, Expires: 02/25/2022 [facility] Work Phone: Comment on above: Expected: 12/26/2021 , Expires: 02/25/2022 Start: 10-23-2021 COVID-19 VACCINE (4 - Booster for Moderna series) COVID-19 VACCINE (4 - Booster for Moderna series) [facility] Start: 09-15-2021 ADVANCE DIRECTIVE DISCUSSION ADVANCE DIRECTIVE DISCUSSION [facility] Start: 05-16-2021 Influenza vaccination INFLUENZA (#1) [facility] Start: 05-08-2021 COVID-19 VACCINE (3 - Booster for Moderna series) COVID-19 VACCINE (3 - Booster for Moderna series) [facility] Start: 2020 ADVANCE DIRECTIVE DISCUSSION ADVANCE DIRECTIVE DISCUSSION [facility] Start: 2020 BONE DENSITY BONE DENSITY [facility] Start: 2020 PNEUMOCOCCAL: 65+ (1 - PCV) PNEUMOCOCCAL: 65+ (1 - PCV) [facility] Start: 2020 PNEUMOVAX AGE 65 AND OVER WITH 5YR LOOKBACK (#1) PNEUMOVAX AGE 65 AND OVER WITH 5YR LOOKBACK (#1) [facility] Start: 2020 Screening for osteoporosis Bone Density Screening [facility] Start: 2005 SHINGRIX VACCINE (1 of 2) SHINGRIX VACCINE (1 of 2) [facility] Start: 2000 COLOGUARD (FIT-DNA) COLOGUARD (FIT-D NA) [facility] Start: 2000 Colonoscopy COLONOSCOPY [facility] Start: 2000 COLORECTAL CANCER SCREENING COLORECTAL CANCER SCREENING [facility] Start: [address] COLONOGRAPHY [facility] Start: 2000 DIABETES SCREEN DIABETES SCREEN [facility] Start: 2000 FECAL OCCULT BLOOD FECAL OCCULT BLOO D [facility] Start: 2000 Lipid panel Lipid Screening [facility] Start: 2000 LIPID SCREEN LIPID SCREEN [facility] Start: 2000 Screening for malign ant neoplasm of colon [facility] Start: 2000 SIGMOIDOSCOPY SIGMOIDOSCOPY [facility] Start: 1995 Mammography MAMMOGRAM [facility] Start: 1995 Screening for malign ant neoplasm of breast Mammogram Screening [facility] Start: 1974 Urine microalbumin profile DTAP,TDAP,TD (1 - Tdap) [facility] Start: 1973 Anxiety Screening Anxiety Screening [facility] Start: 1973 Depression Screening Depression Scre ening [facility] Start: 1973 HEPATITIS C SCREENING HEPATITIS C SC [facility] Start: 1973 Hepatitis C screening Hepatitis C Sc [facility] Start: 1973 HIV SCREENING HIV SCREENING [facility] Start: 1967 Adult depression screening assessment DEPRESSION SCREENING [facility] Start: 1967 COVID-19 VACCINE (1) COVID-19 VACCIN E (1) [facility] Start: 1955 Screening for malign ant neoplasm of colon [facility] DBT Breast - bilater al screening Bilateral screening mammogram with tomosynthesis Imaging Routine Encounter for screening mammogram for malignant neoplasm of breast Ordered: 02/12/2025 [facility] Work Phone: Comment on above: Ordered: 02/12/2025 Patient Education [facility] Work Phone: Patient referral [facility] Work Phone: [facility] Immunizations Immunization Date Immunization Notes Care Provider Jose chow 08-02-2024 zoster vaccine recombinant Harry Owusu [facility] 06-29-2024 influenza virus vaccine, unspecified formulation Harry Owusu [facility] 06-29-2024 influenza, high dose seasonal, preservative-free Neto Horton DO Work Phone: [facility] 05-21-2024 zoster vaccine recombinant Harry Owusu [facility] 06-19-2023 influenza virus vaccine, unspecified formulation Olni Quin [facility] 06-19-2023 Influenza, Seasonal, Quadrivalent, Adjuvanted Neto Horton DO Work Phone: [facility] 04-02-2022 pneumococcal (PCV20) vaccine, 20 valent (PREVNAR 20) Faraz Peña MD Work Phone: [facility] 08-28-2021 COVID-19 mRNA-1273 (Moderna) MD Salas Shabazz Work Phone: [facility] Comment on above: Result Comment: 2022: [id number] 06-25-2021 influenza virus vaccine, unspecified formulation Loni Quin [facility] 06-25-2021 influenza, high-dose , quadrivalent vaccine (FLUZONE HIGH DOSE QUADRIVALENT) Clover Dwyer RN [facility] 12-06-2020 COVID-19 mRNA-1273 (Moderna) MD Salas Shabazz Work Phone: [facility] 11-09-2020 COVID-19 mRNA-1273 (Moderna) MD Salas Shabazz Work Phone: [facility] 06-06-2020 influenza virus vaccine, unspecified formulation Loni Quin [facility] 06-06-2020 Influenza, injectable, Madin Mariela Canine Kidney, quadrivalent with preservative Clover Dwyer RN [facility] 06-07-2019 influenza virus vaccine, unspecified formulation Loni Tsai [facility] 06-07-2019 Influenza, injectable, Madin [place] Canine Kidney, preservative free, quadrivalent Clover Dwyer RN [facility] 06-17-2018 influenza virus vaccine, unspecified formulation Loni Quin [facility] 06-17-2018 influenza, injectable, quadrivalent, preservative free Clover Dwyer RN [facility] 05-20-2017 tetanus toxoid, reduced diphtheria toxoid, and acellular pertussis vaccine, adsorbed Clover Dwyer RN [facility] 11-14-1999 influenza nasal, unspecified formulation Clover Dwyer RN [facility] 11-14-1999 influenza virus vaccine, unspecified formulation Neto Horton DO Work Phone: [facility] 09-15-1963 poliovirus vaccine, unspecified formulation Clover Dwyer RN [facility] NEGATED: Highlighted row has not occurred!06-17-2023 influenza virus vaccine, unspecified formulation Loni Tsai [facility] Payers Date Payer Category Payer Self-pay [id number] 2020 Medicare [id number] 2020 Medicare [id number]. [id number] 2020 Private Health Insurance [facility] [id number] 2020-Present [phone] [address] [place] [address] Indemnity [id number] [id number] 2020 Private Health Insurance [id number]. [id number] 1959 Medicare [id number] 2.16.840.1.230814.19 1959 Private Health Insurance [id number] 2.16.840.1.795540.19 1955 Unknown [id number] 2.16.840.1.188685.3.579. 2.647 1955 Unknown [id number] 2.16.840.1.078753.3.579. 2.593 1955 Unknown [id number] 2.16.840.1.848882.3.579. 2.593 1955 Unknown [id number] 2.16.840.1.887699.3.579. 2.593 1955 Unknown [id number] 2.16.840.1.385197.3.579. 2.593 1955 Unknown [id number] 2.16.840.1.127202.3.579. 2.72 1955 Unknown [id number] 2.16.840.1.310894.3.579. 2.727 1955 Unknown [id number] 2.16.840.1.680218.3.579. 2.72 1955 Unknown [id number] 2.16.840.1.983280.3.579. 2.727 1955 Unknown [id number] 2.16.840.1.793067.3.579. 2.727 1955 Unknown [id number] 2.16.840.1.161473.3.579. 2.727 1955 Unknown [id number] 2.16.840.1.108197.3.579. 2.72 1955 Unknown [id number] 2.16.840.1.126190.3.579. 2.727 1955 Unknown [id number] 2.16.840.1.500412.3.579. 2.72 1955 Unknown [id number] 2.16.840.1.796764.3.579. 2.727 1955 Unknown [id number] 2.16.840.1.448268.3.579. 2.727 1955 Unknown [id number] 2.16.840.1.682385.3.579. 2.727 1955 Unknown [id number] 2.16.840.1.327861.3.579. 2.1259 1955 Unknown [id number] 2.16.840.1.680802.3.579. 2.1258 1955 Unknown [id number] 2.16.840.1.898672.3.579. 2.9 1955 Unknown [id number] 2.16.840.1.068195.3.579. 2.1258 1955 Unknown [id number] 2.16.840.1.667132.3.579. 2.1259 1955 Unknown [id number] 2.16.840.1.848714.3.579. 2.1258 1955 Unknown [id number] 2.16.840.1.928728.3.579. 2.9 1955 Unknown [id number] 2.16.840.1.254082.3.579. 2.1258 1955 Unknown [id number] 2.16.840.1.252251.3.579. 2.125 1955 Unknown [id number] 2.16.840.1.660242.3.579. 2.1259 Private Health Insurance [facility] [id number] Unknown Unknown [id number] 2.16.840.1.246933.3.579. 2.531 Unknown [id number] 2.16.840.1.709013.3.579. 2.531 Unknown [id number] 2.16.840.1.793713.3.579. 2.531 Unknown [id number] 2.16.840.1.645776.3.579. 2.531 Social History Date Type Detail Facility Start: 06-18-2021 Tobacco smoking stat us NHIS Unknown if ever smoked [facility] Start: 06-18-2021 End: 07-04-2021 Alcohol intake Ex-drinker (finding) [facility] Start: 1955 Sex Assigned At Not on file [facility] Start: 06-20-2021 End: 05-09-2023 Tobacco smoking status NHIS Never smoked tobacco [facility] Comment on above: denies denies use Start: 06-20-2021 End: 05-09-2023 Tobacco use and exposure Smokeless tobacco non-user [facility] Start: 1955 Sex Assigned At Female [facility] Start: 12-22-2021 End: 01-01-2022 Exposure to SARS-CoV-2 (event) Not sure [facility] Start: 01-02-2022 End: 02-04-2024 Sex Assigned At [employer] Other Tobacco smoking status Never [facility] Comment on above: denies denies use Start: 01-02-2022 End: 02-04-2024 History of Social function [facility] Start: 12-30-2021 Gender identity Identifies as female gender (finding) [facility] Start: 12-30-2021 Sexual orientation Heterosexual (fin ding) [facility] Start: 02-05-2024 End: 04-27-2025 Alcoholic beverage intake Lifetime non-drinker (finding) [facility] How often to you hav e a drink containing alcohol? Never [facility] Start: 10-20-2024 Sex Patient sex un known (finding) [facility] Sexual Orientation [facility] Start: 10-08-2014 Sex Female (finding) [facility] Goals Date Patient Goal Desired Activity /State Functional Status Date Assessment Result Facility 11-05-2023 Functional Status N/A [facility] 07-28-2023 Functional Status N/A [facility] 06-18-2023 Functional Status N/A [facility] 05-08-2022 Functional Status N/A [facility] Clinical Notes 07-12-2021 to 04-27-2025 Bina Hawkins MA - 04/27/2025 1:00 PM EDT Note Date & Type Note Facility 04-27-2025 History of Present illness Narrative Images from the original note were not included. Neto Horton DO Obstetrics and Gynecology Patient: Chuyita Cavanaugh : 1955 (69 y.o.) Post Operative visit [...] 221 lb LMP (LMP Unknown) BMI 36.78 kg/m OB Status Hysterectomy Smoking Status Never BSA 2.14 m History of Present Illness, Associated Treatments and Results - Postoperative Follow-up Patient is a 69 y.o. 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 Eating a regular diet without difficulty. Bowel movements are normal. The patient is not having any pain. Patient denies swelling, redness, or discharge from [...] Review Audit Reviewed by Tammy Wang MA (Supervisor [employer]) on 04/27/25 at 1240 Medication Order Taking? Sig Documenting Provider Last Dose Status acetaminophen (Tylenol) 325 MG tablet [id number] Take by mouth Chetan Soto MD Active amLODIPine (Norvasc) 5 MG tablet [id number] Take 5 mg by mouth in the morning. Historical MD Keny 11/02/24 235 amoxicillin (Amoxil) 500 MG capsule [id number] Neto Horton DO Active aspirin 81 MG chewable tablet [id number] Chew 81 mg 1 (one) time each day at the same time. Adan Bustillo MD Active bisoprolol-hydroCHLOROthiazide (Ziac) 10-6.25 MG tablet [id number] Take 1 tablet by mouth in the morning. Adan Bustillo MD 11/02/24 235 Calcium 600-10 MG-MCG chewable tablet [id number] Chew 1 tablet in the morning. Adan Bustillo MD Active celecoxib (CeleBREX) 100 MG capsule [id number] Yes Twice daily Neto Horton DO Active estradiol (Estrace) 0.1 MG/GM vaginal cream [id number] Insert twice weekly Eve Valenzuela MD Active glucosamine-chondroitin 500-400 MG tablet [id number] Take 1 tablet by mouth in the morning. Adan Bustillo MD Active Multiple Vitamins-Minerals (Thera-M) tablet [id number] Take 1 tablet by mouth in the morning. Adan Bustillo MD Active niacin (Slo-Niacin) 500 MG ER tablet [id number] Take 500 mg by mouth at bedtime. Adan Bustillo MD Active omega-3 (Fish Oil) 1200 MG capsule [id number] Take 1,200 mg by mouth 1 (one) time each day at the same time. Adan Bustillo MD Active traMADol (Ultram) 50 MG tablet [id number] Yes Q4H as needed for Pain Scale 1 - 4 Neto Horton DO Active Past Medical History: Diagnosis Date Abnormal CT [...] HISTORY 1981 tubal THYROIDECTOMY Left 10/09/2021 Dr. Soto TONSILLECTOMY 1960 TOTAL KNEE ARTHROPLASTY Left 10/16/2018 [...] Mother Jaja ambrosio Heart failure Father Ari ambrosio Hypertension Father Ari ambrosio Other (ASCVD) Father Ari ambrosio Cancer Father Ari ambrosio Cancer Sister Michi c harnden Hearing loss Sister K c harnden Heart failure Sister K c harnden Thyroid disease Sister K c harnden Physical Exam - General appearance, mentation, extraocular movements, facial strength and movement, hearing, upper and lower extremity strength and tone, sensation to gross testing, coordination, and gait are normal or at baseline unless noted below. 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 Signature Marcell Horton D.O. Date 04/27/25 Time 5:00PM. documented in this encounter [facility] 04-08-2025 Note Consultation Note Patient is presenting with a greater than 5-year history of low back pain intermittently but exacerbated over the past 1 year. 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 She describes an achy sensation that can be occasionally sharp. She has no claudication symptoms when walking she walks 3 to 4 miles per day without any significant leg tenderness or heaviness on a regular basis. Celebrex is helpful, she feels that she is at a functional state. However she feels that there is some room for improvement, she is undergoing prolapse surgery in the near future and would like to put any interventional plans on hold but may consider these after surgery. SANDRA Score: 20% PHQ-2: 2 Patient denies any symptoms of progressively worsening upper/lower extremity weakness, progressively worsening gait abnormality, new onset bowel/bladder incontinence/ urinary retention, or saddle anesthesia. No new or worsening symptoms of fever, chills, night sweats. 14 Point Review of systems negative unless otherwise noted. General: No acute distress. Patient appears well-nourished. HEENT: Head is normocephalic and external ears are normal in appearance. Cardiovascular: No signs of poor perfusion and no peripheral edema Pulmonary: Nonlabored breathing, symmetric chest movement. GI: Abdomen nondistended Integumentary: No lesions Neurologic: Alert, oriented x3. 5/5 strength grossly in the bilateral upper extremities. Sensation intact to light touch in the bilateral upper extremities. 5/5 strength grossly in the bilateral lower extremities. Sensation intact to light touch in the bilateral lower extremities. MSK/Special Testing: Painful facet loading bilaterally. Mild lumbar tenderness to palpation bilaterally. History, physical examination, and personal review of pertinent imaging results indicate a diagnosis of: - Lumbar spondyloarthropathy - Myofascial pain Plan: -Continue Celebrex 100 mg twice daily -We may consider lumbar medial branch blocks likely target L4/5 and L5/S1 facet joints under fluoroscopic guidance anticipation of radiofrequency ablation if effective. She would like to defer at this time as she is undergoing prolapse surgery, we will reevaluate after surgery - Consider the addition of baclofen for myofascial pain if required - 3-month follow-up Patient was counseled on the above diagnosis and treatment, all questions were answered and patient agrees to adhere to the plan above. Risk and benefits of appropriate procedures and medications were reviewed as well with patient, who voiced understanding and agreeance. Patient was counseled on appropriate use of opioids if prescribed or renewed today and naloxone was offered to patient if opioids were prescribed or maintained at this visit. PHQ-2 scoring reviewed with patient and discussed seeking treatment for depression or mood disorder as appropriate. Patient was counseled on smoking cessation and/or continuing to abstain from nicotine/tobacco products as appropriate based on history for greater than 3 minutes if appropriate; as smoking/nicotine can contribute to increased pain overall and decreased wound healing, counseling performed for smoking cessation when appropriate for F17.200 nicotine dependence. SANDRA reviewed and discussed during encounter. Patient counseled on maintaining a healthy BMI as part of the total treatment of their pain and to reduce stress/strain on joints. Patient invited to return or call with any questions or concerns that arise. In addition, patient has been participating in a home exercise program directed by physician for at least 6 weeks, she is seeing some interval improvement from this. We encouraged her to continue on this as able. She may have to postpone during her surgical and postoperative phase however she will resume this when she is allowed to from a surgical perspective. [facility] Comment on above: Result Comment: Elec tronically Signed By: Yung Valenzuela DO.linda\Date and Time Signed: 04/08/25 13:47 EDT 02-24-2025 Note Consultation Note Patient is presenting with a greater than 5-year history of low back pain intermittently but exacerbated over the past 1 year. She has no radicular symptoms associated with that she has axial lumbar pain that she rates an 8/10 at its worst is predominantly associated with standing and twisting turning and bending predominantly when she is bending to the right side such as loading a marketing automation manager or reaching down to grab something. She describes an achy sensation that can be occasionally sharp. She has no claudication symptoms when walking she walks 3 to 4 miles per day without any significant leg tenderness or heaviness on a regular basis. She is hesitant to take medication and has not taken many NSAIDs for that she takes Tylenol she had taken Celebrex in the past with some efficacy but has not taken it recently. She has done formal physical therapy several years ago and has intermittently participated in home exercises without improvement. We discussed starting with x-rays as well as resumption of NSAIDs and evaluating her response to this before considering other treatments. SANDRA Score: 20% PHQ-2: 2 Patient denies any symptoms of progressively worsening upper/lower extremity weakness, progressively worsening gait abnormality, new onset bowel/bladder incontinence/ urinary retention, or saddle anesthesia. No new or worsening symptoms of fever, chills, night sweats. 14 Point Review of systems negative unless otherwise noted. General: No acute distress. Patient appears well-nourished. HEENT: Head is normocephalic and external ears are normal in appearance. Cardiovascular: No signs of poor perfusion and no peripheral edema Pulmonary: Nonlabored breathing, symmetric chest movement. GI: Abdomen nondistended Integumentary: No lesions Neurologic: Alert, oriented x3. 5/5 strength grossly in the bilateral upper extremities. Sensation intact to light touch in the bilateral upper extremities. 5/5 strength grossly in the bilateral lower extremities. Sensation intact to light touch in the bilateral lower extremities. MSK/Special Testing: Painful facet loading bilaterally. Mild lumbar tenderness to palpation bilaterally. History, physical examination, and personal review of pertinent imaging results indicate a diagnosis of: - Lumbar spondyloarthropathy - Myofascial pain Plan: - Will obtain a lumbar lumbar spine x-ray, home exercise program provided inclusive of the Evangelina back protocol - We will start her on Celebrex 100 mg twice daily - Follow-up in 4 to 6 weeks, consider lumbar medial branch blocks likely target L4/5 and L5/of the facet joints under fluoroscopic guidance anticipation of radiofrequency ablation if effective we are not seeing significant improvement from the above therapies Patient was counseled on the above diagnosis and treatment, all questions were answered and patient agrees to adhere to the plan above. Risk and benefits of appropriate procedures and medications were reviewed as well with patient, who voiced understanding and agreeance. Patient was counseled on appropriate use of opioids if prescribed or renewed today and naloxone was offered to patient if opioids were prescribed or maintained at this visit. PHQ-2 scoring reviewed with patient and discussed seeking treatment for depression or mood disorder as appropriate. Patient was counseled on smoking cessation and/or continuing to abstain from nicotine/tobacco products as appropriate based on history for greater than 3 minutes if appropriate; as smoking/nicotine can contribute to increased pain overall and decreased wound healing, counseling performed for smoking cessation when appropriate for F17.200 nicotine dependence. SANDRA reviewed and discussed during encounter. Patient counseled on maintaining a healthy BMI as part of the total treatment of their pain and to reduce stress/strain on joints. Patient invited to return or call with any questions or concerns that arise. [facility] Comment on above: Result Comment: Elec tronically Signed By: Yung Valenzuela DO\.br\Date and Time Signed: 02/24/25 14:20 EDT 02-24-2025 Evaluation + Plan note Extrac andrew from: Title:chronic pain Author:Yung Valenzuela DO Date:02/24/25 Patient is presenting with a greater than 5-year history of low back pain intermittently but exacerbated over the past 1 year. She has no radicular symptoms associated with that she has axial lumbar pain that she rates an 8/10 at its worst is predominantly associated with standing and twisting turning and bending predominantly when she is bending to the right side such as loading a marketing automation manager or reaching down to grab something. She describes an achy sensation that can be occasionally sharp. She has no claudication symptoms when walking she walks 3 to 4 miles per day without any significant leg tenderness or heaviness on a regular basis. She is hesitant to take medication and has not taken many NSAIDs for that she takes Tylenol she had taken Celebrex in the past with some efficacy but has not taken it recently. She has done formal physical therapy several years ago and has intermittently participated in home exercises without improvement. We discussed starting with x-rays as well as resumption of NSAIDs and evaluating her response to this before considering other treatments. SANDRA Score: 20% PHQ-2: 2 Patient denies any symptoms of progressively worsening upper/lower extremity weakness, progressively worsening gait abnormality, new onset bowel/bladder incontinence/ urinary retention, or saddle anesthesia. No new or worsening symptoms of fever, chills, night sweats. 14 Point Review of systems negative unless otherwise noted. General: No acute distress. Patient appears well-nourished. HEENT: Head is normocephalic and external ears are normal in appearance. Cardiovascular: No signs of poor perfusion and no peripheral edema Pulmonary: Nonlabored breathing, symmetric chest movement. GI: Abdomen nondistended Integumentary: No lesions Neurologic: Alert, oriented x3. 5/5 strength grossly in the bilateral upper extremities. Sensation intact to light touch in the bilateral upper extremities. 5/5 strength grossly in the bilateral lower extremities. Sensation intact to light touch in the bilateral lower extremities. MSK/Special Testing: Painful facet loading bilaterally. Mild lumbar tenderness to palpation bilaterally. History, physical examination, and personal review of pertinent imaging results indicate a diagnosis of: - Lumbar spondyloarthropathy - Myofascial pain Plan: - Will obtain a lumbar lumbar spine x-ray, home exercise program provided inclusive of the Evangelina back protocol - We will start her on Celebrex 100 mg twice daily - Follow-up in 4 to 6 weeks, consider lumbar medial branch blocks likely target L4/5 and L5/of the facet joints under fluoroscopic guidance anticipation of radiofrequency ablation if effective we are not seeing significant improvement from the above therapies Patient was counseled on the above diagnosis and treatment, all questions were answered and patient agrees to adhere to the plan above. Risk and benefits of appropriate procedures and medications were reviewed as well with patient, who voiced understanding and agreeance. Patient was counseled on appropriate use of opioids if prescribed or renewed today and naloxone was offered to patient if opioids were prescribed or maintained at this visit. PHQ-2 scoring reviewed with patient and discussed seeking treatment for depression or mood disorder as appropriate. Patient was counseled on smoking cessation and/or continuing to abstain from nicotine/tobacco products as appropriate based on history for greater than 3 minutes if appropriate; as smoking/nicotine can contribute to increased pain overall and decreased wound healing, counseling performed for smoking cessation when appropriate for F17.200 nicotine dependence. SANDRA reviewed and discussed during encounter. Patient counseled on maintaining a healthy BMI as part of the total treatment of their pain and to reduce stress/strain on joints. Patient invited to return or call with any questions or concerns that arise. Future Appointments Appointment Date:04/08/2025 12:45:00 PM Scheduled Provider:Yung Valenzuela DO [facility] Type:Pain Management - Follow Up (FT) Appointment Date:08/22/2025 11:00:00 AM Scheduled Provider: Location:[facility] Appointment Type:FM Medicare Wellness Subsequent Appointment Date:08/22/2025 11:40:00 AM Scheduled Provider:Harry Owusu MD Location:[facility] Appointment Type:[facility] 05-29-2025 History of Present illness Narrative* Eve Valenzuela MD - 02/10/2025 9:00 AM EDT Images from the original note were not included. Eve Valenzuela MD Obstetrics and Gynecology Patient: Chuyita Cavanaugh : 1955 (69 y.o.) Yearly Wellness Exam Date: 02/10/2025 Reason for Visit - Chief Complaint Patient presents with Gynecologic Exam Patient present for yearly, patient denies any issues or complaints at this time. 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 Patient states she has developed right hip pain and lower back pain. 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 She reports a history of incontinence, which has progressively worsened over time. She also experiences intermittent constipation, necessitating manual manipulation for relief. She expresses concern about potential side effects of estrogen cream and is considering surgical intervention as an alternative treatment She has previously undergone a DEXA scan and mammogram. Her next colonoscopy is scheduled for 07/2025. She has expressed fear regarding sexual activity due to her prolapse, even thoughher partner has not noticed any changes. SEXUAL HISTORY: She reports fear regarding sexual activity due to prolapse. She has previously attempted treatment with different sizes of pessaries, which were unsuccessful. The patient also reports a recent episode of bleeding, which prompted her return visit. She expresses interest in discussing surgical options for repair of the prolapse. history Visit Vitals BP 120/74 (BP Location: Left arm) Wt 221 lb LMP (LMP Unknown) BMI 36.78 kg/m OB Status Postmenopausal Smoking Status Never BSA 2.14 m History of Present Illness, Associated Treatments and Results - OB History Para Term AB Living 4 0 0 0 0 4 SAB IAB Ectopic Multiple Live Births 0 0 0 0 0 # Outcome Date GA Lbr Omer/2nd Weight Sex Type Anes PTL Lv 4 3 2 1 Review of Systems - Constitutional: Negative. HENT: Negative. Eyes: Negative. Respiratory: Negative. Cardiovascular: Negative. Gastrointestinal: Negative. Endocrine: Negative. Genitourinary: Negative. Musculoskeletal: Negative. Skin: Negative. Allergic/Immunologic: Negative. Neurological: Negative. Hematological: Negative. Psychiatric/Behavioral: Negative. Allergies Allergen Reactions Icy Hot Rash Lidocaine Rash Menthol Rash Current Outpatient Medications: acetaminophen (Tylenol) 325 MG tablet, Take by mouth, Disp: , Rfl: amLODIPine (Norvasc) 5 MG tablet, Take 5 mg by mouth in the morning., Disp: , Rfl: aspirin 81 MG chewable tablet, Chew 81 mg 1 (one) time each day at the same time., Disp: , Rfl: bisoprolol-hydroCHLOROthiazide (Ziac) 10-6.25 MG tablet, Take 1 tablet by mouth in the morning., Disp: , Rfl: Calcium 600-10 MG-MCG chewable tablet, Chew 1 tablet in the morning., Disp: , Rfl: glucosamine-chondroitin 500-400 MG tablet, Take 1 tablet by mouth in the morning., Disp: , Rfl: Multiple Vitamins-Minerals (Thera-M) tablet, Take 1 tablet by mouth in the morning., Disp: , Rfl: niacin (Slo-Niacin) 500 MG ER tablet, Take 500 mg by mouth at bedtime., Disp: , Rfl: omega-3 (Fish Oil) 1200 MG capsule, Take 1,200 mg by mouth 1 (one) time each day at the same time.,Disp: , Rfl: Past Medical History: Diagnosis Date Abnormal CT of the abdomen 05/09/2023 Anemia Anxiety Arthritis Breast cancer in situ 05/2008 lobular Breast lump Cataract Chicken pox COVID-19 04/2022 Depression (CMS/HCC) Disease of thyroid gland (CMS/HCC) 2020 Disorder of 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 Eczema winter Family history of cancer GERD (gastroesophageal reflux disease) Hiatal hernia History of kidney stones History of medical problems liver stenosis History of transfusion 1977 HL (hearing loss) HLD (hyperlipidemia) (CMS/HCC) HTN (hypertension) (CMS/HCC) Hypercholesterolemia (CMS/HCC) IBS (irritable bowel syndrome) Kidney stones Lobular breast cancer (CMS/HCC) 05/2008 Lung nodule Measles Menopause ovarian failure 2010 Mitral valve regurgitation Mucocele, 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 Nodule of spleen Obesity Pain in left knee 05/09/2023 Prediabetes Sleep apnea Sleep difficulties Status post total left knee replacement 10/15/2018 Thyroid mass (CMS/HCC) Urinary incontinence 2019 Past Surgical History: Procedure Laterality Date ANTERIOR CRUCIATE LIGAMENT REPAIR APPENDECTOMY 01/28/2022 BREAST BIOPSY 2007 BREAST LUMPECTOMY Left 10/2006 CARDIAC CATHETERIZATION 02/2005 CARPAL TUNNEL RELEASE Left 07/2016 CHOLECYSTECTOMY 06/2009 COLONOSCOPY 2009 FNA W IMAGING GUIDANCE Left 07/31/2021 thyroid nodule HYSTERECTOMY 2013 with LSO vaginal LITHOTRIPSY 09/2014 OTHER SURGICAL HISTORY 06/2000 repair ruptured RT ACL, Dr. Murray OTHER SURGICAL HISTORY 1982 tubal THYROIDECTOMY Left 10/09/2021 Dr. Soto TONSILLECTOMY 1960 TOTAL KNEE ARTHROPLASTY Left 10/16/2018 Dr. Murray TUBAL LIGATION 1982 Family History Problem Relation Name Age of Onset Hyperlipidemia Mother Jaja millanndluli Heart failure Mother Jaja ambrosio Diabetes Mother aJja millanndluli Uterine cancer Mother Jaja millanndluli Hearing loss Mother Jaja ambrosio Other (ASCVD) Mother Jaja ambrosio Colon polyps Mother Jaja millanndluli Hypertension Mother Jaja millanndluli Cancer Mother Jaja millanndluli Thyroid disease Mother Jaja millanndluli Heart failure Father Ari millannden Hypertension Father Ari millannden Other (ASCVD) Father Ari millannden Cancer Father Ari millannden Cancer Sister K c harnden Hearing loss Sister K c harnden Heart failure Sister K c harnden Thyroid disease Sister K c harnden Social History Tobacco Use Smoking Status Never Smokeless Tobacco Never Physical Exam - General appearance, mentation, extraocular movements, facial strength and movement, hearing, upper and lower extremity strength and tone, sensation to gross testing, coordination, and gait are normalor at baseline unless noted below. Physical Exam Constitutional: Appearance: Normal appearance. Genitourinary: Right Labia: No rash or lesions. Left Labia: No lesions or rash. No vaginal discharge or erythema. No vaginal prolapse present. No vaginal atrophy present. Right Adnexa: not tender and no mass present. Left Adnexa: not tender and no mass present. No cervical lesion. Uterus is not tender. Uterus is anteverted. Breasts: Right: Normal. No mass or nipple discharge. Left: Normal. No mass or nipple discharge. HENT: Head: Normocephalic and atraumatic. Cardiovascular: Rate and Rhythm: Normal rate and regular rhythm. Pulmonary: Breath sounds: Normal breath sounds. Abdominal: General: There is no distension. Palpations: Abdomen is soft. There is no mass. Tenderness: There is no abdominal tenderness. Musculoskeletal: General: Normal range of motion. Cervical back: Neck supple. Lymphadenopathy: Cervical: No cervical adenopathy. Neurological: Mental Status: She is alert and oriented to person, place, and time. Skin: General: Skin is warm and dry. Psychiatric: Mood and Affect: Mood normal. Rectocele /cystocele Atrophic vagina Assessment/Plan ICD-10-CM 1. Encounter for screening mammogram for malignant neoplasm of breast Z12.31 2. Osteoporosis, post-menopausal (CMS/[facility]) M81.0 3. Pessary maintenance Z46.89 4. Rectocele N81.6 Exam performed Dexa and mammogram ordered 1. Pelvic organ prolapse: - Assessment: - Ongoing pelvic organ prolapse, primarily affecting rectum with some bladder involvement - Causing significant distress, impacting sexual activity due to fear and discomfort - Previous pessary fitting unsuccessful - Prolapse beyond stage where conservative measures alone would be effective - Plan: a) Refer to for surgical evaluation and potential repair b) Prescribe estrogen cream for local application c) Order pelvic floor physical therapy d) Discuss surgical option, including: - Potential for imperfect or non-permanent results - Possibility of requiring repeat surgery - Potential referral to [facility] if repeat surgery needed e) Patient to schedule appointment with Dr. Alfred for consultation f) Emphasize that consultation does not obligate patient to proceed with surgery Assessment & Plan documented in this encounterMiss[facility] [id number] History of Present illness Narrative* Jr. Juliana Murray, DO - 12/29/2024 9:45 AM EDTAssociated Order(s): L Inj/Asp: R knee Post-Procedure Diagnose(s): Acute pain of right knee Images from the original note were not included. HISTORY OF PRESENT ILLNESS: EST PT Chuyita Cavanaugh is an 69 y.o. @ female. (EST PT) - RECHECK (R) KNEE ; HERE FOR POSSIBLE INJECTION NO RECENT XRAYS NO MRI NO MDP / PREDNISONE NO CORTISONE INJ NO PT NO PAIN MGMT NO BONE SCAN PT INTERESTED IN CORTISONE INJ TODAY. WORSENING DISCOMFORT FOR YEARS - NOTED A POP LATERALLY 10/30/24 (~6 WKS). PAIN MEDIALLY AND CAN RADIATE INTO TROY. UNSURE OF SWELLING. ADMITS TINGLING IN LOWER LEG. DENIES NUMBNESS. LIMITED ROM WITH FLEXION D/T DISCOMFORT. SOME TIGHTNESS / STIFFNESS. ADMITS SOME DISCOMFORT WITH KNEELING @ MASS. ADMITS WEAKNESS WITH LUNGING / EXERCISE. TYL PRN. DENIES ICING /HEATING. ADMITS ELEVATING. DONNA: 10/30/24 - NOTED A POP LATERALLY TO KNEE - INCREASED DISCOMFORT ALLERGIES: Allergies Allergen Reactions Icy Hot Rash Lidocaine Rash Menthol Rash HOME MEDICATIONS: Current Outpatient Medications Medication Instructions acetaminophen (Tylenol) 325 MG tablet Take by mouth amLODIPine (NORVASC) 5 mg, Daily RT aspirin 81 mg, Every 24 hours bisoprolol-hydroCHLOROthiazide (Ziac) 10-6.25 MG tablet 1 tablet, Daily RT Calcium 600-10 MG-MCG chewable tablet 1 tablet, Daily glucosamine-chondroitin 500-400 MG tablet 1 tablet, Daily Multiple Vitamins-Minerals (Thera-M) tablet 1 tablet, Daily RT niacin (SLO-NIACIN) 500 mg, Nightly omega-3 (FISH OIL) 1,200 mg, Every 24 hours PHYSICAL EXAM: Knee Musculoskeletal Exam Gait Gait is normal. Limp: right Inspection Leg length disparity: no discrepancy Left Erythema: none Effusion: none Edema: none Ecchymosis: none Deformity: none Alignment: normal Previous incision: anterior and arthroscopic portals Incision: well-healed Palpation Left Left knee palpation is unremarkable. Increased warmth: none Masses: none Tenderness: none Range of Motion Left Left knee range of motion is normal and full. Active extension: 5 Passive extension: 0 Active flexion: 120 Passive flexion: 120 Strength Left Left knee strength is normal. Extension: 5/5. Flexion: 5/5. Instability Left Instability signs: none - stable Varus stress grade: normal Valgus stress grade: normal Neurovascular Left Left knee neurovascular exam is normal. Pulses - PT: normal Posterior tibial: 2+ Capillary refill: warm and well-perfused Special Signs Left Left knee special signs are normal. Patellar apprehension: none General Constitutional: appears stated age Labored breathing: no Psychiatric: normal mood and affect Neurological: alert Skin: intact Lymphadenopathy: none Vitals: There is no height or weight on file to calculate BMI. Tobacco Use: Low Risk (12/29/2024) Patient History Smoking Tobacco Use: Never Smokeless Tobacco Use: Never Passive Exposure: Not on file Alcohol Use: Not At Risk (02/04/2024) AUDIT-C Frequency of Alcohol Consumption: Never Average Number of Drinks: Patient does not drink Frequency of Binge Drinking: Never IMAGING: L Inj/Asp: R knee on 12/29/2024 10:38 AM Indications: pain Details: 21 G needle, anterolateral approach Medications: 40 mg methylPREDNISolone acetate 40 MG/ML Outcome: tolerated well, no immediate complications SKIN PREPPED / CLEANED WITH ISOPROPYL ALCOHOL Procedure, treatment alternatives, risks and benefits explained, specific risks discussed. Consent was given by the patient. Orders Placed This Encounter Procedures L Inj/Asp: R knee This order was created via procedure documentation ASSESSMENT: ICD-10-CM 1. Acute pain of right knee M25.561 L Inj/Asp: R knee 2. Primary osteoarthritis of right knee M17.11 PLAN: We have injected her under sterile technique today with after obtaining informed consent to the right knee without incident. Patient is going to return in 3 months and discuss Right total knee arthroplasty with removal of ACL screws in late July 2025. Questions answered in laymen terms at the bedside. The diagnosis, home exercise plan and any ongoing restrictions/ recommendations reviewed. If unable to be reached in office, I recommend evaluation at nearest Emergency Room if any symptoms worsened or new symptoms develop for requiring urgent evaluation. documented in this encounterMissouri Baptist Medical [id number] NotePatient Education Nutrition BMI for Adults Body mass index (BMI) is a number found using a person's weight and height. BMI can help tell how much of a person's weight is made up of fat. BMI does not measure body fat directly. It is used instead of tests that directly measure body fat, which can be difficult and expensive. What are BMI measurements used for? BMI is useful to: ??? Find out if your weight puts you at higher risk for medical problems. ??? Help recommend changes, such as in diet and exercise. This can help you reach a healthy weight.BMI screening can be done again to see if these changes are working. How is BMI calculated? Your height and weight are measured. The BMI is found from those numbers. This can be done with U.S. or metric measurements. Note that charts and online BMI calculators are available to help you findyour BMI quickly and easily without doing these calculations. To calculate your BMI in U.S. measurements: 1. Measure your weight in pounds (lb). 2. Multiply the number of pounds by 703. ??? So, for an adult who weighs 150 lb, multiply that number by 703: 150 x 703, which equals 105,450. 3. Measure your height in inches. Then multiply that number by itself to get a measurement called inches squared. ??? So, for an adult who is 70 inches tall, the inches squared measurement is 70 inches x 70 inches, which equals 4,900 inches squared. 4. Divide the total from step 2 (number of lb x 703) by the total from step 3 (inches squared): 105,450 ? 4,900 = 21.5. This is your BMI. To calculate your BMI in metric measurements: 1. Measure your weight in kilograms (kg). ??? For this example, the weight is 70 kg. 2. Measure your height in meters (m). Then multiply that number by itself to get a measurement called meters squared. ??? So, for an adult who is 1.75 m tall, the meters squared measurement is 1.75 m x 1.75 m, whichequals 3.1 meters squared. 3. Divide the number of kilograms (your weight) by the meters squared number. In this example: 70 ?3.1 = 22.6. This is your BMI. What do the results mean? BMI charts are used to see if you are underweight, normal weight, overweight, or obese. The following guidelines will be used: ??? Underweight: BMI less than 18.5. ??? Normal weight: BMI between 18.5 and 24.9. ??? Overweight: BMI between 25 and 29.9. ??? Obese: BMI of 30 or above. BMI is a tool and cannot diagnose a condition. Talk with your health care provider about what your BMI means for you. Keep these notes in mind: ??? Weight includes fat and muscle. Someone with a muscular build, such as an athlete, may have a BMI that is higher than 24.9. In cases like these, BMI is not a correct measure of body fat. ??? If you have a BMI of 25 or higher, your provider may need to do more testing to find out if excess body fat is the cause. ??? BMI is measured the same way for males and females. Females usually have more body fat than males of the same height and weight. Where to find more information For more information about BMI, including tools to quickly find your BMI, go to: ??? Centers for Disease Control and Prevention: cdc.gov ??? [place] [employer]: heart.org ??? National Heart, Lung, and Blood [place]: nhlbi.nih.gov This information is not intended to replace advice given to you by your health care provider. Make sure you discuss any questions you have with your health care provider. Document Revised: 05/22/2023 Document Reviewed: 05/15/2023 [employer] Patient Education ? 2023 [employer] 12-08-2024 History of Present illness Narrative* Jr. Juliana Murray, - 12/08/2024 9:30 AM EDT Images from the original note were not included. HISTORY OF PRESENT ILLNESS: EST PT Chuyita Cavanaugh is an 69 y.o. @ female. (EST PT) - 2-YR RECHECK S/P (L) TKA 10/16/18 (~6 YRS, 2 MONTHS) NEW ONSET (R) KNEE DISCOMFORT ~6 WKS XRAY TODAY, 3/26/25 IN EPIC XRAY EXA 12/11/22 XRAYS 11/20/20 IN EXA NO MDP / PREDNISONE FINISHED PHYSICAL THERAPY ; POST-OP NO PAIN MGMT NO BONE SCAN DOING WELL. SOME LIMITATION WITH FLEXION - GOOD ROM. PT WALKS ~4 MILES/DAY. DENIES CATCHING / POPPING / GRINDING / SWELLING. (R) KNEE: NEW ONSET DISCOMFORT ~6 WKS (~10/30/24) - FELT A POP LATERALLY. PAIN MEDIALLY / LATERALY AND CAN RADIATE INTO TROY. ADMITS SOME DISCOMFORT WITH KNEELING @ MASS. ADMITS WEAKNESS WITH LUNGING / EXERCISE. TYL PRN. DENIES ICING / ELEVATING. OLD NOTE: DOING WELL. PT IS PLEASED- SHE NOTES SOME LIMITATION WITH ROM- PT WALKS ~3MILES DAILY- OCCASSIONAL CATCHING. ALLERGIES: Allergies Allergen Reactions Icy Hot Rash Lidocaine Rash Menthol Rash HOME MEDICATIONS: Current Outpatient Medications Medication Instructions acetaminophen (Tylenol) 325 MG tablet Take by mouth amLODIPine (NORVASC) 5 mg, Daily RT aspirin 81 mg, Every 24 hours bisoprolol-hydroCHLOROthiazide (Ziac) 10-6.25 MG tablet 1 tablet, Daily RT Calcium 600-10 MG-MCG chewable tablet 1 tablet, Daily glucosamine-chondroitin 500-400 MG tablet 1 tablet, Daily Multiple Vitamins-Minerals (Thera-M) tablet 1 tablet, Daily RT niacin (SLO-NIACIN) 500 mg, Nightly omega-3 (FISH OIL) 1,200 mg, Every 24 hours PHYSICAL EXAM: Knee Musculoskeletal Exam Gait Gait is normal. Inspection Leg length disparity: no discrepancy Left Erythema: none Effusion: none Edema: none Ecchymosis: none Deformity: none Alignment: normal Previous incision: anterior Incision: well-healed Palpation Left Left knee palpation is unremarkable. Increased warmth: none Masses: none Tenderness: none Range of Motion Left Left knee range of motion is normal and full. Active extension: 0 Passive extension: 0 Active flexion: 120 Passive flexion: 120 Strength Left Left knee strength is normal. Extension: 5/5. Flexion: 5/5. Instability Left Instability signs: none - stable Varus stress grade: normal Valgus stress grade: normal Neurovascular Left Left knee neurovascular exam is normal. Pulses - PT: normal Posterior tibial: 2+ Capillary refill: warm and well-perfused Special Signs Left Left knee special signs are normal. Patellar apprehension: none General Constitutional: appears stated age Labored breathing: no Psychiatric: normal mood and affect Neurological: alert Skin: intact Lymphadenopathy: none Vitals: There is no height or weight on file to calculate BMI. Tobacco Use: Low Risk (11/02/2024) Patient History Smoking Tobacco Use: Never Smokeless Tobacco Use: Never Passive Exposure: Not on file Alcohol Use: Not At Risk (02/04/2024) AUDIT-C Frequency of Alcohol Consumption: Never Average Number of Drinks: Patient does not drink Frequency of Binge Drinking: Never IMAGING: XR knee 1 or 2 views left Imaging Result: AP and lateral of left knee showed surgical position and alignment of prosthetic components withoutevidence of loosening or wear to the femoral, tibial, or patellar components. The alignment appeared to be anatomic. There was no evidence of accelerated or asymmetric wear to the patellar button or tibial tray. There was no evidence of fracture and/or dislocation. Impression: Unremarkable left total knee arthroplasty. Procedures Orders Placed This Encounter Procedures XR knee 1 or 2 views left Order Specific Question: Views Answer: AP Order Specific Question: Views Answer: Lateral Order Specific Question: Reason for exam: Answer: Pain ASSESSMENT: ICD-10-CM 1. History of left knee replacement Z96.652 2. Acute pain of left knee M25.562 XR knee 1 or 2 views left PLAN: Left knee is progressing very well patient is very pleased with her progress. Right knee is beginning to become become arthritic. We have discussed her right knee with her at length. She has history of an ACL reconstruction 20 years ago at [facility]. We'll see her back in a month if her symptoms persist or worsen to her right knee we will recommend a cortisone injection at that time. Questions answered in laymen terms at the bedside. The diagnosis, home exercise plan and any ongoing restrictions/ recommendations reviewed. If unable to be reached in office, I recommend evaluation at nearest Emergency Room if any symptoms worsened or new symptoms develop for requiring urgent evaluation. documented in this encounterMissouri Baptist Medical [id number] History of Present illness Narrative* Chetan Soto MD - 11/02/2024 8:00 AM EST Subjective Patient ID: Chuyita Cavanaugh is a 69 y.o. female who presents for Thyroid Cancer (6 month ultrasound [facility] 10/19/24) US shows a secrease in the size of left isthmus nodule from 17 to 13mm Family History Problem Relation Name Age of Onset Hyperlipidemia Mother Jaja ambrosio Heart failure Mother Jaja ambrosio Diabetes Mother Jaja ambrosio Uterine cancer Mother Jaja ambrosio Hearing loss Mother Jaja ambrosio Other (ASCVD) Mother Jaja ambrosio Colon polyps Mother Jaja ambrosio Hypertension Mother Jaja millanndluli Cancer Mother Jaja ambrosio Thyroid disease Mother Jaja ambrosio Heart failure Father Ari harnden Hypertension Father Ari millannden Other (ASCVD) Father Ari millannden Cancer Father Ari harnden Cancer Sister K c harnden Hearing loss Sister K c harnden Heart failure Sister K c harnden Thyroid disease Sister K c harnden Active Ambulatory Problems Diagnosis Date Noted Hypothyroidism (CMS/HCC) 05/09/2023 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 Presence of left artificial knee joint 05/09/2023 Primary osteoarthritis of left knee 05/09/2023 Thyroid mass (CMS/HCC) 05/09/2023 IBS (irritable bowel syndrome) 05/09/2023 Liver disease 05/09/2023 Hypertension (CMS/HCC) 05/09/2023 Anemia 05/09/2023 Mitral valve regurgitation 05/09/2023 Lung nodule 05/09/2023 Nodule of spleen 05/09/2023 Thyroid nodule (CMS/HCC) 07/09/2023 Abdominal cramping 05/10/2024 Abdominal pain 11/02/2024 Abnormal liver function tests 03/21/2011 Abnormal radiographic examination 07/14/2013 Atherosclerosis of abdominal aorta (CMS/HCC) 11/02/2024 Atypical endometrial hyperplasia 07/14/2013 BMI 40.0-44.9, adult (CMS/HCC) 11/02/2024 Change in bowel habit 05/10/2024 Diarrhea 05/10/2024 Dilation of aorta (CMS/HCC) 11/02/2024 Dysphagia 05/10/2024 Dyspnea 05/10/2024 Electrocardiogram abnormal 07/22/2013 Epigastric pain 05/10/2024 Hemorrhoids 05/10/2024 Hyperglycemia 05/10/2024 Resolved Ambulatory Problems Diagnosis Date Noted Abnormal CT of the abdomen 05/09/2023 Disorder of 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 Mucocele, 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 Pain in left knee 05/09/2023 Status post total left knee replacement 10/15/2018 Past Medical History: Diagnosis Date Anxiety Arthritis Breast cancer in situ 05/2008 Breast lump Cataract Chicken pox COVID-19 04/2022 Depression (CMS/HCC) Disease of thyroid gland (CMS/HCC) 2020 Eczema Family history of cancer GERD (gastroesophageal reflux disease) Hiatal hernia History of kidney stones History of medical problems History of transfusion 1977 HL (hearing loss) HLD (hyperlipidemia) (CMS/HCC) HTN (hypertension) (CMS/HCC) Hypercholesterolemia (CMS/HCC) Kidney stones Lobular breast cancer (CMS/HCC) 05/2008 Measles Menopause ovarian failure 2010 Obesity Prediabetes Sleep apnea Sleep difficulties Urinary incontinence 2019 Past Surgical History: Procedure Laterality Date APPENDECTOMY 01/28/2022 BREAST BIOPSY 2007 BREAST LUMPECTOMY Left 10/2006 CARDIAC CATHETERIZATION 02/2005 CARPAL TUNNEL RELEASE Left 07/2016 CHOLECYSTECTOMY 06/2009 COLONOSCOPY 2009 FNA W IMAGING GUIDANCE Left 07/31/2021 thyroid nodule HYSTERECTOMY 2013 with LSO vaginal LITHOTRIPSY 09/2014 OTHER SURGICAL HISTORY 06/2000 repair ruptured RT ACL, Dr. Murray OTHER SURGICAL HISTORY 1982 tubal THYROIDECTOMY Left 10/09/2021 Dr. Soto TONSILLECTOMY 1960 TOTAL KNEE ARTHROPLASTY Left 10/16/2018 Dr. Murray TUBAL LIGATION 1982 Allergies Allergen Reactions Icy Hot Rash Lidocaine Rash Menthol Rash Current Outpatient Medications on File Prior to Visit Medication Sig Dispense Refill acetaminophen (Tylenol) 325 MG tablet Take by mouth amLODIPine (Norvasc) 5 MG tablet Take 5 mg by mouth in the morning. aspirin 81 MG chewable tablet Chew 81 mg 1 (one) time each day at the same time. bisoprolol-hydroCHLOROthiazide (Ziac) 10-6.25 MG tablet Take 1 tablet by mouth in the morning. Calcium 600-10 MG-MCG chewable tablet Chew 1 tablet in the morning. glucosamine-chondroitin 500-400 MG tablet Take 1 tablet by mouth in the morning. Multiple Vitamins-Minerals (Thera-M) tablet Take 1 tablet by mouth in the morning. niacin (Slo-Niacin) 500 MG ER tablet Take 500 mg by mouth at bedtime. omega-3 (Fish Oil) 1200 MG capsule Take 1,200 mg by mouth 1 (one) time each day at the same time. No current facility-administered medications on file prior to visit. Objective Last Recorded Vitals Vitals: 11/02/24 0759 BP: 124/76 Pulse: 60 ENT Physical Exam Constitutional Appearance: patient appears well-developed, well-nourished and well-groomed, Communication/Voice: communication appropriate for developmental age; vocal quality normal; Assessment/Plan Diagnoses and all orders for this visit: Papillary microcarcinoma of thyroid (CMS/HCC) Very reassuring US. 3 years since surgery. Start annual US documented in this encounterMissouri Baptist Medical [id number] Radiology Diagnostic study [facility] [place] [address] [place] [address] Ultrasound Report Signed Patient: Chuyita Cavanaugh MR#: [id number] : 1955 Acct:[id number] Age/Sex: 69 / F ADM Date: 5 Loc: Room: Type: [facility] Attending Dr: Chetan Soto Jr, MD Ordering Provider: CHETAN SOTO MD Date of Service: 10/19/24 US/US thyroid: C73 E04.1 Copies to: CEHTAN SOTO MD~ US thyroid 10/19/2024 7:19 AM SIGNS AND [...] Freddy Jackson M.D.10/19/2024 10:49 AM Dictation Location: [place] [address] Tech: Viji Hancock Transcribed By: DANIEL 10/19/24 104 Dictated By: Freddy Jackson II, MD 10/19/241044 Signed By: 10/19/24 104 [facility] Work Phone: [phone]) 638-185712-09-2024 NoteNurse Consultation Note Reason for Visit Pt presents today for lab draw. Medications amLODIPine 5 mg Tab, 5 mg= 1 tab(s), Oral, Daily, 1 refills amoxicillin Aspir 81, 81 mg, Oral, Daily bisoprolol-hydrochlorothiazide 10 mg-6.25 mg Tab, 1 tab(s), Oral, Daily, 1 refills calcium-vitamin D, 600 mg, Daily Chondroitin-Glucosamine, 1 cap(s), Oral, Daily Claritin 10 mg Tab, 10 mg= 1 tab(s), Oral, Daily, PRN Fish Oil, 1200 mg, Oral, Daily Multivitamins and Minerals niacin, 500 mg, Oral, Daily Patient Specific Meds Allergies Icy Hot (Rash) lidocaine (Unknown Reaction) Immunizations Vaccine Date Status Comments zoster vaccine, inactivated 08/02/2024 Recorded influenza virus vaccine, inactivated 06/29/2024 Recorded zoster vaccine, inactivated 05/21/2024 Recorded influenza virus vaccine, inactivated 06/19/2023 Recorded influenza virus vaccine, inactivated - Not Given Patient Refuses pneumococcal 20-valent conjugate vaccine 04/02/2022 Recorded SARS-CoV-2 (COVID-19) mRNA-1273 vaccine 08/28/2021 Recorded 2023-06-17: [id number] influenza virus vaccine, inactivated 06/25/2021 Recorded SARS-CoV-2 (COVID-19) mRNA-1273 vaccine 12/06/2020 Recorded SARS-CoV-2 (COVID-19) mRNA-1273 vaccine 11/09/2020 Recorded influenza virus vaccine, inactivated 06/06/2020 Recorded influenza virus vaccine, inactivated 06/07/2019 Recorded influenza virus vaccine, inactivated 06/17/2018 Recorded diphtheria/pertussis, acel/tetanus adult 05/20/2017 [facility] NotePatient Education Cardiovascular Hypertension, Adult Hypertension is another name for high blood pressure. High blood pressure forces your heart to workharder to pump blood. This can cause problems over time. There are two numbers in a blood pressure reading. There is a top number (systolic) over a bottom number (diastolic). It is best to have a blood pressure that is below 120/80. What are the causes? The cause of this condition is not known. Some other conditions can lead to high blood pressure. What increases the risk? Some lifestyle factors can make you more likely to develop high blood pressure: ??? Smoking. ??? Not getting enough exercise or physical activity. ??? Being overweight. ??? Having too much fat, sugar, calories, or salt (sodium) in your diet. ??? Drinking too much alcohol. Other risk factors include: ??? Having any of these conditions: ? Heart disease. ? Diabetes. ? High cholesterol. ? Kidney disease. ? Obstructive sleep apnea. ??? Having a family history of high blood pressure and high cholesterol. ??? Age. The risk increases with age. ??? Stress. What are the signs or symptoms? High blood pressure may not cause symptoms. Very high blood pressure (hypertensive crisis) may cause: ??? Headache. ??? Fast or uneven heartbeats (palpitations). ??? Shortness of breath. ??? Nosebleed. ??? Vomiting or feeling like you may vomit (nauseous). ??? Changes in how you see. ??? Very bad chest pain. ??? Feeling dizzy. ??? Seizures. How is this treated? This condition is treated by making healthy lifestyle changes, such as: ? Eating healthy foods. ? Exercising more. ? Drinking less alcohol. ??? Your doctor may prescribe medicine if lifestyle changes do not help enough and if: ? Your top number is above 130. ? Your bottom number is above 80. ??? Your personal target blood pressure may vary. Follow these instructions at home: Eating and drinking ??? If told, follow the DASH eating plan. To follow this plan: ? Fill one half of your plate at each meal with fruits and vegetables. ? Fill one fourth of your plate at each meal with whole grains. Whole grains include whole-wheat pasta, brown rice, and whole-grain bread. ? Eat or drink low-fat dairy products, such as skim milk or low-fat yogurt. ? Fill one fourth of your plate at each meal with low-fat (lean) proteins. Low- fat proteins includefish, chicken without skin, eggs, beans, and tofu. ? Avoid fatty meat, cured and processed meat, or chicken with skin. ? Avoid pre-made or processed food. ??? Limit the amount of salt in your diet to less than 1,500 mg each day. ??? Do not drink alcohol if: ? Your doctor tells you not to drink. ? You are , may be , or are planning to become . ??? If you drink alcohol: ? Limit how much you have to: ? 0?1 drink a day for women. ? 0?2 drinks a day for men. ? Know how much alcohol is in your drink. In the [place] one drink equals one 12 oz bottle of beer (355 mL), one 5 oz glass of wine (148 mL), or one 1? oz glass of hard liquor (44 mL). Lifestyle ??? Work with your doctor to stay at a healthy weight or to lose weight. Ask your doctor what the best weight is for you. ??? Get at least 30 minutes of exercise that causes your heart to beat faster (aerobic exercise) most days of the week. This may include walking, swimming, or biking. ??? Get at least 30 minutes of exercise that strengthens your muscles (resistance exercise) at least 3 days a week. This may include lifting weights or doing Pilates. ??? Do not smoke or use any products that contain nicotine or tobacco. If you need help quitting, ask your doctor. ??? Check your blood pressure at home as told by your doctor. ??? Keep all follow-up visits. Medicines ??? Take [id number]-kiukqtj and prescription medicines only as told by your doctor. Follow directionscarefully. ??? Do not skip doses of blood pressure medicine. The medicine does not work as well if you skip doses. Skipping doses also puts you at risk for problems. ??? Ask your doctor about side effects or reactions to medicines that you should watch for. Contact a doctor if: ??? You think you are having a reaction to the medicine you are taking. ??? You have headaches that keep coming back. ??? You feel dizzy. ??? You have swelling in your ankles. ??? You have trouble with your vision. Get help right away if: ??? You get a very bad headache. ??? You start to feel mixed up (confused). ??? You feel weak or numb. ??? You feel faint. ??? You have very bad pain in your: ? Chest. ? Belly (abdomen). ??? You vomit more than once. ??? You have trouble breathing. These symptoms may be an emergency. Get help right away. Call 911. ??? Do not wait to see if the symptoms will go away. ??? Do not drive yourself to the hospital. Summary ??? Hypertension is a (more content not included)...[facility] 06-24-2024 NotePatient Education Nutrition BMI for Adults Body mass index (BMI) is a number found using a person's weight and height. BMI can help tell how much of a person's weight is made up of fat. BMI does not measure body fat directly. It is used instead of tests that directly measure body fat, which can be difficult and expensive. What are BMI measurements used for? BMI is useful to: ? Find out if your weight puts you at higher risk for medical problems. ? Help recommend changes, such as in diet and exercise. This can help you reach a healthy weight. BMI screening can be done again to see if these changes are working. How is BMI calculated? Your height and weight are measured. The BMI is found from those numbers. This can be done with U.[place] or metric measurements. Note that charts and online BMI calculators are available to help you findyour BMI quickly and easily without doing these calculations. To calculate your BMI in [place] measurements: 1. Measure your weight in pounds (lb). 2. Multiply the number of pounds by 703. ? So, for an adult who weighs 150 lb, multiply that number by 703: 150 x 703, which equals 105,450. 3. Measure your height in inches. Then multiply that number by itself to get a measurement called inches squared. ? So, for an adult who is 70 inches tall, the inches squared measurement is 70 inches x 70 inches, which equals 4,900 inches squared. 4. Divide the total from step 2 (number of lb x 703) by the total from step 3 (inches squared): 105,450 ? 4,900 = 21.5. This is your BMI. To calculate your BMI in metric measurements: 1. Measure your weight in kilograms (kg). ? For this example, the weight is 70 kg. 2. Measure your height in meters (m). Then multiply that number by itself to get a measurement called meters squared. ? So, for an adult who is 1.75 m tall, the meters squared measurement is 1.75 m x 1.75 m, which equals 3.1 meters squared. 3. Divide the number of kilograms (your weight) by the meters squared number. In this example: 70 ?3.1 = 22.6. This is your BMI. What do the results mean? BMI charts are used to see if you are underweight, normal weight, overweight, or obese. The following guidelines will be used: ? Underweight: BMI less than 18.5. ? Normal weight: BMI between 18.5 and 24.9. ? Overweight: BMI between 25 and 29.9. ? Obese: BMI of 30 or above. BMI is a tool and cannot diagnose a condition. Talk with your health care provider about what your BMI means for you. Keep these notes in mind: ? Weight includes fat and muscle. Someone with a muscular build, such as an athlete, may have a BMIthat is higher than 24.9. In cases like these, BMI is not a correct measure of body fat. ? If you have a BMI of 25 or higher, your provider may need to do more testing to find out if excess body fat is the cause. ? BMI is measured the same way for males and females. Females usually have more body fat than malesof the same height and weight. Where to find more information For more information about BMI, including tools to quickly find your BMI, go to: ? Centers for Disease Control and Prevention: cdc.gov ? [place] [employer]: heart.org ? National Heart, Lung, and Blood [place]: nhlbi.nih.gov This information is not intended to replace advice given to you by your health care provider. Make sure you discuss any questions you have with your health care provider. Document Revised: 05/22/2023 Document Reviewed: 05/15/2023 [employer] Patient Education ? 2023 [employer]ari[employer].[facility] Chief Complaint: Patient here for 1 year follow up mitral valve regurgitation, dilatation of aorta, and hypertension. She has lost some weight and feels good. HPI: Chuyita Cavanaugh is a 68 y.o. female Here with routine follow-up Doing well from a cardiac standpoint Also talked about Celebrex versus Tylenol for pain; has a history of abnormal liver function test many years ago Cardiology ROS: Past Medical History She has no past medical history on file. Surgical History She has no past surgical history on file. Social History She has no history on file for tobacco use, alcohol use, and drug use. Family History No family history on file. Allergies Methyl salicylate-menthol, Lidocaine, and Menthol Medications Current Outpatient Medications: amLODIPine (Norvasc) 5 mg tablet, Take 1 tablet (5 mg) by mouth in the morning., Disp: 90 tablet, Rfl: 3 aspirin 81 mg chewable tablet, Chew 81 mg., Disp: , Rfl: bisoproloL-hydrochlorothiazide (Ziac) 10-6.25 mg tablet, Take 1 tablet by mouth in the morning., Disp: 90 tablet, Rfl: 3 calcium carbonate-vitamin D3 500 mg-5 mcg (200 unit) tablet, Take 1 tablet by mouth., Disp: , Rfl: glucosamine-chondroitin 500-400 mg tablet, Take 1 tablet by mouth 3 times a day., Disp: , Rfl: multivitamin (Theragran-M) 9 mg iron-400 mcg tablet, Take 1 tablet by mouth in the morning., Disp: , Rfl: niacin (Slo-Niacin) 500 mg ER tablet, Take 1 tablet every day by oral route for 90 days., Disp: , Rfl: Last Recorded Vitals BP 105/74 (BP Location: Right arm, Patient Position: Sitting) Pulse 58 Ht 1.676 m (5' 6 ) Wt 111 kg (244 lb) SpO2 95% BMI 39.38 kg/m??? Physical Examination: GENERAL: alert and oriented x3, well developed, in no acute distress. HEAD: atraumatic, normocephalic. EYES: LINUS, EOMI. NECK: trachea midline, no JVD present, no carotid bruits present. CARDIAC: S1, S2 present. RRR. No murmur, rubs, or gallops. RESPIRATORY: CTAB, no increased effort of breathing, no rales, rhonchi, or wheezing. ABDOMEN: soft, nontender, nondistended. EXTREMITIES: no lower extremity edema, peripheral pulses are 2+ bilaterally. No rash/skin discoloration present. NEURO: strength/sensation equal and symmetric in bilateral upper and lower extremities. PSYCH: appropriate mood, affect, and judgement. Investigations: Echocardiogram 03/12/2023: Normal ventricular systolic function. LVEF is 55 to 60% Normal diastolic function Mild mitral regurgitation Normal right sided pressures The aortic root is normal in diameter. Labs 03/19/2023: Triglycerides 90, cholesterol 181, HDL 60, LDL 103 Assessment: Dyspnea Essential hypertension Hyperlipidemia Mitral valve regurgitation Mild to moderate 2019 Dilatation of aorta - -ECHO 02/2021 noted AscAo at 3.7 cm - Nml on echo 03/2023 Plan: Continue current medical therapy Monitor heart rate and blood pressure Will need serial monitoring of her valvular heart disease; given most recent results, can repeat next year Return to clinic in 1 year or sooner should problems arise Chapito Hercules MD, MPH, FACC, PSYCHIATRIC, [facility] Interventional Cardiology Pager Email: [email or web address]08-28-2024 History of Present illness Narrative* Chetan Soto MD - 05/12/2024 8:30 AM EDT Subjective Patient ID: Chuyita Cavanaugh is a 68 y.o. female who presents for Thyroid Cancer (6 mo follow up with ultrasound) US shows mult subcentimeter RT nodules and a 17mm isthmus nodule compare to 15mm previously. Sept FNA with afirma benign. Family History Problem Relation Name Age of Onset Hyperlipidemia Mother Jaja ambrosio Heart failure Mother Jaja ambrosio Diabetes Mother Jaja ambrosio Uterine cancer Mother Jaja ambrosio Hearing loss Mother Jaja ambrosio Other (ASCVD) Mother Jaja ambrosio Colon polyps Mother Jaja ambrosio Hypertension Mother Jaja ambrosio Cancer Mother Jaja ambrosio Thyroid disease Mother Jaja ambrosio Heart failure Father Ari ambrosio Hypertension Father Ari ambrosio Other (ASCVD) Father Ari ambrosio Cancer Father Ari ambrosio Cancer Sister Michi c harndluli Hearing loss Sister K c harnden Heart failure Sister K c harnden Thyroid disease Sister Michi c yanandluli Active Ambulatory Problems Diagnosis Date Noted Hypothyroidism (CMS/HCC) 05/09/2023 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 Presence of left artificial knee joint 05/09/2023 Primary osteoarthritis of left knee 05/09/2023 Thyroid mass (CMS/HCC) 05/09/2023 IBS (irritable bowel syndrome) 05/09/2023 Liver disease 05/09/2023 Hypertension (CMS/HCC) 05/09/2023 Anemia 05/09/2023 Mitral valve regurgitation 05/09/2023 Lung nodule 05/09/2023 Nodule of spleen 05/09/2023 Thyroid nodule (CMS/HCC) 07/09/2023 Resolved Ambulatory Problems Diagnosis Date Noted Abnormal CT of the abdomen 05/09/2023 Disorder of 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 Mucocele, 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 Pain in left knee 05/09/2023 Status post total left knee replacement 10/15/2018 Past Medical History: Diagnosis Date Anxiety Arthritis Breast cancer in situ 05/2008 Breast lump Cataract Chicken pox COVID-19 04/2022 Depression (CMS/HCC) Disease of thyroid gland (CMS/HCC) 2020 Eczema Family history of cancer Hiatal hernia History of kidney stones History of medical problems History of transfusion 1977 HL (hearing loss) HLD (hyperlipidemia) (CMS/HCC) HTN (hypertension) (CMS/HCC) Hypercholesterolemia (CMS/HCC) Kidney stones Lobular breast cancer (CMS/HCC) 05/2008 Measles Menopause ovarian failure 2010 Obesity Prediabetes Sleep apnea Sleep difficulties Urinary incontinence 2019 Past Surgical History: Procedure Laterality Date APPENDECTOMY 01/28/2022 BREAST BIOPSY 2007 BREAST LUMPECTOMY Left 10/2006 CARDIAC CATHETERIZATION 02/2005 CARPAL TUNNEL RELEASE Left 07/2016 CHOLECYSTECTOMY 06/2009 COLONOSCOPY 2009 FNA W IMAGING GUIDANCE Left 07/31/2021 thyroid nodule HYSTERECTOMY 2012 with LSO vaginal LITHOTRIPSY 09/2014 OTHER SURGICAL HISTORY 06/2000 repair ruptured RT ACL, Dr. Murray OTHER SURGICAL HISTORY 1982 tubal THYROIDECTOMY Left 10/09/2021 Dr. Soto TONSILLECTOMY 196 TOTAL KNEE ARTHROPLASTY Left 10/16/2018 Dr. Murray TUBAL LIGATION 1982 Allergies Allergen Reactions Icy Hot Rash Lidocaine Rash Menthol Rash Current Outpatient Medications on File Prior to Visit Medication Sig Dispense Refill aspirin 81 MG chewable tablet Chew 81 mg 1 (one) time each day at the same time. Calcium 600-10 MG-MCG chewable tablet Chew 1 tablet in the morning. glucosamine-chondroitin 500-400 MG tablet Take 1 tablet by mouth in the morning. Multiple Vitamins-Minerals (Thera-M) tablet Take 1 tablet by mouth in the morning. niacin (Slo-Niacin) 500 MG ER tablet Take 500 mg by mouth at bedtime. omega-3 (Fish Oil) 1200 MG capsule Take 1,200 mg by mouth 1 (one) time each day at the same time. amLODIPine (Norvasc) 5 MG tablet Take 5 mg by mouth in the morning. bisoprolol-hydroCHLOROthiazide (Ziac) 10-6.25 MG tablet Take 1 tablet by mouth in the morning. [DISCONTINUED] Vaginal Lubricant (Rephresh Odor Eliminating) gel Insert 1 Applicatorful into the vagina 2 (two) times a week 2 g 3 No current facility-administered medications on file prior to visit. Objective Last Recorded Vitals Vitals: 05/12/24 0830 BP: 124/71 ENT Physical Exam Constitutional Appearance: patient appears well-developed, well-nourished and well-groomed, Communication/Voice: communication appropriate for developmental age; vocal quality normal; Assessment/Plan Diagnoses and all orders for this visit: Papillary microcarcinoma of thyroid (CMS/HCC) Stable US. Repeat US 6 mo [id number] Discharge instructions Patient Education 07/28/2023 08:46:27 Dysphagia Dysphagia Dysphagia is trouble swallowing. This condition occurs when solids and liquids stick in a person's throat on the way down to the stomach, or when food takes longer to get to the stomach than usual. You may have problems swallowing food, liquids, or both. You may also have pain while trying to swallow. It may take you more time and effort to swallow something. What are the causes? This condition may be caused by: Muscle problems. These may make it difficult for you to move food and liquids through the esophagus, which is the tube that connects your mouth to your stomach. Blockages. You may have ulcers, scar tissue, or inflammation that blocks the normal passage of foodand liquids. Causes of these problems include: ?Acid reflux from your stomach into your esophagus (gastroesophageal reflux). ?Infections. ?Radiation treatment for cancer. ?Medicines taken without enough fluids to wash them down into your stomach. Stroke. This can affect the nerves and make it difficult to swallow. Nerve problems. These prevent signals from being sent to the muscles of your esophagus to squeeze (contract) and move what you swallow down to your stomach. Globus pharyngeus. This is a common problem that involves a feeling like something is stuck in yourthroat or a sense of trouble with swallowing, even though nothing is wrong with the swallowing passages. Certain conditions, such as cerebral palsy or Parkinson's disease. What are the signs or symptoms? Common symptoms of this condition include: A feeling that solids or liquids are stuck in your throat on the way down to the stomach. Pain while swallowing. Coughing or gagging while trying to swallow. Other symptoms include: Food moving back from your stomach to your mouth (regurgitation). Noises coming from your throat. Chest discomfort when swallowing. A feeling of fullness when swallowing. Drooling, especially when the throat is blocked. Heartburn. How is this diagnosed? This condition may be diagnosed by: Barium swallow X-ray. In this test, you will swallow a white liquid that sticks to the inside of your esophagus. X-ray images are then taken. Endoscopy. In this test, a flexible telescope is inserted down your throat to look at your esophagus and your stomach. CT scans or an MRI. How is this treated? Treatment for dysphagia depends on the cause of this condition: If the dysphagia is caused by acid reflux or infection, medicines may be used. These may include antibiotics or heartburn medicines. If the dysphagia is caused by problems with the muscles, swallowing therapy may be used to help youstrengthen your swallowing muscles. You may have to do specific exercises to strengthen the musclesor stretch them. If the dysphagia is caused by a blockage or mass, procedures to remove the blockage may be done. You may need surgery and a feeding tube. You may need to make diet changes. Ask your health care provider for specific instructions. Follow these instructions at home: Medicines Take xkoj-hfc-klcsokq and prescription medicines only as told by your health care provider. If you were prescribed an antibiotic medicine, take it as told by your health care provider. Do notstop taking the antibiotic even if you start to feel better. Eating and drinking Make any diet changes as told by your health care provider. Work with a diet and nutrition director (dietitian) to create an eating plan that will help you get the nutrients you need in order to stay healthy. Eat soft foods that are easier to swallow. Cut your food into small pieces and eat slowly. Take small bites. Eat and drink only when you are sitting upright. Do not drink alcohol or caffeine. If you need help quitting, ask your health care provider. General instructions Check your weight every day to make sure you are not losing weight. Do not use any products that contain nicotine or tobacco. These products include cigarettes, chewing tobacco, and vaping devices, such as e-cigarettes. If you need help quitting, ask your health careprovider. Keep all follow-up visits. This is important. Contact a health care provider if: You lose weight because you cannot swallow. You cough when you drink liquids. You cough up partially digested food. Get help right away if: You cannot swallow your saliva. You have shortness of breath, a fever, or both. Your voice is hoarse and you have trouble swallowing. These symptoms may represent a serious problem that is an emergency. Do not wait to see if the symptoms will go away. Get medical help right away. Call your local emergency services (911 in the [place] Do not drive yourself to the hospital. Summary Dysphagia is trouble swallowing. This condition occurs when solids and liquids stick in a person's throat on the way down to the stomach. You may cough or gag while trying to swallow. Dysphagia has many possible causes. Treatment for dysphagia depends on the cause of the condition. Keep all follow-up visits. This is important. This information is not intended to replace advice given to you by your health care provider. Make sure you discuss any questions you have with your health care provider. Document Revised: 04/21/2021 Document Reviewed: 04/21/2021 [employer] Patient Education 2022 [employer]. Follow Up Care 06/27/2023 14:08:19 With:Loni Tsai CNP Address: When:1 month [facility] 10-04-2023 Hospital Discharge instructions Patient Education 06/18/2023 08:11:20 Abdominal Pain, Adult Abdominal Pain, Adult Pain in the abdomen (abdominal pain) can be caused by many things. Often, abdominal pain is not serious and it gets better with no treatment or by being treated at home. However, sometimes abdominal pain is serious. Your health care provider will ask questions about your medical history and do a physical exam to try to determine the cause of your abdominal pain. Follow these instructions at home: Medicines Take iqsr-vcz-yuuoiuc and prescription medicines only as told by your health care provider. Do not take a laxative unless told by your health care provider. General instructions Watch your condition for any changes. Drink enough fluid to keep your urine pale yellow. Keep all follow-up visits as told by your health care provider. This is important. Contact a health care provider if: Your abdominal pain changes or gets worse. You are not hungry or you lose weight without trying. You are constipated or have diarrhea for more than 2 3 days. You have pain when you urinate or have a bowel movement. Your abdominal pain wakes you up at night. Your pain gets worse with meals, after eating, or with certain foods. You are vomiting and cannot keep anything down. You have a fever. You have blood in your urine. Get help right away if: Your pain does not go away as soon as your health care provider told you to expect. You cannot stop vomiting. Your pain is only in areas of the abdomen, such as the right side or the left lower portion of the abdomen. Pain on the right side could be caused by appendicitis. You have bloody or black stools, or stools that look like tar. You have severe pain, cramping, or bloating in your abdomen. You have signs of dehydration, such as: ?Dark urine, very little urine, or no urine. ?Cracked lips. ?Dry mouth. ?Sunken eyes. ?Sleepiness. ?Weakness. You have trouble breathing or chest pain. Summary Often, abdominal pain is not serious and it gets better with no treatment or by being treated at home. However, sometimes abdominal pain is serious. Watch your condition for any changes. Take nkop-gwf-jablcig and prescription medicines only as told by your health care provider. Contact a health care provider if your abdominal pain changes or gets worse. Get help right away if you have severe pain, cramping, or bloating in your abdomen. This information is not intended to replace advice given to you by your health care provider. Make sure you discuss any questions you have with your health care provider. Document Revised: 10/20/2020 Document Reviewed: 01/10/2020 [employer] Patient Education 2022 [employer]ari[employer]. Follow Up Care 06/05/2023 15:09:02 With:Loni Tsai CNP Address: When:1 to 2 weeks Comments:Following colonoscopy. [facility] 10-01-2023 Evaluation + Plan note Future Appointments Appointment Date:06/19/2023 08:20:00 AM Scheduled Provider: Location:[facility] Appointment Type: Lab Draw Appointment Date:06/26/2023 09:20:00 AM Scheduled Provider:Harry Owusu MD Location:[facility] Appointment Type: Open Appointment Date:07/23/2023 09:30:00 AM Scheduled [facility]: [facility]:XR MBS Adult () Appointment Date:07/23/2023 10:00:00 AM Scheduled Provider: Location:.[facility] Appointment Type:XR Esophagus/Upper GI/Small Bowel () Appointment Date:08/29/2023 11:00:00 AM Scheduled Provider: Location:[facility] Appointment Type:FM Medicare Wellness Subsequent Future Scheduled Tests Laboratory* TSH With T4fr Reflex 05/29/23 * Celiac Disease Comprehensive 06/18/23 * CBC w/ Auto Diff 05/29/23 * Comprehensive Metabolic Panel 05/29/23 * Lipid Panel 05/29/23 Radiology* XR Esophagus 07/23/23 * XR Adult Swallowing Function w/ Video: Evaluate Pt, Develop a Plan of Care & Implement Plan 07/23/23 [facility] 05-31-2023 Evaluation note* Encounter Date Diagnosis Assessment Notes Treatment Notes Treatment Clinical Notes January, Sore throat (ICD-10 - J02.9) Rapid strep negative. January, Influenza A (ICD-10 - J10.1) Rapid COVID-negative. Rapid influenza is A+. Discussed viral nature of illness and typical duration. Discussed worst of symptoms is usually the first 3 to 5 days, other URI symptoms may linger for about 7 to 12 days. May use symptomatic treatment such as Mucinex DM, Zyrtec, warm salt water gargles, Cepacol throat sprays or throat lozenges. Discussed contagious nature of illness. Should stay home until fever free x24 hours without medication. Follow-up with PCP if not improving over the next 7 days, sooner if significantly worsening. Patient verbalized understanding of treatment plan. [facility] Other 04-19-2023 History of Present illness Narrative* Faraz Peña MD - 01/01/2023 10:50 AM EDT PATIENT NAME: Chuyita Cavanaugh CLINIC NO.: [id number] ATTENDING PHYSICIAN: Faraz Peña MD DATE OF SERVICE: January 01, 2023 Some of the elements of this note have been copied from my previous progress note dated 01/02/2022. All the information has been reviewed carefully. Dear Dr. Alex Peña, here is an update on a follow up visit on female Chuyita Cavanaugh at the clinic January 01 Diagnosis: 1. Lung and splenic nodule Treatment History: HPI: Chuyita Cavanaugh is a 67 year old year old female here for follow up. She is doing well and denies any abdominal pain and or diarrhea. Denies and SOB and or cough as well. Did have appendix removed and that was benign and also follows ENT for thyroid nodules PAST MEDICAL HISTORY Diagnosis Date Anemia Anxiety Arthritis Back pain Depression Essential hypertension Heart murmur Hypercholesterolemia Kidney stones Lung mass Lung nodule Malignant neoplasm of female breast (HCC) Mitral valve regurgitation Nodule of spleen Sleep apnea Social History Tobacco Use Smoking status: Never Smokeless tobacco: Never Vaping Use Vaping Use: Never used Substance Use Topics Alcohol use: Not Currently FAMILY HISTORY Problem Relation Age of Onset Cancer Mother Cancer Father Past medical, social and family history reviewed without any changes. REVIEW OF SYSTEMS GENERAL: No weight loss, malaise or fevers. No night sweats. HEENT: Negative for headaches, No changes in hearing or vision, no nose bleeds or other nasal problems. RESPIRATORY: Negative for cough, wheezing and shortness of breath CARDIOVASCULAR: Negative for chest pain, leg swelling and palpitations GI: Negative for abdominal discomfort, blood in stools or black stools and change in bowel habits : Negative for dysuria, frequency and incontinence MUSCULOSKELETAL: Negative for joint pain or swelling, back pain, and muscle pain. SKIN: Negative for lesions, rash, and itching. HEMATOLOGY/LYMPHOLOGY Negative for prolonged bleeding, bruising easily, and swollen nodes. NEURO: Negative for numbness or tingling of hands/feet. No weakness. PHYSICAL EXAMINATION: BP 123/69 Pulse 58 Temp (Src) 97.8 (Temporal) Resp 18 Ht 5' 5.984 (1.68m) Wt 232 lb (105.2kg) SpO2 100% BMI 37.46 kg/(m^2). Wt 123.1 kg (271 lb 6.4 oz) BMI 43.83 kg/m2 Last 3 Encounter Wt Readings: Date: Wt: 07/04/2021 123.1 kg (271 lb 6.4 oz) 06/20/2021 120.9 kg (266 lb 9.6 oz) General appearance:ECOG PERFORMANCE STATUS: 0- Fully active, able to carry on all pre-disease performance w/o restriction. Patient in NAD. Skin: Skin color, texture, turgor normal. No rashes or lesions. Eyes: Anicteric sclera. Pupils are equally round and reactive to light. Extraocular movements are intact. Lymph Nodes: No cervical, supraclavicular, axillary or inguinal adenopathy. Oropharynx: Lips, mucosa, and tongue normal. Back: No pain to percussion. Negative SLR test Lungs clear to auscultation, No wheezing or rhonchi Heart: RRR without murmur, gallop, or rubs. Abdomen soft, non-tender. No masses, organomegaly Extremities: No deformities. No edema Neuro: Gait and speech normal. Reflexes normal and symmetric. Muscular strength intact. Sensation grossly intact. Rectal: Deferred : Deferred LABS: Glucose (mg/dL) Date Value 12/25/2022 109 06/20/2021 109 Potassium (mmol/L) Date Value 12/25/2022 4.1 06/20/2021 4.4 Sodium (mmol/L) Date Value 12/25/2022 140 06/20/2021 139 Chloride (mmol/L) Date Value 12/25/2022 107 06/20/2021 106 CO2 (mmol/L) Date Value 12/25/2022 26 06/20/2021 25 Creatinine (mg/dL) Date Value 12/25/2022 0.90 06/20/2021 0.66 BUN (mg/dL) Date Value 12/25/2022 13 06/20/2021 15 Anion Gap (mmol/L) Date Value 12/25/2022 7 06/20/2021 8 Calcium (mg/dL) Date Value 06/20/2021 10.4 Calcium, Total (mg/dL) Date Value 12/25/2022 10.4 Protein, Total (g/dL) Date Value 12/25/2022 7.3 06/20/2021 7.3 Albumin (g/dL) Date Value 12/25/2022 4.4 06/20/2021 4.4 Bilirubin, Total (mg/dL) Date Value 12/25/2022 0.3 06/20/2021 0.3 Alkaline Phosphatase (U/L) Date Value 12/25/2022 102 06/20/2021 105 AST (U/L) Date Value 12/25/2022 22 06/20/2021 23 ALT (U/L) Date Value 12/25/2022 22 06/20/2021 22 WBC Date Value Ref Range Status 12/25/2022 4.84 3.70 - 11.00 k/uL Final RBC Date Value Ref Range Status 12/25/2022 4.25 3.90 - 5.20 m/uL Final Hemoglobin Date Value Ref Range Status 12/25/2022 13.5 11.5 - 15.5 g/dL Final Hematocrit Date Value Ref Range Status 12/25/2022 40.8 36.0 - 46.0 % Final MCV Date Value Ref Range Status 12/25/2022 96.0 80.0 - 100.0 fL Final MCH Date Value Ref Range Status 12/25/2022 31.8 26.0 - 34.0 pg Final MCHC Date Value Ref Range Status 12/25/2022 33.1 30.5 - 36.0 g/dL Final RDW-CV Date Value Ref Range Status 12/25/2022 12.3 11.5 - 15.0 % Final Platelet Count Date Value Ref Range Status 12/25/2022 300 150 - 400 k/uL Final MPV Date Value Ref Range Status 12/25/2022 10.3 9.0 - 12.7 fL Final Abs Neut Date Value Ref Range Status 12/25/2022 2.17 1.45 - 7.50 k/uL Final Lymphocytes % Date Value Ref Range Status 12/25/2022 38.6 % Final Abs Lymph Date Value Ref Range Status 12/25/2022 1.87 1.00 - 4.00 k/uL Final Monocytes % Date Value Ref Range Status 12/25/2022 12.6 % Final Abs [place] Date Value Ref Range Status 12/25/2022 0.61 <0.87 k/uL Final Eosinophils % Date Value Ref Range Status 12/25/2022 2.5 % Final Abs Eosin Date Value Ref Range Status 12/25/2022 0.12 <0.46 k/uL Final Basophils % Date Value Ref Range Status 12/25/2022 1.0 % Final Abs Baso Date Value Ref Range Status 12/25/2022 0.05 <0.11 k/uL Final PATH: Imaging: CT scan of the chest June 2021: 1. 6 mm noncalcified nodule within the left lingula. See detailed follow-up Fleischner recommendations below. 2. No substantial intrathoracic adenopathy is identified. 3. 1.4 cm left lobe thyroid hypodensity. Correlation with thyroid sonography is recommended for further evaluation. CT of the Chest and Abdomen and Pelvis 12/2021: 1. A 1.1 cm hypodense focus within the inferior spleen is unchanged and likely represents an angiomatous lesion. 2. A 1.5 cm mildly hyperdense lesion within the medial left kidney is unchanged, technically indeterminate, but likely represents a hyperdense/proteinaceous cyst. Continued attention on subsequent evaluations is suggested. 3. Newly distended fluid-filled proximal appendix (measuring 1.2 cm). Correlation for right lower quadrant pain is suggested, as findings could represent early manifestations of appendicitis or an appendix mucocele. Consider short interval follow-up CT abdomen/pelvis to assess the entirety of the appendix. 1. Since 06/29/2021, unchanged 0.6 cm nodule within the lingula. No enlarging suspicious pulmonary nodules. 2. Unchanged mild right basilar juxtapleural atelectasis. Nonspecific mild distention of the proximal appendix measuring 9 mm in diameter, similar in appearance since 06/06/21 given differences in technique. No evidence of periappendiceal inflammatory change. Consider attention at interval follow-up CT Scan of the Chest and Abdomen and Pelvis 12/2022: 1. 6 mm nodule within the left lingula, stable from prior study of 12/26/2021. 2. No substantial intrathoracic adenopathy is identified. 1. 1.0 cm hypodensity at the inferior aspect of the spleen, stable from prior study of 12/26/2021, likely related to a benign etiology such as cyst or hemangioma. 2. 1.3 cm hyperdense, exophytic lesion at the medial aspect of left kidney, small hyperdense 4 mm. 4 mm hyperattenuating focus at the inferior aspect of the cyst, likely related to calcification, stable. 3. 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 4. Findings compatible with interval appendectomy. Assessment and Plan: Chuyita Cavanaugh is a 67 year old year old female here for follow up. 1. Splenic nodule as well as left lingular pulmonary nodule. All stable on last CT 12/2022. 2. Thyroid nodule- Post resection and follows ENT , Small focus of papillary cancer. 3. Post Appendectomy per Gen Surg See back on a prn basis no need for further imaging at this point Thank you for the kind referral. If there are any questions and or concerns please do not hesitate to contact me at [phone]. Faraz Peña MD Hematology/Medical Oncology [facility] spent a total of 20 minutes on the date of the service which included preparing to see the patient, [id number] patient care, completing clinical documentation, obtaining and/or reviewing separately obtained history, performing a medically appropriate examination, counseling and educating the pat ient/family/caregiver and ordering medications, tests, or procedures. CC: DO Salas Barcenas MD documented [facility] Miscellaneous Notes* Telephone Encounter - Luanne Howell RN - 12/26/2022 4:14 PM EDT Pt viewed results on MyChart. Luanne Howell RN * Telephone Encounter - Luanne Howell RN - 12/26/2022 4:13 PM EDT ----- Message from Karis Richter RN sent at 12/26/2022 3:58 PM EDT ----- ----- Message ----- From: Faraz Peña MD Sent: 12/25/2022 12:25 PM EDT To: Karis Richter RN Call with negative CT documented in this encounterPrem[facility]23 NoteHNO ID: [id number] Author: RT Meredith(R) Service: ? Author Type: Technologist Type: Progress Notes Filed: 12/25/2022 9:38 AM Note Text: Radiology Service Progress Note PATIENT NAME: Cuhyita Cavanaugh DATE OF SERVICE: December 25, 2022 TIME: 9:36 AM PATIENT IDENTITY VERIFICATION COMPLETED USING TWO (2) IDENTIFIERS: Name and Date of confirmed by patient verbally. FALL SCREENING: Has the patient had 2 falls in the last year or 1 fall with injury or currently using an Ambulatory Assistive Device (Walker, Cane, Wheelchair, Crutches, etc.)? No PATIENT GENDER DATA: Female. status: : No status: NO. PATIENT RELEVANT IMPLANT DATA REVIEWED: Not Applicable RADIOLOGY DEPARTMENT: CT; Exam(s) Completed: Chest Abdomen Pelvis With IV and Oral contrast PERIPHERAL IV DATA: Site assessment: Clean,Dry and Intact, Site disposition Discontinued SIGNED BY: RT Meredith(R) December 25, 2022 9:36 [facility]04-12-2023 NoteHNO ID: [id number] Author: Eva Carter RN Service: ? Author Type: Registered Nurse Type: Progress Notes Filed: 12/25/2022 9:16 AM Note Text: Radiology Service Progress Note DATE OF SERVICE: December 25, 2022 TIME: 9:15 AM PATIENT WEIGHT: 235 LBS PATIENT IDENTITY VERIFICATION COMPLETED USING TWO (2) STANDARD IDENTIFIERS: Name and Date of confirmed by patient verbally. FALL SCREENING: Has the patient had 2 falls in the last year or 1 fall with injury or currently using an Ambulatory Assistive Device (Walker, Cane, Wheelchair, Crutches, etc.)? No PATIENT GENDER DATA: Female. status: : No status: NO. ALLERGIES: Reviewed and unchanged CONTRAST ALLERGY: No EXAM: CT -CONTRAST INDUCED NEPHROPATHY RISK FACTORS: Patient age > 60 years CREATININE: Creatinine Date Value Ref Range Status 12/25/2022 0.90 0.58 - 0.96 mg/dL Final 12/26/2021 0.77 0.58 - 0.96 mg/dL Final 06/20/2021 0.66 0.58 - 0.96 mg/dL Final Estimated Glomerular Filtration Rate Date Value Ref Range Status 12/25/2022 70 >=60 mL/min/1.73m? Final Comment: Estimated Glomerular Filtration Rate (eGFR) is calculated using the 2020 CKD-EPI creatinine equation. This equation utilizes serum creatinine, sex, and age as parameters. The creatinine assay has traceable calibration to isotope dilution-mass spectrometry. Refer to KDIGO guidelines for clinical interpretation. In patients with unstable renal function, e.g. those with acute kidney injury, the eGFR may not accurately reflect actual GFR. eGFR- Date Value Ref Range Status 06/20/2021 >60 Final P.O.C.T. RESULTS: POC done: Yes, See Lab Tab December 25, 2022 TREATMENT: No Hydration needed. IV SITE: Ambulatory: A peripheral IV was started in the Right antecubital site with a Angio cath: 20 gauge. IV SITE APPEARANCE: Clean,Dry and Intact SIGNATURE: Eva Carter RN PATIENT NAME: Chuyita Cavanaugh DATE: December 25, 2022 TIME: 9:15 [facility]04-12-[facility] History of Present illness Narrative* Eva Carter RN - 12/25/2022 9:00 AM EDT Radiology Service Progress Note DATE OF SERVICE: December 25, 2022 TIME: 9:15 AM PATIENT WEIGHT: 235 LBS PATIENT IDENTITY VERIFICATION COMPLETED USING TWO (2) STANDARD IDENTIFIERS: Name and Date of confirmed by patient verbally. FALL SCREENING: Has the patient had 2 falls in the last year or 1 fall with injury or currently using an Ambulatory Assistive Device (Walker, Cane, Wheelchair, Crutches, etc.)? No PATIENT GENDER DATA: Female. status: : No status: NO. ALLERGIES: Reviewed and unchanged CONTRAST ALLERGY: No EXAM: CT -CONTRAST INDUCED NEPHROPATHY RISK FACTORS: Patient age > 60 years CREATININE: Creatinine Date Value Ref Range Status 12/25/2022 0.90 0.58 - 0.96 mg/dL Final 12/26/2021 0.77 0.58 - 0.96 mg/dL Final 06/20/2021 0.66 0.58 - 0.96 mg/dL Final Estimated Glomerular Filtration Rate Date Value Ref Range Status 12/25/2022 70 >=60 mL/min/1.73m Final Comment: Estimated Glomerular Filtration Rate (eGFR) is calculated using the 2020 CKD-EPI creatinine equation. This equation utilizes serum creatinine, sex, and age as parameters. The creatinine assay has traceable calibration to isotope dilution- mass spectrometry. Refer to KDIGO guidelines for clinical interpretation. In patients with unstable renal function, e.g. those with acute kidney injury, the eGFRmay not accurately reflect actual GFR. eGFR- Date Value Ref Range Status 06/20/2021 >60 Final P.O.C.T. RESULTS: POC done: Yes, See Lab Tab December 25, 2022 TREATMENT: No Hydration needed. IV SITE: Ambulatory: A peripheral IV was started in the Right antecubital site with a Angio cath: 20 gauge. IV SITE APPEARANCE: Clean,Dry and Intact SIGNATURE: Eva Carter RN PATIENT NAME: Chuyita Cavanaugh DATE: December 25, 2022 TIME: 9:15 AM * Kat Ngo RT(R) - 12/25/2022 9:00 AM EDT Radiology Service Progress Note PATIENT NAME: Chuyita Cavanaugh DATE OF SERVICE: December 25, 2022 TIME: 9:36 AM PATIENT IDENTITY VERIFICATION COMPLETED USING TWO (2) IDENTIFIERS: Name and Date of confirmedby patient verbally. FALL SCREENING: Has the patient had 2 falls in the last year or 1 fall with injury or currently using an Ambulatory Assistive Device (Walker, Cane, Wheelchair, Crutches, etc.)? No PATIENT GENDER DATA: Female. status: : No status: NO. PATIENT RELEVANT IMPLANT DATA REVIEWED: Not Applicable RADIOLOGY DEPARTMENT: CT; Exam(s) Completed: Chest Abdomen Pelvis With IV and Oral contrast PERIPHERAL IV DATA: Site assessment: Clean,Dry and Intact, Site disposition Discontinued SIGNED BY: RT Meredith(R) December 25, 2022 9:36 AM documented in this encounterPrem[facility]-13-2023 Miscellaneous Notes* Telephone Encounter - Faraz Peña MD - 11/25/2022 10:16 AM EDT Done * Telephone Encounter - Clover Dwyer RN - 11/25/2022 10:[address] lab orders to obtain with CT scan on 12/25/22 for one year office follow up on 01/01/23.Thank you. Clover Dwyer RN documented in this encounterPrem[facility] Hospital Discharge instructions Patient Education 05/08/2022 08:18:39 Kidney Stones, [id number]-[id number] Kidney Stones Kidney stones are rock-like masses that form inside of the kidneys. Kidneys are organs that make pee (urine). A kidney stone may move into other parts of the urinary tract, including: The tubes that connect the kidneys to the bladder (ureters). The bladder. The tube that carries urine out of the body (urethra). Kidney stones can cause very bad pain and can block the flow of pee. The stone usually leaves your body (passes) through your pee. You may need to have a doctor take out the stone. What are the causes? Kidney stones may be caused by: A condition in which certain glands make too much parathyroid hormone (primary hyperparathyroidism). A buildup of a type of crystals in the bladder made of a chemical called uric acid. The body makes uric acid when you eat certain foods. Narrowing (stricture) of one or both of the ureters. A kidney blockage that you were born with. Past surgery on the kidney or the ureters, such as gastric bypass surgery. What increases the risk? You are more likely to develop this condition if: You have had a kidney stone in the past. You have a family history of kidney stones. You do not drink enough water. You eat a diet that is high in protein, salt (sodium), or sugar. You are overweight or very overweight (obese). What are the signs or symptoms? Symptoms of a kidney stone may include: Pain in the side of the belly, right below the ribs (flank pain). Pain usually spreads (radiates) to the groin. Needing to pee often or right away (urgently). Pain when going pee (urinating). Blood in your pee (hematuria). Feeling like you may vomit (nauseous). Vomiting. Fever and chills. How is this treated? Treatment depends on the size, location, and makeup of the kidney stones. The stones will often pass out of the body through peeing. You may need to: Drink more fluid to help pass the stone. In some cases, you may be given fluids through an IV tube put into one of your veins at the hospital. Take medicine for pain. Make changes in your diet to help keep kidney stones from coming back. Sometimes, medical procedures are needed to remove a kidney stone. This may involve: A procedure to break up kidney stones using a beam of light (laser) or shock waves. Surgery to remove the kidney stones. Follow these instructions at home: Medicines Take [id number] and prescription medicines only as told by your doctor. Ask your doctor if the medicine prescribed to you requires you to avoid driving or using heavy machinery. Eating and drinking Drink enough fluid to keep your pee pale yellow. You may be told to drink at least 8 10 glasses of water each day. This will help you pass the stone. If told by your doctor, change your diet. This may include: ?Limiting how much salt you eat. ?Eating more fruits and vegetables. ?Limiting how much meat, poultry, fish, and eggs you eat. Follow instructions from your doctor about eating or drinking restrictions. General instructions Collect pee samples as told by your doctor. You may need to collect a pee sample: ?24 hours after a stone comes out. ?8 12 weeks after a stone comes out, and every 6 12 months after that. Strain your pee every time you pee (urinate), for as long as told. Use the strainer that your doctor recommends. Do not throw out the stone. Keep it so that it can be tested by your doctor. Keep all follow-up visits as told by your doctor. This is important. You may need follow-up tests. How is this prevented? To prevent another kidney stone: Drink enough fluid to keep your pee pale yellow. This is the best way to prevent kidney stones. Eat healthy foods. Avoid certain foods as told by your doctor. You may be told to eat less protein. Stay at a healthy weight. Where to find more information National Kidney Foundation (NKF): www.kidney.org [facility] ([facility]): www.urologyhealth.org Contact a doctor if: You have pain that gets worse or does not get better with medicine. Get help right away if: You have a fever or chills. You get very bad pain. You get new pain in your belly (abdomen). You pass out (faint). You cannot pee. Summary Kidney stones are rock-like masses that form inside of the kidneys. Kidney stones can cause very bad pain and can block the flow of pee. The stones will often pass out of the body through peeing. Drink enough fluid to keep your pee pale yellow. This information is not intended to replace advice given to you by your health care provider. Make sure you discuss any questions you have with your health care provider. Document Released: 02/17/2009 Document Revised: 01/18/2020 Document Reviewed: 01/18/2020 Elsevier Patient Education 2020 [employer] 05/08/2022 08:18:38 Calorie Counting for Weight Loss Calorie Counting for Weight Loss Calories are units of energy. Your body needs a certain amount of calories from food to keep you going throughout the day. When you eat more calories than your body needs, your body stores the extra calories as fat. When you eat fewer calories than your body needs, your body berg fat to get the energy it needs. Calorie counting means keeping track of how many calories you eat and drink each day. Calorie counting can be helpful if you need to lose weight. If you make sure to eat fewer calories than your bodyneeds, you should lose weight. Ask your health care provider what a healthy weight is for you. For calorie counting to work, you will need to eat the right number of calories in a day in order to lose a healthy amount of weight per week. A dietitian can help you determine how many calories youneed in a day and will give you suggestions on how to reach your calorie goal. A healthy amount of weight to lose per week is usually 1 2 lb (0.5 0.9 kg). This usually means thatyour daily calorie intake should be reduced by 500 750 calories. Eating 1,200 1,500 calories per day can help most women lose weight. Eating 1,500 1,800 calories per day can help most men lose weight. What is my plan? My goal is to have calories per day. If I have this many calories per day, I should lose around pounds per week. What do I need to know about calorie counting? In order to meet your daily calorie goal, you will need to: Find out how many calories are in each food you would like to eat. Try to do this before you eat. Decide how much of the food you plan to eat. Write down what you ate and how many calories it had. Doing this is called keeping a food log. To successfully lose weight, it is important to balance calorie counting with a healthy lifestyle that includes regular activity. Aim for 150 minutes of moderate exercise (such as walking) or 75 minutes of vigorous exercise (such as running) each week. Where do I find calorie information? The number of calories in a food can be found on a Nutrition Facts label. If a food does not have aNutrition Facts label, try to look up the calories online or ask your dietitian for help. Remember that calories are listed per serving. If you choose to have more than one serving of a food, you will have to multiply the calories per serving by the amount of servings you plan to eat. Forexample, the label on a package of bread might say that a serving size is 1 slice and that there are 90 calories in a serving. If you eat 1 slice, you will have eaten 90 calories. If you eat 2 slices, you will have eaten 180 calories. How do I keep a food log? Immediately after each meal, record the following information in your food log: What you ate. Don't forget to include toppings, sauces, and other extras on the food. How much you ate. This can be measured in cups, ounces, or number of items. How many calories each food and drink had. The total number of calories in the meal. Keep your food log near you, such as in a small notebook in your pocket, or use a mobile juwan or website. Some programs will calculate calories for you and show you how many calories you have left forthe day to meet your goal. What are some calorie counting tips? Use your calories on foods and drinks that will fill you up and not leave you hungry: ?Some examples of foods that fill you up are nuts and nut butters, vegetables, lean proteins, and high-fiber foods like whole grains. High-fiber foods are foods with more than 5 g fiber per serving. ?Drinks such as sodas, specialty coffee drinks, alcohol, and juices have a lot of calories, yet do not fill you up. Eat nutritious foods and avoid empty calories. Empty calories are calories you get from foods or beverages that do not have many vitamins or protein, such as candy, sweets, and soda. It is better to have a nutritious high-calorie food (such as an avocado) than a food with few nutrients (such as a bag of chips). Know how many calories are in the foods you eat most often. This will help you calculate calorie counts faster. Pay attention to calories in drinks. Low-calorie drinks include water and unsweetened drinks. Pay attention to nutrition labels for low fat or fat free foods. These foods sometimes have thesame amount of calories or more calories than the full fat versions. They also often have added sugar, starch, or salt, to make up for flavor that was removed with the fat. Find a way of tracking calories that works for you. Get creative. Try different apps or programs ifwriting down calories does not work for you. What are some portion control tips? Know how many calories are in a serving. This will help you know how many servings of a certain food you can have. Use a measuring cup to measure serving sizes. You could also try weighing out portions on a kitchenscale. With time, you will be able to estimate serving sizes for some foods. Take some time to put servings of different foods on your favorite plates, bowls, and cups so you know what a serving looks like. Try not to eat straight from a bag or box. Doing this can lead to overeating. Put the amount you would like to eat in a cup or on a plate to make sure you are eating the right portion. Use smaller plates, glasses, and bowls to prevent overeating. Try not to multitask (for example, watch TV or use your computer) while eating. If it is time to eat, sit down at a table and enjoy your food. This will help you to know when you are full. It will also help you to be aware of what you are eating and how much you are eating. What are tips for following this plan? Reading food labels Check the calorie count compared to the serving size. The serving size may be smaller than what youare used to eating. Check the source of the calories. Make sure the food you are eating is high in vitamins and proteinand low in saturated and trans fats. Shopping Read nutrition labels while you shop. This will help you make healthy decisions before you decide to purchase your food. Make a grocery list and stick to it. Cooking Try to cook your favorite foods in a healthier way. For example, try baking instead of frying. Use low-fat dairy products. Meal planning Use more fruits and vegetables. Half of your plate should be fruits and vegetables. Include lean proteins like poultry and fish. How do I count calories when eating out? Ask for smaller portion sizes. Consider sharing an entree and sides instead of getting your own entree. If you get your own entree, eat only half. Ask for a box at the beginning of your meal and put the rest of your entree in it so you are not tempted to eat it. If calories are listed on the menu, choose the lower calorie options. Choose dishes that include vegetables, fruits, whole grains, low-fat dairy products, and lean protein. Choose items that are boiled, broiled, grilled, or steamed. Stay away from items that are buttered,battered, fried, or served with cream sauce. Items labeled crispy are usually fried, unless stated otherwise. Choose water, low-fat milk, unsweetened iced tea, or other drinks without added sugar. If you want an alcoholic beverage, choose a lower calorie option such as a glass of wine or light beer. Ask for dressings, sauces, and syrups on the side. These are usually high in calories, so you should limit the amount you eat. If you want a salad, choose a garden salad and ask for grilled meats. Avoid extra toppings like muller, cheese, or fried items. Ask for the dressing on the side, or ask for olive oil and vinegar or lemon to use as dressing. Estimate how many servings of a food you are given. For example, a serving of cooked rice is cup orabout the size of half a baseball. Knowing serving sizes will help you be aware of how much food you are eating at restaurants. The list below tells you how big or small some common portion sizes arebased on everyday objects: ?1 oz 4 stacked dice. ?3 oz 1 deck of cards. ?1 tsp 1 . ?1 Tbsp a ping-pong ball. ?2 Tbsp 1 ping-pong ball. ? cup baseball. ?1 cup 1 baseball. Summary Calorie counting means keeping track of how many calories you eat and drink each day. If you eat fewer calories than your body needs, you should lose weight. A healthy amount of weight to lose per week is usually 1 2 lb (0.5 0.9 kg). This usually means reducing your daily calorie intake by 500 750 calories. The number of calories in a food can be found on a Nutrition Facts label. If a food does not have aNutrition Facts label, try to look up the calories online or ask your dietitian for help. Use your calories on foods and drinks that will fill you up, and not on foods and drinks that will leave you hungry. Use smaller plates, glasses, and bowls to prevent overeating. This information is not intended to replace advice given to you by your health care provider. Make sure you discuss any questions you have with your health care provider. Document Released: 09/01/2006 Document Revised: 05/21/2019 Document Reviewed: 08/01/2017 [employer] Patient Education 2020 [employer]. Follow Up Care 05/15/2020 08:54:39 With:BENJAMIN TALAMANTES, German Abrams, URL Address: When: only if needed [facility] 04-26-2022 Miscellaneous Notes* Telephone Encounter - Karis Bradley - 01/08/2022 10:08 AM EDT Patient is scheduled january 15 * Telephone Encounter - Karis Falcon [facility] - 01/07/2022 9:[address] hurtado office received records they will be calling patient today to schedule. * Telephone Encounter - Lorrie Carrillo [facility] - 01/04/2022 8:45 AM EDT Records faxed to Dr. Stock. * Telephone Encounter - Jayne Aguilar [facility] - 01/02/2022 12:14 PM EDT Kiley, information up here for you. * Telephone Encounter - J Luis Hernandez - 01/02/2022 11:46 AM EDT Jayne/Kiley: Can you please refer patient to Dr. Stock and follow up? She will be a new patient to him. Thanks! Dx: Mass of appendix J Luis Hernandez documented in [facility] NoteHNO ID: [id number] Author: Faraz Peña MD Service: ? Author Type: Physician Type: Progress Notes Filed: 01/03/2022 7:17 PM Note Text: PATIENT NAME: Chuyita Cavanaugh [facility] NO.: [id number] ATTENDING PHYSICIAN: Faraz Peña MD DATE OF SERVICE: January 02, 2022 Some of the elements of this note have been copied from my previous progress note dated 07/04/2021. All the information has been reviewed carefully. Dear Dr. Alex Peña, here is an update on a follow up visit on female Chuyita Cavanaugh at the clinic January 02, 2022 Diagnosis: 1. Lung and splenic nodule Treatment History: HPI: Chuyita Cavanaugh is a 65 year old year old female here for follow up. She is doing well and denies any abdominal pain and or diarrhea. Denies and SOB and or cough as well. PAST MEDICAL HISTORY Diagnosis Date - Anemia - Arthritis - Essential hypertension - Hypercholesterolemia - Kidney stones - Lung nodule - Mitral valve regurgitation - Nodule of spleen Social History Tobacco Use - Smoking status: Never Smoker - Smokeless tobacco: Never Used Vaping Use - Vaping Use: Never used Substance Use Topics - Alcohol use: Not Currently - Drug use: Not on file FAMILY HISTORY Problem Relation Age of Onset - Cancer Mother - Cancer Father Past medical, social and family history reviewed without any changes. REVIEW OF SYSTEMS GENERAL: No weight loss, malaise or fevers. No night sweats. HEENT: Negative for headaches, No changes in hearing or vision, no nose bleeds or other nasal problems. RESPIRATORY: Negative for cough, wheezing and shortness of breath CARDIOVASCULAR: Negative for chest pain, leg swelling and palpitations GI: Negative for abdominal discomfort, blood in stools or black stools and change in bowel habits : Negative for dysuria, frequency and incontinence MUSCULOSKELETAL: Negative for joint pain or swelling, back pain, and muscle pain. SKIN: Negative for lesions, rash, and itching. HEMATOLOGY/LYMPHOLOGY Negative for prolonged bleeding, bruising easily, and swollen nodes. NEURO: Negative for numbness or tingling of hands/feet. No weakness. PHYSICAL EXAMINATION: BP 121/70 Pulse 54 Temp (Src) 97.6 (Temporal) Resp 18 Ht 5' 5.984 (1.68m) Wt 255 lb 3.2 oz (115.8kg) SpO2 97% BMI 41.21 kg/(m2). Wt 123.1 kg (271 lb 6.4 oz) BMI 43.83 kg/m2 Last 3 Encounter Wt Readings: Date: Wt: 07/04/2021 123.1 kg (271 lb 6.4 oz) 06/20/2021 120.9 kg (266 lb 9.6 oz) General appearance:ECOG PERFORMANCE STATUS: 0- Fully active, able to carry on all pre-disease performance w/o restriction. Patient in NAD. Skin: Skin color, texture, turgor normal. No rashes or lesions. Eyes: Anicteric sclera. Pupils are equally round and reactive to light. Extraocular movements are intact. Lymph Nodes: No cervical, supraclavicular, axillary or inguinal adenopathy. Oropharynx: Lips, mucosa, and tongue normal. Back: No pain to percussion. Negative SLR test Lungs clear to auscultation, No wheezing or rhonchi Heart: RRR without murmur, gallop, or rubs. Abdomen soft, non-tender. No masses, organomegaly Extremities: No deformities. No edema Neuro: Gait and speech normal. Reflexes normal and symmetric. Muscular strength intact. Sensation grossly intact. Rectal: Deferred : Deferred LABS: Glucose (mg/dL) Date Value 06/20/2021 109 Potassium (mmol/L) Date Value 06/20/2021 4.4 Sodium (mmol/L) Date Value 06/20/2021 139 Chloride (mmol/L) Date Value 06/20/2021 106 CO2 (mmol/L) Date Value 06/20/2021 25 Creatinine (mg/dL) Date Value 12/26/2021 0.77 06/20/2021 0.66 BUN (mg/dL) Date Value 06/20/2021 15 Anion Gap (mmol/L) Date Value 06/20/2021 8 Calcium (mg/dL) Date Value 06/20/2021 10.4 Protein, Total (g/dL) Date Value 06/20/2021 7.3 Albumin (g/dL) Date Value 06/20/2021 4.4 Bilirubin, Total (mg/dL) Date Value 06/20/2021 0.3 Alkaline Phosphatase (U/L) Date Value 06/20/2021 105 AST (U/L) Date Value 06/20/2021 23 ALT (U/L) Date Value 06/20/2021 22 WBC Date Value Ref Range Status 06/20/2021 7.28 3.70 - 11.00 k/uL Final RBC Date Value Ref Range Status 06/20/2021 4.32 3.90 - 5.20 m/uL Final Hemoglobin Date Value Ref Range Status 06/20/2021 13.9 11.5 - 15.5 g/dL Final Hematocrit Date Value Ref Range Status 06/20/2021 40.7 36.0 - 46.0 % Final MCV Date Value Ref Range Status 06/20/2021 94.2 80.0 - 100.0 fL Final MCH Date Value Ref Range Status 06/20/2021 32.2 26.0 - 34.0 pG Final MCHC Date Value Ref Range Status 06/20/2021 34.2 30.5 - 36.0 g/dL Final RDW-CV Date Value Ref Range Status 06/20/2021 12.0 11.5 - 15.0 % Final Platelet Count Date Value Ref Range Status 06/20/2021 298 150 - 400 k/uL Final MPV Date Value Ref Range Status 06/20/2021 9.9 9.0 - 12.7 fL Final Abs Neut (ANC) Date Value Ref Range Status 06/20/2021 4.09 1.45 - 7.50 k/uL Final Lymph% Date Value Ref Range (more content not included)...[facility] 01-01-2022 NoteHNO ID: [id number] Author: Clover Dwyer RN Service: ? Author Type: Registered Nurse Type: Progress Notes Filed: 01/01/2022 9:09 AM Note Text: Radiology Service Progress Note DATE OF SERVICE: January 01, 2022 TIME: 9:08 AM PATIENT WEIGHT: 255LBS PATIENT IDENTITY VERIFICATION COMPLETED USING TWO (2) STANDARD IDENTIFIERS: Name and Date of confirmed by patient verbally. FALL SCREENING: Has the patient had 2 falls in the last year or 1 fall with injury or currently using an Ambulatory Assistive Device (Walker, Cane, Wheelchair, Crutches, etc.)? No PATIENT GENDER DATA: Female. status: : No status: NO. ALLERGIES: Reviewed and unchanged CONTRAST ALLERGY: No EXAM: CT -CONTRAST INDUCED NEPHROPATHY RISK FACTORS: Patient age > 60 years CREATININE: Creatinine Date Value Ref Range Status 12/26/2021 0.77 0.58 - 0.96 mg/dL Final 06/20/2021 0.66 0.58 - 0.96 mg/dL Final Estimated Glomerular Filtration Rate Date Value Ref Range Status 12/26/2021 85 >=60 mL/min/1.73m? Final Comment: Estimated Glomerular Filtration Rate (eGFR) is calculated using the 2020 CKD-EPI creatinine equation. This equation utilizes serum creatinine, sex, and age as parameters. The creatinine assay has traceable calibration to isotope dilution-mass spectrometry. Refer to KDIGO guidelines for clinical interpretation. In patients with unstable renal function, e.g. those with acute kidney injury, the eGFR may not accurately reflect actual GFR. eGFR- Date Value Ref Range Status 06/20/2021 >60 Final P.O.C.T. RESULTS: POC done: Yes, See Lab Tab December 26, 2021 TREATMENT: No Hydration needed. IV SITE: Ambulatory: A peripheral IV was started in the Left antecubital site with a Angio cath: 20 gauge. IV SITE APPEARANCE: Clean,Dry and Intact SIGNATURE: Clover Dwyer RN PATIENT NAME: Chuyita Cavanaugh DATE: January 01, 2022 TIME: 9:08 [facility]04-19-2022 NoteHNO ID: [id number] Author: RT Meredith(R) Service: ? Author Type: Technologist Type: Progress Notes Filed: 01/01/2022 9:27 AM Note Text: Radiology Service Progress Note PATIENT NAME: Chuyita Cavanaugh DATE OF SERVICE: January 01, 2022 TIME: 9:27 AM PATIENT IDENTITY VERIFICATION COMPLETED USING TWO (2) IDENTIFIERS: Name and Date of confirmed by patient verbally. FALL SCREENING: Has the patient had 2 falls in the last year or 1 fall with injury or currently using an Ambulatory Assistive Device (Walker, Cane, Wheelchair, Crutches, etc.)? No PATIENT GENDER DATA: Female. status: : No status: NO. PATIENT RELEVANT IMPLANT DATA REVIEWED: Not Applicable RADIOLOGY DEPARTMENT: CT; Exam(s) Completed: Pelvis PERIPHERAL IV DATA: Site assessment: Clean,Dry and Intact, Site disposition Discontinued SIGNED BY: RT Meredith(R) January 01, 2022 9:27 [facility]04-19-2022 History of Present illness Narrative* Clover Dwyer RN - 01/01/2022 9:00 AM EDT Radiology Service Progress Note DATE OF SERVICE: January 01, 2022 TIME: 9:08 AM PATIENT WEIGHT: 255LBS PATIENT IDENTITY VERIFICATION COMPLETED USING TWO (2) STANDARD IDENTIFIERS: Name and Date of confirmed by patient verbally. FALL SCREENING: Has the patient had 2 falls in the last year or 1 fall with injury or currently using an Ambulatory Assistive Device (Walker, Cane, Wheelchair, Crutches, etc.)? No PATIENT GENDER DATA: Female. status: : No status: NO. ALLERGIES: Reviewed and unchanged CONTRAST ALLERGY: No EXAM: CT -CONTRAST INDUCED NEPHROPATHY RISK FACTORS: Patient age > 60 years CREATININE: Creatinine Date Value Ref Range Status 12/26/2021 0.77 0.58 - 0.96 mg/dL Final 06/20/2021 0.66 0.58 - 0.96 mg/dL Final Estimated Glomerular Filtration Rate Date Value Ref Range Status 12/26/2021 85 >=60 mL/min/1.73m Final Comment: Estimated Glomerular Filtration Rate (eGFR) is calculated using the 2020 CKD-EPI creatinine equation. This equation utilizes serum creatinine, sex, and age as parameters. The creatinine assay has traceable calibration to isotope dilution- mass spectrometry. Refer to KDIGO guidelines for clinical interpretation. In patients with unstable renal function, e.g. those with acute kidney injury, the eGFRmay not accurately reflect actual GFR. eGFR- Date Value Ref Range Status 06/20/2021 >60 Final P.O.C.T. RESULTS: POC done: Yes, See Lab Tab December 26, 2021 TREATMENT: No Hydration needed. IV SITE: Ambulatory: A peripheral IV was started in the Left antecubital site with a Angio cath: 20gauge. IV SITE APPEARANCE: Clean,Dry and Intact SIGNATURE: Clover Dwyer RN PATIENT NAME: Chuyita Cavanaugh DATE: January 01, 2022 TIME: 9:08 AM * Kat Ngo RT(R) - 01/01/2022 9:00 AM EDT Radiology Service Progress Note PATIENT NAME: Chuyita Cavanaugh DATE OF SERVICE: January 01, 2022 TIME: 9:27 AM PATIENT IDENTITY VERIFICATION COMPLETED USING TWO (2) IDENTIFIERS: Name and Date of confirmedby patient verbally. FALL SCREENING: Has the patient had 2 falls in the last year or 1 fall with injury or currently using an Ambulatory Assistive Device (Walker, Cane, Wheelchair, Crutches, etc.)? No PATIENT GENDER DATA: Female. status: : No status: NO. PATIENT RELEVANT IMPLANT DATA REVIEWED: Not Applicable RADIOLOGY DEPARTMENT: CT; Exam(s) Completed: Pelvis PERIPHERAL IV DATA: Site assessment: Clean,Dry and Intact, Site disposition Discontinued SIGNED BY: RT Meredith(R) January 01, 2022 9:27 AM documented in this encounter[facility]04-14-2022 Miscellaneous Notes* Telephone Encounter - Karis Bradley - 12/27/2021 11:30 AM EDT Scheduled patient for Friday and called her with date and time * Telephone Encounter - Karis Richter RN - 12/27/2021 11:22 AM EDT ----- Message from Faraz Peña MD sent at 12/27/2021 10:08 AM EDT ----- Spoke and discussed with the patient and can we schedule her for an ordered CT of the pelvis please. Thanks * Telephone Encounter - Karis Richter RN - 12/26/2021 1:39 PM EDT Call placed to pt to assess if she's been having any abdominal or pelvic pain related to CT abdomenresults. Pt denies any pain or concern with abdominal or pelvic pain. States she's been having somechest pain under her right breast that she saw her PCP for, and was told that she has indigestion. Reviewed results with pt. Please advise Karis Richter RN documented in this encounterPrem[facility]04-13-2022 History of Present illness Narrative* Clover Dwyer RN - 12/26/2021 9:15 AM EDT Radiology Service Progress Note DATE OF SERVICE: December 26, 2021 TIME: 9:24 AM PATIENT WEIGHT: 256LBS PATIENT IDENTITY VERIFICATION COMPLETED USING TWO (2) STANDARD IDENTIFIERS: Name and Date of confirmed by patient verbally. FALL SCREENING: Has the patient had 2 falls in the last year or 1 fall with injury or currently using an Ambulatory Assistive Device (Walker, Cane, Wheelchair, Crutches, etc.)? No PATIENT GENDER DATA: Female. status: : No status: NO. ALLERGIES: Reviewed and unchanged CONTRAST ALLERGY: No EXAM: CT -CONTRAST INDUCED NEPHROPATHY RISK FACTORS: Patient age > 60 years CREATININE: Creatinine Date Value Ref Range Status 12/26/2021 0.77 0.58 - 0.96 mg/dL Final 06/20/2021 0.66 0.58 - 0.96 mg/dL Final Estimated Glomerular Filtration Rate Date Value Ref Range Status 12/26/2021 85 >=60 mL/min/1.73m Final Comment: Estimated Glomerular Filtration Rate (eGFR) is calculated using the 2020 CKD-EPI creatinine equation. This equation utilizes serum creatinine, sex, and age as parameters. The creatinine assay has traceable calibration to isotope dilution- mass spectrometry. Refer to KDIGO guidelines for clinical interpretation. In patients with unstable renal function, e.g. those with acute kidney injury, the eGFRmay not accurately reflect actual GFR. eGFR- Date Value Ref Range Status 06/20/2021 >60 Final P.O.C.T. RESULTS: POC done: Yes, See Lab Tab December 26, 2021 TREATMENT: No Hydration needed. IV SITE: Ambulatory: A peripheral IV was started in the Right antecubital site with a Angio cath: 20 gauge. IV SITE APPEARANCE: Clean,Dry and Intact SIGNATURE: Clover Dwyer RN PATIENT NAME: Chuyita Cavanaugh DATE: December 26, 2021 TIME: 9:24 AM * Kat Ngo RT(R) - 12/26/2021 9:15 AM EDT Radiology Service Progress Note PATIENT NAME: Chuyita Cavanaugh DATE OF SERVICE: December 26, 2021 TIME: 9:32 AM PATIENT IDENTITY VERIFICATION COMPLETED USING TWO (2) IDENTIFIERS: Name and Date of confirmedby patient verbally. FALL SCREENING: Has the patient had 2 falls in the last year or 1 fall with injury or currently using an Ambulatory Assistive Device (Walker, Cane, Wheelchair, Crutches, etc.)? No PATIENT GENDER DATA: Female. status: : No status: NO. PATIENT RELEVANT IMPLANT DATA REVIEWED: Not Applicable RADIOLOGY DEPARTMENT: CT; Exam(s) Completed: Abdomen and Chest PERIPHERAL IV DATA: Site assessment: Clean,Dry and Intact, Site disposition Discontinued SIGNED BY: RT Meredith(R) December 26, 2021 9:32 AM documented in this encounterPrem[facility]03-30-2022 Miscellaneous Notes* Telephone Encounter - Clover Dwyer RN - 12/12/2021 10:55 AM EDT Please sign pending Cre order on Chuyita Cavanaugh [id number] for upcoming CT with contrast. Thank you. documented in this [facility]02-23-2022 Evaluation note* Encounter Date Diagnosis Assessment Notes Treatment Notes Treatment Clinical Notes Oct, Contact with and (suspected) exposure to other viral communicable diseases (ICD-10 - Z20.828) Oct, Acute sinusitis, recurrence not specified, unspecified location (ICD-10 - J01.90) Drink plenty fluids, get plenty of rest. Take the prednisone as prescribed until gone. Use the Flonase inhaler as prescribed until your symptoms improve. Take your cephalexin if no improvement in 2 to 3 days. Continue your home medications as prescribed. Follow-up with your family physician if no improvement in 3 to 4 days. Oct, Other Additional time spent conducting pre-visit phone call, screening for symptoms, instructions on social distancing, application and removal of PPE, and cleaning of examination room, equipment and supplies was preformed. Patient education given for testing methodology and results. Patient care instructions given in writting by [facility] Care At Home document. [facility] Other 10-28-2021 Evaluation note* Encounter Date Diagnosis Assessment Notes Treatment Notes Treatment Clinical Notes Jun, Irritable bowel syndrome with diarrhea (ICD-10 - K58.0) SEND SCRIPT FOR XIFAXAN 550 MG TID FOR 14 DAYS TO [facility] CONTINUE COLESTID DIRECTED RTO 4 WEEKS Jun, Abdominal pain (ICD-10 - R10.9) OBTAIN LABS FROM [facility] [employer] Other Evaluation + Plan note No data available for this section [facility] Evaluation + Plan note Future Appointments Appointment Date:08/29/2023 11:00:00 AM Scheduled Provider: Location:[facility] Appointment Type: Medicare Wellness Subsequent Appointment Date:12/25/2023 08:00:00 AM Scheduled Provider:[facility] Evaluation + Plan note Future Appointments Appointment Date:08/29/2023 11:00:00 AM Scheduled [facility]: Medicare Wellness Subsequent Appointment Date:12/25/2023 08:00:00 AM Scheduled Provider:Harry Owusu MD Location[facility] Future App[facility]ments Appointment Date:12/25/2023 08:00:00 AM Scheduled Provider:Harry Owusu MD [facility] Type: Open Appointment Date:08/18/2024 09:30:00 AM Scheduled Provider: Location:[facility] Appointment Type: Medicare Wellness Subsequent [facility] Evaluation + Plan note Future Appointments Appointment Date:06/24/2024 09:15:00 AM Scheduled Provider:Harry Owusu MD Location:[facility] Appointment Type: Open Appointment Date:08/19/2024 09:30:00 AM Scheduled Provider: Location:[facility] Appointment Type: Medicare Wellness [facility] Future App[facility]ments Appointment Date:12/25/2023 08:00:00 AM Scheduled Provider:Harry Owusu MD Location:[facility] Appointment Type: Open Appointment Date:08/18/2024 09:30:00 AM Scheduled Provider: Location:[facility] Appointment Type:FM Medicare Wellness Subsequent Diagnostic Tests Pending * HCV Antibody RFX to Quant PCR 08/29/23 [facility] Future App[facility]ments Appointment Date:12/23/2024 09:15:00 AM Scheduled Provider:Harry Owusu MD Location:[facility] Appointment Type: Open Appointment Date:08/22/2025 11:00:00 AM Scheduled Provider: Location:[facility] Appointment Type: Medicare Wellness Subsequent [facility] Evaluation + Plan note Future Appointments Appointment Date:04/08/2025 12:45:00 PM Scheduled Provider:Yung Valenzuela DO Location:[facility] Appointment Type:Pain Management - Follow Up (FT) Appointment Date:08/22/2025 11:00:00 AM Scheduled Provider: Location:[facility] Appointment Type: Medicare Wellness Subsequent Appointment Date:08/22/2025 11:40:00 AM Scheduled Provider:Harry Owusu MD Location:[facility] Appointment Type:[facility] Evjeration note* Diagnosis Lung nodules- Primary Other nonspecific abnormal finding of lung field [facility] Other Evaluation noteNo assessment information available [facility] Work Phone: Evaluation note* Diagnosis Onset Date Resolution Status Thyroid nodule acute [facility] Work Phone: Evaluation note* Diagnosis Other acute appendicitis- Primary Intra-abdominal and pelvic swelling, mass and lump, unspecified site documented in this encounter [facility] [place] [facility]* Diagnosis Lung nodules- Primary Other nonspecific abnormal finding of lung field Abdominal mass, unspecified abdominal location documented in this encounter [facility] [place] [facility]* Diagnosis Abdominal mass, unspecified abdominal location Lung nodules Other nonspecific abnormal finding of lung field Intra-abdominal and pelvic swelling, mass and lump, unspecified site documented in this encounter [facility] [place] [facility]* Diagnosis Other acute appendicitis documented in this encounter [facility] [place] [facility]* Diagnosis Intra-abdominal and pelvic swelling, mass and lump, unspecified site Lung nodules Other nonspecific abnormal finding of lung field documented in this encounter [facility]* Diagnosis Papillary microcarcinoma of thyroid (CMS/HCC)- Primary documented in this encounter [facility]* Diagnosis Papillary microcarcinoma of thyroid (CMS/HCC)- Primary documented in this encounter [facility] Healthcare[facility] note* Diagnosis History of left knee replacement- Primary Acute pain of left knee documented in this encounter [facility] Healthcare[facility] note* Diagnosis Acute pain of right knee- Primary Primary osteoarthritis of right knee documented in this encounter [facility] Healthcare[facility] note* Diagnosis Cystocele, midline- Primary Encounter for screening mammogram for malignant neoplasm of breast Osteoporosis, post-menopausal (CMS/HCC) Senile osteoporosis Pessary maintenance Fitting and adjustment of other device Rectocele Postmenopausal atrophic vaginitis documented in this encounter [facility] HealthcareEvaluation note* Diagnosis Aftercare following surgery Encounter for other specified aftercare documented in this encounter [facility] Narrative - Reported* Type Description Date Medical History Hypertension Medical History hypercholesterolemia Medical History kidney stones Medical History anemia Medical History Arthritis Medical History mitral valve regurgitation Medical History left knee replacement Surgical History cardiac catheterization Surgical History tubal ligation Surgical History knee surgery Surgical History lumpectomy Surgical History cholecystectomy Surgical History hysterectomy Surgical History colonoscopy Surgical History kidney stone Surgical History knee arthroscopy (left) Surgical History right ACL Surgical History left knee replacement Hospitalization History see above [facility] Other Hospital Discharge instructions No data available for this section [facility] Additional Instructions DISCHARGE INSTRUCTIONS FOR DILATION & CURETTAGE (D & C) -Today, outpatient surgery has become a vital link in the health care program. Outpatient D&C is a safe and common practice and this paper is designed to help you know what to expect when you go home and under what circumstances you should give me a call. I will have all of your labs and surgery reports for you when you come in for your follow-up. -To reach me in an emergency, call the office at [[phone]]. TODAY -Take it easy the rest of the day. If you have received a general anesthetic or injections to help you relax for the local procedure you should not drive a car for at least 8 hours after surgery to make sure all of the medication has worn off. ACTIVITIES -There are no restrictions on your normal activities. Generally, you may expect to go back to work the next day unless I have given you other instructions. You should shower daily and practice good personal habits to offset the chance of infection. Avoid intercourse for one week after your surgery and you should not douche. Most women experience minimal disruption of their normal routines. BLEEDING -The amount of bleeding after a D&C varies somewhat. Some women have very little requiring onlya light pad for a few days. Other women may bleed similar to a heavy period for a week or so. Do not be alarmed if you expel some clots. -If I have given you a prescription to control bleeding, get it filled on your way home, if possible, and take all the pills according to the directions on the bottle. These pills may increase the amount of your flow and give you cramping similar to first day menstrual cramps. Two Motrin every 6 hours or Anaprox every 12 hours and a heating pad should be sufficient to control any discomfort you may have. If your bleeding becomes bright red and becomes heavy enough that you have used one full pad an hour times 4 hours, I want you to give me a call. Also, if within the first week after surgery you experience chills, fever, and a change in the odor, color, or character of your drainage, you may be developing an infection and you should call me. You may expect your next period anywhere from 2 to 6 weeks after your D&C. CONTROL -Do not assume that you cannot get soon after a D&C. Practice your usual method of control beginning with the first time you have intercourse after you have surgery. If you are taking control pills, please continue them unless told otherwise. DIET -Any diet is permissible FOLLOW UP -Please call the office at [phone] to arrange an appointment to see me in [address] [employer] Work Phone: Progress note No data available for this section [facility] Reason for referral (narrative)No reason for referral information availableMercy Health St. [facility] Work Phone: Summary Purpose Family History No Family History Records Found Relationship Condition Age at Onset Recorded Date/T katarzyna Not Specified Diabetes mellitus Unknown Congestive heart failure Unknown Malignant neoplasm Unknown father Malignant neoplasm of prostate Unknown Heart problem Unknown sister Malignant neoplasm of thyroid gland Unkno wn Diabetes mellitus Unknown Myocardial infarction Unknown sister Malignant neoplasm of uterus Unknown Relationship Condition Age at Onset Recorded Date/T katarzyna Not Specified Diabetes mellitus Unknown Congestive heart failure Unknown Malignant neoplasm Unknown father Malignant neoplasm of prostate Unknown Heart problem Unknown sister Malignant neoplasm of thyroid gland Unkno wn Diabetes mellitus Unknown Myocardial infarction Unknown sister Malignant neoplasm of uterus Unknown father Unknown Not Specified Malignant neoplasm Unknown Heart disease Unknown Unknown Relationship Condition Age at Onset Recorded Date/T katarzyna mother Diabetes mellitus Unknown Congestive heart failure Unknown Malignant neoplasm Unknown father Malignant neoplasm of prostate Unknown Heart problem Unknown sister Malignant neoplasm of thyroid gland Unkno wn Diabetes mellitus Unknown Myocardial infarction Unknown sister Malignant neoplasm of uterus Unknown father Unknown mother Malignant neoplasm Unknown Heart disease Unknown Unknown Relationship Condition Age at Onset Recorded Date/T katarzyna mother Diabetes mellitus Unknown Congestive heart failure Unknown Unknown Heart disease Unknown father Malignant neoplasm of prostate Unknown Myocardial infarction Unknown sister Malignant neoplasm of thyroid gland Unkno wn Diabetes mellitus Unknown sister Malignant neoplasm of uterus Unknown brother History of heart surgery Unknown Relationship Condition Age at Onset Recorded Date/T katarzyna mother Diabetes mellitus Unknown Congestive heart failure Unknown Heart disease Unknown Unknown father Malignant neoplasm of prostate Unknown Myocardial infarction Unknown sister Malignant neoplasm of thyroid gland Unkno wn Diabetes mellitus Unknown Malignant neoplasm of uterus Unknown sister Malignant neoplasm of uterus Unknown brother History of heart surgery Unknown Advance Directives No Advanced Directives Records Found Advance Directive Response Recorded Date/ Time Advance Directives No July 03, 2020 12:05pm Advance Directive Response Recorded Date/ Time Advance Directives No July 03, 2020 11:05am Chief Complaint and Reason for Visit Chief Complaint c73 Chief Complaint C73 Chief Complaint C73 h/p papillary miccocarcinoma Reason for Visit Thyroid nodule Chief Complaint Thyroid Nodule Chief Complaint e04.1 Chief Complaint Admit Date c73 e04.1 October 19, 2024 7 :18am Chief Complaint Admit Date Rectocele March 31, 2025 10:4 6am Chief Complaint Admit Date Rectocele March 31, 2025 10:4 6am Rectocele April 14, 2025 6:04 am Reason for Referral Specialty Diagnoses / Procedures Referred By Clinton hdez Referred To Contact CT IMAGING Diagnoses Other acute appendicitis Procedures CT PELVIS W IVCON CT PELVIS W/CONTRAST MATERIAL Faraz Peña MD [address] [place] [id number] [id number] Referral ID Status Reason Start Date Expiration Date V isits Requested Visits Authorized [id number] Closed Auto-Generate d Referral 01/03/2022 01/26/2023 1 1 Specialty Diagnoses / Procedures Referred By Clinton t Referred To Contact CT IMAGING Diagnoses Lung nodules Procedures CT CHEST W IVCON DIAGNOSTIC COMPUTED TOMOGRAPHY THORAX W/CONTRAST Faraz Peña MD [address] [place] [address] [id number] Referral ID Status Reason Start Date Expiration Date V isits Requested Visits Authorized [id number] Closed Auto-Generate d Referral 01/02/2023 02/01/2023 1 1 Specialty Diagnoses / Procedures Referred By Clinton t Referred To Contact CT IMAGING Diagnoses Abdominal mass, unspecified abdominal location Procedures CT ABD/PEL W IVCON CT ABD & PELVIS W/CONTRAST Faraz Peña MD [address] [place] [address] [place] [address] Referral ID Status Reason Start Date Expiration Date V isits Requested Visits Authorized [id number] Closed Auto-Generate d Referral 01/02/2023 02/01/2023 1 1 Additional Source Comments INFORMATION SOURCE (unrecogn ized section and content) DATE CREATED AUTHOR 02/01/2019 [facility] DATE CREATED AUTHOR AUTHOR'S ORGANIZ ATION 12/29/2022 [facility] DATE CREATED AUTHOR AUTHOR'S ORGANIZ ATION 01/23/2023 [facility] DATE CREATED AUTHOR AUTHOR'S ORGANIZ ATION 05/18/2024 [facility] DATE CREATED AUTHOR AUTHOR'S ORGANIZ ATION 12/28/2024 [facility] DATE CREATED AUTHOR AUTHOR'S ORGANIZ ATION 03/16/2025 [facility] DATE CREATED AUTHOR AUTHOR'S ORGANIZ ATION 04/16/2025 [facility] DATE CREATED AUTHOR AUTHOR'S ORGANIZ ATION 04/26/2025 [facility] DATE CREATED AUTHOR AUTHOR'S ORGANIZ ATION 04/29/2025 [facility] EPIC Source Comments (unrecognize d section and content) In the event this informatio n is protected by the Federal Confidentiality of Alcohol and Drug Abuse Patient Records regulations: The Federal rules restrict any use of the information to criminally investigate or prosecute any alcohol or drug abuse patient.[facility] the event this information is protected by the Federal Confidentiality of Alcohol and Drug Abuse Patient Records regulations: The Federal rules restrict any use of the information to criminally investigate or prosecute any alcohol or drug abuse patient.[facility] North[facility] the event this information is protected by the Federal Confidentiality of Alcohol and Drug Abuse Patient Records regulations: The Federal rules restrict any use of the information to criminally investigate or prosecute any alcohol or drug abuse patient.[facility] North[facility] the event this information is protected by the Federal Confidentiality of Alcohol and Drug Abuse Patient Records regulations: The Federal rules restrict any use of the information to criminally investigate or prosecute any alcohol or drug abuse patient.[facility] NorthIn the event this information is protected by the Federal Confidentiality of Alcohol and Drug Abuse Patient Records regulations: The Federal rules restrict any use of the information to criminally investigate or prosecute any alcohol or drug abuse patient.[facility] NorthIn the event this information is protected by the Federal Confidentiality of Alcohol and Drug Abuse Patient Records regulations: The Federal rules restrict any use of the information to criminally investigate or prosecute any alcohol or drug abuse patient.[facility] NorthIn the event this information is protected by the Federal Confidentiality of Alcohol and Drug Abuse Patient Records regulations: The Federal rules restrict any use of the information to criminally investigate or prosecute any alcohol or drug abuse patient.[facility] NorthIn the event this information is protected by the Federal Confidentiality of Alcohol and Drug Abuse Patient Records regulations: The Federal rules restrict any use of the information to criminally investigate or prosecute any alcohol or drug abuse patient.[facility] NorthIn the event this information is protected by the Federal Confidentiality of Alcohol and Drug Abuse Patient Records regulations: The Federal rules restrict any use of the information to criminally investigate or prosecute any alcohol or drug abuse patient.[facility] NorthIn the event this information is protected by the Federal Confidentiality of Alcohol and Drug Abuse Patient Records regulations: The Federal rules restrict any use of the information to criminally investigate or prosecute any alcohol or drug abuse patient.[facility] NorthIn the event this information is protected by the Federal Confidentiality of Alcohol and Drug Abuse Patient Records regulations: The Federal rules restrict any use of the information to criminally investigate or prosecute any alcohol or drug abuse patient.[facility] Reason for Visit (unrecogniz ed section and content) Reason Comments Opened In Error Reason Comments Lab Orders Reason Comments Care Coordination scan results Reason Comments Referral Information General Surgery Reason Comments Orders Reason Comments Results Reason Comments lung nodules Follow up Reason Comments Radiology CT Specialty Diagnoses / Procedures Referred By Contac t Referred To Contact CT IMAGING Diagnoses Lung nodules Procedures CT CHEST W IVCON DIAGNOSTIC COMPUTED TOMOGRAPHY THORAX W/CONTRAST Faraz Peña MD [address] [place] [address] [place] [address] Referral ID Status Reason Start Date Expiration Date V isits Requested Visits Authorized [id number] Closed Auto-Generate d Referral 01/02/2023 02/01/2023 [address] Specialty Diagnoses / Procedures Referred By Contac t Referred To Contact CT IMAGING Diagnoses Other acute appendicitis Procedures CT PELVIS W IVCON CT PELVIS W/CONTRAST MATERIAL Faraz Peña MD [address] [place] [address] [place] [address] Referral ID Status Reason Start Date Expiration Date V isits Requested Visits Authorized [id number] Closed Auto-Generate d Referral 01/03/2022 01/26/2023 1 1 Specialty Diagnoses / Procedures Referred By Clinton t Referred To Contact CT IMAGING Diagnoses Lung nodules Procedures CT CHEST W IVCON CAT SCAN OF CHEST CONTRAST Faraz Peña MD [address] [place] [address] [place] [address] Referral ID Status Reason Start Date Expiration Date V isits Requested Visits Authorized [id number] Closed Auto-Generate d Referral 07/04/2021 08/03/2022 1 1 Reason Comments Thyroid Cancer 6 mo follow up with ultrasound Reason Comments Thyroid Cancer 6 month [place] [facility] [place] Reason Comments Pain Reason Comments Pain Reason Comments Gynecologic Exam Patient present for yearly, patient denies any issues or complaints at this time. 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 Patient states she has developed right hip pain and lower back pain. Reason Comments Post-op Visit Accompanied by Terrell baker nd.04-14-25 posterior [id number] daysStill bleeding- not gushing, but consistent. Bright red. Wears a light pad. Reports urgency, bladder not fully emptying. Has urinated in pad. Does not always make it to the bathroom. Care Teams (unrecognized sec tion and content) Team Status: Active Member Role Status Dates Salas Shabazz MD Primary Care Provider Active Team Status: Inactive Member Role Status Dates Salas Shabazz MD Primary Care Provider Active Chetan Soto Jr, MD Attending Provider Active Signalling And Communications Engineer Relationship Specialty Start Date End Date Salas Shabazz MD [address] [place] [address] PCP - General Family Practice 06/15/21 Signalling And Communications Engineer Relationship Specialty Start Date End Date Salas Shabazz MD [address] [place] [address] PCP - General Family Practice 06/15/21 Signalling And Communications Engineer Relationship Specialty Start Date End Date Salas Shabazz MD [address] [place] [address] PCP - General Family Medicine 06/15/21 Signalling And Communications Engineer Relationship Specialty Start Date End Date Salas Shabazz MD [address] [place] [address] PCP - General Family Medicine 06/15/21 Signalling And Communications Engineer Relationship Specialty Start Date End Date Salas Shabazz MD [address] [place] [address] PCP - General Family Medicine 06/15/21 Team Status: Active Member Role Status Dates Harry Owusu MD Primary Care Provider Active Team Status: Inactive Member Role Status Dates Chetan Soto Jr, MD Attending Provider Active Start: November 03, 2023 End: November 03, 2023 Harry Owusu MD Primary Care Provider Active Start: November 03, 2023 End: November 03, 2023 Team Status: Inactive Member Role Status Dates Harry Owusu MD Primary Care Provider Active Start: May 03, 2024 End: May 03, 2024 Chetan Soto Jr, MD Attending Provider Active Start: May 03, 2024 End: May 03, 2024 Signalling And Communications Engineer Relationship Specialty Start Date End Date Salas Shabazz MD [address] [place] [address] PCP - General Family Medicine 06/15/21 Signalling And Communications Engineer Relationship Specialty Start Date End Date Salas Shabazz MD [address] [place] [address] PCP - General Family Medicine 06/15/21 Signalling And Communications Engineer Relationship Specialty Start Date End Date Salas Shabazz MD [address] [place] [address] PCP - General Family Medicine 06/15/21 Signalling And Communications Engineer Relationship Specialty Start Date End Date Harry Owusu MD [address] [facility], [place] [id number] PCP - General Family Medicine 05/12/24 Signalling And Communications Engineer Relationship Specialty Start Date End Date Harry Owusu MD [address] [facility], [place] [id number] PCP - General Family Medicine 05/12/24 Team Status: Inactive Member Role Status Dates Harry Owusu MD Primary Care Provider Active Start: October 19, 2024 End: October 19, 2024 Chetan Soto Jr, MD Attending Provider Active Start: October 19, 2024 End: October 19, 2024 Signalling And Communications Engineer Relationship Specialty Start Date End Date Harry Owusu MD [address] [facility], [place] [id number] PCP - General Family Medicine 05/12/24 Signalling And Communications Engineer Relationship Specialty Start Date End Date Harry Owusu MD [address] [facility], [place] [id number] PCP - General Family Medicine 05/12/24 Signalling And Communications Engineer Relationship Specialty Start Date End Date Harry Owusu MD [address] [place] [facility] [address] PCP - General Family Medicine 05/12/24 Signalling And Communications Engineer Relationship Specialty Start Date End Date Harry Owusu MD [address] [facility], [place] [id number] PCP - General Family Medicine 05/12/24 Signalling And Communications Engineer Relationship Specialty Start Date End Date Harry Owusu MD [address] [place] [facility] [address] PCP - General Family Medicine 05/12/24 Signalling And Communications Engineer Relationship Specialty Start Date End Date Harry Owusu MD [address] [place] [address] PCP - General Family Medicine 05/12/24 Signalling And Communications Engineer Relationship Specialty Start Date End Date Harry Owusu MD [address] [place] [address] PCP - General Family Medicine 05/12/24 Team Status: Active Member Role Status Dates PHYSICIAN NO FAMILY Primary Care Provider Active Team Status: Inactive Member Role Status Dates Neto Horton DO Attending Provider Active Start: March 31, 2025 End: March 31, 2025 PHYSICIAN NO FAMILY Primary Care Provider Active Start: March 31, 2025 End: March 31, 2025 Team Status: Inactive Member Role Status Dates Neto Horton DO Attending Provider Active Start: April 14, 2025 End: April 14, 2025 PHYSICIAN NO FAMILY Primary Care Provider Active Start: April 14, 2025 End: April 14, 2025 Signalling And Communications Engineer Relationship Specialty Start Date End Date Harry Owusu MD [address] [place] [address] PCP - General Family Medicine 05/12/24 Goals (unrecognized section and content) Goals may be documented in a n alternate section FOR RECORDS PERTAINING TO PATIENTS WHO ARE OR HAVE BEEN ENROLLED IN A CHEMICAL DEPENDENCY/SUBSTANCEABUSE PROGRAM, SOME INFORMATION MAY BE OMITTED. This clinical summary was aggregated from multiple sources. Caution should be exercised in using it in the provision of clinical care. This summary normalizes information from multiple sources, and as a consequence, information in this document may materially change the coding, format and clinical context of patient data. In addition, data may be omitted in some cases. CLINICAL DECISIONS SHOULD BE BASED ON THE PRIMARY CLINICAL RECORDS. [employer] [facility]. provides no warranty or guarantee of the accuracy or completeness of information in this document.
== END 2025-05-02 07:58 | disposition home or self-care (01) ==
LOC: CARD 07:57
PROVIDERS: PCP Family Medicine; Visit Provider Internal Medicine Interventional Cardiology
DX: I34.0 Nonrheumatic mitral (valve) insufficiency (principal)
CPT/HCPCS: 93306